=== PATIENT | male | born 1935 | race African-American/Black ===

== ENCOUNTER 2018-04-17 08:13 | Day surgery (SDC) | payer MEDICARE ==
[2018-04-17] MEDS ORDERED: ACETAMINOPHEN 325 MG TABLET ONE (08:47)
[2018-04-17] MEDS ORDERED: DIPHENHYDRAMINE 50 MG/ML VIAL ONE (08:50)
[2018-04-17] MEDS ORDERED: NA CHLORIDE 0.9% 500 ML ONE (09:08)
[2018-04-17 17:21] LABS: Hematocrit 27.5 % (39.6-49.0)
== END 2018-04-17 17:00 | disposition home or self-care (01) ==
LOC: DS 08:13
PROVIDERS: ATTEND Internal Medicine Hematology & Oncology
DX: D64.9 Anemia, unspecified (principal); D46.9 Myelodysplastic syndrome, unspecified
CPT/HCPCS: 36415; 36430; 85014; 85018; 86850; 86900; 86901; P9016 ×2

== ENCOUNTER 2018-05-14 13:56 | Observation (INO) | payer MEDICARE ==
[2018-05-14 16:03] LABS: Absolute Lymphocytes (CBC) 0.8 K/uL (0.7-4.9); Absolute Monocytes 1.5 K/uL (0.1-1.3); Basophils % 1.2 % (0-1.3); Eosinophils % 1.3 % (0-4.4); Lymphocytes % 24.3 % (15.3-44.8); MCH 37.8 pg (27.0-35.0); MCV 109.8 fL (80-100); MPV 8.9 fL (7.6-11.3); Monocytes % 43.4 % (3.3-12.3); RBC Red Blood Cell Count 1.82 M/uL (4.33-5.43)
[2018-05-14 16:31] LABS: ALT/SGPT 13 U/L (12-78); AST/SGOT 19 U/L (15-37); Albumin 3.2 g/dL (3.4-5.0); Alkaline Phosphatase 61 U/L (45-117); BUN Blood Urea Nitrogen 8 mg/dL (7-18); Bicarbonate 31 mmol/L (21-32); Bilirubin Direct 0.2 mg/dL (0-0.2); Bilirubin Total 0.5 mg/dL (0.2-1.0); Glucose Level 107 mg/dL (74-106); Potassium 4.4 mmol/L (3.5-5.1); Protein, Total 8.3 g/dL (6.4-8.2); Sodium Level 141 mmol/L (136-145)
[2018-05-14 16:46] LABS: Urine Blood TRACE (NEG); Urine Glucose NEGATIVE (NEG); Urine Protein 1+ (NEG)
[2018-05-14 16:52] LABS: Anisocytosis 3+; Blood Morphology Comment NOTED (NOT SEEN); Macrocytosis 1+; Platelet Estimate ADEQ; Urine White Blood Cell Casts OK
[2018-05-14 16:53] LABS: Ovalocytes SLIGHT; Poikilocytosis 1+; Spherocyte 1+; Stomatocytes 1+
--- NOTE | 2018-05-14 18:45 | ER ---
Nurse's Notes [facility] Name: Vineet Freeman Age: 82 yrs Sex: Male : 1935 Arrival Date: 05/14/2018 Time: 13:59 Bed 17 Private MD: MADDIE PETERS Diagnosis: Anemia, unspecified Presentation: 05/14 14:01 Presenting complaint: Patient states: low hemoglobin level, sent by Dr Altamirano. Transition sv of care: patient was not received from another setting of care. Onset of symptoms was May 14, 2018. Care prior to arrival: None. 14:01 Method Of Arrival: Wheelchair sv 14:01 Acuity: VEDA 3 sv 14:06 Risk Assessment: Do you want to hurt yourself or someone else? Patient reports no rb1 desire to harm self or others. Initial Sepsis Screen: Does the patient meet any 2 criteria? No. Patient's initial sepsis screen is negative. Does the patient have a suspected source of infection? No. Patient's initial sepsis screen is negative. Historical: - Allergies: 14:02 No Known Allergies; sv - Home Meds: 14:06 amlodipine 5 mg tab 1 tab once daily [Active]; colchicine 0.6 mg Oral tab 1 tab 2 times rb1 per day [Active]; folic acid 1 mg Oral tab 1 tab once daily [Active]; metoprolol tartrate 25 mg Oral tab 1 tab 2 times per day [Active]; Metoprolol Tartrate Oral [Active]; omeprazole 20 mg Oral cpDR 1 cap once daily [Active]; tramadol 50 mg Oral tab 1 tab every 6 hours [Active]; - PMHx: 14:02 Anemia; Chronic pain; Gout; Hypertension; insomnia; sv 14:06 Leukemia; rb1 - PSHx: 14:06 Neck; Back; rb1 - Immunization history:: Flu vaccine is not up to date. - Social history:: Smoking status: Patient/guardian denies using tobacco. - Ebola Screening: : No symptoms or risks identified at this time. Screenin:06 Abuse screen: Denies threats or abuse. Nutritional screening: No deficits noted. rb1 Tuberculosis screening: No symptoms or risk factors identified. Fall Risk No fall in past 12 months (0 pts). Assessment: 14:06 General: Appears in no apparent distress. comfortable, Behavior is calm, cooperative, rb1 Denies fever. Pain: Denies pain. Neuro: Level of Consciousness is awake, alert, obeys commands, Oriented to person, place, time, situation. Cardiovascular: Capillary refill < 3 seconds is brisk in bilateral fingers. Respiratory: Airway is patent Respiratory effort is even, unlabored, Respiratory pattern is regular, symmetrical. Respiratory: Reports cough that is dry. GI: No signs and/or symptoms were reported involving the gastrointestinal system. : No signs and/or symptoms were reported regarding the genitourinary system. Derm: Skin is dry, Skin is normal, Skin temperature is warm. 14:06 Musculoskeletal: Range of motion: limited in neck. rb1 15:00 Reassessment: Patient appears in no apparent distress at this time. No changes from rb1 previously documented assessment. 16:00 Reassessment: Patient appears in no apparent distress at this time. Patient and/or rb1 family updated on plan of care and expected duration. Pain level reassessed. Patient is alert, oriented x 3, equal unlabored respirations, skin warm/dry/pink. Patient denies pain at this time. 17:00 Reassessment: Patient appears in no apparent distress at this time. No changes from rb1 previously documented assessment. Provider at bedside. 18:20 Reassessment: Pt. expressed concern about not having transportation home after the rb1 infusion tonight. Pt. would like to be discharged this evening and come back in the morning for the transfusion. VEL Gibbs was notified. 18:31 Reassessment: VEL Gibbs spoke to Dr. Altamirano and explained the concern of the pt. Dr. watson Altamirano wants the pt. to be admitted to receive the transfusion tonight per VEL Gibbs. Pt. was updated on POC and agreed to be admitted. 18:36 Reassessment: Called Ashley, girlfriend of Mr. Freeman at per pt request to [facility] inform her that the pt. was being admitted so he can received two units of blood. Vital Signs: 14:03 BP 155 / 6; Pulse 67; Resp 18; Pulse Ox 94% ; Weight 84.37 kg; Height 5 ft. 10 in. sv (177.80 cm); Pain 0/10; 15:00 BP 149 / 52; Pulse 53; Resp 17; Pulse Ox 96% on R/A; Pain 0/10; rb1 16:00 BP 156 / 50; Pulse 47; Resp 18; Pulse Ox 95% on R/A; rb1 17:00 BP 163 / 51; Pulse 55; Resp 17; Pulse Ox 93% on R/A; rb1 18:00 BP 142 / 70; Pulse 75; Resp 17; Pulse Ox 95% on R/A; Pain 0/10; rb1 18:45 BP 140 / 41; Pulse 51; Resp 16; Pulse Ox 96% on R/A; rb1 14:03 Body Mass Index 26.69 (84.37 kg, 177.80 cm) ED Course: 13:59 Patient arrived in ED. sb2 13:59 MADDIE PETERS is Private Physician. sb2 14:02 Triage completed. sv 14:03 Arm band placed on. sv 14:04 Solitario Gibbs NP is PHCP. pm1 14:04 Kameron Marshall MD is Attending Physician. pm1 14:06 Patient has correct armband on for positive identification. Placed in gown. Bed in low rb1 position. Call light in reach. Side rails up X 1. Pulse ox on. NIBP on. 14:34 Radha Franco, RN is Primary Nurse. rb1 15:15 Missed attempt(s): 22 gauge in left forearm. Labs collected by oh.. rb1 15:20 Inserted saline lock: 20 gauge in left forearm, using aseptic technique. ,using aseptic rb1 technique. Inserted by NABILA Henry. 16:50 Type And Screen Sent. rb1 18:44 Malcolm Zamora MD is Hospitalizing Provider. pm1 19:00 Report given to KYLEE Guevara. rb1 20:15 No provider procedures requiring assistance completed. Patient admitted, IV remains in ak1 place. Administered Medications: No medications were administered Outcome: 18:44 Decision to Hospitalize by Provider. pm1 20:16 Admitted to Med/surg accompanied by nurse, accompanied by tech, via stretcher, room ak1 427, with chart. 20:16 Condition: good 20:16 Instructed on the need for admit. 20:44 Patient left the ED. ak1 Signatures: Jessie Jones RN RN Paola Salcedo RN RN ak1 Radha Franco, KYLEE PICHARDO rb1 Solitario Gibbs NP TIN STACKER pm1 Priscila White sb2
--- NOTE | 2018-05-14 18:45 | EDPHYS ---
Physician Documentation [facility] Name: Vineet Freeman Age: 82 yrs Sex: Male : 1935 Arrival Date: 05/14/2018 Time: 13:59 Bed 17 Private MD: MADDIE PETERS ED Physician Kameron Marshall HPI: 05/14 17:14 This 82 yrs old Black Male presents to ER via Wheelchair with complaints of Abnormal pm1 Lab Results. 17:14 Patient with low hemoglobin levels according to Dr. Altamirano. Severity of symptoms: Pain is pm1 currently a 0 / 10. Patient had his labs drawn yesterday and was told today that his hemoglobin level is low by Dr. Altamirano. Patient sent here for evaluation and treatment. Patient does not have any symptoms of anemia. No headache, weakness, chest pain, or shortness of breath. Patient denies any dark or tarry stool. Historical: - Allergies: 14:02 No Known Allergies; sv - Home Meds: 14:06 amlodipine 5 mg tab 1 tab once daily [Active]; colchicine 0.6 mg Oral tab 1 tab 2 times rb1 per day [Active]; folic acid 1 mg Oral tab 1 tab once daily [Active]; metoprolol tartrate 25 mg Oral tab 1 tab 2 times per day [Active]; Metoprolol Tartrate Oral [Active]; omeprazole 20 mg Oral cpDR 1 cap once daily [Active]; tramadol 50 mg Oral tab 1 tab every 6 hours [Active]; - PMHx: 14:02 Anemia; Chronic pain; Gout; Hypertension; insomnia; sv 14:06 Leukemia; rb1 - PSHx: 14:06 Neck; Back; rb1 - Immunization history:: Flu vaccine is not up to date. - Social history:: Smoking status: Patient/guardian denies using tobacco. - Ebola Screening: : No symptoms or risks identified at this time. ROS: 17:14 Constitutional: Negative for fever, chills, and weight loss, Eyes: Negative for injury, pm1 pain, redness, and discharge, ENT: Negative for injury, pain, and discharge, Neck: Negative for injury, pain, and swelling, Cardiovascular: Negative for chest pain, palpitations, and edema, Respiratory: Negative for shortness of breath, cough, wheezing, and pleuritic chest pain, Abdomen/GI: Negative for abdominal pain, nausea, vomiting, diarrhea, and constipation, Back: Negative for injury and pain, MS/Extremity: Negative for injury and deformity, Skin: Negative for injury, rash, and discoloration, Neuro: Negative for headache, weakness, numbness, tingling, and seizure. Exam: 17:14 Constitutional: This is a well developed, well nourished patient who is awake, alert, pm1 and in no acute distress. Head/Face: Normocephalic, atraumatic. Eyes: Pupils equal round and reactive to light, extra-ocular motions intact. Lids and lashes normal. Conjunctiva and sclera are non-icteric and not injected. Cornea within normal limits. Periorbital areas with no swelling, redness, or edema. ENT: Nares patent. No nasal discharge, no septal abnormalities noted. Tympanic membranes are normal and external auditory canals are clear. Oropharynx with no redness, swelling, or masses, exudates, or evidence of obstruction, uvula midline. Mucous membranes moist. Neck: Trachea midline, no thyromegaly or masses palpated, and no cervical lymphadenopathy. Supple, full range of motion without nuchal rigidity, or vertebral point tenderness. No Meningismus. Chest/axilla: Normal chest wall appearance and motion. Nontender with no deformity. No lesions are appreciated. Cardiovascular: Regular rate and rhythm with a normal S1 and S2. No gallops, murmurs, or rubs. Normal PMI, no JVD. No pulse deficits. Respiratory: Lungs have equal breath sounds bilaterally, clear to auscultation and percussion. No rales, rhonchi or wheezes noted. No increased work of breathing, no retractions or nasal flaring. Abdomen/GI: Soft, non-tender, with normal bowel sounds. No distension or tympany. No guarding or rebound. No evidence of tenderness throughout. Back: No spinal tenderness. No costovertebral tenderness. Full range of motion. MS/ Extremity: Pulses equal, no cyanosis. Neurovascular intact. Full, normal range of motion. 17:14 Skin: Appearance: normal except for affected area, Color: pale. 17:14 Neuro: Orientation: is normal, Motor: is normal, moves all fours. Vital Signs: 14:03 BP 155 / 6; Pulse 67; Resp 18; Pulse Ox 94% ; Weight 84.37 kg; Height 5 ft. 10 in. sv (177.80 cm); Pain 0/10; 15:00 BP 149 / 52; Pulse 53; Resp 17; Pulse Ox 96% on R/A; Pain 0/10; rb1 16:00 BP 156 / 50; Pulse 47; Resp 18; Pulse Ox 95% on R/A; rb1 17:00 BP 163 / 51; Pulse 55; Resp 17; Pulse Ox 93% on R/A; rb1 18:00 BP 142 / 70; Pulse 75; Resp 17; Pulse Ox 95% on R/A; Pain 0/10; rb1 18:45 BP 140 / 41; Pulse 51; Resp 16; Pulse Ox 96% on R/A; rb1 14:03 Body Mass Index 26.69 (84.37 kg, 177.80 cm) sv MDM: 14:05 Patient medically screened. pm1 17:19 Physician consultation: Maya Keating MD was called at 17:10. pm1 18:15 Data reviewed: vital signs. pm1 18:15 Physician consultation: Maya Keating MD was contacted at 18:00, regarding pm1 consult, patient's condition, Dr Altamirano discussed with Dr. Marshall, wants two units PRBCs then discharge. 18:31 Physician consultation: Maya Keating MD was contacted at 18:31, regarding pm1 patient's condition, would like admission per Dr. Malcolm Zamora MD Wants patient admitted for observation for transfusion of 2 units of blood. She will be out of town tomorrow but Dr. Nielson will be available as needed. 19:08 Physician consultation: Malcolm Zamora MD was contacted at 19:09, regarding admission, pm1 patient's condition, and will see patient. 05/14 14:13 Order name: Basic Metabolic Panel; Complete Time: 17:06 pm1 05/14 14:13 Order name: CBC with Diff; Complete Time: 17:06 pm1 05/14 14:13 Order name: Hepatic Function; Complete Time: 17:06 pm1 05/14 16:04 Order name: Urine Dipstick--Ancillary (enter results); Complete Time: 17:06 eb 05/14 16:09 Order name: Type And Screen pm1 05/14 16:30 Order name: CBC Smear Scan; Complete Time: 17:06 EDMS 05/14 14:13 Order name: IV Saline Lock; Complete Time: 15:21 pm1 05/14 14:13 Order name: Labs collected and sent; Complete Time: 15:21 pm1 05/14 14:13 Order name: Urine Dipstick-Ancillary (obtain specimen); Complete Time: 17:28 pm1 05/14 15:41 Order name: Labs - recollect needed; Complete Time: 15:50 eb 05/14 17:37 Order name: Packed RBC Leukored -1 EDVA Administered Medications: No medications were administered Disposition: 05/14/18 18:44 Hospitalization ordered by Malcolm Zamora for Observation. Preliminary diagnosis is Anemia, unspecified. - Bed requested for Telemetry/MedSurg (observation). - Status is Observation. ak1 - Condition is Stable. - Problem is new. - Symptoms have improved. UTI on Admission? No Addendum: 05/16/2018 13:34 Co-signature as Attending Physician, Kameron Marshall MD I agree with the assessment and k dr plan of care. Signatures: Dispatcher [employer] [facility] Jessie Jones, RN RN Kameron Marshall MD MD [facility] Juani Tijerina RN RN iw Paola Salcedo RN RN ak1 Radha Franco RN RN rb1 Solitario Gibbs NP HOMICIDE INVESTIGATOR pm1 Kailey Cueto Corrections: (The following items were deleted from the chart) 05/14 19:06 18:31 Physician consultation: Maya Keating MD was contacted at 18:31, pm1 regarding patient's condition, would like admission per Dr. Malcolm Zamora MD Wants patient admitted for observation for transfusion of 2 units of blood, pm1 19:19 18:44 Hospitalization Ordered by Malcolm Zamora MD for Observation. Preliminary iw diagnosis is Anemia, unspecified. Bed requested for Telemetry/MedSurg (observation). Status is Observation. Condition is Stable. Problem is new. Symptoms have improved. UTI on Admission? No. pm1 20:44 19:19 05/14/2018 18:44 Hospitalization Ordered by Malcolm Zamora MD for Observation. ak1 Preliminary diagnosis is Anemia, unspecified. Bed requested for Telemetry/MedSurg (observation). Status is Observation. Condition is Stable. Problem is new. Symptoms have improved. UTI on Admission? No. iw
[2018-05-14] MEDS ORDERED: NA CHLORIDE 0.9% 250 ML ONE (19:16)
[2018-05-14] MEDS ORDERED: ONDANSETRON 4 MG/2 ML VIAL IV PRN (19:47)
[2018-05-14] MEDS ORDERED: MORPHINE 2 MG/ML SYR IV PRN (19:47)
[2018-05-14] MEDS ORDERED: FUROSEMIDE 20 MG/ 2ML VIAL IV ONE (19:47)
[2018-05-14] MEDS ORDERED: ACETAMINOPHEN 500 MG TAB PO PRN (19:47)
[2018-05-14] MEDS ORDERED: NA CHLORIDE 0.9% 250 ML IV SCH (20:00)
[2018-05-14 20:47] VITALS: BMI 27.3
[2018-05-14] MEDS: PANTOPRAZOLE 40 MG INJ IVP SCH (21:33)
[2018-05-15 05:25] LABS: Absolute Lymphocytes (CBC) 1.2 K/uL (0.7-4.9); Absolute Neutrophil 0.8 K/uL (1.8-8.0); Basophils % 1.3 % (0-1.3); Eosinophils % 2.1 % (0-4.4); Hematocrit 25.1 % (39.6-49.0); Lymphocytes % 29.2 % (15.3-44.8); MCV 103.2 fL (80-100); MPV 8.9 fL (7.6-11.3); Monocytes % 47.4 % (3.3-12.3); RBC Red Blood Cell Count 2.44 M/uL (4.33-5.43)
[2018-05-15 05:48] LABS: BUN Blood Urea Nitrogen 8 mg/dL (7-18); Bicarbonate 33 mmol/L (21-32); Glucose Level 92 mg/dL (74-106); Sodium Level 141 mmol/L (136-145)
[2018-05-15] MEDS ORDERED: MORPHINE 4 MG/ML SYR IV PRN (07:30)
[2018-05-15] MEDS ORDERED: INFLUENZA VACCINE (for 3y+) 0.5 ML DOSE IMVAC ONE (08:00)
[2018-05-15] MEDS ORDERED: FUROSEMIDE 20 MG/ 2ML VIAL IV ONE (08:02)
[2018-05-15] MEDS ORDERED: AMLODIPINE 10 MG TAB PO ONE (08:02)
--- NOTE | 2018-05-15 08:07 | P.HP ---
Certification for Inpatient Patient admitted to: Observation With expected LOS: <2 Midnights Patient will require the following post-hospital care: None Practitioner: I am a practitioner with admitting privileges, knowledge of patient current condition, hospital course, and medical plan of care. Services: Services provided to patient in accordance with Admission requirements found in Title 42 Section 412.3 of the Code of Federal Regulations Patient History Date of Service: 05/14/18 Reason for admission: Anemia History of Present Illness: Patient is an 82-year-old gentleman who came into the hospital for a blood transfusion. Patient has multiple antibodies and because he was so severely anemic it was decided that it would be best to have him admitted for observation. Patient was lightheaded and fatigued as well as short of breath. Otherwise patient denies any signs of active bleeding. We have gone ahead and typed and crossed him and will wait for transfusion. Anticipate discharge home after transfusion. Allergies No Known Allergies Allergy (Unverified 12/26/16 21:13) Home Medications: Allopurinol 100 mg PO DAILY #30 tablet 12/27/16 Cyanocobalamin (Vitamin B-12) [Vitamin B-12] 1,000 mcg PO DAILY #30 tablet 12/27 Amlodipine Besylate [Norvasc] 5 mg PO DAILY #30 tablet 12/28/16 Docusate [Colace Cap*] 1 tab PO DAILY PRN 05/14/18 Magnesium Oxide [Magnesium] 1 tab PO DAILY 05/14/18 - Past Medical/Surgical History Has patient received pneumonia vaccine in the past: Yes Diabetic: No -: Hypertension -: Gout -: Borderline diabetes -: Obesity -: Iron deficiency anemia -: Chronic back pain -: leukemia -: Spinal Fusion-2004 Psychosocial/ Personal History: The patient is . He has 3 children. He lives with a girlfriend. He no longer works. - Family History Father Family History: Reviewed- Non-Contributory - Social History Smoking Status: Former smoker Alcohol use: No CD- Drugs: No Caffeine use: Yes Place of Residence: Home Review of Systems 10-point ROS is otherwise unremarkable Physical Examination - Vital Signs Temperature: 98.4 F Blood Pressure: 165/66 Pulse: 52 Respirations: 18 Pulse Ox (%): 96 - Physical Exam General: Alert, In no apparent distress, Oriented x3 HEENT: Atraumatic, PERRLA, Mucous membr. moist/pink, EOMI, Sclerae nonicteric Neck: Supple, 2+ carotid pulse no bruit, No LAD, Without JVD or thyroid abnormality Respiratory: Clear to auscultation bilaterally, Normal air movement Cardiovascular: Regular rate/rhythm, Normal S1 S2, No murmurs Gastrointestinal: Normal bowel sounds, Soft and benign, Non-distended, No tenderness, No rebound, No guarding Musculoskeletal: No clubbing, No swelling, No tenderness Integumentary: No rashes Neurological: Normal gait, Normal speech, Normal strength at 5/5 x4 extr, Normal tone, Sensation intact, Cranial nerves 3-12 intact, Normal affect Lymphatics: No axilla or inguinal lymphadenopathy - Studies Laboratory Data (last 24 hrs) 05/14/18 15:48: WBC 3.4 L, Hgb 6.9 L*, Hct 20.0 L*, Plt Count 159 05/14/18 15:15: Sodium 141, Potassium 4.4, BUN 8, Creatinine 0.60, Glucose 107 H , Total Bilirubin 0.5, AST 19, ALT 13, Alkaline Phosphatase 61 Assessment & Plan - Problems (Diagnosis) (1) Anemia Onset Date: 12/27/16 Current Visit: No Status: Acute Qualifiers: Anemia type: iron deficiency (2) Alcohol abuse Onset Date: 12/27/16 Current Visit: No Status: Chronic (3) B12 deficiency Onset Date: 12/27/16 Current Visit: No Status: Chronic (4) Chronic back pain Onset Date: 12/27/16 Current Visit: No Status: Chronic (5) Gout Onset Date: 12/27/16 Current Visit: No Status: Chronic Qualifiers: (6) Hypertension Onset Date: 12/27/16 Current Visit: No Status: Chronic Qualifiers: (7) Obesity Onset Date: 12/27/16 Current Visit: No Status: Chronic - Plan Plan: 1. Transfuse 2 units of packed red blood cells 2. Plan of discharge after transfusion next 3. Monitor hemodynamics closely 4. Monitor symptoms closely as well and anticipate discharge home as long as symptoms have resolved and blood count is improved. Discharge Plan: Home Plan to discharge in: 24 Hours - Advance Directives Does patient have a Living Will: No Does patient have a Durable POA for Healthcare: Yes - Code Status/Comfort Care Code Status Assessed: Yes Code Status: Full Code Critical Care: No Time Spent Managing PTS Care (In Minutes): 50
[2018-05-15] MEDS: PANTOPRAZOLE 40 MG INJ IVP SCH (08:13)
[2018-05-15 12:16] VITALS: BP 158/65; O2SAT 91
[2018-05-15 12:25] VITALS: TEMP 99
== END 2018-05-15 12:12 | disposition home health service (06) ==
LOC: ER 13:56 → ERHOLD 19:16 → 4TH 20:04
PROVIDERS: ADMIT Hospitalist; ATTEND Hospitalist
PROC: 30233N1 Transfusion of Nonautologous Red Blood Cells into Peripheral Vein, Percutaneous Approach (ICD-10-PCS; principal; 2018-05-14)
DX: D50.9 Iron deficiency anemia, unspecified (principal); E53.8 Deficiency of other specified B group vitamins; I10 Essential (primary) hypertension; M10.9 Gout, unspecified; F10.10 Alcohol abuse, uncomplicated; M54.9 Dorsalgia, unspecified; E66.9 Obesity, unspecified; Z68.27 Body mass index [BMI] 27.0-27.9, adult; Z23 Encounter for immunization
CPT/HCPCS: 36415; 36430; 80048 ×2; 80076; 81003; 85025 ×2; 86850; 86900; 86901; 99285; C9113 ×2; G0008; J1940 ×2; P9016 ×2; Q2035

== ENCOUNTER 2018-06-19 08:10 | Day surgery (SDC) | payer MEDICARE ==
[2018-06-19] MEDS ORDERED: NA CHLORIDE 0.9% 250 ML ONE ×2 (09:25→12:25)
[2018-06-19 15:09] VITALS: BMI 26.8
[2018-06-19 16:27] LABS: Hematocrit 24.2 % (39.6-49.0)
[2018-06-19 17:36] VITALS: BP 139/46; TEMP 98.1; O2SAT 98
== END 2018-06-19 16:00 | disposition home or self-care (01) ==
LOC: DS 08:10
PROVIDERS: ATTEND Internal Medicine Hematology & Oncology
DX: D64.9 Anemia, unspecified (principal); D46.9 Myelodysplastic syndrome, unspecified
CPT/HCPCS: 36415; 36430; 85014; 85018; 86850; 86900; 86901; P9016 ×2

== ENCOUNTER 2018-07-15 08:15 | Day surgery (SDC) | payer MEDICARE ==
--- OUTSIDE RECORDS SUMMARY | 2018-07-15 08:19 | XMS REPORT ---
:1935 Author Organization [facility] Address [facility] [place] [address] Care Team Providers Name Role Phone Unavailable Unavailable Unavailable Problems This patient has no known problems. Allergies, Adverse Reactions, Alerts This patient has no known allergies or adverse reactions. Medications This patient has no known medications.
[2018-07-15] MEDS ORDERED: NA CHLORIDE 0.9% 250 ML ONE ×2 (08:40→08:51)
[2018-07-15] MEDS ORDERED: AMLODIPINE 5 MG TAB PO ONE (10:00)
[2018-07-15 10:06] VITALS: BMI 26.9
[2018-07-15 16:20] VITALS: BP 155/53; TEMP 97.6; O2SAT 96
[2018-07-15 18:14] LABS: Hematocrit 22.3 % (39.6-49.0)
== END 2018-07-15 18:01 | disposition home or self-care (01) ==
LOC: DS 08:15
PROVIDERS: ATTEND Internal Medicine Hematology & Oncology
DX: D46.9 Myelodysplastic syndrome, unspecified (principal); D64.9 Anemia, unspecified
CPT/HCPCS: 36415; 36430; 85014; 85018; 86850; 86900; 86901; P9016 ×2

== ENCOUNTER 2018-07-22 13:35 | Inpatient (IN) | payer MEDICARE ==
[2018-07-22 15:22] LABS: Protime INR 1.53
--- NOTE | 2018-07-22 15:24 | RAD REPORT ---
EXAM DESCRIPTION: RAD - Chest Single View - 07/22/2018 3:16 pm CLINICAL HISTORY: CHEST PAIN Chest pain. COMPARISON: Chest Single View dated 12/26/2016 FINDINGS: Portable technique limits examination quality. Mild interstitial pulmonary edema seen. Moderate bilateral pleural effusions are present, greater on the right. The heart is upper limit normal in size. No displaced fractures. IMPRESSION: Moderate CHF versus volume overload pattern.
[2018-07-22 15:30] LABS: Absolute Lymphocytes (CBC) 0.7 K/uL (0.7-4.9); Absolute Monocytes 2.1 K/uL (0.1-1.3); Absolute Neutrophil 1.6 K/uL (1.8-8.0); Basophils % 0.6 % (0-1.3); Eosinophils % 0.5 % (0-4.4); Hematocrit 21.3 % (39.6-49.0); Lymphocytes % 16.5 % (15.3-44.8); MPV 9.2 fL (7.6-11.3); Monocytes % 47.8 % (3.3-12.3); RBC Red Blood Cell Count 2.01 M/uL (4.33-5.43)
[2018-07-22 15:33] LABS: Urine Blood 1+ (NEG); Urine Glucose NEGATIVE (NEG); Urine Protein 2+ (NEG); Urine Specific Gravity 1.025 (1.005-1.030); Urine pH 5.5 (5.0-7.0)
[2018-07-22 15:44] LABS: ALT/SGPT 13 U/L (12-78); AST/SGOT 13 U/L (15-37); Albumin 2.9 g/dL (3.4-5.0); Alkaline Phosphatase 62 U/L (45-117); BUN Blood Urea Nitrogen 12 mg/dL (7-18); Bicarbonate 39 mmol/L (21-32); Bilirubin Direct 0.4 mg/dL (0-0.2); Glucose Level 104 mg/dL (74-106); Magnesium 1.8 mg/dL (1.8-2.4); NT PRO-BNP 2200 pg/mL (<450); Potassium 3.8 mmol/L (3.5-5.1); Protein, Total 8.3 g/dL (6.4-8.2); Sodium Level 139 mmol/L (136-145); Troponin (Emerg Dept Use Only) 0.11 ng/mL (0.0-0.045)
--- NOTE | 2018-07-22 16:41 | ER ---
Nurse's Notes [facility] Name: Vineet Freeman Age: 82 yrs Sex: Male : 1935 Arrival Date: 07/22/2018 Time: 13:38 Bed 8 Private MD: Diagnosis: Anemia, unspecified;Shortness of breath Presentation: 07/22 13:38 Presenting complaint: Patient states: I have CHF and Leukemia and I have been getting la1 really SOB over the last day, EMS reports pt on home 02 at 2L and his sats were 76%. Transition of care: patient was not received from another setting of care. Onset of symptoms was July 22, 2018. Risk Assessment: Do you want to hurt yourself or someone else? Patient reports no desire to harm self or others. Initial Sepsis Screen: Does the patient meet any 2 criteria? No. Patient's initial sepsis screen is negative. Does the patient have a suspected source of infection? No. Patient's initial sepsis screen is negative. Care prior to arrival: IV initiated. 18 GA, in the right antecubital area. 13:38 Method Of Arrival: EMS: [facility] la1 13:38 Acuity: VEDA 2 la1 Triage Assessment: 14:30 General: Behavior is calm, cooperative, appropriate for age. General: Appears in no sg apparent distress. comfortable, unkempt, well developed, well nourished. Pain: Denies pain. Respiratory: the patient has moderate shortness of breath. Respiratory: Airway is patent Respiratory effort is even, labored, Respiratory pattern is regular. Respiratory: Breath sounds with crackles in left posterior lower lobe and right posterior lower lobe. Derm: Skin is intact, is fragile, is thin, Skin is dry, Skin is normal, Skin temperature is cool. Historical: - Allergies: 13:40 No Known Allergies; la1 - PMHx: 13:40 Anemia; Chronic pain; Gout; Hypertension; insomnia; Leukemia; CHF; la1 - Immunization history:: Adult Immunizations up to date. - Social history:: Smoking status: unknown. - Ebola Screening: : No symptoms or risks identified at this time. Screenin:41 Abuse screen: Denies threats or abuse. Nutritional screening: No deficits noted. la1 Tuberculosis screening: No symptoms or risk factors identified. Fall Risk No fall in past 12 months (0 pts). Secondary diagnosis (15 points) IV access (20 points). Ambulatory Aid- None/Bed Rest/Nurse Assist (0 pts). Gait- Weak (10 pts.). Mental Status- Oriented to own ability (0 pts). Total Carey Fall Scale indicates High Risk Score (45 or more points). As available patient and family educated on Fall Prevention Program and Strategies. Assessment: 14:30 Reassessment: Patient appears in no apparent distress at this time. Patient and/or sg family updated on plan of care and expected duration. Pain level reassessed. Patient is alert, oriented x 3, equal unlabored respirations, skin warm/dry/pink. pt reports needing a urinal, pt call light remains within reach,pt educated on how to use call light, pt encouraged to utilized call light and not shout aloud, pt stated understanding. Awaiting ERP evaluation Patient states feeling better. General: Appears in no apparent distress. comfortable, unkempt, well developed, well nourished, Behavior is calm, cooperative, appropriate for age. Neuro: No deficits noted. Cardiovascular: Capillary refill is brisk in bilateral fingers Patient's skin is warm and dry. Chest pain is denied. Respiratory: Airway is patent Respiratory effort is even, unlabored, Breath sounds are coarse. Respiratory: Reports shortness of breath at rest on exertion. GI: No signs and/or symptoms were reported involving the gastrointestinal system. : No signs and/or symptoms were reported regarding the genitourinary system. EENT: No signs and/or symptoms were reported regarding the EENT system. Derm: Skin is fragile, is thin, Skin is dry, Skin is normal, Skin temperature is warm. Musculoskeletal: No signs and/or symptoms reported regarding the musculoskeletal system. 16:23 Reassessment: Patient appears in no apparent distress at this time. Patient and/or sg family updated on plan of care and expected duration. Pain level reassessed. Patient is alert, oriented x 3, equal unlabored respirations, skin warm/dry/pink. pt reports feeling hungry at this time, notified, orders received for a HH diet at this time, awaiting dietary tray from [facility] services, awaiting dispo orders at this time, will continue to monitor. Vital Signs: 13:39 BP 149 / 60; Pulse 58; Resp 18; Temp 97.7; Pulse Ox 98% 3 lpm ; Weight 87.09 kg; Height la1 5 ft. 10 in. (177.80 cm); 14:46 BP 148 / 53; Pulse 62; Resp 24; Pulse Ox 98% ; sv 15:40 BP 152 / 51; Pulse 55; Resp 23; Pulse Ox 97% ; sv 18:04 BP 144 / 56; Pulse 99; Resp 18 S; Temp 97.9; Pulse Ox 99% on 3 lpm NC; sg 13:39 Body Mass Index 27.55 (87.09 kg, 177.80 cm) la1 ED Course: 13:38 Patient arrived in ED. la1 13:39 Triage completed. la1 13:39 Arm band placed on left wrist. la1 13:41 Bed in low position. Call light in reach. Side rails up X 1. personnel arbitrator on. Pulse la1 ox on. NIBP on. 13:41 Maintain EMS IV. Dressing intact. Gauge \T\ site: 18 G rac. la1 13:48 Chano Bullard, RN is Primary Nurse. sg 14:10 EKG done, by electrical design technologist. reviewed by Kameron Marshall MD. at1 14:40 Initial lab(s) drawn, by az, sent to lab. sg 14:50 Kameron Marshall MD is Attending Physician. kdr 15:13 X-ray completed. Portable x-ray completed in exam room. Patient tolerated procedure sg4 well. 15:18 XRAY Chest (1 view) In Process Unspecified. EDMS 16:40 Jazz Grant MD is Hospitalizing Provider. kdr 18:00 No provider procedures requiring assistance completed. sg 18:00 Patient admitted, IV remains in place. intact, No redness/swelling at site. sg Administered Medications: No medications were administered Output: 14:55 Urine: 200ml (Voided); Total: 200ml. sg Outcome: 16:40 Decision to Hospitalize by Provider. kdr 18:06 Admitted to Tele accompanied by [facility], room 403, with oxygen, with chart, Report called sg to KYLEE Hopkins 18:06 Condition: stable 18:06 Instructed on the need for admit, safety practices, Demonstrated understanding of follow-up care. 18:31 Patient left the ED. sv Signatures: Dispatcher [employer] NABILAIL Jessie Jones RN RN sv Chano Bullard RN RN sg Kameron Marshall MD MD [facility] Yara Odonnell, limnologist EKG Tat1 Nile Fowler RN RN la1 Reece, Crystal sg4
--- NOTE | 2018-07-22 16:41 | EDPHYS ---
Physician Documentation [facility] Name: Vineet Freeman Age: 82 yrs Sex: Male : 1935 Arrival Date: 07/22/2018 Time: 13:38 Bed 8 Private MD: ED Physician Kameron Marshall HPI: 07/23 07:05 This 82 yrs old Black Male presents to ER via EMS with complaints of Shortness Of kdr Breath. 07:05 The patient has shortness of breath at rest, with light activity. Onset: The kdr symptoms/episode began/occurred gradually, 2 week(s) ago. Duration: The symptoms are continuous, and are steadily getting worse. The patient's shortness of breath is aggravated by exertion, light activity, is alleviated by nothing. Associated signs and symptoms: The patient has no apparent associated signs or symptoms. Severity of symptoms: At their worst the symptoms were mild moderate just prior to arrival, in the emergency department the symptoms are unchanged. The patient has experienced similar episodes in the past, a few times. 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 Historical: - Allergies: 07/22 13:40 No Known Allergies; la1 - PMHx: 13:40 Anemia; Chronic pain; Gout; Hypertension; insomnia; Leukemia; CHF; la1 - Immunization history:: Adult Immunizations up to date. - Social history:: Smoking status: unknown. - Ebola Screening: : No symptoms or risks identified at this time. ROS: 07/23 07:05 Constitutional: Negative for fever, chills, and weight loss, Eyes: Negative for injury, kdr pain, redness, and discharge, ENT: Negative for injury, pain, and discharge, Neck: Negative for injury, pain, and swelling, Cardiovascular: Negative for chest pain, palpitations, and edema, Abdomen/GI: Negative for abdominal pain, nausea, vomiting, diarrhea, and constipation, Back: Negative for injury and pain, : Negative for injury, bleeding, discharge, and swelling, MS/Extremity: Negative for injury and deformity, Skin: Negative for injury, rash, and discoloration, Neuro: Negative for headache, weakness, numbness, tingling, and seizure activity. Psych: Negative for depression, anxiety, suicide ideation, homicidal ideation, and hallucinations, Allergy/Immunology: Negative for hives, rash, and allergies, Endocrine: Negative for neck swelling, polydipsia, polyuria, polyphagia, and marked weight changes, Hematologic/Lymphatic: Negative for swollen nodes, abnormal bleeding, and unusual bruising. Respiratory: Positive for shortness of breath, Negative for cough, dyspnea on exertion, hemoptysis, orthopnea, pleurisy, sputum production, wheezing. Exam: 07:05 Constitutional: This is a well developed, well nourished patient who is awake, alert, kdr and in no acute distress. Head/Face: Normocephalic, atraumatic. Eyes: Pupils equal round and reactive to light, extra-ocular motions intact. Lids and lashes normal. Conjunctiva and sclera are non-icteric and not injected. Cornea within normal limits. Periorbital areas with no swelling, redness, or edema. Neck: Trachea midline, no thyromegaly or masses palpated, and no cervical lymphadenopathy. Supple, full range of motion without nuchal rigidity, or vertebral point tenderness. No Meningismus. Chest/axilla: Normal chest wall appearance and motion. Nontender with no deformity. No lesions are appreciated. Cardiovascular: Regular rate and rhythm with a normal S1 and S2. No gallops, murmurs, or rubs. Normal PMI, no JVD. No pulse deficits. Abdomen/GI: Soft, non-tender, with normal bowel sounds. No distension or tympany. No guarding or rebound. No evidence of tenderness throughout. 07:05 Respiratory: the patient does not display signs of respiratory distress, Respirations: normal, Breath sounds: rales, that are mild, are located in both bases, are heard diffusely. Vital Signs: 07/22 13:39 BP 149 / 60; Pulse 58; Resp 18; Temp 97.7; Pulse Ox 98% 3 lpm ; Weight 87.09 kg; Height la1 5 ft. 10 in. (177.80 cm); 14:46 BP 148 / 53; Pulse 62; Resp 24; Pulse Ox 98% ; sv 15:40 BP 152 / 51; Pulse 55; Resp 23; Pulse Ox 97% ; sv 18:04 BP 144 / 56; Pulse 99; Resp 18 S; Temp 97.9; Pulse Ox 99% on 3 lpm NC; sg 13:39 Body Mass Index 27.55 (87.09 kg, 177.80 cm) la1 MDM: 16:40 Patient medically screened. kdr 07/23 07:05 Data reviewed: vital signs, nurses notes, lab test result(s), radiologic studies. kdr Counseling: I had a detailed discussion with the patient and/or guardian regarding: the historical points, exam findings, and any diagnostic results supporting the discharge/admit diagnosis, lab results, radiology results, the need for further work-up and treatment in the hospital. 07/22 14:51 Order name: Basic Metabolic Panel; Complete Time: 16:14 kdr 07/22 14:51 Order name: CBC with Diff kdr 07/22 14:51 Order name: LFT's; Complete Time: 16:14 kdr 07/22 14:51 Order name: Magnesium; Complete Time: 16:14 kdr 07/22 14:51 Order name: NT PRO-BNP; Complete Time: 16:14 kdr 07/22 14:51 Order name: PT-INR; Complete Time: 16:14 kdr 07/22 14:51 Order name: Troponin (emerg Dept Use Only); Complete Time: 16:14 kdr 07/22 15:14 Order name: Urine Dipstick--Ancillary (enter results); Complete Time: 16:14 bd 07/22 16:58 Order name: Type And Screen [facility] 07/22 17:01 Order name: Bb Add On bd 07/22 17:08 Order name: Packed RBC Leukored -1 [facility] 07/22 17:08 Order name: Hematocrit [facility] 07/22 17:08 Order name: Hemoglobin [facility] 07/22 14:07 Order name: EKG; Complete Time: 14:07 sv 07/22 14:07 Order name: EKG - Nurse/Tech; Complete Time: 14:34 sv 07/22 14:51 Order name: XRAY Chest (1 view); Complete Time: 16:14 kdr 07/22 14:51 Order name: Cardiac monitoring; Complete Time: 15:14 kdr 07/22 14:51 Order name: IV Saline Lock; Complete Time: 15:14 kdr 07/22 14:51 Order name: Labs collected and sent; Complete Time: 15:21 kdr 07/22 14:51 Order name: O2 Per Protocol; Complete Time: 15:22 kdr 07/22 14:51 Order name: O2 Sat Monitoring; Complete Time: 15:22 kdr 07/22 16:17 Order name: Diet Heart Healthy; Complete Time: 16:18 bd 07/22 17:09 Order name: ABO/RH typing EDMS 07/22 17:09 Order name: Antibody Screen EDSD Administered Medications: No medications were administered Disposition: 07/22/18 16:40 Hospitalization ordered by Jazz Grant for Observation. Preliminary diagnosis are Anemia, unspecified, Shortness of breath. - Bed requested for Telemetry/MedSurg (observation). - Status is Observation. sv - Condition is Fair. - Problem is an acute exacerbation. - Symptoms are unchanged. UTI on Admission? No Signatures: Dispatcher [employer] EDMS Jessie Jones RN KYLEE sv Tamar Stearns RN RN dw Rittger, Kevin, MD MD kdr Attema, Lee, RN RN la1 Corrections: (The following items were deleted from the chart) 07/22 17:34 16:40 Hospitalization Ordered by Jazz Grant MD for Observation. Preliminary dw diagnosis is Anemia, unspecified; Shortness of breath. Bed requested for Telemetry/MedSurg (observation). Status is Observation. Condition is Fair. Problem is an acute exacerbation. Symptoms are unchanged. UTI on Admission? No. kdr 18:31 17:34 07/22/2018 16:40 Hospitalization Ordered by Jazz Grant MD for Observation. sv Preliminary diagnosis is Anemia, unspecified; Shortness of breath. Bed requested for Telemetry/MedSurg (observation). Status is Observation. Condition is Fair. Problem is an acute exacerbation. Symptoms are unchanged. UTI on Admission? No. dw
--- NOTE | 2018-07-22 17:16 | EKG ---
Test Date: 2018-07-22 Test Time: 13:57:14 Application Software Engineer: LUCERO MEASUREMENT RESULTS: Intervals: Rate: 55 OK: QRSD: 88 QT: 418 QTc: 399 Dillon: P: 53 OK: QRS: 44 T: 73 INTERPRETIVE STATEMENTS: Sinus tachycardia with 2nd degree AV block Nonspecific T wave abnormality Abnormal ECG Compared to ECG 12/26/2016 16:44:00 Atrial premature complex(es) no longer present First degree AV block no longer present T-wave abnormality still present Electronically Signed On 07-22-18 17:15:42 SCREEDMAN by Juan Jose Zavala
--- NOTE | 2018-07-22 17:35 | P.HP ---
Certification for Inpatient Patient admitted to: Observation With expected LOS: <2 Midnights Patient will require the following post-hospital care: None Practitioner: I am a practitioner with admitting privileges, knowledge of patient current condition, hospital course, and medical plan of care. Services: Services provided to patient in accordance with Admission requirements found in Title 42 Section 412.3 of the Code of Federal Regulations Patient History Date of Service: 07/22/18 Primary Care Provider: Dr Altamirano - Oncology Reason for admission: Symptomatic Anemia History of Present Illness: This is a 82-year-old male with past medical history of hypertension, myelodysplastic syndrome, or call abuse, B12 deficiency, refractor anemia who presented to the ED complaining of having some shortness of breath and generalized weakness. Patient stated that he has been followed up by oncologist and has been getting blood transfusion however he got worsening of his COPD and started having generalized weakness and thus he decided to come to the ER. Patient denied having any chest pain nausea vomiting abdominal pain or any other associated symptoms. Patient stated that his home health nurse did his lab work yesterday however hemoglobin is still pending from that. In the ER patient had lab work done which was consistent with low hemoglobin and this patient was referred over to admission for symptomatic anemia. Allergies No Known Allergies Allergy (Verified 07/15/18 09:06) Home Medications: Allopurinol 100 mg PO DAILY #30 tablet 12/27/16 Cyanocobalamin (Vitamin B-12) [Vitamin B-12] 1,000 mcg PO DAILY #30 tablet 12/27 Amlodipine Besylate [Norvasc] 5 mg PO DAILY #30 tablet 12/28/16 Docusate [Colace Cap*] 1 tab PO DAILY PRN 05/14/18 - Past Medical/Surgical History Diabetic: No -: Hypertension -: MDS neoplasma -: Spinal Fusion-2004 Psychosocial/ Personal History: The patient is . He has 3 children. He lives with a girlfriend. He no longer works. - Social History Alcohol use: No CD- Drugs: No Caffeine use: Yes Review of Systems 10-point ROS is otherwise unremarkable Physical Examination - Physical Exam General: Alert, Mild distress HEENT: Atraumatic, PERRLA, Mucous membr. moist/pink, EOMI, Sclerae nonicteric Neck: Supple, 2+ carotid pulse no bruit, No LAD, Without JVD or thyroid abnormality Respiratory: Normal air movement, Crackles/rales Cardiovascular: Regular rate/rhythm, Normal S1 S2 Gastrointestinal: Normal bowel sounds, No tenderness Musculoskeletal: No tenderness Integumentary: No rashes Neurological: Normal speech, Normal strength at 5/5 x4 extr, Normal tone Lymphatics: No axilla or inguinal lymphadenopathy - Studies Laboratory Data (last 24 hrs) 07/22/18 15:00: PT 18.1 H, INR 1.53 07/22/18 15:00: WBC 4.5, Hgb 7.1 L*, Hct 21.3 L, Plt Count 136 L 07/22/18 15:00: Sodium 139, Potassium 3.8, BUN 12, Creatinine 0.70, Glucose 104 , Magnesium 1.8, Total Bilirubin 1.0, AST 13 L, ALT 13, Alkaline Phosphatase 62 Assessment and Plan - Problems (Diagnosis) (1) Symptomatic anemia Current Visit: Yes Status: Acute Plan: 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 -Will transfuse 2 units -repeat H.H -PT consulted for weakness and dizziness -Anticipate DC in 24 to 48 hrs (2) GERD (gastroesophageal reflux disease) Onset Date: 12/27/16 Current Visit: No Status: Chronic Plan: Restart on home medication at this time Qualifiers: Esophagitis presence: without esophagitis (3) Hypertension Onset Date: 12/27/16 Current Visit: No Status: Chronic Plan: Restart all home medication at this time Qualifiers: Hypertension type: essential hypertension (4) MDS/MPN (myelodysplastic/myeloproliferative neoplasms) Current Visit: Yes Status: Chronic Plan: Currently being seen by Dr Altamirano -ANTHONY f/u Discharge Plan: Home Plan to discharge in: 48 Hours - Advance Directives Does patient have a Living Will: No Does patient have a Durable POA for Healthcare: Yes - Code Status/Comfort Care Code Status Assessed: Yes Critical Care: No
[2018-07-22] MEDS ORDERED: ONDANSETRON 4 MG/2 ML VIAL IV PRN (18:05)
[2018-07-22] MEDS ORDERED: POTASSIUM CL SA 10 MEQ TAB PO ONE ×2 (18:06→21:00)
[2018-07-22] MEDS ORDERED: MAGNESIUM SULFATE 1 gm IVPB 1 GM/100 ML BAG IV ONE ×2 (18:07→21:00)
[2018-07-22 20:30] LABS: Anisocytosis 3+; Blood Morphology Comment NOTED (NOT SEEN); Hypochromasia 1+; Macrocytosis 1+; Platelet Estimate DECR; Poikilocytosis SLIGHT; Teardrop Cell FEW
[2018-07-22] MEDS ORDERED: NA CHLORIDE 0.9% 250 ML ONE (21:17)
[2018-07-23] MEDS: FUROSEMIDE 20 MG/ 2ML VIAL IV SCH ×3 (04:07→09:40)
[2018-07-23] MEDS ORDERED: FUROSEMIDE 40 MG/4 ML VIAL IV ONE (04:38)
[2018-07-23 04:48] LABS: Absolute Lymphocytes (CBC) 0.9 K/uL (0.7-4.9); Absolute Monocytes 2.5 K/uL (0.1-1.3); Absolute Neutrophil 1.2 K/uL (1.8-8.0); Basophils % 1.1 % (0-1.3); Eosinophils % 0.9 % (0-4.4); MPV 9.5 fL (7.6-11.3); Monocytes % 53.2 % (3.3-12.3); RBC Red Blood Cell Count 2.42 M/uL (4.33-5.43)
[2018-07-23 05:18] LABS: ALT/SGPT 12 U/L (12-78); AST/SGOT 15 U/L (15-37); Alkaline Phosphatase 61 U/L (45-117); BUN Blood Urea Nitrogen 12 mg/dL (7-18); Bilirubin Total 1.6 mg/dL (0.2-1.0); Glucose Level 111 mg/dL (74-106); Protein, Total 8.2 g/dL (6.4-8.2); Sodium Level 139 mmol/L (136-145)
[2018-07-23 05:19] LABS: Bicarbonate 42 mmol/L (21-32)
[2018-07-23] MEDS: LOSARTAN POTASSIUM 50 MG TABLET PO SCH ×2 (06:05→09:40)
[2018-07-23] MEDS ORDERED: DOCUSATE NA 100 MG CAP PO PRN (09:46)
[2018-07-23 11:01] LABS: Arterial Blood Carboxyhemoglob 4.1 % (0-1.5); Blood Gas Oxyhemoglobin 89.2 % (94-97); Blood O2 Saturation 93.8 % (92-98.5)
--- NOTE | 2018-07-23 13:36 | ECHO ---
HEIGHT: 5 ft 10 in WEIGHT: 179 lb 14.4 oz DATE OF STUDY: 07/23/[address]: Jazz Grant MD 2-DIMENSIONAL: YES M.MODE: YES DOPPLER: YES COLOR FLOW: YES TDS: NO PORTABLE: NO DEFINITY: NO BUBBLE STUDY: NO DIAGNOSIS: CONGESTIVE HEART FAILURE CARDIAC HISTORY: CATHERIZATION: NO SURGERY: NO PROSTHETIC VALVE: NO PACEMAKER: NO MEASUREMENTS (cm) DIASTOLIC (NORMALS) SYSTOLIC (NORMALS) IVSd 1.5 (0.6-1.2) LA Diam 3.8 (1.9-4.0) LVEF 75% LVIDd 3.7 (3.5-5.7) LVIDs 2.1 (2.0-3.5) %FS 43% LVPWd 1.4 (0.6-1.2) Ao Diam 3.3 (2.0-3.7) 2 DIMENSIONAL ASSESSMENT: RIGHT ATRIUM: NORMAL LEFT ATRIUM: NORMAL RIGHT VENTRICLE: NORMAL LEFT VENTRICLE: LEFT VENTRICULAR HYPERTROPHY TRICUSPID VALVE: NORMAL MITRAL VALVE: NORMAL PULMONIC VALVE: NORMAL AORTIC VALVE: NORMAL PERICARDIAL EFFUSION: NONE AORTIC ROOT: NORMAL LEFT VENTRICULAR WALL MOTION: NORMAL. DOPPLER/COLOR FLOW: NORMAL. COMMENTS: NORMAL EJECTION FRACTION. CONCENTRIC LEFT VENTRICULAR HYPERTROPHY. DECREASED LEFT VENTRICULAR COMPLIANCE. LEFT PLEURAL EFFUSION. TECHNOLOGIST: JEFF HERMOSILLO RDCS
--- NOTE | 2018-07-23 15:42 | P.PN ---
Subjective Date of Service: 07/23/18 Primary Care Provider: Dr Altamirano - Oncology Chief Complaint: Symptomatic Anemia Review of Systems 10-point ROS is otherwise unremarkable Physical Examination - Vital Signs Temperature: 97.2 F Blood Pressure: 142/65 Pulse: 51 Respirations: 18 Pulse Ox (%): 97 - Physical Exam General: Alert, In no apparent distress HEENT: Atraumatic, PERRLA, EOMI Neck: Supple, JVD not distended Respiratory: Normal air movement, Crackles/rales Cardiovascular: Regular rate/rhythm, Normal S1 S2 Gastrointestinal: Normal bowel sounds, No tenderness Musculoskeletal: No tenderness Integumentary: No rashes Neurological: Normal speech, Normal tone, Normal affect Lymphatics: No axilla or inguinal lymphadenopathy - Studies Laboratory Data (last 24 hrs) 07/22/18 15:00: PT 18.1 H, INR 1.53 07/22/18 15:00: WBC 4.5, Hgb 7.1 L*, Hct 21.3 L, Plt Count 136 L 07/22/18 15:00: Sodium 139, Potassium 3.8, BUN 12, Creatinine 0.70, Glucose 104 , Magnesium 1.8, Total Bilirubin 1.0, AST 13 L, ALT 13, Alkaline Phosphatase 62 Medications List Reviewed: Yes Assessment And Plan - Current Problems (Diagnosis) (1) Respiratory failure Current Visit: Yes Status: Acute Plan: Acute hypercapnic respiratory failure most likely secondary to volume overload. -will go ahead and place patient on BiPAP at this time. -continue to monitor patient closely Qualifiers: Chronicity: acute Respiratory failure complication: hypoxia and hypercapnia Qualified Code(s): J96.01 - Acute respiratory failure with hypoxia ; J96.02 - Acute respiratory failure with hypercapnia (2) Volume overload Current Visit: Yes Status: Acute Plan: Volume Overload with xray with Congestion and pt with SOB. Most likely CHF exacerbation -ECHO pending -IV lasix 20 Daily for now. Will increase to 40mg today Qualifiers: Hypervolemia type: other Qualified Code(s): E87.79 - Other fluid overload (3) Pleural effusion Current Visit: Yes Status: Acute Plan: Pleural Effusion 2.2 to volume overload -IV lasix 40mg Daily (4) Symptomatic anemia Onset Date: 07/23/18 Current Visit: Yes Status: Acute Plan: 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 -S/p 2 units transfusion. Hgb now 10.0 -PT consulted for weakness and dizziness (5) GERD (gastroesophageal reflux disease) Onset Date: 12/27/16 Current Visit: No Status: Chronic Qualifiers: Esophagitis presence: without esophagitis (6) Hypertension Onset Date: 12/27/16 Current Visit: No Status: Chronic Qualifiers: Hypertension type: essential hypertension (7) MDS/MPN (myelodysplastic/myeloproliferative neoplasms) Onset Date: 07/23/18 Current Visit: Yes Status: Chronic Plan: Currently being seen by Dr Evelia SANTIAGO f/u Discharge Plan: Home Plan to discharge in: 48 Hours - Code Status/Comfort Care Code Status Assessed: Yes Critical Care: No
[2018-07-23] MEDS ORDERED: ENSURE ENLIVE 237 ML CAN PO SCH (18:00)
[2018-07-23] MEDS ORDERED: AMLODIPINE 5 MG TAB PO SCH (21:00)
[2018-07-24] MEDS: PANTOPRAZOLE 40MG TABLET PO SCH (05:39)
[2018-07-24 06:20] LABS: Absolute Monocytes 2.7 K/uL (0.1-1.3); Absolute Neutrophil 1.2 K/uL (1.8-8.0); Basophils % 0.4 % (0-1.3); Eosinophils % 1.2 % (0-4.4); Lymphocytes % 20.4 % (15.3-44.8); MPV 8.9 fL (7.6-11.3); Monocytes % 54.5 % (3.3-12.3)
[2018-07-24 06:48] LABS: ALT/SGPT 12 U/L (12-78); AST/SGOT 13 U/L (15-37); Albumin 2.9 g/dL (3.4-5.0); Alkaline Phosphatase 59 U/L (45-117); BUN Blood Urea Nitrogen 13 mg/dL (7-18); Bicarbonate 39 mmol/L (21-32); Glucose Level 107 mg/dL (74-106); Potassium 3.8 mmol/L (3.5-5.1); Protein, Total 8.2 g/dL (6.4-8.2); Sodium Level 139 mmol/L (136-145)
[2018-07-24 07:32] LABS: Anisocytosis 3+; Blood Morphology Comment NOTED (NOT SEEN); Platelet Estimate ADEQ; Urine White Blood Cell Casts OK
[2018-07-24 07:33] LABS: Poikilocytosis 1+; Polychromasia 1+; Stomatocytes 1+
[2018-07-24] MEDS ORDERED: POTASSIUM CL SA 10 MEQ TAB PO ONE (07:40)
[2018-07-24] MEDS ORDERED: FUROSEMIDE 20 MG/ 2ML VIAL IV SCH (09:00)
[2018-07-24] MEDS ORDERED: FUROSEMIDE 40 MG/4 ML VIAL IV SCH (09:00)
[2018-07-24] MEDS: LOSARTAN POTASSIUM 50 MG TABLET PO SCH (09:27)
[2018-07-24] MEDS: ALLOPURINOL 100 MG TAB PO SCH (09:28)
[2018-07-24] MEDS: CYANOCOBALAMIN 1,000 MCG TAB PO SCH (09:28)
--- OUTSIDE RECORDS SUMMARY | 2018-07-24 15:55 | XMS REPORT ---
:1935 Author Organization [facility] Address [address] [place] [address] [address] [place] [address] Care Team Providers Name Role Phone Unavailable Unavailable Unavailable Problems This patient has no known problems. Allergies, Adverse Reactions, Alerts This patient has no known allergies or adverse reactions. Medications This patient has no known medications.
--- NOTE | 2018-07-24 16:14 | P.PN ---
Subjective Date of Service: 07/24/18 Primary Care Provider: Dr Altamirano - Oncology Chief Complaint: Symptomatic Anemia Patient seen and examined at bedside with RN. Chart reviewed. Case discussed with patient at bedside. Currently patient is doing well overall. Still complains of having some generalized weakness. Pending physical therapy evaluation. Review of Systems 10-point ROS is otherwise unremarkable Physical Examination - Vital Signs Temperature: 98.9 F Blood Pressure: 147/67 Pulse: 56 Respirations: 16 Pulse Ox (%): 99 - Physical Exam General: Alert, In no apparent distress HEENT: Atraumatic, PERRLA, EOMI Neck: Supple, JVD not distended Respiratory: Clear to auscultation bilaterally, Normal air movement Cardiovascular: Regular rate/rhythm, Normal S1 S2 Gastrointestinal: Normal bowel sounds, No tenderness Musculoskeletal: No tenderness Integumentary: No rashes Neurological: Normal speech, Normal tone, Normal affect Lymphatics: No axilla or inguinal lymphadenopathy - Studies Medications List Reviewed: Yes Assessment And Plan - Current Problems (Diagnosis) (1) Respiratory failure Current Visit: Yes Status: Acute Plan: Acute hypercapnic respiratory failure most likely secondary to volume overload. -Now Resolved. -On NC and wean to RA Qualifiers: Chronicity: acute Respiratory failure complication: hypoxia and hypercapnia Qualified Code(s): J96.01 - Acute respiratory failure with hypoxia ; J96.02 - Acute respiratory failure with hypercapnia (2) Volume overload Current Visit: Yes Status: Acute Plan: Volume Overload with xray with Congestion and pt with SOB. 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
[2018-07-25] MEDS ORDERED: TEMAZEPAM 15 MG CAP PO PRN (02:32)
[2018-07-25] MEDS: ACETAMINOPHEN 500 MG TAB PO PRN ×4 (04:16→23:11)
[2018-07-25 05:20] LABS: Absolute Lymphocytes (CBC) 1.1 K/uL (0.7-4.9); Absolute Neutrophil 1.3 K/uL (1.8-8.0); Basophils % 0.7 % (0-1.3); Eosinophils % 1.3 % (0-4.4); Hematocrit 26.3 % (39.6-49.0); Lymphocytes % 20.5 % (15.3-44.8); MPV 9.5 fL (7.6-11.3); Monocytes % 53.9 % (3.3-12.3); RBC Red Blood Cell Count 2.58 M/uL (4.33-5.43)
[2018-07-25 05:41] LABS: ALT/SGPT 12 U/L (12-78); AST/SGOT 12 U/L (15-37); Albumin 2.9 g/dL (3.4-5.0); Alkaline Phosphatase 59 U/L (45-117); BUN Blood Urea Nitrogen 13 mg/dL (7-18); Bilirubin Total 0.7 mg/dL (0.2-1.0); Glucose Level 123 mg/dL (74-106); Potassium 4.2 mmol/L (3.5-5.1); Sodium Level 137 mmol/L (136-145)
[2018-07-25 05:44] LABS: Bicarbonate 42 mmol/L (21-32)
[2018-07-25] MEDS: PANTOPRAZOLE 40MG TABLET PO SCH (05:45)
[2018-07-25] MEDS: CYANOCOBALAMIN 1,000 MCG TAB PO SCH (08:10)
[2018-07-25] MEDS: LOSARTAN POTASSIUM 50 MG TABLET PO SCH (08:11)
[2018-07-25] MEDS: ALLOPURINOL 100 MG TAB PO SCH (08:11)
[2018-07-25] MEDS ORDERED: FUROSEMIDE 40 MG TABLET PO SCH (09:00)
--- NOTE | 2018-07-25 09:10 | RAD REPORT ---
EXAM DESCRIPTION: Ana Laura Pa And Lat (2 Views)07/25/2018 6:54 am CLINICAL HISTORY: Cough COMPARISON: July 22 FINDINGS: No significant change in small left and small to moderate right pleural effusions with bib asilar atelectasis. Mild improvement in additional bilateral pulmonary opacities Heart is mildly enlarged
--- NOTE | 2018-07-25 11:01 | P.CNS ---
Date of Consult: 07/25/18 Primary Care Provider: Dr Altamirano - Oncology Chief Complaint: Shortness of breath History of Present Illness: Patient is 82 years of age has been having intermittent progressive shortness of breath for the past few months associated with swelling of his lower extremity left greater than the right denies any cough sputum fever chills he is seeing a point of care technician difficulty following up with his physicians history of leukemia and hypertension possibly underlying coronary artery disease blood gases shows hypoxic hypercapnic respiratory failure chest x-ray bilateral effusions with cardiomegaly Allergies No Known Allergies Allergy (Verified 07/15/18 09:06) Home Medications: Allopurinol 100 mg PO DAILY #30 tablet 12/27/16 Cyanocobalamin (Vitamin B-12) [Vitamin B-12] 1,000 mcg PO DAILY #30 tablet 12/27 Docusate [Colace Cap*] 1 tab PO DAILY PRN 05/14/18 Amlodipine Besylate [Norvasc] 5 mg PO BID 07/23/18 - Past Medical/Surgical History Diabetic: No -: Hypertension -: MDS neoplasma -: Depression -: refractory anemia -: Iron deficiency anemia -: Chronic back pain -: leukemia -: Spinal Fusion-2004 Psychosocial/ Personal History: The patient is . He has 3 children. He lives with a girlfriend. He no longer works. - Family History Father History Unknown: Yes Mother History Unknown: Yes - Social History Smoking Status: Unknown if ever smoked Alcohol use: No CD- Drugs: No Caffeine use: Yes Place of Residence: Home Review of Systems 10-point ROS is otherwise unremarkable General: Weakness Respiratory: Shortness of Breath Physical Examination Temp Pulse Resp BP Pulse Ox 98.7 F 55 20 136/64 99 07/25/18 08:00 07/25/18 08:09 07/25/18 08:00 07/25/18 08:09 07/25/18 08:00 General: Alert, In no apparent distress, Oriented x3 HEENT: Atraumatic Neck: Supple Respiratory: Diminished (Diminished air entry bilaterally) Cardiovascular: Normal S1 S2, Edema (Some edema edema both legs) Gastrointestinal: Normal bowel sounds, Soft and benign Musculoskeletal: No clubbing Integumentary: No rashes, No breakdown - Problems (1) Respiratory failure Current Visit: Yes Status: Acute Plan: Patient is 82 years of age admitted with intermittent progressive dyspnea patient has cardiomegaly bilateral pleural effusions BNP most likely element of heart failure he will need aggressive diuresis echocardiogram patient has never smoked and bronchodilators the possibility of obstructive airways disease echocardiogram shows normal left ventricular function with reduced compliance continue with aggressive diuresis for now Qualifiers: Chronicity: acute Respiratory failure complication: hypoxia and hypercapnia Qualified Code(s): J96.01 - Acute respiratory failure with hypoxia ; J96.02 - Acute respiratory failure with hypercapnia
--- NOTE | 2018-07-25 11:08 | P.PN ---
Subjective Date of Service: 07/25/18 Primary Care Provider: Dr Altamirano - Oncology Chief Complaint: Shortness of breath Patient seen and examined at bedside with RN. Chart reviewed. Case discussed with patient at bedside. Currently patient is doing well overall. Still complains of having some generalized weakness and SOB. Pulmonology consulted. Review of Systems 10-point ROS is otherwise unremarkable Physical Examination - Vital Signs Temperature: 98.7 F Blood Pressure: 136/64 Pulse: 55 Respirations: 20 Pulse Ox (%): 99 - Physical Exam General: Alert, In no apparent distress HEENT: Atraumatic, PERRLA, EOMI Neck: Supple, JVD not distended Respiratory: Clear to auscultation bilaterally, Normal air movement Cardiovascular: Regular rate/rhythm, Normal S1 S2 Gastrointestinal: Normal bowel sounds, No tenderness Musculoskeletal: No tenderness Integumentary: No rashes Neurological: Normal speech, Normal tone, Normal affect Lymphatics: No axilla or inguinal lymphadenopathy - Studies Medications List Reviewed: Yes Assessment And Plan - Current Problems (Diagnosis) (1) Respiratory failure Current Visit: Yes Status: Acute Plan: Acute hypercapnic respiratory failure most likely secondary to volume overload. -Complains of being SOB today. -On NC and wean to RA -lab work with elevated CO2 -Pulmonology consulted. -Reccs IV lasx for now Qualifiers: Chronicity: acute Respiratory failure complication: hypoxia and hypercapnia Qualified Code(s): J96.01 - Acute respiratory failure with hypoxia ; J96.02 - Acute respiratory failure with hypercapnia (2) Volume overload Current Visit: Yes Status: Acute Plan: Volume Overload with xray with Congestion and pt with SOB. Most likely CHF exacerbation -ECHO with Normal EF and decreased LV complaince -On Lasix and BB -Switch to IV lasix for now Qualifiers: Hypervolemia type: other Qualified Code(s): E87.79 - Other fluid overload (3) Pleural effusion Current Visit: Yes Status: Acute Plan: Pleural Effusion 2.2 to volume overload -IV lasix 40mg BID now -Pulmonology consulted. 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
[2018-07-25] MEDS: ARFORMOTEROL TARTRATE 15 MCG/2 ML VIAL.NEB NEB SCH ×2 (11:15→19:34)
[2018-07-25] MEDS: SPIRONOLACTONE 25 MG TABLET PO SCH ×2 (11:38→23:08)
[2018-07-25] MEDS: FUROSEMIDE 40 MG/4 ML VIAL IV SCH (16:45)
[2018-07-26] MEDS: ALLOPURINOL 100 MG TAB PO SCH (05:33)
[2018-07-26] MEDS: ACETAMINOPHEN 500 MG TAB PO PRN ×2 (05:33→23:47)
[2018-07-26] MEDS: PANTOPRAZOLE 40MG TABLET PO SCH (06:45)
[2018-07-26] MEDS: ARFORMOTEROL TARTRATE 15 MCG/2 ML VIAL.NEB NEB SCH ×2 (07:45→19:17)
[2018-07-26] MEDS: FUROSEMIDE 40 MG/4 ML VIAL IV SCH ×2 (08:03→16:36)
[2018-07-26] MEDS: LOSARTAN POTASSIUM 50 MG TABLET PO SCH (08:03)
[2018-07-26] MEDS: CYANOCOBALAMIN 1,000 MCG TAB PO SCH (08:03)
[2018-07-26] MEDS: SPIRONOLACTONE 25 MG TABLET PO SCH ×2 (08:06→20:15)
[2018-07-26] MEDS ORDERED: FUROSEMIDE 40 MG/4 ML VIAL IV SCH (09:00)
--- NOTE | 2018-07-26 10:29 | P.PN ---
Subjective Date of Service: 07/26/18 Primary Care Provider: Dr Altamirano - Oncology Chief Complaint: Respiratory failure possible diastolic dysfunction Subjective: Improving (Is improving slightly better no new complaints) Review of Systems Unremarkable Physical Examination - Vital Signs Temperature: 98.1 F Blood Pressure: 146/68 Pulse: 61 Respirations: 28 Pulse Ox (%): 99 - Physical Exam General: Alert, In no apparent distress, Oriented x3 Neck: Supple Respiratory: Clear to auscultation bilaterally, Diminished (Diminished at the bases) Cardiovascular: No edema - Studies Medications List Reviewed: Yes Assessment & Plan - Problems (Diagnosis) (1) Respiratory failure Current Visit: Yes Status: Acute Plan: Patient is 82 years of age admitted with intermittent progressive dyspnea patient has cardiomegaly bilateral pleural effusions BNP most likely element of heart failure he will need aggressive diuresis echocardiogram patient has never smoked and bronchodilators the possibility of obstructive airways disease echocardiogram shows normal left ventricular function with reduced compliance continue with aggressive diuresis for now Qualifiers: Chronicity: acute Respiratory failure complication: hypoxia and hypercapnia Qualified Code(s): J96.01 - Acute respiratory failure with hypoxia ; J96.02 - Acute respiratory failure with hypercapnia (2) Diastolic heart failure Current Visit: Yes Status: Acute Plan: I strongly suspect that he has diastolic heart failure patient was prescribed Lasix and he uses it intermittently echocardiogram shows normal left ventricular ejection fraction chemistries reviewed I have added 1 dose of Diamox continue with spironolactone he is advised to uses Lasix on a daily basis as instructed by his supervisor yard patient's vital signs are stable will titrate sat to 90% repeat ABGs follow up with me in 2 weeks possible discharge tomorrow he may need outpatient pulmonary function testing patient has oxygen at home Qualifiers: Heart failure chronicity: acute on chronic Qualified Code(s): I50.33 - Acute on chronic diastolic (congestive) heart failure
[2018-07-26] MEDS ORDERED: ACETAZOLAMIDE 500 MG IV IV ONE (11:00)
[2018-07-26 11:42] LABS: Arterial Blood Carboxyhemoglob 2.4 % (0-1.5); Blood Gas Oxyhemoglobin 84.3 % (94-97); Blood O2 Saturation 87.2 % (92-98.5)
[2018-07-26 12:09] LABS: Absolute Lymphocytes (CBC) 1.1 K/uL (0.7-4.9); Absolute Monocytes 3.8 K/uL (0.1-1.3); Absolute Neutrophil 1.5 K/uL (1.8-8.0); Basophils % 0.5 % (0-1.3); Eosinophils % 1.2 % (0-4.4); Hematocrit 26.3 % (39.6-49.0); Lymphocytes % 16.2 % (15.3-44.8); MPV 9.6 fL (7.6-11.3); Monocytes % 58.7 % (3.3-12.3); RBC Red Blood Cell Count 2.57 M/uL (4.33-5.43)
[2018-07-26 12:29] LABS: ALT/SGPT 10 U/L (12-78); AST/SGOT 12 U/L (15-37); Albumin 2.9 g/dL (3.4-5.0); Alkaline Phosphatase 61 U/L (45-117); BUN Blood Urea Nitrogen 14 mg/dL (7-18); Bilirubin Total 0.5 mg/dL (0.2-1.0); Glucose Level 107 mg/dL (74-106); Potassium 4.3 mmol/L (3.5-5.1); Protein, Total 8.2 g/dL (6.4-8.2); Sodium Level 137 mmol/L (136-145)
[2018-07-26 12:30] LABS: Bicarbonate 45 mmol/L (21-32)
--- NOTE | 2018-07-26 14:09 | P.PN ---
Subjective Date of Service: 07/26/18 Primary Care Provider: Dr Altamirano - Oncology Chief Complaint: Respiratory failure possible diastolic dysfunction Patient seen and examined at bedside with RN. Chart reviewed. Case discussed with patient at bedside. Currently patient is doing well overall. Pulmonary recommended BiPAP set up. Review of Systems 10-point ROS is otherwise unremarkable Physical Examination - Vital Signs Temperature: 98.7 F Blood Pressure: 156/62 Pulse: 50 Respirations: 24 Pulse Ox (%): 98 - Physical Exam General: Alert, In no apparent distress HEENT: Atraumatic, PERRLA, EOMI Neck: Supple, JVD not distended Respiratory: Clear to auscultation bilaterally, Normal air movement Cardiovascular: Regular rate/rhythm, Normal S1 S2 Gastrointestinal: Normal bowel sounds, No tenderness Musculoskeletal: No tenderness Integumentary: No rashes Neurological: Normal speech, Normal tone, Normal affect Lymphatics: No axilla or inguinal lymphadenopathy - Studies Medications List Reviewed: Yes Assessment And Plan - Current Problems (Diagnosis) (1) Respiratory failure Current Visit: Yes Status: Acute Plan: Acute hypercapnic respiratory failure most likely secondary to volume overload. -improving today. -On NC and wean to RA. -Will need BiPAP arranged -lab work with elevated CO2 -Pulmonology consulted. Raf appreciated -Reccs IV lasx for now Qualifiers: Chronicity: acute Respiratory failure complication: hypoxia and hypercapnia Qualified Code(s): J96.01 - Acute respiratory failure with hypoxia ; J96.02 - Acute respiratory failure with hypercapnia (2) Volume overload Current Visit: Yes Status: Acute Plan: Volume Overload with xray with Congestion and pt with SOB. Most likely CHF exacerbation -ECHO with Normal EF and decreased LV complaince. Diastolic dysfunction -On Lasix and BB Qualifiers: Hypervolemia type: other Qualified Code(s): E87.79 - Other fluid overload (3) Pleural effusion Current Visit: Yes Status: Acute Plan: Pleural Effusion 2.2 to volume overload. Mild improvement -IV lasix 40mg BID now -Pulmonology consulted. 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
[2018-07-26] MEDS ORDERED: MELATONIN 3 MG TABLET PO PRN (23:22)
[2018-07-27] MEDS: PANTOPRAZOLE 40MG TABLET PO SCH (05:39)
[2018-07-27 05:45] LABS: Absolute Lymphocytes (CBC) 1.2 K/uL (0.7-4.9); Absolute Monocytes 4.8 K/uL (0.1-1.3); Absolute Neutrophil 2.3 K/uL (1.8-8.0); Basophils % 0.6 % (0-1.3); Eosinophils % 1.4 % (0-4.4); Hematocrit 27.4 % (39.6-49.0); MPV 9.5 fL (7.6-11.3); Monocytes % 57.1 % (3.3-12.3); RBC Red Blood Cell Count 2.67 M/uL (4.33-5.43)
[2018-07-27 06:05] LABS: ALT/SGPT 11 U/L (12-78); AST/SGOT 11 U/L (15-37); Albumin 2.7 g/dL (3.4-5.0); Alkaline Phosphatase 55 U/L (45-117); BUN Blood Urea Nitrogen 19 mg/dL (7-18); Bilirubin Total 0.5 mg/dL (0.2-1.0); Glucose Level 101 mg/dL (74-106); Protein, Total 7.9 g/dL (6.4-8.2); Sodium Level 137 mmol/L (136-145)
[2018-07-27 06:06] LABS: Bicarbonate 42 mmol/L (21-32)
[2018-07-27] MEDS: ARFORMOTEROL TARTRATE 15 MCG/2 ML VIAL.NEB NEB SCH ×2 (07:43→20:00)
[2018-07-27] MEDS: CYANOCOBALAMIN 1,000 MCG TAB PO SCH (08:04)
[2018-07-27] MEDS: SPIRONOLACTONE 25 MG TABLET PO SCH ×2 (08:04→21:31)
[2018-07-27] MEDS: FUROSEMIDE 40 MG/4 ML VIAL IV SCH (08:05)
[2018-07-27] MEDS: LOSARTAN POTASSIUM 50 MG TABLET PO SCH (08:07)
[2018-07-27] MEDS: ALLOPURINOL 100 MG TAB PO SCH (08:08)
--- NOTE | 2018-07-27 11:33 | P.PN ---
Subjective Date of Service: 07/27/18 Primary Care Provider: Dr Altamirano - Oncology Chief Complaint: Respiratory failure possible diastolic dysfunction Patient seen and examined at bedside with RN. Chart reviewed. Case discussed with patient at bedside. Currently patient is doing well overall. Pulmonary recommended BiPAP set up before discharge home for Hypercapnia Review of Systems 10-point ROS is otherwise unremarkable Physical Examination - Vital Signs Temperature: 98.0 F Blood Pressure: 118/36 Pulse: 60 Respirations: 22 Pulse Ox (%): 100 - Physical Exam General: Alert, In no apparent distress HEENT: Atraumatic, PERRLA, EOMI Neck: Supple, JVD not distended Respiratory: Normal air movement, Expiratory wheezes, Inspiratory wheezes Cardiovascular: Regular rate/rhythm, Normal S1 S2 Gastrointestinal: Normal bowel sounds, No tenderness Musculoskeletal: No tenderness Integumentary: No rashes Neurological: Normal speech, Normal tone, Normal affect Lymphatics: No axilla or inguinal lymphadenopathy - Studies Medications List Reviewed: Yes Assessment And Plan - Current Problems (Diagnosis) (1) Respiratory failure Current Visit: Yes Status: Acute Plan: Acute hypercapnic respiratory failure most likely secondary to volume overload. -Placed on BIPAP now. Will need BIPAP for Discharge home. -Pulmonology consulted. Raf appreciated -Switch to PO lasix now Qualifiers: Chronicity: acute Respiratory failure complication: hypoxia and hypercapnia Qualified Code(s): J96.01 - Acute respiratory failure with hypoxia ; J96.02 - Acute respiratory failure with hypercapnia (2) Volume overload Current Visit: Yes Status: Acute Plan: Volume Overload with xray with Congestion and pt with SOB. Most likely CHF exacerbation -ECHO with Normal EF and decreased LV complaince. Diastolic dysfunction -On Lasix and BB. -Switch to PO lasix Qualifiers: Hypervolemia type: other Qualified Code(s): E87.79 - Other fluid overload (3) Pleural effusion Current Visit: Yes Status: Acute Plan: Pleural Effusion 2.2 to volume overload. Mild improvement -IV lasix 40mg BID. Switch to PO today -Pulmonology consulted. 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
[2018-07-27] MEDS: FUROSEMIDE 40 MG TABLET PO SCH (16:41)
[2018-07-27] MEDS: ACETAMINOPHEN 500 MG TAB PO PRN (19:12)
[2018-07-28 05:11] LABS: Absolute Lymphocytes (CBC) 1.1 K/uL (0.7-4.9); Absolute Monocytes 3.1 K/uL (0.1-1.3); Absolute Neutrophil 1.2 K/uL (1.8-8.0); Eosinophils % 2.3 % (0-4.4); Hematocrit 25.7 % (39.6-49.0); Lymphocytes % 19.2 % (15.3-44.8); MPV 9.4 fL (7.6-11.3); Monocytes % 56.3 % (3.3-12.3); RBC Red Blood Cell Count 2.49 M/uL (4.33-5.43)
[2018-07-28 05:30] LABS: ALT/SGPT 10 U/L (12-78); AST/SGOT 13 U/L (15-37); Albumin 2.8 g/dL (3.4-5.0); Alkaline Phosphatase 57 U/L (45-117); BUN Blood Urea Nitrogen 28 mg/dL (7-18); Bilirubin Total 0.3 mg/dL (0.2-1.0); Glucose Level 111 mg/dL (74-106); Potassium 4.7 mmol/L (3.5-5.1); Protein, Total 8.1 g/dL (6.4-8.2); Sodium Level 137 mmol/L (136-145)
[2018-07-28] MEDS: PANTOPRAZOLE 40MG TABLET PO SCH (05:31)
[2018-07-28] MEDS: ACETAMINOPHEN 500 MG TAB PO PRN ×2 (05:31→20:38)
[2018-07-28 05:32] LABS: Bicarbonate 42 mmol/L (21-32)
[2018-07-28 06:00] LABS: Anisocytosis 3+; Blood Morphology Comment NOTED (NOT SEEN); Platelet Estimate DECR; Polychromasia SLIGHT
[2018-07-28] MEDS: ARFORMOTEROL TARTRATE 15 MCG/2 ML VIAL.NEB NEB SCH ×2 (07:17→19:55)
[2018-07-28] MEDS: FUROSEMIDE 40 MG TABLET PO SCH ×2 (08:49→17:12)
[2018-07-28] MEDS: LOSARTAN POTASSIUM 50 MG TABLET PO SCH (08:49)
[2018-07-28] MEDS: CYANOCOBALAMIN 1,000 MCG TAB PO SCH (08:49)
[2018-07-28] MEDS: SPIRONOLACTONE 25 MG TABLET PO SCH ×2 (08:50→20:36)
[2018-07-28] MEDS: ALLOPURINOL 100 MG TAB PO SCH (08:51)
--- NOTE | 2018-07-28 11:13 | P.PN ---
Subjective Date of Service: 07/28/18 Primary Care Provider: Dr Altamirano - Oncology Chief Complaint: Respiratory failure possible diastolic dysfunction Patient's condition is stable he has a hard time tolerating BiPAP the diagnosis of a hypoxic hypercapnic respiratory failure Review of Systems General: Weakness Respiratory: Shortness of Breath Physical Examination - Vital Signs Temperature: 97.7 F Blood Pressure: 128/60 Pulse: 48 Respirations: 16 Pulse Ox (%): 100 - Physical Exam General: Alert, Oriented x3, Mild distress Neck: Supple Respiratory: Diminished (Diminished air entry bilaterally) Cardiovascular: Regular rate/rhythm - Studies Medications List Reviewed: Yes Assessment & Plan - Problems (Diagnosis) (1) Respiratory failure Current Visit: Yes Status: Acute Plan: Patient has chronic stable respiratory failure hypoxic hypercapnic underlying congestive heart failure possible underlying obstructive airways disease. She will need to be ruled out to with pulmonary function testing he will benefit from a noninvasive ventilator to prevent hospital Re admissions labs reviewed continue with spironolactone and Lasix oxygen saturation satisfactory Qualifiers: Chronicity: acute Respiratory failure complication: hypoxia and hypercapnia Qualified Code(s): J96.01 - Acute respiratory failure with hypoxia ; J96.02 - Acute respiratory failure with hypercapnia (2) Diastolic heart failure Current Visit: Yes Status: Acute Plan: Continue with diuretics for now he still has bilateral pleural effusions Qualifiers: Heart failure chronicity: acute on chronic Qualified Code(s): I50.33 - Acute on chronic diastolic (congestive) heart failure
--- NOTE | 2018-07-28 11:31 | P.PN ---
Subjective Date of Service: 07/28/18 Primary Care Provider: Dr Altamirano - Oncology Chief Complaint: Respiratory failure possible diastolic dysfunction Patient seen and examined at bedside with RN. Chart reviewed. Case discussed with patient at bedside. Currently patient is doing well overall. Pulmonary recommended NIPPV set up before discharge home for Hypercapnic respiratory failure. Review of Systems 10-point ROS is otherwise unremarkable Physical Examination - Vital Signs Temperature: 97.7 F Blood Pressure: 128/60 Pulse: 48 Respirations: 16 Pulse Ox (%): 100 - Physical Exam General: Alert, In no apparent distress HEENT: Atraumatic, PERRLA, EOMI Neck: Supple, JVD not distended Respiratory: Clear to auscultation bilaterally, Normal air movement Cardiovascular: Regular rate/rhythm, Normal S1 S2 Gastrointestinal: Normal bowel sounds, No tenderness Musculoskeletal: No tenderness Integumentary: No rashes Neurological: Normal speech, Normal tone, Normal affect Lymphatics: No axilla or inguinal lymphadenopathy - Studies Medications List Reviewed: Yes Assessment And Plan - Current Problems (Diagnosis) (1) Respiratory failure Current Visit: Yes Status: Acute Plan: Acute hypercapnic respiratory failure most likely secondary to volume overload. -BIPAP for now. -Pt having hard time with keeping the BIPAP on. However does keep on for the most part. -Pulmonology consulted. Raf appreciated -Will need NIPPV at home before discharge to avoid readmission to the hospital and safe discharge. Qualifiers: Chronicity: acute Respiratory failure complication: hypoxia and hypercapnia Qualified Code(s): J96.01 - Acute respiratory failure with hypoxia ; J96.02 - Acute respiratory failure with hypercapnia (2) Volume overload Current Visit: Yes Status: Acute Plan: Volume Overload with xray with Congestion and pt with SOB. Most likely CHF exacerbation -ECHO with Normal EF and decreased LV complaince. Diastolic dysfunction -On PO Lasix and BB. Qualifiers: Hypervolemia type: other Qualified Code(s): E87.79 - Other fluid overload (3) Pleural effusion Current Visit: Yes Status: Acute Plan: Pleural Effusion 2.2 to volume overload. Mild improvement -On PO lasix now -Pulmonology consulted. 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 Currently on BIPAP here. CM consulted. Will f.u Discharge Plan: Home Plan to discharge in: 48 Hours - Code Status/Comfort Care Code Status Assessed: Yes Critical Care: No
[2018-07-28 13:16] LABS: Arterial Blood Carboxyhemoglob 1.8 % (0-1.5); Blood Gas Oxyhemoglobin 84.8 % (94-97); Blood O2 Saturation 87.2 % (92-98.5)
[2018-07-28] MEDS: predniSONE 10 MG TAB PO SCH (14:04)
[2018-07-29] MEDS: PANTOPRAZOLE 40MG TABLET PO SCH (05:33)
[2018-07-29 05:53] VITALS: BMI 25.8
[2018-07-29 06:07] LABS: Absolute Lymphocytes (CBC) 1.2 K/uL (0.7-4.9); Absolute Monocytes 2.3 K/uL (0.1-1.3); Absolute Neutrophil 1.7 K/uL (1.8-8.0); Basophils % 0.6 % (0-1.3); Eosinophils % 0.5 % (0-4.4); Hematocrit 25.4 % (39.6-49.0); MPV 9.6 fL (7.6-11.3); Monocytes % 43.3 % (3.3-12.3); RBC Red Blood Cell Count 2.49 M/uL (4.33-5.43)
[2018-07-29 06:16] LABS: ALT/SGPT 11 U/L (12-78); AST/SGOT 12 U/L (15-37); Albumin 2.8 g/dL (3.4-5.0); Alkaline Phosphatase 52 U/L (45-117); BUN Blood Urea Nitrogen 31 mg/dL (7-18); Bicarbonate 39 mmol/L (21-32); Bilirubin Total 0.3 mg/dL (0.2-1.0); Glucose Level 95 mg/dL (74-106); Magnesium 2.3 mg/dL (1.8-2.4); Phosphorus 4.1 mg/dL (2.5-4.9); Potassium 4.7 mmol/L (3.5-5.1); Protein, Total 8.3 g/dL (6.4-8.2); Sodium Level 137 mmol/L (136-145)
[2018-07-29] MEDS: SPIRONOLACTONE 25 MG TABLET PO SCH ×2 (09:00→21:00)
[2018-07-29] MEDS: ARFORMOTEROL TARTRATE 15 MCG/2 ML VIAL.NEB NEB SCH ×2 (09:26→19:31)
[2018-07-29] MEDS: ALLOPURINOL 100 MG TAB PO SCH (09:55)
[2018-07-29] MEDS: CYANOCOBALAMIN 1,000 MCG TAB PO SCH (09:55)
[2018-07-29] MEDS: predniSONE 10 MG TAB PO SCH (09:55)
[2018-07-29] MEDS: LOSARTAN POTASSIUM 50 MG TABLET PO SCH (09:56)
[2018-07-29] MEDS: FUROSEMIDE 40 MG TABLET PO SCH ×2 (10:15→17:16)
--- NOTE | 2018-07-29 15:00 | P.PN ---
Subjective Date of Service: 07/29/18 Primary Care Provider: Dr Altamirano - Oncology Chief Complaint: Respiratory failure possible diastolic dysfunction Subjective: Other (Doing well this time. Patient currently stable. Patient awaiting set up for noninvasive ventilator at home.) Physical Examination - Vital Signs Temperature: 97.7 F Blood Pressure: 132/63 Pulse: 62 Respirations: 18 Pulse Ox (%): 100 - Physical Exam General: Alert, In no apparent distress, Oriented x3, Cooperative HEENT: Atraumatic Neck: Supple Respiratory: Diminished (Bilateral) Cardiovascular: Normal pulses, Regular rate/rhythm Gastrointestinal: Normal bowel sounds, Soft and benign, Non-distended, No tenderness, No masses, No rebound, No guarding Musculoskeletal: No erythema, No tenderness, No warmth Neurological: Normal speech, Normal strength at 5/5 x4 extr, Normal tone, Normal affect - Studies Medications List Reviewed: Yes Assessment & Plan Discharge Plan: Home Plan to discharge in: 24 Hours Physician Review Additional Text: Impression: Acute on chronic respiratory failure with noted hypercapnia secondary to volume overload related to acute on chronic diastolic CHF complicated with bilateral pleural effusions Acute on chronic anemia secondary to myelodysplastic syndrome requiring transfusion GERD Hypertension Plan: Acute on chronic respiratory failure with noted hypercapnia secondary to volume overload related to acute on chronic diastolic CHF complicated with bilateral pleural effusions: Continue with diuresis. Patient awaiting approval for noninvasive ventilator to be set up at home. Will discuss with pulmonology. Echo reviewed. Acute on chronic anemia secondary to myelodysplastic syndrome requiring transfusion: Patient received transfusion during his stay. Continue monitor closely. Patient seen by oncology as an outpatient. GERD: Continue PPI. Hypertension: Continue with hypertension medication. Will monitor closely. Time Spent Managing Pts Care (In Minutes): 55
[2018-07-29] MEDS: ACETAMINOPHEN 500 MG TAB PO PRN (21:07)
[2018-07-30] MEDS: SPIRONOLACTONE 25 MG TABLET PO SCH ×3 (01:23→20:57)
[2018-07-30 05:56] LABS: Absolute Lymphocytes (CBC) 1.5 K/uL (0.7-4.9); Absolute Neutrophil 1.1 K/uL (1.8-8.0); Basophils % 0.9 % (0-1.3); Eosinophils % 1.5 % (0-4.4); Hematocrit 24.5 % (39.6-49.0); MPV 9.5 fL (7.6-11.3); Monocytes % 42.3 % (3.3-12.3); RBC Red Blood Cell Count 2.41 M/uL (4.33-5.43)
[2018-07-30] MEDS: PANTOPRAZOLE 40MG TABLET PO SCH (05:57)
[2018-07-30 06:16] LABS: BUN Blood Urea Nitrogen 35 mg/dL (7-18); Bicarbonate 40 mmol/L (21-32); Glucose Level 136 mg/dL (74-106); Magnesium 2.3 mg/dL (1.8-2.4); Potassium 4.5 mmol/L (3.5-5.1); Sodium Level 136 mmol/L (136-145)
[2018-07-30] MEDS: ARFORMOTEROL TARTRATE 15 MCG/2 ML VIAL.NEB NEB SCH ×2 (08:32→19:25)
[2018-07-30] MEDS: ALLOPURINOL 100 MG TAB PO SCH (09:01)
[2018-07-30] MEDS: CYANOCOBALAMIN 1,000 MCG TAB PO SCH (09:01)
[2018-07-30] MEDS: FUROSEMIDE 40 MG TABLET PO SCH ×2 (09:02→16:44)
[2018-07-30] MEDS: LOSARTAN POTASSIUM 50 MG TABLET PO SCH (09:02)
[2018-07-30] MEDS: predniSONE 10 MG TAB PO SCH (09:02)
--- NOTE | 2018-07-30 09:19 | RAD REPORT ---
EXAM DESCRIPTION: Ana Laura Single View07/30/2018 7:07 am CLINICAL HISTORY: Shortness of breath COMPARISON: July 25 FINDINGS: Small to moderate right and small left pleural effusions are unchanged. Bibasilar atelect asis is suspected. Mild interstitial pulmonary edema is suspected The heart is mildly enlarged IMPRESSION: No change in small to moderate right and small left pleural effusions Mild interstitial pulmonary edema without significant change
--- NOTE | 2018-07-30 12:58 | P.PN ---
Subjective Date of Service: 07/30/18 Primary Care Provider: Dr Altamirano - Oncology Chief Complaint: Respiratory failure possible diastolic dysfunction Subjective: Doing well Physical Examination - Vital Signs Temperature: 99.4 F Blood Pressure: 133/64 Pulse: 63 Respirations: 16 Pulse Ox (%): 100 - Physical Exam General: Alert, In no apparent distress, Oriented x3, Cooperative HEENT: Atraumatic Neck: Supple Respiratory: Clear to auscultation bilaterally, Diminished (Slightly diminished to the bases posteriorly) Cardiovascular: Normal pulses, Regular rate/rhythm Gastrointestinal: Normal bowel sounds, Soft and benign, Non-distended, No masses , No rebound, No guarding Neurological: Normal speech, Normal tone, Normal affect - Studies Medications List Reviewed: Yes Assessment & Plan Discharge Plan: Home Plan to discharge in: 24 Hours Physician Review Additional Text: Impression: Acute on chronic respiratory failure with noted hypercapnia secondary to volume overload related to acute on chronic diastolic CHF complicated with bilateral pleural effusions Acute on chronic anemia secondary to myelodysplastic syndrome requiring transfusion GERD Hypertension Plan: Acute on chronic respiratory failure with noted hypercapnia secondary to volume overload related to acute on chronic diastolic CHF complicated with bilateral pleural effusions: Continue with diuresis and current medication. Patient awaiting approval for noninvasive ventilator to be set up at home. Case discussed at length with social insurance analyst who is helping to obtain ventilator. Once this has been established the patient can be discharged home. Case discussed with pulmonology. Acute on chronic anemia secondary to myelodysplastic syndrome requiring transfusion: Patient received transfusion during his stay. Continue monitor closely. Patient seen by oncology as an outpatient. Patient will need follow up with oncology as an outpatient. GERD: Continue PPI. Hypertension: Continue with hypertension medication. Will monitor closely. Time Spent Managing Pts Care (In Minutes): 55
[2018-07-30 22:25] LABS: Urine Appearance CLEAR; Urine Bilirubin NEGATIVE (NEG); Urine Blood NEGATIVE (NEG); Urine Color YELLOW; Urine Glucose NEGATIVE (NEG); Urine Protein NEGATIVE (NEG); Urine pH 7.5 (5.0-7.0)
[2018-07-30 22:36] LABS: Urine Microscopic Reflex NO UMIC
[2018-07-31] MEDS: PANTOPRAZOLE 40MG TABLET PO SCH (05:51)
[2018-07-31 06:11] LABS: Absolute Lymphocytes (CBC) 1.3 K/uL (0.7-4.9); Absolute Monocytes 2.3 K/uL (0.1-1.3); Absolute Neutrophil 0.9 K/uL (1.8-8.0); Basophils % 1.3 % (0-1.3); Eosinophils % 1.4 % (0-4.4); Hematocrit 23.5 % (39.6-49.0); Lymphocytes % 27.9 % (15.3-44.8); Monocytes % 49.1 % (3.3-12.3); RBC Red Blood Cell Count 2.28 M/uL (4.33-5.43)
[2018-07-31 06:25] LABS: BUN Blood Urea Nitrogen 37 mg/dL (7-18); Bicarbonate 38 mmol/L (21-32); Glucose Level 95 mg/dL (74-106); Magnesium 2.3 mg/dL (1.8-2.4); Potassium 4.7 mmol/L (3.5-5.1); Sodium Level 136 mmol/L (136-145)
[2018-07-31 07:24] LABS: Platelet Estimate DECR; Urine White Blood Cell Casts OK
[2018-07-31 07:25] LABS: Anisocytosis 3+; Blood Morphology Comment NOTED (NOT SEEN); Rouleau PRESENT
[2018-07-31] MEDS: ARFORMOTEROL TARTRATE 15 MCG/2 ML VIAL.NEB NEB SCH (08:07)
[2018-07-31] MEDS: SPIRONOLACTONE 25 MG TABLET PO SCH (08:27)
[2018-07-31] MEDS: CYANOCOBALAMIN 1,000 MCG TAB PO SCH (08:27)
[2018-07-31] MEDS: predniSONE 10 MG TAB PO SCH (08:28)
[2018-07-31] MEDS: ALLOPURINOL 100 MG TAB PO SCH (08:28)
[2018-07-31] MEDS: LOSARTAN POTASSIUM 50 MG TABLET PO SCH (08:28)
[2018-07-31 08:29] VITALS: BP 145/65
[2018-07-31] MEDS: FUROSEMIDE 40 MG TABLET PO SCH (08:29)
[2018-07-31 08:31] VITALS: TEMP 98.7
--- NOTE | 2018-07-31 09:03 | P.DS ---
Admission Date: 07/23/18 Discharge Date: 07/31/18 Primary Care Provider: Oncology-Dr. Altamirano; Renal-Dr. Downing Disposition: TRANSFER TO [facility] Reason for Admission: Respiratory failure possible diastolic dysfunction Consultations: Pulmonary-Dr. Wadsworth Cardiology-Dr. Zavala Procedures: CXR: COMPARISON: July 25 FINDINGS: Small to moderate right and small left pleural effusions are unchanged. Bibasilar atelectasis is suspected. Mild interstitial pulmonary edema is suspected The heart is mildly enlarged IMPRESSION: No change in small to moderate right and small left pleural effusions Mild interstitial pulmonary edema without significant change ECHO: EF 75% LEFT VENTRICULAR WALL MOTION: NORMAL. DOPPLER/COLOR FLOW: NORMAL. COMMENTS: NORMAL EJECTION FRACTION. CONCENTRIC LEFT VENTRICULAR HYPERTROPHY. DECREASED LEFT VENTRICULAR COMPLIANCE. LEFT PLEURAL EFFUSION. Medical Problem List: Complete heart block requiring pacemaker Acute on chronic respiratory failure with noted hypercapnia secondary to volume overload related to acute on chronic diastolic CHF complicated with bilateral pleural effusions Acute on chronic anemia secondary to myelodysplastic syndrome requiring transfusion GERD Hypertension Bilateral atelectasis Brief History of Present Illness: 83-year-old male presented to the emergency room with increasing shortness of breath and fatigue. Patient found to be anemic. Patient with complicated history of hypertension, GERD, chronic anemia with myelodysplastic syndrome and CHF. Patient was admitted for further treatment. Chest x-ray showed bilateral pleural effusions and cardiomegaly. Hospital Course: Patient presented with increasing shortness of breath and fatigue. His course of hospitalization was complicated related to acute on chronic respiratory failure with noted hypercapnia secondary to acute on chronic diastolic CHF. X- ray revealed bilateral pleural effusions and atelectasis. Patient was given diuresis and oxygen. Pulmonology was consulted. His condition improved. However patient also had complete heart block. Cardiology was consulted. Patient was asymptomatic but Cardiology recommended the [facility] be [facility] placement. Arrangements have been made. Patient to be transferred to [facility] for pacemaker placement. After pacemaker placement patient will need to be evaluated for skilled placement. This can be done at [facility]. At discharge patient currently on Aldactone 25 mg 1 pill twice daily, Lasix 40 mg 1 pill twice daily and 1500 cc per day fluid restriction. Patient will continue with oxygen to maintain sats above 90%. This eventually can be weaned off. If not patient will likely require continued oxygen. Patient also with history of mild dysplastic syndrome. Patient presented with acute on chronic anemia with B12 deficiency. Patient required transfusion. Patient tolerated transfusion well. This will need to be monitored closely by oncology. Patient will follow up with oncology after this hospitalization. At discharge patient may continue with vitamin-B 12 supplementation for B12 deficiency. Patient with hypertension. Medications have been adjusted. Patient no longer taking Norvasc. This remained stable during his stay. Patient will continue with current medications-losartan 50 mg daily. Patient with GERD. Patient will continue with medication-Protonix 40 mg daily. X-ray also revealed atelectasis. Patient may continue with incentive spirometer. There was some question of possible underlying COPD. Patient currently on Brovana 1 unit dose twice daily. Patient did require BiPAP during hospitalization. He is currently with nasal cannula. Patient may continue with a short course of prednisone 10 mg daily. Vital Signs/Physical Exam: Temp Pulse Resp BP Pulse Ox 98.7 F 44 L 22 H 145/65 H 100 07/31/18 08:00 07/31/18 08:29 07/31/18 08:00 07/31/18 08:29 07/31/18 08:00 General: Alert, In no apparent distress, Oriented x3, Cooperative HEENT: Atraumatic Neck: Supple Respiratory: Clear to auscultation bilaterally, Normal air movement Cardiovascular: Normal pulses, Regular rate/rhythm Gastrointestinal: Normal bowel sounds, Soft and benign, Non-distended, No tenderness, No masses, No rebound, No guarding Integumentary: No tenderness/swelling, No erythema, No warmth, No cyanosis Neurological: Normal speech, Normal strength at 5/5 x4 extr, Normal tone, Normal affect Laboratory Data at Discharge: WBC 4.6 K/uL (4.3-10.9) 07/31/18 05:36 Hgb 8.0 g/dL (13.6-17.9) L 07/31/18 05:36 Hct 23.5 % (39.6-49.0) L 07/31/18 05:36 Plt Count 107 K/uL (152-406) L 07/31/18 05:36 PT 18.1 SECONDS (9.5-12.5) H 07/22/18 15:00 INR 1.53 07/22/18 15:00 Sodium 136 mmol/L (136-145) 07/31/18 05:36 Potassium 4.7 mmol/L (3.5-5.1) 07/31/18 05:36 BUN 37 mg/dL (7-18) H 07/31/18 05:36 Creatinine 0.81 mg/dL (0.55-1.3) 07/31/18 05:36 Glucose 95 mg/dL (74-106) 07/31/18 05:36 Phosphorus 4.1 mg/dL (2.5-4.9) 07/29/18 05:45 Magnesium 2.3 mg/dL (1.8-2.4) 07/31/18 05:36 Total Bilirubin 0.3 mg/dL (0.2-1.0) 07/29/18 05:45 AST 12 U/L (15-37) L 07/29/18 05:45 ALT 11 U/L (12-78) L 07/29/18 05:45 Alkaline Phosphatase 52 U/L (45-117) 07/29/18 05:45 Home Medications: Allopurinol 100 mg PO DAILY #30 tablet 12/27/16 Cyanocobalamin (Vitamin B-12) [Vitamin B-12] 1,000 mcg PO DAILY #30 tablet 12/27 Docusate [Colace Cap*] 1 tab PO DAILY PRN 05/14/18 Arformoterol Tartrate [Brovana] 15 mcg NEB BIDRESP #60 vial.neb 07/31/18 Furosemide [Lasix*] 40 mg PO BIDL #60 tab 07/31/18 Losartan Potassium [Cozaar*] 50 mg PO DAILY #30 tablet 07/31/18 Pantoprazole [Protonix Tab*] 40 mg PO DAILYAC #30 tab 07/31/18 Spironolactone [Aldactone*] 25 mg PO BID #60 tab 07/31/18 predniSONE [Deltasone*] 10 mg PO DAILY #7 tab 07/31/18 New Medications: Arformoterol Tartrate [Brovana] 15 mcg NEB BIDRESP #60 vial.neb Furosemide [Lasix*] 40 mg PO BIDL #60 tab Losartan Potassium [Cozaar*] 50 mg PO DAILY #30 tablet Pantoprazole [Protonix Tab*] 40 mg PO DAILYAC #30 tab predniSONE [Deltasone*] 10 mg PO DAILY #7 tab Spironolactone [Aldactone*] 25 mg PO BID #60 tab Patient Discharge Instructions: 1. Patient be transferred to [facility] for pacemaker placement due to complete heart block. 2. Patient presented with increasing shortness of breath and fatigue. His course of hospitalization was complicated related to acute on chronic respiratory failure with noted hypercapnia secondary to acute on chronic diastolic CHF. X-ray revealed bilateral pleural effusions and atelectasis. Patient was given diuresis and oxygen. Pulmonology was consulted. His condition improved. However patient also had complete heart block. Cardiology was consulted. Patient was asymptomatic, but Cardiology recommended the patient be transferred to [facility] for pacemaker placement. Arrangements have been made. Patient to be transferred to [facility] for pacemaker placement. After pacemaker placement patient will need to be evaluated for skilled placement. This can be done at [facility]. At discharge patient currently on Aldactone 25 mg 1 pill twice daily, Lasix 40 mg 1 pill twice daily and 1500 cc per day fluid restriction. Patient will continue with oxygen to maintain sats above 90%. This eventually can be weaned off. If not patient will likely require continued oxygen. Patient also with history of mild dysplastic syndrome. Patient presented with acute on chronic anemia with B12 deficiency. Patient required transfusion. Patient tolerated transfusion well. This will need to be monitored closely by oncology. Patient will follow up with oncology after this hospitalization. At discharge patient may continue with vitamin-B 12 supplementation for B12 deficiency. 3. Patient with hypertension. Medications have been adjusted. Patient no longer taking Norvasc. This remained stable during his stay. Patient will continue with current medications-losartan 50 mg daily. 4. Patient with GERD. Patient will continue with medication-Protonix 40 mg daily. 5. X-ray also revealed atelectasis. Patient may continue with incentive spirometer. 6. There was some question of possible underlying COPD. Patient currently on Brovana 1 unit dose twice daily. Patient did require BiPAP during hospitalization. He is currently with nasal cannula. Patient may continue with a short course of prednisone 10 mg daily. Diet: AHA Activity: Fall precautions Time spent managing pt's care (in minutes): 55
[2018-07-31 09:04] VITALS: O2SAT 100
--- NOTE | 2018-07-31 12:05 | CON ---
CARDIOLOGY CONSULT History Of Present Illness: Mr. Freeman I am asked to see because he has a lot of dropped beats. He montgomery s had this evaluated by Cardiology team at [facility] in [place] and recommended a pacemaker. He failed t o get the pacemaker because he could not get a ride to the appointed surgery. He is in our hospital because of anemia. He has bone marrow failure. The notes indicated that it is myelodysplastic syndr ome of some sort. He also has severe obstructive lung disease and CO2 retention, his pCO2 was 70. W hile he has been in the hospital, he has second-degree block most of the time with 2:1 conduction, he art rates in the 40s and 50s. He will often go into a higher grade AV block. I have not seen any st rips that would quite make a diagnosis of complete AV block. There are some conductions, but we woul d call this high degree AV block and like the network communications engineer at [facility]. I would recommend a pacemaker fo r this. The patient is willing to be transferred to get it done and Dr. Nina Tellez has heard a pres entation of Mr. Freeman and has agreed to take him in transfer. Mr. Freeman has underlying bone marrow millie lure, COPD. He is under the care of Dr. Altamirano. Home Medications: Allopurinol, vitamin B12, docusate, amlodipine. He also has hypertension. Physical Examination: General: He is 5 feet 10 inches, 180 pounds, appears elderly. He has kind of a bronze hue to his sk in, probably from multiple transfusions. Lungs: Decreased breath sounds in the base. No wheezing. Heart: Heart rate about 50, slightly irregular. Telemetry shows high-degree AV block. His blood pr essure is 132/60. The heart rate on telemetry is 44. Extremities: Diminished distal pulses. No significant edema. Impression: The patient needs a pacemaker. I will start to make arrangements for him to be transfer red to [facility]. VIPIN/KATLYN Voice ID: [id number] Report ID: [id number]
--- NOTE | 2018-07-31 14:51 | EKG ---
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
== END 2018-07-31 10:26 | disposition short-term general hospital (02) | DRG 291 ==
LOC: ER 13:35 → ERHOLD 17:03 → 4TH 18:04 → OBSVTOIN 07-23 17:03 → 4TH 07-23 18:54
PROVIDERS: ADMIT Family Medicine; ATTEND Family Medicine
PROC: 30233N1 Transfusion of Nonautologous Red Blood Cells into Peripheral Vein, Percutaneous Approach (ICD-10-PCS; principal; 2018-07-22)
DX: I11.0 Hypertensive heart disease with heart failure (principal); J96.22 Acute and chronic respiratory failure with hypercapnia; J96.21 Acute and chronic respiratory failure with hypoxia; I44.2 Atrioventricular block, complete; J98.11 Atelectasis; C94.6 Myelodysplastic disease, not elsewhere classified; I50.33 Acute on chronic diastolic (congestive) heart failure; D46.4 Refractory anemia, unspecified; K21.9 Gastro-esophageal reflux disease without esophagitis; E61.1 Iron deficiency; E53.8 Deficiency of other specified B group vitamins; E87.79 Other fluid overload; D50.9 Iron deficiency anemia, unspecified
CPT/HCPCS: 36415; 36430; 71045; 71046; 80048; 80053; 80076; 81003; 82805; 83735; 83880; 84100; 84484; 85014; 85018; 85025; 85610; 86850; 86900; 86901; 93005; 93306; 94640; 94660; 94760; 97110; 97116; 97161; 97530; 99285; J1120; J1940; J7512; J7605; P9016

== ENCOUNTER 2018-08-21 09:48 | Observation (INO) | payer MEDICARE ==
--- OUTSIDE RECORDS SUMMARY | 2018-08-21 09:51 | XMS REPORT ---
:1935 [facility] [address] [place] [address] Care Team Providers Name Role Phone Unavailable Unavailable Unavailable Problems This patient has no known problems. Allergies, Adverse Reactions, Alerts This patient has no known allergies or adverse reactions. Medications This patient has no known medications.
--- OUTSIDE RECORDS SUMMARY | 2018-08-21 09:51 | XMS REPORT | Clinical Summary ---
:1935 Author Organization [facility] Address [address] [place] [address] Care Team Providers Name Role Phone Asked, No Pcp Primary Care Provider Unavailable Allergies No Known Allergies Medications Medication Sig Dispensed Refills Start Date End Date Status arformoterol Take 15 mcg by 0 Active (BROVANA) 15 mcg/2 nebulization 2 mL solution for (two) times a day. nebulization furosemide (LASIX) Take 40 mg by 0 Active 40 mg tablet mouth 2 (two) times a day. losartan (COZAAR) 50 Take 50 mg by 0 Active MG tablet mouth daily. pantoprazole Take 40 mg by 0 Active (PROTONIX) 40 MG EC mouth daily. tablet spironolactone Take 25 mg by 0 Active (ALDACTONE) 25 MG mouth 2 (two) tablet times a day. predniSONE Take 10 mg by 0 Active (DELTASONE) 10 mg mouth daily. tablet allopurinol Take 100 mg by 0 Active (ZYLOPRIM) 100 MG mouth daily. tablet cyanocobalamin Take 1,000 mcg by 0 Active (VITAMIN B-12) 1000 mouth daily. MCG tablet docusate sodium Take 100 mg by 0 Active (COLACE) 100 MG mouth daily. capsule amLODIPine (NORVASC) Take 5 mg by mouth 0 Active 5 mg tablet 2 (two) times a day. traMADol (ULTRAM) 50 Take 1 tablet (50 30 tablet 0 07/31/2018 08/30/2018 Active mg tablet mg total) by mouth every 6 (six) hours as needed for moderate pain for up to 30 days. minocycline Take 1 capsule 6 capsule 0 07/31/2018 08/03/2018 (MINOCIN,DYNACIN) (100 mg total) by 100 MG capsule mouth 2 (two) times a day for 6 doses. 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 Never 07/31/2018 How many drinks containing alcohol do you have on a typical Not asked day when you are drinking? How often do you have six or more drinks on one occasion? Not asked Sex Assigned at Date Recorded Not on file Job Start Date Occupation Industry Not on file Not on file Not on file Travel History Travel Start Travel End No recent travel history available. Last Filed Vital Signs Vital Sign Reading Time Taken Blood Pressure 145/64 08/01/2018 11:31 AM LEATHER WORKER Pulse 89 08/01/2018 11:31 AM LEATHER WORKER Temperature 36.7 C (98 F) 08/01/2018 11:31 AM LEATHER WORKER Respiratory Rate 16 08/01/2018 11:31 AM LEATHER WORKER Oxygen Saturation 99% 08/01/2018 11:31 AM LEATHER WORKER Inhaled Oxygen Concentration - - Weight 83.2 kg (183 lb 6.4 oz) 08/01/2018 6:07 AM LEATHER WORKER Height 180.3 cm (5' 11") 07/31/2018 1:33 PM LEATHER WORKER Body Mass Index 25.58 08/01/2018 6:07 AM LEATHER WORKER Plan of Treatment Health Maintenance Due Date Last Done Comments SHINGLES VACCINES (1 of 2) 1987 PNEUMOCOCCAL-13 2002 PNEUMOCOCCAL POLYSACCHARIDE VACCINE AGE 65 Completed 09/08/2017 AND OVER INFLUENZA VACCINE Completed 05/04/2018, 09/08/2017 Implants Implanted Type Area Machine Packer Device Shelf Model / Identifier Expiration Serial / Date Lot Taylors Xt Dr Treoj - [id number] Cardiac N/A: [employer] CRM [id number] / Implanted: 07/31/2018 (Quantity not on file) Pacemaker N/A [employer] / Generators Lead, Pacemaker Atrial And Ventricular 58 Centimeter Capsure Fix Novus System - [id number] Cardiac Pacing N/A: [employer] CRM 05/14/2020 [id number] / Implanted: 07/31/2018 (Quantity not on file) Leads or N/[employer] [id number] / Electrodes or [id number] Accessories Lead, Pacemaker Bipolar Fix Forming Atrial And Ventricular Steroid Eluting 52 Centimeter Capsure Fix Novus - [id number] Cardiac Pacing N/A: [employer] CRM 05/01/2020 [id number] / Implanted: 07/31/2018 (Quantity not on file) Leads or N/[employer] [id number] / Electrodes or [id number] Accessories Procedures Procedure Name Priority Date/Time Associated Comments Diagnosis ECG 12-LEAD Routine 08/01/2018 10:41 Results for this AM LEATHER WORKER procedure are in the results section. SMEAR REVIEW Routine 08/01/2018 8:03 Results for this AM LEATHER WORKER procedure are in the results section. ESTIMATED GFR Routine 08/01/2018 8:03 Results for this AM LEATHER WORKER procedure are in the results section. HC COMPLETE BLD COUNT Routine 08/01/2018 8:03 Results for this W/AUTO DIFF AM LEATHER WORKER procedure are in the results section. BASIC METABOLIC PANEL Routine 08/01/2018 8:03 Results for this AM LEATHER WORKER procedure are in the results section. ECG PRE/POST OP Routine 08/01/2018 7:51 Results for this AM LEATHER WORKER procedure are in the results section. XR CHEST 1 VW Routine 07/31/2018 4:12 Results for this PORTABLE PM LEATHER WORKER procedure are in the results section. EP PACEMAKER Routine 07/31/2018 3:40 Results for this INSERTION NEW OR PM LEATHER WORKER procedure are in REPLACEMENT the results section. TYPE AND SCREEN Routine 07/31/2018 1:36 Results for this PM LEATHER WORKER procedure are in the results section. after 08/20/2017 Results ECG 12 lead (08/01/2018 10:41 AM LEATHER WORKER) Ventricular rate 82 [facility] Atrial rate 82 [facility] IL interval 200 [facility] QRSD interval 176 [facility] QT interval 448 [facility] QTC interval 523 [facility] P axis 1 23 [facility] QRS axis 1 -76 [facility] T wave axis 92 [facility] EKG impression Electronic ventricular pacemaker-In automated [facility] comparison with ECG of 01-AUG-2018 07:51,-Vent. rate has increased BY 12 BPM- Narrative Performed At Performing Organization Address City/State/Zipcode Phone Number [facility] M[facility] [address] [place] [address] Smear review (08/01/2018 8:03 AM LEATHER WORKER) Platelet slide review Decreased (A) [facility] Anisocytosis Moderate [facility] Ovalocytes Moderate [facility] Performing Organization Address City/State/Zipcode Phone Number [facility] DEPARTMENT OF PATHOLOGY AND [address] [place] [phone] [address] Estimated GFR (08/01/2018 8:03 AM LEATHER WORKER) Estimated GFR 85 mL/min/1.73 m2 [facility] Comment: HOSPITAL CatergoryUnitsInterpretation G1 >=90 Normal or high G2 60-89Mildly decreased [id number] to moderately decreased [id number] to severely decreased G4 15-29Severely decreased G5 <15Kidney failure The eGFR was calculated using the Chronic Kidney Disease Epidemiology Collaboration (CKD-EPI) equation. Interpretation is based on recommendations of the National Kidney Foundation-Kidney Disease Outcomes Quality Initiative (NKF-KDOQI) published in 2014. Specimen Plasma specimen Performing Organization Address City/[facility] Phone Number [facility] DEPARTMENT OF PATHOLOGY AND [address] [place] [address] [address] CBC with platelet and differential (08/01/2018 8:03 AM LEATHER WORKER) WBC 5.20 4.50 - 11.00 k/uL [facility] RBC 2.27 (L) 4.40 - 6.00 m/uL [facility] HGB 7.7 (L) 14.0 - 18.0 g/dL [facility] HCT 24.1 (L) 41.0 - 51.0 % [facility] MCV 106.2 (H) 82.0 - 100.0 fL [facility] MCH 33.9 27.0 - 34.[address] [facility] 32.0 31.0 - 37.0 g/dL [facility] RDW - SD 87.1 (H) 37.0 - 55.0 fL [facility] MPV 10.7 8.8 - 13.2 fL [facility] Platelet count 111 (L) 150 - 400 k/uL [facility] Nucleated RBC 0.00 /100 WBC [facility] Neutrophils 31.7 (L) 39.0 - 69.0 % [facility] Lymphocytes 22.5 (L) 25.0 - 45.0 % [facility] Monocytes 44.2 (H) 0.0 - 10.0 % [facility] Eosinophils 0.0 0.0 - 5.0 % [facility] Basophils 1.0 0.0 - 1.0 % [facility] Immature granulocytes 0.6Comment: "Immature 0.0 - 1.0 % [facility] granulocytes" HOSPITAL (promyelocytes, myelocytes, metamyelocytes) Specimen Blood Performing Organization Address City/[facility] Phone Number [facility] DEPARTMENT OF PATHOLOGY AND [address] [place] [phone] Basic metabolic panel (08/01/2018 8:03 AM LEATHER WORKER) Sodium 138 135 - 148 mEq/L [facility] Potassium 5.1 (H) 3.5 - 5.0 mEq/L [facility] Chloride 95 (L) 98 - 112 mEq/L [facility] CO2 35 (H) 24 - 31 mEq/L [facility] Anion gap 8@ANIO 7 - 15 mEq/L [facility] BUN 28 (H) 8 - 23 mg/dL [facility] Creatinine 0.78 0.70 - 1.20 mg/dL [facility] Glucose 98 65 - 99 mg/dL [facility] Calcium 9.4 8.8 - 10.2 mg/dL [facility] Specimen Plasma specimen Performing Organization Address City/[facility] Phone Number [facility] DEPARTMENT OF PATHOLOGY AND [address] [place] [phone] [address] ECG Pre/Post Op-Tomorrow (08/01/2018 7:51 AM LEATHER WORKER) Ventricular rate 70 [facility] Atrial rate 70 [facility] QRSD interval 166 [facility] QT interval 474 [facility] QTC interval 511 [facility] P axis 1 5 [facility] QRS axis 1 -33 [facility] T wave axis 81 [facility] EKG impression Ventricular-paced rhythm-Abnormal ECG-No [facility] previous ECGs available- Narrative Performed At Performing Organization Address City/State/Zipcode Phone Number [facility] [address] [place] [address] XR Chest 1 Vw Portable (07/31/2018 4:12 PM LEATHER WORKER) Narrative Performed At EXAM: RADIANT XR CHEST 1 VW PORTABLE INDICATION: Pneumothorax COMPARISON: None. IMPRESSION: Left chest pacemaker with left subclavian approach leads projecting over right atrium and right ventricle. Skin nia along the superior margin of the pacemaker. 6 mm diameter calcified granuloma projecting over the central right hemidiaphragm. Small right pleural effusion. Possible small left pleural effusion. Moderate pulmonary vascular congestion. Minimal linear opacity right midlung, discoid atelectasis versus fluid within minor fissure. Patchy alveolar opacities medial bilateral lung bases, atelectasis versus infiltrate. No evidence of pneumothorax. Minimal cardiomegaly. Moderate atherosclerotic aortic arch. Minimal atherosclerosis and minimal tortuosity descending thoracic aorta. Minimal arthrosis changes bilateral glenohumeral joints. Minimal degenerative changes thoracic spine. [facility]-[id number] Procedure Note Interface, Radiology Results Incoming - 07/31/2018 4:19 PM LEATHER WORKER EXAM: XR CHEST 1 VW PORTABLE INDICATION: Pneumothorax COMPARISON: None. IMPRESSION: Left chest pacemaker with left subclavian approach leads projecting over right atrium and right ventricle. Skin nia along the superior margin of the pacemaker. 6 mm diameter calcified granuloma projecting over the central right hemidiaphragm. Small right pleural effusion. Possible small left pleural effusion. Moderate pulmonary vascular congestion. Minimal linear opacity right midlung, discoid atelectasis versus fluid within minor fissure. Patchy alveolar opacities medial bilateral lung bases, atelectasis versus infiltrate. No evidence of pneumothorax. Minimal cardiomegaly. Moderate atherosclerotic aortic arch. Minimal atherosclerosis and minimal tortuosity descending thoracic aorta. Minimal arthrosis changes bilateral glenohumeral joints. Minimal degenerative changes thoracic spine. [facility]-[id number] Performing Organization Address City/State/Zipcode Phone Number [facility] [address] [place] [address] Cv electrophysiology procedure (07/31/2018 3:40 PM LEATHER WORKER) Narrative Performed At TITLE: FELIBERTO BLACKMANID Dual-chamber pacemaker. PREOPERATIVE DIAGNOSES: 1.Dyspnea on exertion. 2.Dizziness. 3.Fatigue. 4.Symptomatic bradycardia. 5.Third-degree atrioventricular block causing the above. 6.Myelodysplastic syndrome. POSTOPERATIVE DIAGNOSES: 1.Dyspnea on exertion. 2.Dizziness. 3.Fatigue. 4.Symptomatic bradycardia. 5.Third-degree atrioventricular block causing the above. 6.Myelodysplastic syndrome. PROCEDURES PERFORMED: 1.Monitored anesthesia care. 2.Dual-chamber pacemaker placement. BRIEF HISTORY OF PRESENT ILLNESS AND CLINICAL BACKGROUND: This is an 83-year-old man with a remote prior history of myelodysplastic syndrome and fatigue.Evidently 6 months ago, he was told that he needed a permanent pacemaker when he was at the [facility] in [place], he declined one at that time.Recently, he was seen by his home health nurse with complaints of chronic fatigue and dyspnea on exertion. He has a history of chronic anemia and she sent him to the hospital, where he was noted to have complete heart block and a junctional escape rate of about [address] Juan Jose Zavala asked me to transfer him from [place] for a permanent pacemaker.He comes now for that procedure.He has been n.p.o. since early this morning. PROCEDURE: Informed consent was obtained.Intravenous antibiotics were infused appropriately.The chest was prepped and draped in the usual sterile fashion and local anesthesia was achieved with 1% lidocaine.An upper extremity venogram was performed to identify the location of the axillary and subclavian vein and access was achieved.Guide wires were introduced under fluoroscopic guidance and advanced into the inferior vena cava. Using a sharp knife, cautery, and blunt dissection, a pocket was formed below the plane of the pectoralis fascia.The RV and atrial leads were placed into the venous system using standard technique.The RV pace/sense lead was placed into the RV apex and tested.After the thresholds were deemed adequate the lead was anchored in place.Maximum output pacing was performed to ensure that there was no diaphragmatic stimulation, and none was seen.The lead was anchored in place using 0-Ethibond sutures around the lead collar. A bipolar screw-in lead was affixed into the right atrium.Sensing and pacing thresholds were then performed.After they were found to be adequate, maximum output pacing was performed to ensure that there was no diaphragmatic stimulation, and none was seen.The lead was anchored in place using 0-Ethibond sutures around the lead collar. Fluoroscopy was repeated to ensure proper lead placement.The pacemaker pocket was visually, manually, and radiographically inspected to ensure there were no gauze or sponges in the pocket.It was then washed using antibiotic solution. Gloves and drapes were changed as needed.The pacemaker generator packet was then opened and was attached to the leads and the set screws were tightened. Each lead was gently tugged upon to ensure it was affixed within the header. After proper pacemaker function was confirmed, the lead slack and pacemaker were placed in the pocket.The pacemaker was anchored to the pectoralis muscle using 0-Ethibond suture.The skin incision was then closed in layers using 0-Vicryl sutures.Final skin closure was achieved with stainless steel nia and skin adhesive. COMPLICATIONS: None. FINDINGS: 1.Estimated blood loss is less than 10 mL. 2.The pacemaker is a Medtronic Marion XT DR MRI, model [id number], serial #[id number]. 3.The right atrial lead is a Medtronic 5076, serial #[id number], measured P-wave 3 mV, pacing threshold 1.3 V, current 2.4 mA, impedance 562 ohms. 4.Right ventricular apical pacing lead is a Medtronic 5076, serial #[id number], measured R-wave 7 mV, pacing threshold 0.7 V, current 1.2 mA, impedance 661 ohms. CONCLUSIONS: Successful dual-chamber pacemaker placement. RECOMMENDATIONS: 1.IV antibiotics. 2.Discharge home tomorrow. Performing Organization Address City/[facility] Phone Number [facility] [address] [place] [address] Type and screen (07/31/2018 1:36 PM LEATHER WORKER) ABO grouping B [facility] Rh type POS [facility] Antibody screen (gel) NEG [facility] Specimen Blood Performing Organization Address City/State/Zipcode Phone Number [facility] DEPARTMENT OF PATHOLOGY AND [address] [place] [address] GENOMIC MEDICINE [facility] [address] [place] [address] after 08/20/2017 Insurance Payer Benefit Plan / Group Subscriber ID Type Phone Address UHC MEDICARE AARP MEDICARE COMPLETE MCR xxxxxxxxx HMO Advance Directives Patient has advance care planning documents on file. For more information, please contact:[facility] [place] [phone]
--- NOTE | 2018-08-21 10:53 | EDPHYS ---
Physician Documentation 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 10:[address] Altamirano for transfusion, told hemoglobin low, gets blood transfusions every rn 5-6 weeks, reports feels "a little sluggish", no sob/chest pain. . Onset: The symptoms/episode began/occurred at an unknown time. Severity of symptoms: At their worst the symptoms were mild in the emergency department the symptoms are unchanged. The patient has experienced similar episodes in the past. The patient has been recently seen by a physician:. Historical: - Allergies: 10:11 No Known Allergies; sv - Home Meds: 10:50 allopurinol 100 mg Oral tab 1 tab once daily [Active]; amlodipine 5 mg tab 1 tab twice aj1 daily [Active]; Colace 100 mg oral cap 1 cap once daily [Active]; benzonatate 100 mg oral cap 1 cap 3 times per day [Active]; colchicine 0.6 mg Oral tab 1 tab 2 times per day [Active]; furosemide 40 mg Oral tab 1 tab 2 times per day [Active]; losartan 50 mg oral tab 1 tab once daily [Active]; mirtazapine 15 mg Oral TbDL 1 tab at bedtime [Active]; pantoprazole 40 mg oral TbEC 1 tab once daily [Active]; prednisone 10 mg Oral tab once daily [Active]; spironolactone 25 mg Oral tab 1 tab twice daily [Active]; tramadol 50 mg Oral tab 1 tab every 6 hours [Active]; trazodone 50 mg Oral tab 2 tabs at bedtime [Active]; vitamin Z56-kcycm acid oral oral once daily [Active]; - PMHx: 10:11 Anemia; CHF; Chronic pain; Gout; Hypertension; insomnia; Leukemia; sv 10:50 fatty liver; myelodysplastic syndrome; complete heart block; aj1 - Immunization history:: Adult Immunizations up to date. - Family history:: not pertinent. - Ebola Screening: : Patient denies travel to an Ebola-affected area in the 21 days before illness onset. - Hospitalizations: : No recent hospitalization is reported. ROS: 10:20 Constitutional: Negative for fever, chills, and weight loss, Eyes: Negative for injury, rn pain, redness, and discharge, Cardiovascular: Negative for chest pain, palpitations, and edema, Respiratory: Negative for shortness of breath, cough, wheezing, and pleuritic chest pain, Abdomen/GI: Negative for abdominal pain, nausea, vomiting, diarrhea, and constipation, MS/Extremity: Negative for injury and deformity, Skin: Negative for injury, rash, and discoloration, Neuro: + generalized weakness Exam: 10:20 Constitutional: This is a well developed, well nourished patient who is awake, alert, rn and in no acute distress. Head/Face: Normocephalic, atraumatic. Eyes: Pupils equal round and reactive to light, extra-ocular motions intact. ENT: MMM Respiratory: Speaking full sentences. No increased work of breathing, no retractions or nasal flaring. Skin: warm, dry MS/ Extremity: Pulses equal, no cyanosis. Neurovascular intact. Full, normal range of motion. Equal circumference. Neuro: Awake and alert, GCS 15, oriented to person, place, time, and situation. Cranial nerves II-XII grossly intact. Vital Signs: 10:10 BP 123 / 61; Pulse 101; Resp 16; Temp 98.2; Pulse Ox 100% ; Weight 82.1 kg; Height 5 sv ft. 11 in. (180.34 cm); Pain 0/10; 11:43 BP 129 / 64; Pulse 85; Resp 18; Pulse Ox 99% on R/A; aj1 13:18 BP 120 / 56; Pulse 86; Resp 18; Pulse Ox 97% on R/A; aj1 10:10 Body Mass Index 25.24 (82.10 kg, 180.34 cm) sv MDM: 10:14 Patient medically screened. rn 10:51 Differential Diagnosis anemia. Data reviewed: vital signs, nurses notes, lab test rn result(s), and as a result, I will admit patient. Counseling: I had a detailed discussion with the patient and/or guardian regarding: the historical points, exam findings, and any diagnostic results supporting the discharge/admit diagnosis, lab results, the need for further work-up and treatment in the hospital. Admission orders: after a detailed discussion of the patient's condition and case, the admit orders are written by me. ED course: Discussed case with Dr. Grant, will admit for transfusion since usually needs blood sent in, and symptomatic anemia.. 08/21 10:18 Order name: CBC with Diff rn 08/21 10:18 Order name: Basic Metabolic Panel; Complete Time: 13:46 rn 08/21 10:18 Order name: IV Start; Complete Time: 10:37 rn 08/21 10:18 Order name: Type And Screen; Complete Time: 13:46 rn 08/21 11:41 Order name: Diet Regular; Complete Time: 11:42 aj1 Administered Medications: No medications were administered Disposition: 08/21/18 10:52 Hospitalization ordered by Jazz Grant for Observation. Preliminary diagnosis is Anemia, unspecified. - Bed requested for Telemetry/MedSurg (observation). - Status is Observation. iw - Condition is Stable. - Problem is an acute exacerbation. - Symptoms are unchanged. UTI on Admission? No Signatures: Dispatcher [employer] EDMS Juana Lentz RN RN aj1 Jessie Jones RN Tamar Jordan RN Juani Patel RN RN iw Nieto, Roman, MD MD rn Botello, Elizabeth eb Corrections: (The following items were deleted from the chart) 11:05 10:52 Hospitalization Ordered by Jazz Grant MD for Observation. Preliminary dw diagnosis is Anemia, unspecified. Bed requested for Telemetry/MedSurg (observation). Status is Observation. Condition is Stable. Problem is an acute exacerbation. Symptoms are unchanged. UTI on Admission? No. rn 11:07 11:05 08/21/2018 10:52 Hospitalization Ordered by Jazz Grant MD for Observation. dw Preliminary diagnosis is Anemia, unspecified. Bed requested for Telemetry/MedSurg (observation). Status is Observation. Condition is Stable. Problem is an acute exacerbation. Symptoms are unchanged. UTI on Admission? No. dw 13:39 11:07 08/21/2018 10:52 Hospitalization Ordered by Jazz Grant MD for Observation. eb Preliminary diagnosis is Anemia, unspecified. Bed requested for [facility] ER HOLD. Status is Observation. Condition is Stable. Problem is an acute exacerbation. Symptoms are unchanged. UTI on Admission? No. dw 14:40 13:39 08/21/2018 10:52 Hospitalization Ordered by Jazz Grant MD for Observation. iw Preliminary diagnosis is Anemia, unspecified. Bed requested for Telemetry/MedSurg (observation). Status is Observation. Condition is Stable. Problem is an acute exacerbation. Symptoms are unchanged. UTI on Admission? No. eb
--- NOTE | 2018-08-21 10:53 | ER ---
Nurse's Notes [facility] Name: Vineet Freeman Age: 83 yrs Sex: Male : 1935 Arrival Date: 08/21/2018 Time: 09:51 Bed 7 Private MD: MADDIE PETERS Diagnosis: Anemia, unspecified Presentation: 08/21 10:10 Presenting complaint: Patient states: low hemoglobin-6.9, here fro transfusion seny by sv his operations associate. Transition of care: patient was not received from another setting of care. Onset of symptoms was August 21, 2018. Care prior to arrival: None. 10:10 Method Of Arrival: Wheelchair sv 10:10 Acuity: VEDA 3 sv 11:45 Risk Assessment: Do you want to hurt yourself or someone else? Patient reports no aj1 desire to harm self or others. Initial Sepsis Screen: Does the patient meet any 2 criteria? No. Patient's initial sepsis screen is negative. Does the patient have a suspected source of infection? No. Patient's initial sepsis screen is negative. Historical: - Allergies: 10:11 No Known Allergies; sv - Home Meds: 10:50 allopurinol 100 mg Oral tab 1 tab once daily [Active]; amlodipine 5 mg tab 1 tab twice aj1 daily [Active]; Colace 100 mg oral cap 1 cap once daily [Active]; benzonatate 100 mg oral cap 1 cap 3 times per day [Active]; colchicine 0.6 mg Oral tab 1 tab 2 times per day [Active]; furosemide 40 mg Oral tab 1 tab 2 times per day [Active]; losartan 50 mg oral tab 1 tab once daily [Active]; mirtazapine 15 mg Oral TbDL 1 tab at bedtime [Active]; pantoprazole 40 mg oral TbEC 1 tab once daily [Active]; prednisone 10 mg Oral tab once daily [Active]; spironolactone 25 mg Oral tab 1 tab twice daily [Active]; tramadol 50 mg Oral tab 1 tab every 6 hours [Active]; trazodone 50 mg Oral tab 2 tabs at bedtime [Active]; vitamin F60-epkds acid oral oral once daily [Active]; - PMHx: 10:11 Anemia; CHF; Chronic pain; Gout; Hypertension; insomnia; Leukemia; sv 10:50 fatty liver; myelodysplastic syndrome; complete heart block; aj1 - Immunization history:: Adult Immunizations up to date. - Family history:: not pertinent. - Ebola Screening: : Patient denies travel to an Ebola-affected area in the 21 days before illness onset. - Hospitalizations: : No recent hospitalization is reported. Screenin:35 Abuse screen: Denies threats or abuse. Denies injuries from another. Nutritional aj1 screening: No deficits noted. Tuberculosis screening: No symptoms or risk factors identified. 11:45 Fall Risk No fall in past 12 months (0 pts). No secondary diagnosis (0 pts). IV access aj1 (20 points). Ambulatory Aid- None/Bed Rest/Nurse Assist (0 pts). Gait- Normal/Bed Rest/Wheelchair (0 pts) Mental Status- Oriented to own ability (0 pts). Total Carey Fall Scale indicates No Risk (0-24 pts). Assessment: 10:35 General: Appears in no apparent distress. comfortable, Behavior is calm, cooperative, aj1 appropriate for age. Pain: Denies pain. Neuro: Level of Consciousness is awake, alert, obeys commands. Neuro: Denies dizziness. Cardiovascular: Patient's skin is warm and dry. Cardiovascular: Denies chest pain. Respiratory: Airway is patent Respiratory effort is even, unlabored, Respiratory pattern is regular, symmetrical. Respiratory: Denies shortness of breath. GI: No signs and/or symptoms were reported involving the gastrointestinal system. : No signs and/or symptoms were reported regarding the genitourinary system. EENT: No signs and/or symptoms were reported regarding the EENT system. Derm: Skin is pale. Musculoskeletal: No signs and/or symptoms reported regarding the musculoskeletal system. Circulation, motion, and sensation intact. 11:43 Reassessment: Patient appears in no apparent distress at this time. No changes from aj1 previously documented assessment. Patient and/or family updated on plan of care and expected duration. Pain level reassessed. Patient is alert, oriented x 3, equal unlabored respirations, skin warm/dry/pink. 12:35 Reassessment: Patient and/or family updated on plan of care and expected duration. Pain aj1 level reassessed. General: Appears in no apparent distress. comfortable, Behavior is calm, cooperative, appropriate for age. Pain: Denies pain. Neuro: Level of Consciousness is awake, alert, obeys commands. Cardiovascular: Patient's skin is warm and dry. Respiratory: Airway is patent Respiratory effort is even, unlabored, Respiratory pattern is regular, symmetrical. GI: No signs and/or symptoms were reported involving the gastrointestinal system. Derm: Skin is pale. Musculoskeletal: Circulation, motion, and sensation intact. 13:17 Reassessment: Patient appears in no apparent distress at this time. No changes from aj1 previously documented assessment. Patient and/or family updated on plan of care and expected duration. Pain level reassessed. Patient is alert, oriented x 3, equal unlabored respirations, skin warm/dry/pink. Vital Signs: 10:10 BP 123 / 61; Pulse 101; Resp 16; Temp 98.2; Pulse Ox 100% ; Weight 82.1 kg; Height 5 sv ft. 11 in. (180.34 cm); Pain 0/10; 11:43 BP 129 / 64; Pulse 85; Resp 18; Pulse Ox 99% on R/A; aj1 13:18 BP 120 / 56; Pulse 86; Resp 18; Pulse Ox 97% on R/A; aj1 10:10 Body Mass Index 25.24 (82.10 kg, 180.34 cm) sv ED Course: 09:51 Patient arrived in ED. mr 09:51 MADDIE PETERS is Private Physician. mr 10:10 Triage completed. sv 10:11 Arm band placed on. sv 10:14 Christopher Driscoll MD is Attending Physician. rn 10:24 EKG done, by it technical specialist. reviewed by Christopher Driscoll MD. sm3 10:27 Juana Lentz, KYLEE is Primary Nurse. aj1 10:35 Patient has correct armband on for positive identification. Bed in low position. Call aj1 light in reach. Side rails up X 1. 10:35 No provider procedures requiring assistance completed. aj1 10:40 Inserted saline lock: 20 gauge in right antecubital area, using aseptic technique. jb1 Blood collected. 10:40 Initial lab(s) drawn, by me, sent to lab. T\T\S collected, blood band applied to patient. jb1 10:41 Inserted saline lock: 22 gauge in right forearm, using aseptic technique. jb1 10:52 Jazz Grant MD is Hospitalizing Provider. rn 13:58 Report given to KYLEE Isabel on 4th floor. aj1 13:58 Patient admitted, IV remains in place. aj1 Administered Medications: No medications were administered Outcome: 10:52 Decision to Hospitalize by Provider. rn 14:40 Patient left the ED. iw Signatures: Cristopher Lara Angela, RN RN Jessie Naranjo RN RN sv Rivera, Esmer Tijerina, KYLEE Gloria RN, Roman, MD MD rn Montes, Shakira 3
[2018-08-21 11:05] LABS: BUN Blood Urea Nitrogen 14 mg/dL (7-18); Bicarbonate 31 mmol/L (21-32); Glucose Level 105 mg/dL (74-106); Potassium 4.5 mmol/L (3.5-5.1); Sodium Level 139 mmol/L (136-145)
[2018-08-21] MEDS ORDERED: ONDANSETRON 4 MG/2 ML VIAL IV PRN (14:46)
[2018-08-21] MEDS ORDERED: ACETAMINOPHEN 500 MG TAB PO PRN (14:46)
[2018-08-21 14:54] VITALS: O2SAT 97
[2018-08-21 15:26] LABS: Arterial Blood Carboxyhemoglob 1.5 % (0-1.5); Blood Gas Oxyhemoglobin 44.3 % (94-97); Blood O2 Saturation 45.4 % (92-98.5)
[2018-08-21] MEDS ORDERED: DOCUSATE NA 100 MG CAP PO PRN (16:34)
--- NOTE | 2018-08-21 16:46 | P.HP ---
Certification for Inpatient Patient admitted to: Observation With expected LOS: <2 Midnights Patient will require the following post-hospital care: None Practitioner: I am a practitioner with admitting privileges, knowledge of patient current condition, hospital course, and medical plan of care. 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 Patient had lab work done at the oncologist office today and was found to have hemoglobin of 6.8 and was sent over to the ER for further workup. Patient does frequently come to the hospital for blood transfusion and has to be admitted due to special blood requirement due to antibodies in his blood. Patient currently does not have any symptoms from low hemoglobin aside from tiredness. Patient however states that his tiredness is the same as before. No other complaints to offer at this time. In the ER patient had lab work done however due to CBC machine not working here in the hospital lab work was sent out to [facility]. Lab work was returned with hemoglobin of 10.2. VBG was done here in the hospital to repeat the hemoglobin and repeat hemoglobin was 6.8. The lab reported from [place] and the was an air as it was labeled wrong at the facility. Patient was admitted to the hospital for possible transfusion if the machines come back up and inaccurate type and screen can be done. If not patient will be transferred to a higher level of care for blood transfusion and appropriate monitoring. Allergies No Known Allergies Allergy (Verified 07/15/18 09:06) Home Medications: Allopurinol 100 mg PO DAILY #30 tablet 12/27/16 Cyanocobalamin (Vitamin B-12) [Vitamin B-12] 1,000 mcg PO DAILY #30 tablet 12/27 Docusate [Colace Cap*] 1 tab PO DAILY PRN 05/14/18 Arformoterol Tartrate [Brovana] 15 mcg NEB BIDRESP #60 vial.neb 07/31/18 Furosemide [Lasix*] 40 mg PO BIDL #60 tab 07/31/18 Losartan Potassium [Cozaar*] 50 mg PO DAILY #30 tablet 07/31/18 Pantoprazole [Protonix Tab*] 40 mg PO DAILYAC #30 tab 07/31/18 Spironolactone [Aldactone*] 25 mg PO BID #60 tab 07/31/18 predniSONE [Deltasone*] 10 mg PO DAILY #7 tab 07/31/18 Amlodipine [Norvasc*] 5 mg PO BID 08/21/18 - Past Medical/Surgical History Diabetic: No -: Hypertension -: CMML 1 -: Depression -: refractory anemia -: Spinal Fusion-2004 Psychosocial/ Personal History: The patient is . He has 3 children. He lives with a girlfriend. He no longer works. - Family History Family History: Reviewed- Non-Contributory - Social History Smoking Status: Unknown if ever smoked Alcohol use: No CD- Drugs: No Caffeine use: Yes Review of Systems 10-point ROS is otherwise unremarkable Physical Examination - Vital Signs Temperature: 98.2 F Blood Pressure: 120/56 Pulse: 86 Respirations: 18 - Physical Exam General: Alert, In no apparent distress HEENT: Atraumatic, PERRLA, Mucous membr. moist/pink, EOMI, Sclerae nonicteric Neck: Supple, 2+ carotid pulse no bruit, No LAD, Without JVD or thyroid abnormality Respiratory: Clear to auscultation bilaterally, Normal air movement Cardiovascular: Regular rate/rhythm, Normal S1 S2 Gastrointestinal: Normal bowel sounds, No tenderness Musculoskeletal: No tenderness Integumentary: No rashes Neurological: Normal gait, Normal speech, Normal strength at 5/5 x4 extr, Normal tone, Normal affect Lymphatics: No axilla or inguinal lymphadenopathy - Studies Laboratory Data (last 24 hrs) 08/21/18 10:35: Sodium 139, Potassium 4.5, BUN 14, Creatinine 0.73, Glucose 105 08/21/18 10:35: WBC Cancelled, Hgb Cancelled, Hct Cancelled, Plt Count Cancelled Assessment and Plan - Problems (Diagnosis) (1) Anemia Onset Date: 12/27/16 Current Visit: No Status: Acute Plan: Anemia 2.2 to CMML1 and now transfusion Dependent now -Intial Lab done in the oncology office with hgb 6.9. -repeat Lab hgb here in the hospital with 10.2. However error in reporting the lab value. Repeat VBG and showed 6.8. -Once the CBC machine back and running repeated CBC and type and screen. -Will await results to transfuse at this time -If Not able to get accurate result will transfer pt to higher level of care for appropriate patient care. Qualifiers: Anemia type: bone marrow failure Bone marrow failure anemia type: unspecified bone marrow failure Qualified Code(s): D61.9 - Aplastic anemia, unspecified (2) CMML (chronic myelomonocytic leukemia) Current Visit: Yes Status: Chronic Plan: CMML 1 with transfusion dependency -Not a candidate for Chemo or radiation Qualifiers: Leukemia Active/Remission status: without remission Qualified Code(s): C93.10 - Chronic myelomonocytic leukemia not having achieved remission (3) GERD (gastroesophageal reflux disease) Onset Date: 12/27/16 Current Visit: No Status: Chronic Qualifiers: Esophagitis presence: without esophagitis Qualified Code(s): K21.9 - Gastro -esophageal reflux disease without esophagitis (4) Gout Onset Date: 12/27/16 Current Visit: No Status: Chronic Qualifiers: Gout site: unspecified site Gout etiology: unspecified cause Chronicity: unspecified Qualified Code(s): M10.9 - Gout, unspecified (5) Hypertension Onset Date: 12/27/16 Current Visit: No Status: Chronic Qualifiers: Hypertension type: essential hypertension Qualified Code(s): I10 - Essential (primary) hypertension - Plan Patient will be admitted to the hospital for possible blood transfusion if the CBC and type and screen can be done here accurately. If not patient will be transferred to a higher level of care for further treatment to avoid any adverse reaction. Will monitor patient here closely for next 2 to 3 hrs. Discharge Plan: Home Plan to discharge in: 24 Hours - Advance Directives Does patient have a Living Will: No Does patient have a Durable POA for Healthcare: Yes - Code Status/Comfort Care Code Status Assessed: Yes Critical Care: No
[2018-08-21 16:53] LABS: Absolute Monocytes 1.8 K/uL (0.1-1.3); Absolute Neutrophil 1.2 K/uL (1.8-8.0); Basophils % 0.8 % (0-1.3); Eosinophils % 2.6 % (0-4.4); Hematocrit 20.1 % (39.6-49.0); Lymphocytes % 24.3 % (15.3-44.8); MPV 8.7 fL (7.6-11.3); Monocytes % 43.1 % (3.3-12.3); RBC Red Blood Cell Count 1.91 M/uL (4.33-5.43)
[2018-08-21 17:36] VITALS: BMI 25.2
[2018-08-21] MEDS: FUROSEMIDE 40 MG TABLET PO SCH (18:10)
[2018-08-21] MEDS: NA CHLORIDE 0.9% 1,000 ML IV SCH ×2 (18:11→21:16)
--- NOTE | 2018-08-21 18:54 | EKG ---
Test Date: 2018-08-21 Test Time: 10:20:47 Cooper Apprentice: LUCERO MEASUREMENT RESULTS: Intervals: Rate: 104 FL: 182 QRSD: 162 QT: 398 QTc: 523 Talpa: P: -18 FL: 182 QRS: -40 T: 93 INTERPRETIVE STATEMENTS: Atrial-sensed ventricular-paced rhythm Abnormal ECG Compared to ECG 07/30/2018 20:58:49 Sinus rhythm no longer present Junctional rhythm no longer present AV dissociation no longer present Electronically Signed On 08-21-18 18:53:28 SENIOR TEST ENGINEER by Arvind Jett
[2018-08-21 19:54] LABS: Anisocytosis 3+; Blood Morphology Comment NOTED (NOT SEEN); Hypochromasia 1+; Macrocytosis 1+; Platelet Estimate DECR
[2018-08-21] MEDS: SPIRONOLACTONE 25 MG TABLET PO SCH (21:15)
[2018-08-21] MEDS: AMLODIPINE 5 MG TAB PO SCH (21:15)
[2018-08-22] MEDS ORDERED: NA CHLORIDE 0.9% 250 ML ONE (02:22)
[2018-08-22] MEDS ORDERED: PANTOPRAZOLE 40MG TABLET PO SCH (06:30)
[2018-08-22 07:06] LABS: Absolute Lymphocytes (CBC) 1.2 K/uL (0.7-4.9); Absolute Monocytes 1.7 K/uL (0.1-1.3); Absolute Neutrophil 0.9 K/uL (1.8-8.0); Basophils % 0.7 % (0-1.3); Lymphocytes % 31.2 % (15.3-44.8); Monocytes % 42.3 % (3.3-12.3); RBC Red Blood Cell Count 2.01 M/uL (4.33-5.43)
[2018-08-22 07:14] LABS: ALT/SGPT 18 U/L (12-78); AST/SGOT 20 U/L (15-37); Albumin 2.8 g/dL (3.4-5.0); Alkaline Phosphatase 59 U/L (45-117); BUN Blood Urea Nitrogen 14 mg/dL (7-18); Bicarbonate 30 mmol/L (21-32); Bilirubin Total 0.4 mg/dL (0.2-1.0); Glucose Level 131 mg/dL (74-106); Potassium 4.2 mmol/L (3.5-5.1); Protein, Total 7.7 g/dL (6.4-8.2); Sodium Level 138 mmol/L (136-145)
[2018-08-22] MEDS ORDERED: ARFORMOTEROL TARTRATE 15 MCG/2 ML VIAL.NEB NEB SCH (08:00)
[2018-08-22 08:08] LABS: Hematocrit 20.6 % (39.6-49.0)
[2018-08-22 08:09] LABS: Anisocytosis 3+; Blood Morphology Comment NOTED (NOT SEEN); Platelet Estimate DECR; Urine White Blood Cell Casts OK
[2018-08-22] MEDS ORDERED: LOSARTAN POTASSIUM 50 MG TABLET PO SCH (09:00)
[2018-08-22] MEDS ORDERED: predniSONE 10 MG TAB PO SCH (09:00)
[2018-08-22] MEDS ORDERED: ALLOPURINOL 100 MG TAB PO SCH (09:00)
[2018-08-22] MEDS ORDERED: CYANOCOBALAMIN 1,000 MCG TAB PO SCH (09:00)
[2018-08-22] MEDS: SPIRONOLACTONE 25 MG TABLET PO SCH (09:41)
[2018-08-22] MEDS: AMLODIPINE 5 MG TAB PO SCH (09:41)
[2018-08-22] MEDS: FUROSEMIDE 40 MG TABLET PO SCH (09:42)
[2018-08-22] MEDS: NA CHLORIDE 0.9% 1,000 ML IV SCH (09:45)
--- NOTE | 2018-08-22 11:35 | P.DS ---
Admission Date: 08/21/18 Discharge Date: 08/22/18 Primary Care Provider: Dr. Loya; Hematology-Dr. Altamirano Disposition: ROUTINE DISCHARGE Discharge Condition: GOOD Reason for Admission: Anemia Consultations: None Procedures: Transfusion 2 units packed red blood cells. 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 Patient was seen by oncology with low hemoglobin. Patient has gotten transfusions in the past. Patient was feeling fatigued. Patient sent to the hospital to be admitted for transfusion. Hospital Course: Patient presented with fatigue and anemia. 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 Patient was given 2 units of blood. Patient did well. No significant abnormalities noted. Repeat hemoglobin at 8.9. Patient will be discharged home. At discharge patient will continue with his prior medications including vitamin B12 and prednisone 10 mg daily. Patient will follow up with hematology within 1 week. Recommendation to recheck CBC in 1 week to monitor his progress. Patient with recent history of complete heart block. Patient was hospitalized and transferred for pacemaker placement last month. He is doing quite well. Shamika removed during this hospitalization. Recommend to follow up with cardiology to further address. Patient with hypertension. Patient will continue with his medications including Norvasc 5 mg 1 pill twice daily and losartan 50 mg daily. Recommendation is to maintain blood pressures less 150/80. Further adjustment can be done by his PCP. Patient with chronic diastolic CHF. Patient will continue with a 1500 cc per day fluid restriction. Patient will continue with his medications including Lasix 40 mg 1 pill twice daily and Aldactone 25 mg 1 pill twice daily. Patient with COPD. Patient will continue with his medication of Brovana 1 unit dose twice daily. Patient with gout. Patient will continue with allopurinol 100 mg daily. Vital Signs/Physical Exam: Temp Pulse Resp BP Pulse Ox 99.0 F 78 20 155/62 H 97 08/22/18 08:00 08/22/18 09:42 08/22/18 08:00 08/22/18 09:42 08/22/18 08:00 General: Alert, In no apparent distress, Oriented x3, Cooperative HEENT: Atraumatic Neck: Supple Respiratory: Clear to auscultation bilaterally, Normal air movement Cardiovascular: Normal pulses, Regular rate/rhythm Gastrointestinal: Normal bowel sounds, Soft and benign, Non-distended, No tenderness, No masses, No rebound, No guarding Musculoskeletal: No erythema, No tenderness, No warmth Integumentary: No tenderness/swelling, No erythema, No warmth, No cyanosis Neurological: Normal speech, Normal strength at 5/5 x4 extr, Normal tone, Normal affect Laboratory Data at Discharge: WBC 4.0 K/uL (4.3-10.9) L 08/22/18 06:08 Hgb 8.9 g/dL (13.6-17.9) L 08/22/18 09:50 Hct 26.0 % (39.6-49.0) L D 08/22/18 09:50 Plt Count 120 K/uL (152-406) L 08/22/18 06:08 Sodium 138 mmol/L (136-145) 08/22/18 06:08 Potassium 4.2 mmol/L (3.5-5.1) 08/22/18 06:08 BUN 14 mg/dL (7-18) 08/22/18 06:08 Creatinine 0.63 mg/dL (0.55-1.3) 08/22/18 06:08 Glucose 131 mg/dL (74-106) H 08/22/18 06:08 Phosphorus 3.5 mg/dL (2.5-4.9) 08/22/18 06:59 Magnesium 2.0 mg/dL (1.8-2.4) 08/22/18 06:08 Total Bilirubin 0.4 mg/dL (0.2-1.0) 08/22/18 06:08 AST 20 U/L (15-37) 08/22/18 06:08 ALT 18 U/L (12-78) 08/22/18 06:08 Alkaline Phosphatase 59 U/L (45-117) 08/22/18 06:08 Home Medications: Allopurinol 100 mg PO DAILY #30 tablet 12/27/16 Cyanocobalamin (Vitamin B-12) [Vitamin B-12] 1,000 mcg PO DAILY #30 tablet 12/27 Docusate [Colace Cap*] 1 tab PO DAILY PRN 05/14/18 Arformoterol Tartrate [Brovana] 15 mcg NEB BIDRESP #60 vial.neb 07/31/18 Furosemide [Lasix*] 40 mg PO BIDL #60 tab 07/31/18 Losartan Potassium [Cozaar*] 50 mg PO DAILY #30 tablet 07/31/18 Pantoprazole [Protonix Tab*] 40 mg PO DAILYAC #30 tab 07/31/18 Spironolactone [Aldactone*] 25 mg PO BID #60 tab 07/31/18 predniSONE [Deltasone*] 10 mg PO DAILY #7 tab 07/31/18 Amlodipine [Norvasc*] 5 mg PO BID 08/21/18 Patient Discharge Instructions: 1. Patient will follow up with his PCP in 1 week to follow up this hospitalization. 2. Patient presented with fatigue and anemia. 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 Patient was given 2 units of blood. Patient did well. No significant abnormalities noted. Repeat hemoglobin at 8.9. Patient will be discharged home. At discharge patient will continue with his prior medications including vitamin B12 and prednisone 10 mg daily. Patient will follow up with hematology within 1 week. Recommendation to recheck CBC in 1 week to monitor his progress. 3. Patient with recent history of complete heart block. Patient was hospitalized and transferred for pacemaker placement last month. He is doing quite well. Fourmile removed during this hospitalization. Recommend to follow up with cardiology to further address. 4. Patient with hypertension. Patient will continue with his medications including Norvasc 5 mg 1 pill twice daily and losartan 50 mg daily. Recommendation is to maintain blood pressures less 150/ 80. Further adjustment can be done by his PCP. 5. Patient with chronic diastolic CHF. Patient will continue with a 1500 cc per day fluid restriction. Patient will continue with his medications including Lasix 40 mg 1 pill twice daily and Aldactone 25 mg 1 pill twice daily. 6. Patient with COPD. Patient will continue with his medication of Brovana 1 unit dose twice daily. 7. Patient with gout. Patient will continue with allopurinol 100 mg daily. Diet: AHA Activity: Ad maki Time spent managing pt's care (in minutes): 55
[2018-08-22 12:53] VITALS: BP 147/63; TEMP 98.7
== END 2018-08-22 13:48 | disposition home or self-care (01) ==
LOC: ER 09:48 → ERHOLD 11:57 → 4TH 13:59
PROVIDERS: ADMIT Family Medicine; ATTEND Family Medicine
DX: D64.9 Anemia, unspecified (principal); C93.10 Chronic myelomonocytic leukemia not having achieved remission; I11.0 Hypertensive heart disease with heart failure; I50.32 Chronic diastolic (congestive) heart failure; M10.9 Gout, unspecified; J44.9 Chronic obstructive pulmonary disease, unspecified; K21.9 Gastro-esophageal reflux disease without esophagitis; Z95.0 Presence of cardiac pacemaker
CPT/HCPCS: 36415 ×2; 36430; 80048; 80053; 82805; 83735; 84100; 85014; 85018; 85025 ×2; 86850 ×2; 86900 ×2; 86901 ×2; 93005; J7030 ×2; P9040 ×2; J7512; J7605

== ENCOUNTER 2018-09-17 08:34 | Inpatient (IN) | payer MEDICARE ==
--- OUTSIDE RECORDS SUMMARY | 2018-09-17 08:37 | XMS REPORT | Clinical Summary ---
:1935 Author Organization [facility] Address [address] [place] [address] Care Team Providers Name Role Phone Asked, [...] mg tablet 2 (two) times a day. minocycline Take 1 capsule 6 capsule 0 07/31/2018 08/03/2018 (MINOCIN,DYNACIN) (100 mg total) by 100 MG capsule mouth 2 (two) times a day for 6 doses. traMADol (ULTRAM) 50 Take 1 tablet (50 30 tablet 0 07/31/2018 08/30/2018 mg tablet mg total) by mouth every 6 (six) hours as needed for moderate pain for up to 30 days. 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 Encounters Date Type Specialty Care Team Description 07/31/2018 Surgery Procedural Cardiology Nina Tellez EP PACEMAKER MD Audrey INSERTION NEW OR REPLACEMENT 07/31/2018 Anesthesia Event Procedural Cardiology Jessie Boo, SHEEP RANCHER 07/31/2018 - Hospital Encounter Cardiovascular Nina Tellez AV block 08/01/2018 MD Audrey 07/31/2018 Intake Access N/A after 09/16/2017 Social History Tobacco Use Types Packs/Day Years [...] Taken Blood Pressure 145/64 08/01/2018 11:31 AM YARD MOTOR OPERATOR Pulse 89 08/01/2018 11:31 AM YARD MOTOR OPERATOR Temperature 36.7 C (98 F) 08/01/2018 11:31 AM YARD MOTOR OPERATOR Respiratory Rate 16 08/01/2018 11:31 AM YARD MOTOR OPERATOR Oxygen Saturation 99% 08/01/2018 11:31 AM YARD MOTOR OPERATOR Inhaled Oxygen Concentration - - Weight 83.2 kg (183 lb 6.4 oz) 08/01/2018 6:07 AM YARD MOTOR OPERATOR Height 180.3 cm (5' 11") 07/31/2018 1:33 PM YARD MOTOR OPERATOR Body Mass Index 25.58 08/01/2018 6:07 AM YARD MOTOR OPERATOR Plan of Treatment Health Maintenance Due Date Last Done Comments SHINGLES VACCINES (1 of 2) 1987 PNEUMOCOCCAL-13 2002 PNEUMOCOCCAL POLYSACCHARIDE VACCINE AGE 65 Completed 09/08/2017 AND OVER INFLUENZA VACCINE Completed 05/04/2018, 09/08/2017 Implants Implanted Type Area Stitching Machine Feeder Or Offbearer Device Shelf Model / Identifier Expiration Serial / Date Lot [place] Xt Dr Trejo - [id number] Cardiac N/A: [employer] CRM [id number] / Implanted: 07/31/2018 (Quantity not on file) Pacemaker N/A [employer] / Generators Lead, Pacemaker Atrial And Ventricular 58 Centimeter Capsure Fix Novus System - [id number] Cardiac Pacing N/A: [employer] CRM 05/14/2020 [id number] / Implanted: 07/31/2018 (Quantity not on file) Leads or N/[employer] [id number] / Electrodes or [id number] Accessories Lead, Pacemaker Bipolar Fix Forming Atrial And Ventricular Steroid Eluting 52 Centimeter Capsure Fix Novus - [id number] Cardiac Pacing N/A: [employer] CRM 05/01/2020 [id number] / Implanted: 07/31/2018 (Quantity not on file) Leads or N/[employer] [id number] / Electrodes or [id number] Accessories Procedures Procedure Name Priority Date/Time Associated Comments Diagnosis ECG 12-LEAD Routine 08/01/2018 10:41 Results for this AM YARD MOTOR OPERATOR procedure are in the results section. SMEAR REVIEW Routine 08/01/2018 8:03 Results for this AM YARD MOTOR OPERATOR procedure are in the results section. ESTIMATED GFR Routine 08/01/2018 8:03 Results for this AM YARD MOTOR OPERATOR procedure are in the results section. HC COMPLETE BLD COUNT Routine 08/01/2018 8:03 Results for this W/AUTO DIFF AM YARD MOTOR OPERATOR procedure are in the results section. BASIC METABOLIC PANEL Routine 08/01/2018 8:03 Results for this AM YARD MOTOR OPERATOR procedure are in the results section. ECG PRE/POST OP Routine 08/01/2018 7:51 Results for this AM YARD MOTOR OPERATOR procedure are in the results section. XR CHEST 1 VW Routine 07/31/2018 4:12 Results for this PORTABLE PM YARD MOTOR OPERATOR procedure are in the results section. EP PACEMAKER Routine 07/31/2018 3:40 Results for this INSERTION NEW OR PM YARD MOTOR OPERATOR procedure are in REPLACEMENT the results section. TYPE AND SCREEN Routine 07/31/2018 1:36 Results for this PM YARD MOTOR OPERATOR procedure are in the results section. after 09/16/2017 Results ECG 12 lead (08/01/2018 10:41 AM YARD MOTOR OPERATOR) Ventricular rate 82 [facility] Atrial rate 82 [facility] [place] interval 200 [facility] QRSD interval 176 [...] At Performing Organization Address City/State/Zipcode Phone Number [facility] [address] [place] [address] Smear review (08/01/2018 8:03 AM YARD MOTOR OPERATOR) Platelet slide review Decreased (A) [facility] Anisocytosis Moderate [facility] Ovalocytes Moderate [facility] Performing Organization Address City/State/Zipcode Phone Number [facility] DEPARTMENT OF PATHOLOGY AND [address] [place] [phone] Estimated GFR (08/01/2018 8:03 AM YARD MOTOR OPERATOR) Estimated GFR 85 mL/min/1.73 m2 [facility] Comment: HOSPITAL CatergoryUnitsInterpretation G1 >=90 Normal or high G2 60-89Mildly decreased [id number] to moderately decreased [id number] to severely decreased G4 15-29Severely decreased G5 <15Kidney failure The eGFR was calculated using the Chronic Kidney Disease Epidemiology Collaboration (CKD-EPI) equation. Interpretation is based on recommendations of the National Kidney Foundation-Kidney Disease Outcomes Quality Initiative (NKF-KDOQI) published in 2014. Specimen Plasma specimen Performing Organization Address City/[facility] Phone Number [facility] DEPARTMENT OF PATHOLOGY AND [address] [place] [address] [address] CBC with platelet and differential (08/01/2018 8:03 AM YARD MOTOR OPERATOR) WBC 5.20 4.50 - 11.00 k/uL [facility] RBC 2.27 (L) 4.40 - 6.00 m/uL [facility] HGB 7.7 (L) 14.0 - 18.0 g/dL [facility] HCT 24.1 (L) 41.0 - 51.0 % [facility] MCV 106.2 (H) 82.0 - 100.0 fL [facility] MCH 33.9 27.0 - 34.0 pg [facility] 32.0 31.0 - 37.0 g/dL [facility] RDW - SD 87.1 (H) 37.0 - 55.0 fL [facility] MPV 10.7 8.8 - 13.2 fL [facility] Platelet count 111 (L) 150 - 400 k/uL [facility] Nucleated RBC 0.00 /100 WBC [facility] Neutrophils 31.7 (L) 39.0 - 69.0 % [facility] Lymphocytes 22.5 (L) 25.0 - 45.0 % [facility] Monocytes 44.2 (H) 0.0 - 10.0 % [facility] Eosinophils 0.0 0.0 - 5.0 % [facility] Basophils 1.0 0.0 - 1.0 % [facility] Immature granulocytes 0.6Comment: "Immature 0.0 - 1.0 % [facility] granulocytes" HOSPITAL (promyelocytes, myelocytes, metamyelocytes) Specimen Blood Performing Organization Address City/[facility] Phone Number [facility] DEPARTMENT OF PATHOLOGY AND [address] [place] [phone] Basic metabolic panel (08/01/2018 8:03 AM YARD MOTOR OPERATOR) Sodium 138 135 - 148 mEq/L [facility] Potassium 5.1 (H) 3.5 - 5.0 mEq/L [facility] Chloride 95 (L) 98 - 112 mEq/L [facility] CO2 35 (H) 24 - 31 mEq/L [facility] Anion gap 8@ANIO 7 - 15 mEq/L [facility] BUN 28 (H) 8 - 23 mg/dL [facility] Creatinine 0.78 0.70 - 1.20 mg/dL [facility] Glucose 98 65 - 99 mg/dL [facility] Calcium 9.4 8.8 - 10.2 mg/dL [facility] Specimen Plasma specimen Performing Organization Address City/[facility] Phone Number [facility] DEPARTMENT OF PATHOLOGY AND [address] [place] [address] [address] ECG Pre/Post Op-Tomorrow (08/01/2018 7:51 AM YARD MOTOR OPERATOR) Ventricular rate 70 [facility] Atrial rate 70 [facility] QRSD interval 166 [facility] QT interval 474 [facility] QTC interval 511 [facility] P axis 1 5 [facility] QRS axis 1 -33 [facility] T wave axis 81 [facility] EKG impression Ventricular-paced rhythm-Abnormal ECG-No [facility] previous ECGs available- Narrative Performed At Performing Organization Address City/State/Zipcode Phone Number [facility] [address] [place] [address] XR Chest 1 Vw Portable (07/31/2018 4:12 PM YARD MOTOR OPERATOR) Narrative Performed At EXAM: RADIANT XR CHEST [...] glenohumeral joints. Minimal degenerative changes thoracic spine. [facility]-[id number] Procedure Note Interface, Radiology Results Incoming - 07/31/2018 4:19 PM YARD MOTOR OPERATOR EXAM: XR CHEST 1 VW PORTABLE INDICATION: [...] glenohumeral joints. Minimal degenerative changes thoracic spine. [facility]-[id number] Performing Organization Address City/State/Zipcode Phone Number [facility] [address] [place] [address] Cv electrophysiology procedure (07/31/2018 3:40 PM YARD MOTOR OPERATOR) Narrative Performed At TITLE: [facility] Dual-chamber pacemaker. PREOPERATIVE DIAGNOSES: 1.Dyspnea on exertion. [...] permanent pacemaker when he was at the [facility] in [place], he declined one at that time.Recently, he [...] [place]ala asked me to transfer him from [place] for a permanent pacemaker.He comes now for [...] Marion XT DR MRI, model W1DR01, serial #[id number]. 3.The right atrial lead is a Medtronic 5076, serial #[id number], measured P-wave 3 mV, pacing threshold 1.3 V, current 2.4 mA, impedance 562 ohms. 4.Right ventricular apical pacing lead is a Medtronic 5076, serial #[id number], measured R-wave 7 mV, pacing threshold 0.7 V, current 1.2 mA, impedance 661 ohms. CONCLUSIONS: Successful dual-chamber pacemaker placement. RECOMMENDATIONS: 1.IV antibiotics. 2.Discharge home tomorrow. Performing Organization Address City/[facility] Phone Number [facility] [address] [place] [address] Type and screen (07/31/2018 1:36 PM YARD MOTOR OPERATOR) ABO grouping B [facility] Rh type POS [facility] Antibody screen (gel) NEG [facility] Specimen Blood Performing Organization Address City/State/Zipcode Phone Number [facility] DEPARTMENT OF PATHOLOGY AND [address] [place] [address] GENOMIC MEDICINE [facility] [address] [place] [address] after 09/16/2017 Insurance Payer Benefit Plan / Group Subscriber ID Type Phone Address UHC MEDICARE AARP MEDICARE COMPLETE MCR xxxxxxxxx HMO Advance Directives Patient has advance care planning documents on file. For more information, please contact:[facility] [place] [address]
--- OUTSIDE RECORDS SUMMARY | 2018-09-17 08:37 | XMS REPORT ---
:1935 Author Organization [facility] Address [address] [place] [address] Care Team Providers Name Role Phone Unavailable Unavailable Unavailable Problems This patient has no known problems. Allergies, Adverse Reactions, Alerts This patient has no known allergies or adverse reactions. Medications This patient has no known medications.
--- NOTE | 2018-09-17 09:41 | ER ---
Nurse's Notes [facility] Name: Vineet Freeman Age: 83 yrs Sex: Male : 1935 Arrival Date: 09/17/2018 Time: 08:37 Bed 14 Private MD: MADDIE PETERS Diagnosis: Anemia, unspecified Presentation: 09/17 08:54 Presenting complaint: Patient states: Sent by Dr. Altamirano for blood transfusion. Hgb 6.7. ss Pt c/o fatigue and shortness of breath on exertion. Transition of care: patient was not received from another setting of care. Onset of symptoms is unknown. Risk Assessment: Do you want to hurt yourself or someone else? Patient reports no desire to harm self or others. Initial Sepsis Screen: Does the patient meet any 2 criteria? HR > 90 bpm. Does the patient have a suspected source of infection? No. Patient's initial sepsis screen is negative. Care prior to arrival: None. 08:54 Method Of Arrival: Wheelchair ss 08:54 Acuity: VEDA 3 ss Historical: - Allergies: 08:54 No Known Allergies; ss - Home Meds: 08:50 allopurinol 100 mg Oral tab 1 tab once daily [Active]; amlodipine 5 mg tab 1 tab twice rb1 daily [Active]; benzonatate 100 mg Oral cap 1 cap 3 times per day [Active]; Colace 100 mg Oral cap 1 cap once daily [Active]; colchicine 0.6 mg Oral tab 1 tab 2 times per day [Active]; furosemide 40 mg Oral tab 1 tab 2 times per day [Active]; losartan 50 mg Oral tab 1 tab once daily [Active]; mirtazapine 15 mg Oral TbDL 1 tab at bedtime [Active]; pantoprazole 40 mg Oral TbEC 1 tab once daily [Active]; prednisone 10 mg Oral tab once daily [Active]; spironolactone 25 mg Oral tab 1 tab twice daily [Active]; tramadol 50 mg Oral tab 1 tab every 6 hours [Active]; trazodone 50 mg Oral tab 2 tabs at bedtime [Active]; vitamin H87-jcynj acid Oral once daily [Active]; - PMHx: 08:54 Anemia; CHF; Chronic pain; complete heart block; fatty liver; Gout; Hypertension; ss insomnia; Leukemia; Myelodysplastic Syndrome; - PSHx: 08:50 neck; back; rb1 - Immunization history:: Adult Immunizations up to date. - Social history:: Smoking status: Patient/guardian denies using tobacco. - Ebola Screening: : Patient denies exposure to infectious person Patient denies travel to an Ebola-affected area in the 21 days before illness onset. Screenin:45 Fall Risk None identified. rb1 08:55 Abuse screen: Denies threats or abuse. Denies injuries from another. Nutritional ss screening: No deficits noted. Tuberculosis screening: Never had TB. Assessment: 08:50 General: Appears in no apparent distress. comfortable, Behavior is calm, cooperative. rb1 Pain: Complains of pain in buttocks Pain currently is 3 out of 10 on a pain scale. Pain began chronic pain. Neuro: Level of Consciousness is awake, alert, obeys commands, Oriented to person, place, time, situation. Cardiovascular: Capillary refill < 3 seconds is brisk in bilateral fingers. Respiratory: Airway is patent Respiratory effort is even, unlabored, Respiratory pattern is regular, symmetrical. Respiratory: Reports shortness of breath on exertion. GI: No signs and/or symptoms were reported involving the gastrointestinal system. : No signs and/or symptoms were reported regarding the genitourinary system. Derm: Skin is dry, Skin is normal, Skin temperature is warm. 08:55 Reassessment: Spoke with Dr. Altamirano's office who reports they told patient to go to [facility] ER yesterday for blood transfusion due to low Hemoglobin. Pt states that he was unable to make is yesterday, but the nurse at the office told him he would be fine if he came to the ER around 0800 this next morning. Pt was under the impression that transfusion was already set up and in place. Spoke with Dr. Altamirano who reports that she was unable to order outpatient blood transfusion as patient needs to wait for antibody screening. Dr. Marshall notified. Pt is grateful for care received thus far. 09:45 Reassessment: Patient appears in no apparent distress at this time. No changes from rb1 previously documented assessment. Dr. Crews at bedside. 10:40 Reassessment: Patient appears in no apparent distress at this time. Patient and/or rb1 family updated on plan of care and expected duration. Pain level reassessed. Patient is alert, oriented x 3, equal unlabored respirations, skin warm/dry/pink. Vital Signs: 08:53 BP 100 / 55; Pulse 104; Resp 19; Temp 99.1(TE); Pulse Ox 97% on R/A; Weight 82.1 kg; Height 5 ft. 10 in. (177.80 cm); Pain 0/10; 09:50 BP 115 / 57; Pulse 101; Resp 18; Pulse Ox 98% ; rb1 10:50 BP 127 / 50; Pulse 100; Resp 17; Pulse Ox 99% on R/A; rb1 08:53 Body Mass Index 25.97 (82.10 kg, 177.80 cm) ED Course: 08:37 Patient arrived in ED. sb2 08:38 MADDIE PETERS is Private Physician. sb2 08:43 Radha Franco, RN is Primary Nurse. rb1 08:53 Arm band placed on right wrist. ss 08:55 Triage completed. ss 08:55 Patient has correct armband on for positive identification. Bed in low position. Call rb1 light in reach. Side rails up X 1. Pulse ox on. NIBP on. 08:57 Kameron Marshall MD is Attending Physician. kdr 09:39 Lj Crews DO is Hospitalizing Provider. kdr 09:50 Inserted saline lock: 22 gauge antecubital area, using aseptic technique. Blood rb1 collected. 10:40 No provider procedures requiring assistance completed. ss 10:50 No provider procedures requiring assistance completed. Patient admitted, IV remains in rb1 place. Administered Medications: No medications were administered Outcome: 09:39 Decision to Hospitalize by Provider. kdr 10:50 Patient left the ED. rb1 10:50 Admitted to accompanied by nurse, with chart, Report called to Pt. went to Day surgery rb1 to wait for blood transfusion. Report given to Andria. 10:50 Condition: stable 10:50 Instructed on the need for admit. Signatures: Kameron Marshall MD MD kdr Danette Torres RN RN Radha Franco, KYLEE RN rb1 Priscila White sb2
--- NOTE | 2018-09-17 09:42 | EDPHYS ---
Physician Documentation [facility] Name: Vineet Freeman Age: 83 yrs Sex: Male : 1935 Arrival Date: 09/17/2018 Time: 08:37 Bed 14 Private MD: MADDIE PETERS ED Physician Kameron Marshall HPI: 09/17 09:40 This 83 yrs old Black Male presents to ER via Wheelchair with complaints of Abnormal kdr Lab Results. 09:40 The patient is seen here periodically for transfusions secondary to his chronic disease kdr process. Onset: The symptoms/episode began/occurred at an unknown time. Severity of symptoms: At their worst the symptoms were mild. The patient has experienced similar episodes in the past. The patient has been recently seen by a physician: Dr. Altamirano. Historical: - Allergies: 08:54 No Known Allergies; ss - Home Meds: 08:50 allopurinol 100 mg Oral tab 1 tab once daily [Active]; amlodipine 5 mg tab 1 tab twice rb1 daily [Active]; benzonatate 100 mg Oral cap 1 cap 3 times per day [Active]; Colace 100 mg Oral cap 1 cap once daily [Active]; colchicine 0.6 mg Oral tab 1 tab 2 times per day [Active]; furosemide 40 mg Oral tab 1 tab 2 times per day [Active]; losartan 50 mg Oral tab 1 tab once daily [Active]; mirtazapine 15 mg Oral TbDL 1 tab at bedtime [Active]; pantoprazole 40 mg Oral TbEC 1 tab once daily [Active]; prednisone 10 mg Oral tab once daily [Active]; spironolactone 25 mg Oral tab 1 tab twice daily [Active]; tramadol 50 mg Oral tab 1 tab every 6 hours [Active]; trazodone 50 mg Oral tab 2 tabs at bedtime [Active]; vitamin I40-nmuwd acid Oral once daily [Active]; - PMHx: 08:54 Anemia; CHF; Chronic pain; complete heart block; fatty liver; Gout; Hypertension; ss insomnia; Leukemia; Myelodysplastic Syndrome; - PSHx: 08:50 neck; back; rb1 - Immunization history:: Adult Immunizations up to date. - Social history:: Smoking status: Patient/guardian denies using tobacco. - Ebola Screening: : Patient denies exposure to infectious person Patient denies travel to an Ebola-affected area in the 21 days before illness onset. ROS: 09:40 Constitutional: Negative for fever, chills, and weight loss, Eyes: Negative for injury, kdr pain, redness, and discharge, Neck: Negative for injury, pain, and swelling, Cardiovascular: Negative for chest pain, palpitations, and edema, Respiratory: Negative for shortness of breath, cough, wheezing, and pleuritic chest pain. Exam: 09:40 Constitutional: This is a well developed, well nourished patient who is awake, alert, kdr and in no acute distress. Head/Face: Normocephalic, atraumatic. Eyes: Pupils equal round and reactive to light, extra-ocular motions intact. Lids and lashes normal. Conjunctiva and sclera are non-icteric and not injected. Cornea within normal limits. Periorbital areas with no swelling, redness, or edema. Neck: Trachea midline, no thyromegaly or masses palpated, and no cervical lymphadenopathy. Supple, full range of motion without nuchal rigidity, or vertebral point tenderness. No Meningismus. Chest/axilla: Normal chest wall appearance and motion. Nontender with no deformity. No lesions are appreciated. Cardiovascular: Regular rate and rhythm with a normal S1 and S2. No gallops, murmurs, or rubs. Normal PMI, no JVD. No pulse deficits. Abdomen/GI: Soft, non-tender, with normal bowel sounds. No distension or tympany. No guarding or rebound. No evidence of tenderness throughout. Back: No spinal tenderness. No costovertebral tenderness. Full range of motion. Skin: Warm, dry with normal turgor. Normal color with no rashes, no lesions, and no evidence of cellulitis. 09:40 Respiratory: the patient does not display signs of respiratory distress, Respirations: normal, Breath sounds: rales, decreased breath sounds, that are mild, are heard in the left posterior lower lobe, rhonchi, that are mild, are heard diffusely. Vital Signs: 08:53 BP 100 / 55; Pulse 104; Resp 19; Temp 99.1(TE); Pulse Ox 97% on R/A; Weight 82.1 kg; ss Height 5 ft. 10 in. (177.80 cm); Pain 0/10; 09:50 BP 115 / 57; Pulse 101; Resp 18; Pulse Ox 98% ; rb1 10:50 BP 127 / 50; Pulse 100; Resp 17; Pulse Ox 99% on R/A; rb1 08:53 Body Mass Index 25.97 (82.10 kg, 177.80 cm) ss MDM: 09:39 Patient medically screened. kdr 09:40 Data reviewed: vital signs, nurses notes, lab test result(s). Counseling: I had a kdr detailed discussion with the patient and/or guardian regarding: the historical points, exam findings, and any diagnostic results supporting the discharge/admit diagnosis, lab results, radiology results, the need for further work-up and treatment in the hospital. 09/17 09:13 Order name: CBC with Diff kdr 09/17 09:13 Order name: Chem 7 kdr 09/17 09:13 Order name: Type And Screen kdr 09/17 10:04 Order name: CXR XRAY kdr 09/17 10:12 Order name: Misc. Order: recollect type and screen per lab; Complete Time: 10:22 ss Administered Medications: No medications were administered Disposition: 09/17/18 09:39 Hospitalization ordered by Lj Crews for Observation. Preliminary diagnosis is Anemia, unspecified. - Bed requested for [facility] ER HOLD. - Status is Observation. rb1 - Condition is Fair. - Problem is an acute exacerbation. - Symptoms are unchanged. UTI on Admission? No Signatures: Dispatcher [employer] EDMS Kameron Marshall MD MD [facility] Danette Torres RN RN ss Radha Franco RN RN rb1 Corrections: (The following items were deleted from the chart) 10:39 09:39 Hospitalization Ordered by Lj Crews DO for Observation. Preliminary ss diagnosis is Anemia, unspecified. Bed requested for Telemetry/MedSurg (observation). Status is Observation. Condition is Fair. Problem is an acute exacerbation. Symptoms are unchanged. UTI on Admission? No. kdr 10:50 10:39 09/17/2018 09:39 Hospitalization Ordered by Lj Crews DO for Observation. rb1 Preliminary diagnosis is Anemia, unspecified. Bed requested for [facility] ER HOLD. Status is Observation. Condition is Fair. Problem is an acute exacerbation. Symptoms are unchanged. UTI on Admission? No. ss
[2018-09-17 10:05] LABS: Absolute Lymphocytes (CBC) 0.7 K/uL (0.7-4.9); Absolute Monocytes 3.5 K/uL (0.1-1.3); Absolute Neutrophil 2.7 K/uL (1.8-8.0); Basophils % 0.2 % (0-1.3); Eosinophils % 0.9 % (0-4.4); Hematocrit 17.9 % (39.6-49.0); Lymphocytes % 10.3 % (15.3-44.8); MPV 8.1 fL (7.6-11.3); Monocytes % 50.6 % (3.3-12.3); RBC Red Blood Cell Count 1.66 M/uL (4.33-5.43)
--- NOTE | 2018-09-17 10:09 | P.HP ---
Certification for Inpatient Patient admitted to: Observation With expected LOS: <2 Midnights Patient will require the following post-hospital care: None Practitioner: I am a practitioner with admitting privileges, knowledge of patient current condition, hospital course, and medical plan of care. Services: Services provided to patient in accordance with Admission requirements found in Title 42 Section 412.3 of the Code of Federal Regulations Patient History Date of Service: 09/17/18 Primary Care Provider: Dr. Loya([facility]); Oncology-Dr. Altamirano; Cardiology-Dr. Pressley Reason for admission: Anemia History of Present Illness: 83 yo AAM presented to the ER with anemia. 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 He was told to go to the ER by his Oncologist as his Hemoglobin was low. He was told that he would require transfusion. He was recently hospitalized for transfusion on 08/21-08/22. Today he was with mild SOB. No chest pain, nausea or vomiting noted. He is without edema. He has a history of constipation. His other medical issues include: HTN, GERD, COPD, Recent pacemaker placement for completer heart block, and gout. In the ER he appeared stable. BP and vitals stable. CBC and CXR to be obtained. He was admitted for observation for the need for transfusion. Allergies No Known Allergies Allergy (Verified 07/15/18 09:06) Home medications list reviewed: Yes Home Medications: Allopurinol 100 mg PO DAILY #30 tablet 12/27/16 Cyanocobalamin (Vitamin B-12) [Vitamin B-12] 1,000 mcg PO DAILY #30 tablet 12/27 Docusate [Colace Cap*] 1 tab PO DAILY PRN 05/14/18 Arformoterol Tartrate [Brovana] 15 mcg NEB BIDRESP #60 vial.neb 07/31/18 Furosemide [Lasix*] 40 mg PO BIDL #60 tab 07/31/18 Losartan Potassium [Cozaar*] 50 mg PO DAILY #30 tablet 07/31/18 Pantoprazole [Protonix Tab*] 40 mg PO DAILYAC #30 tab 07/31/18 Spironolactone [Aldactone*] 25 mg PO BID #60 tab 07/31/18 predniSONE [Deltasone*] 10 mg PO DAILY #7 tab 07/31/18 Amlodipine [Norvasc*] 5 mg PO BID 08/21/18 - Past Medical/Surgical History Diabetic: No -: Hypertension -: CML -: Depression -: Chronic anemia requiring transfusions -: Chronic diastolic CHF -: Gout -: GERD -: Fatty liver -: Pacemaker due to Complete heart block -: Spinal Fusion-2004 -: pacemaker July 2018 Psychosocial/ Personal History: The patient is . He has 3 children. He lives with a girlfriend. He no longer works. - Family History Family History: Reviewed- Non-Contributory - Social History Smoking Status: Never smoker Alcohol use: No CD- Drugs: No Caffeine use: Yes Place of Residence: Home Review of Systems General: As per HPI Eyes: Unremarkable ENT: Unremarkable Respiratory: Shortness of Breath, As per HPI Cardiovascular: Unremarkable Gastrointestinal: Unremarkable Genitourinary: Unremarkable Musculoskeletal: Unremarkable Integumentary: Unremarkable Neurological: Unremarkable Lymphatics: Unremarkable Physical Examination - Physical Exam General: Alert, In no apparent distress, Oriented x3, Cooperative HEENT: Atraumatic, Normocephalic, PERRLA, Mucous membr. moist/pink Neck: Supple, No Thyromegaly Respiratory: Other (minimal diminished to the left base but with good air movement. No wheezing. ) Cardiovascular: Normal pulses, Regular rate/rhythm Gastrointestinal: Normal bowel sounds, Soft and benign, Non-distended, No ascites, No tenderness, No masses, No rebound, No guarding Musculoskeletal: No erythema, No tenderness, No warmth Neurological: Normal speech, Normal strength at 5/5 x4 extr, Normal tone, Normal affect Assessment and Plan - Plan Impression: Acute on chronic anemia with history of CML HTN GERD Chronic diastolic CHF COPD Pacemaker due to Complete heart block Gout Chronic constipation Plan: Acute on chronic anemia with history of CML: Patient will be admitted for requirement of transfusion. Will type and cross for 2 units of blood. Will try to keep Hemoglobin above 9.0. Will provide Lasix IV 20 mg after each unit of blood due to his history of CHF. Will check CXR today. Will recheck H/H one hour after the last unit of blood. Anticipate DC tomorrow in the am after transfusion if stable. Patient seen and followed closely by Oncology. Will discuss with Oncology for follow up. HTN: Will restart Norvasc 5 mg daily and Losartan 50 mg daily. Will monitor and adjust medication closely. GERD: Will start Pepcid and monitor. Chronic diastolic CHF: Will restart home medications of Lasix 40 mg BID and Aldactone 25 mg BID. Will need to continue with a 1500 cc per day fluid restriction and monitor. Patient will get Lasix 20 mg IV after each unit of blood given. Will check CXR. COPD: Will continue with Brovana, Albuterol and Atrovent. Will monitor closely. Will maintain oxygen above 90%. Pacemaker due to Complete heart block: Patient with pacemaker. Will monitor on telemetry. Gout: Will continue with home medication of Allopurinol 100 mg daily. Chronic constipation: Will provide medication as needed. Discharge Plan: Home Plan to discharge in: 24 Hours - Advance Directives Does patient have a Living Will: No Does patient have a Durable POA for Healthcare: Yes - Code Status/Comfort Care Code Status Assessed: Yes (Patient is full code. ) Time Spent Managing Pts Care (In Minutes): 55
[2018-09-17 10:19] LABS: BUN Blood Urea Nitrogen 17 mg/dL (7-18); Bicarbonate 32 mmol/L (21-32); Glucose Level 143 mg/dL (74-106); Potassium 4.4 mmol/L (3.5-5.1); Sodium Level 140 mmol/L (136-145)
[2018-09-17 11:10] LABS: Platelet Estimate ADEQ; Urine White Blood Cell Casts OK
[2018-09-17 11:11] LABS: Anisocytosis 3+; Blood Morphology Comment NOTED (NOT SEEN); Macrocytosis 1+
[2018-09-17] MEDS ORDERED: NA CHLORIDE 0.9% 250 ML ONE (12:57)
--- NOTE | 2018-09-17 12:58 | RAD REPORT ---
EXAM DESCRIPTION: RAD - Chest Single View - 09/17/2018 12:52 pm CLINICAL HISTORY: Fatigue, shortness of breath, anemia COMPARISON: July 30, 2018 TECHNIQUE: AP portable chest image was obtained 1245 hours . FINDINGS: No acute right lung field process. Right base pleural and parenchymal opacification seen D ecember 27 have cleared. Patient now has a moderate left pleural effusion that is new or enlarged fro m the comparison. Atelectasis and/ or infiltrate in the left base are not excluded. Heart size appear s to be stable. Left side of the heart is obscured by the pleural fluid. No pneumothorax. IMPRESSION: Moderate left-sided pleural effusion new or enlarged from July imaging. Left lung base infiltrate and/ or atelectasis can be present.
[2018-09-17 13:48] VITALS: BMI 25.6
[2018-09-17] MEDS ORDERED: LACTULOSE 20 GM/30 ML UCUP PO PRN (16:08)
[2018-09-17] MEDS ORDERED: ALBUTEROL 2.5 MG/3 ML NEB SOL NEB PRN (16:08)
[2018-09-17] MEDS ORDERED: ACETAMINOPHEN 500 MG TAB PO PRN (16:08)
[2018-09-17] MEDS ORDERED: ONDANSETRON 4 MG/2 ML VIAL IV PRN (16:08)
[2018-09-17] MEDS ORDERED: FUROSEMIDE 20 MG/ 2ML VIAL IV ONE ×2 (16:16→20:10)
[2018-09-17] MEDS ORDERED: DOCUSATE NA 100 MG CAP PO PRN (16:46)
[2018-09-17] MEDS: FUROSEMIDE 40 MG TABLET PO SCH (17:00)
[2018-09-17] MEDS ORDERED: NA CHLORIDE 0.9% 100 ML ONE (17:23)
[2018-09-17] MEDS: PANTOPRAZOLE 40MG TABLET PO SCH (18:00)
[2018-09-17 18:15] LABS: Urine Appearance CLEAR; Urine Bilirubin NEGATIVE (NEG); Urine Blood NEGATIVE (NEG); Urine Color YELLOW; Urine Glucose NEGATIVE (NEG); Urine Protein NEGATIVE (NEG); Urine Specific Gravity 1.015 (1.005-1.030); Urine pH 5.5 (5.0-7.0)
[2018-09-17 18:22] LABS: Urine Microscopic Reflex NO UMIC
[2018-09-17] MEDS: ARFORMOTEROL TARTRATE 15 MCG/2 ML VIAL.NEB NEB SCH (19:49)
[2018-09-17] MEDS ORDERED: FAMOTIDINE 20 MG TAB PO SCH (21:00)
[2018-09-17] MEDS: SPIRONOLACTONE 25 MG TABLET PO SCH (21:07)
[2018-09-17 22:40] LABS: Hematocrit 24.6 % (39.6-49.0)
[2018-09-18 06:13] LABS: BUN Blood Urea Nitrogen 15 mg/dL (7-18); Bicarbonate 32 mmol/L (21-32); Glucose Level 111 mg/dL (74-106); Magnesium 1.9 mg/dL (1.8-2.4); Sodium Level 137 mmol/L (136-145)
[2018-09-18 06:15] LABS: Absolute Lymphocytes (CBC) 1.4 K/uL (0.7-4.9); Absolute Monocytes 4.8 K/uL (0.1-1.3); Absolute Neutrophil 1.5 K/uL (1.8-8.0); Basophils % 0.5 % (0-1.3); Eosinophils % 1.4 % (0-4.4); Lymphocytes % 17.6 % (15.3-44.8); MPV 8.1 fL (7.6-11.3); Monocytes % 60.8 % (3.3-12.3)
[2018-09-18] MEDS: ARFORMOTEROL TARTRATE 15 MCG/2 ML VIAL.NEB NEB SCH ×2 (08:06→19:53)
[2018-09-18 08:12] LABS: Platelet Estimate ADEQ; Platelets, Giant MANY
[2018-09-18 08:13] LABS: Anisocytosis 2+; Blood Morphology Comment NOTED (NOT SEEN); Polychromasia 1+
[2018-09-18] MEDS: PANTOPRAZOLE 40MG TABLET PO SCH (09:00)
--- NOTE | 2018-09-18 09:21 | RAD REPORT ---
EXAM DESCRIPTION: RAD - Chest Single View - 09/18/2018 8:58 am CLINICAL HISTORY: Chest pain, left-sided pleural effusion COMPARISON: September 17 TECHNIQUE: AP portable chest image was obtained 0835 hours . FINDINGS: Moderate left-sided pleural effusion has not change from prior day imaging. No new or prog ressive right lung field or upper lung field process. Heart size appears normal. Left heart border is obscured by the pleural fluid. Pacemaker remains in place. No pneumothorax. No acute bony abnormalit y seen. No acute aortic findings suspected. IMPRESSION: Moderate left pleural effusion stable from prior day imaging. No new or progressive finding.
--- NOTE | 2018-09-18 09:22 | RAD REPORT ---
EXAM DESCRIPTION: RAD - Chest Lateral Decubitus - 09/18/2018 8:58 am CLINICAL HISTORY: Left pleural effusion COMPARISON: September 18 chest film, September 17 chest film TECHNIQUE: Right and left lateral decubitus films were obtained. FINDINGS: There is a minimal layering right pleural effusion. The moderate size left pleural effusio n shows little to no layering. No pneumothorax. IMPRESSION: Loculated left pleural effusion with no layering on decubitus imaging. Layering of a minimal right pleural effusion.
[2018-09-18] MEDS: SPIRONOLACTONE 25 MG TABLET PO SCH ×2 (09:37→20:22)
[2018-09-18] MEDS: FUROSEMIDE 40 MG TABLET PO SCH ×2 (09:38→17:01)
[2018-09-18] MEDS: predniSONE 10 MG TAB PO SCH (09:38)
[2018-09-18] MEDS: LOSARTAN POTASSIUM 50 MG TABLET PO SCH (09:38)
[2018-09-18] MEDS: ALLOPURINOL 100 MG TAB PO SCH (09:38)
[2018-09-18] MEDS: AMLODIPINE 5 MG TAB PO SCH (09:39)
[2018-09-18] MEDS: METOPROLOL XL 25 MG TAB PO SCH (09:39)
[2018-09-18] MEDS: CYANOCOBALAMIN 1,000 MCG TAB PO SCH (09:39)
--- NOTE | 2018-09-18 12:33 | P.CNS ---
Date of Consult: 09/18/18 Primary Care Provider: Dr. Loya([facility]); Oncology-Dr. Altamirano; Cardiology-Dr. Pressley Chief Complaint: Pleural effusion History of Present Illness: Patient is 83 years of age admitted with anemia he has a chronic leukemia and requires regular blood transfusions currently he denies any pulmonary complaints is never smoked no chest pain fever chills cough phlegm found to have a loculated left-sided pleural effusion Allergies No Known Allergies Allergy (Verified 09/17/18 13:50) Home Medications: Allopurinol 100 mg PO DAILY #30 tablet 12/27/16 Cyanocobalamin (Vitamin B-12) [Vitamin B-12] 1,000 mcg PO DAILY #30 tablet 12/27 Docusate [Colace Cap*] 1 tab PO DAILY PRN 05/14/18 Arformoterol Tartrate [Brovana] 15 mcg NEB BIDRESP #60 vial.neb 07/31/18 Furosemide [Lasix*] 40 mg PO BIDL #60 tab 07/31/18 Losartan Potassium [Cozaar*] 50 mg PO DAILY #30 tablet 07/31/18 Pantoprazole [Protonix Tab*] 40 mg PO DAILYAC #30 tab 07/31/18 Spironolactone [Aldactone*] 25 mg PO BID #60 tab 07/31/18 predniSONE [Deltasone*] 10 mg PO DAILY #7 tab 07/31/18 Amlodipine [Norvasc*] 5 mg PO BID 08/21/18 Metoprolol Succinate 25 mg PO DAILY 09/17/18 - Past Medical/Surgical History Diabetic: No -: Hypertension -: CML -: Depression -: Chronic anemia requiring transfusions -: Chronic diastolic CHF -: Gout -: GERD -: Fatty liver -: Pacemaker due to Complete heart block -: Spinal Fusion-2004 -: pacemaker July 2018 Psychosocial/ Personal History: The patient is . He has 3 children. He lives with a girlfriend. He no longer works. - Social History Smoking Status: Unknown if ever smoked Alcohol use: No CD- Drugs: No Caffeine use: Yes Place of Residence: Home Review of Systems 10-point ROS is otherwise unremarkable General: Weakness Physical Examination Temp Pulse Resp BP Pulse Ox 99.4 F 107 H 20 140/64 100 09/18/18 08:00 09/18/18 09:39 09/18/18 08:00 09/18/18 09:39 09/18/18 08:00 General: Oriented x3 HEENT: Atraumatic, Other Respiratory: Clear to auscultation bilaterally, Diminished (Diminished air entry at the left base) Cardiovascular: No edema, Normal S1 S2 Gastrointestinal: Normal bowel sounds, Soft and benign - Problems (1) Pleural effusion Onset Date: 09/18/18 Current Visit: No Status: Acute Plan: Patient is 83 years of age admitted with anemia patient's hemoglobin was 60 does require regular blood transfusions patient has left-sided presumed loculated effusion which appears to be chronic denies any pulmonary complaint no evidence of an infection vital signs oxygenation satisfactory of ordered a CT scan of the chest with contrast serial chest x-rays reviewed he did have bilateral pleural effusions documented in July echocardiogram in July of 2018 showed left ventricular hypertrophy most likely diastolic dysfunction no evidence of sepsis
--- NOTE | 2018-09-18 14:08 | RAD REPORT ---
EXAM DESCRIPTION: CT - Thorax W/ Con - 09/18/2018 1:43 pm CLINICAL HISTORY: Left-sided pleural effusion with loculation findings, abnormal decubitus films COMPARISON: Chest film same date, lateral decubitus chest films same date TECHNIQUE: Dynamically enhanced 5 mm thick images of the chest were obtained during administration o f 100 mL non-ionic IV contrast. All CT scans are performed using dose optimization technique as appropriate and may include automated exposure control or mA/KV adjustment according to patient size. FINDINGS: Right lung field is clear of mass or acute infiltrate. There is trace atelectasis in the p osterior gutter on the right. Small right pleural effusion is present without evidence for loculation . A granuloma is present at the right lung base. Substantial atelectasis of the left lower lobe present. There is atelectasis within the posterior matthew gula of the left upper lobe. Aerated portions of the left lung field show no mass or focal infiltrate . Small area of loculated pleural fluid is seen along the left apex. There is a large pleural effusion in the left lung base mostly or fully loculated. A portion of the loculation extends into the fissure on the left. No pneumothorax. No chest wall mass or abnormal axillary lymphadenopathy. No mediastinal or hilar mass lesions seen an d no endobronchial lesions are identifiable. Trace amount of pericardial effusion seen. No cardiomegaly. Arterial tree calcifications are present. No abnormal mediastinal or hilar mass or lymphadenopathy seen. IMPRESSION: Large left-sided pleural effusion with loculation in the base, lateral chest and the lef t apex. No underlying mass. No endobronchial lesion. Partial atelectasis present in left upper and left lower lobes. Small right-sided pleural effusion. No suspicious mass or infiltrate in either lung field.
[2018-09-18] MEDS: IPRATROPIUM BROM 0.5MG/2.5ML NEB PRN (19:53)
[2018-09-19] MEDS: ARFORMOTEROL TARTRATE 15 MCG/2 ML VIAL.NEB NEB SCH ×2 (08:10→20:03)
--- NOTE | 2018-09-19 09:24 | P.PN ---
Subjective Date of Service: 09/18/18 Chief Complaint: Pleural effusion Patient is doing well with no new complaints. He continues to improve. Pulmonary has been consulted. Lateral decubitus x-ray pending. If x-ray unremarkable and possible discharge home later today. Review of Systems 10-point ROS is otherwise unremarkable Physical Examination - Vital Signs Temperature: 98.1 F Blood Pressure: 141/63 Pulse: 84 Respirations: 16 Pulse Ox (%): 91 - Physical Exam General: Alert, In no apparent distress, Oriented x3 Respiratory: Normal air movement, Diminished, Crackles/rales Cardiovascular: Regular rate/rhythm, Normal S1 S2 Gastrointestinal: Normal bowel sounds, Soft and benign, Non-distended, No tenderness Musculoskeletal: No tenderness Integumentary: No rashes Neurological: Normal speech, Normal tone, Normal affect Lymphatics: No axilla or inguinal lymphadenopathy - Studies Medications List Reviewed: Yes Assessment & Plan - Problems (Diagnosis) (1) Anemia Onset Date: 12/27/16 Current Visit: No Status: Acute Qualifiers: Anemia type: bone marrow failure Bone marrow failure anemia type: unspecified bone marrow failure Qualified Code(s): D61.9 - Aplastic anemia, unspecified (2) Diastolic heart failure Current Visit: No Status: Acute Qualifiers: Heart failure chronicity: acute on chronic Qualified Code(s): I50.33 - Acute on chronic diastolic (congestive) heart failure (3) Pleural effusion Onset Date: 09/18/18 Current Visit: No Status: Acute (4) Shortness of breath Onset Date: 12/27/16 Current Visit: No Status: Acute (5) Alcohol abuse Onset Date: 12/27/16 Current Visit: No Status: Chronic (6) B12 deficiency Onset Date: 12/27/16 Current Visit: No Status: Chronic (7) CMML (chronic myelomonocytic leukemia) Current Visit: No Status: Chronic Qualifiers: Leukemia Active/Remission status: without remission Qualified Code(s): C93.10 - Chronic myelomonocytic leukemia not having achieved remission (8) Hypertension Onset Date: 12/27/16 Current Visit: No Status: Chronic Qualifiers: Hypertension type: essential hypertension Qualified Code(s): I10 - Essential (primary) hypertension (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 Patient was transfused 2 units of packed red blood cells. His hemoglobin is stable. Currently, patient is getting a pulmonary workup. He has a pleural effusion that is being worked up for possible loculation. It appears that this is a chronic effusion. This was seen on his echocardiogram. He may get to go home if okay with Pulmonary. He will need to follow up with his superintendent transportation in 1-2 weeks. Discharge Plan: Home Plan to discharge in: 24 Hours - Advance Directives Does patient have a Living Will: No Does patient have a Durable POA for Healthcare: Yes - Code Status/Comfort Care Code Status Assessed: Yes Code Status: Full Code Critical Care: No Time Spent Managing PTS Care (In Minutes): 30
[2018-09-19] MEDS: SPIRONOLACTONE 25 MG TABLET PO SCH ×2 (09:25→21:44)
[2018-09-19] MEDS: AMLODIPINE 5 MG TAB PO SCH (09:25)
[2018-09-19] MEDS: METOPROLOL XL 25 MG TAB PO SCH (09:25)
[2018-09-19] MEDS: PANTOPRAZOLE 40MG TABLET PO SCH (09:25)
[2018-09-19] MEDS: CYANOCOBALAMIN 1,000 MCG TAB PO SCH (09:25)
[2018-09-19] MEDS: FUROSEMIDE 40 MG TABLET PO SCH ×2 (09:25→17:52)
[2018-09-19] MEDS: LOSARTAN POTASSIUM 50 MG TABLET PO SCH (09:26)
[2018-09-19] MEDS: ALLOPURINOL 100 MG TAB PO SCH (09:26)
[2018-09-19] MEDS: predniSONE 10 MG TAB PO SCH (09:26)
--- NOTE | 2018-09-19 09:26 | P.DS ---
Primary Care Provider: Dr. Loya([facility]); Oncology-Dr. Altamirano; Cardiology-Dr. Pressley Disposition: ROUTINE DISCHARGE Discharge Condition: GOOD Reason for Admission: Pleural effusion - Problems (1) Anemia Onset Date: 12/27/16 Current Visit: No Status: Acute Qualifiers: Anemia type: bone marrow failure Bone marrow failure anemia type: unspecified bone marrow failure Qualified Code(s): D61.9 - Aplastic anemia, unspecified (2) Diastolic heart failure Current Visit: No Status: Acute Qualifiers: Heart failure chronicity: acute on chronic Qualified Code(s): I50.33 - Acute on chronic diastolic (congestive) heart failure (3) Pleural effusion Onset Date: 09/18/18 Current Visit: No Status: Acute (4) Shortness of breath Onset Date: 12/27/16 Current Visit: No Status: Acute (5) Alcohol abuse Onset Date: 12/27/16 Current Visit: No Status: Chronic (6) B12 deficiency Onset Date: 12/27/16 Current Visit: No Status: Chronic (7) CMML (chronic myelomonocytic leukemia) Current Visit: No Status: Chronic Qualifiers: Leukemia Active/Remission status: without remission Qualified Code(s): C93.10 - Chronic myelomonocytic leukemia not having achieved remission (8) Hypertension Onset Date: 12/27/16 Current Visit: No Status: Chronic Qualifiers: Hypertension type: essential hypertension Qualified Code(s): I10 - Essential (primary) hypertension (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 Current Visit: No Status: Chronic Vital Signs/Physical Exam: Temp Pulse Resp BP Pulse Ox 98.1 F 84 16 141/63 H 91 09/19/18 09:24 09/19/18 09:24 09/19/18 09:24 09/19/18 09:24 09/19/18 09:24 Laboratory Data at Discharge: WBC 7.8 K/uL (4.3-10.9) 09/18/18 05:17 Hgb 8.3 g/dL (13.6-17.9) L 09/18/18 05:17 Hct 24.0 % (39.6-49.0) L 09/18/18 05:17 Plt Count 219 K/uL (152-406) 02/15/19 05:17 Sodium 137 mmol/L (136-145) 09/18/18 05:17 Potassium 4.0 mmol/L (3.5-5.1) 09/18/18 05:17 BUN 15 mg/dL (7-18) 09/18/18 05:17 Creatinine 0.59 mg/dL (0.55-1.3) 09/18/18 05:17 Glucose 111 mg/dL (74-106) H 09/18/18 05:17 Magnesium 1.9 mg/dL (1.8-2.4) 09/18/18 05:17 Home Medications: Allopurinol 100 mg PO DAILY #30 tablet 12/27/16 Cyanocobalamin (Vitamin B-12) [Vitamin B-12] 1,000 mcg PO DAILY #30 tablet 12/27 Docusate [Colace Cap*] 1 tab PO DAILY PRN 05/14/18 Arformoterol Tartrate [Brovana] 15 mcg NEB BIDRESP #60 vial.neb 07/31/18 Furosemide [Lasix*] 40 mg PO BIDL #60 tab 07/31/18 Losartan Potassium [Cozaar*] 50 mg PO DAILY #30 tablet 07/31/18 Pantoprazole [Protonix Tab*] 40 mg PO DAILYAC #30 tab 07/31/18 Spironolactone [Aldactone*] 25 mg PO BID #60 tab 07/31/18 predniSONE [Deltasone*] 10 mg PO DAILY #7 tab 07/31/18 Amlodipine [Norvasc*] 5 mg PO BID 08/21/18 Metoprolol Succinate 25 mg PO DAILY 09/17/18 Patient Discharge Instructions: OK TO DC IV AND DC HOME. FOLLOW-UP WITH PRIMARY CARE PROVIDER IN 1-2 WEEKS. FOLLOW-UP WITH Hematology and pulmonary IN 1-2 WEEKS. RETURN TO THE ER IF symptoms worsen. CALL DR. GALVEZ AT [phone] IF ANY QUESTIONS REGARDING HOSPITAL STAY. PLEASE CALL THE FLOOR AT IF ANY MEDICATION OR NURSING QUESTIONS. Diet: Regular Activity: Fall precautions
[2018-09-19 12:27] LABS: Protime INR 1.3
[2018-09-20] MEDS: ARFORMOTEROL TARTRATE 15 MCG/2 ML VIAL.NEB NEB SCH ×2 (07:46→20:24)
[2018-09-20] MEDS: FUROSEMIDE 40 MG TABLET PO SCH ×2 (08:47→17:28)
[2018-09-20] MEDS: METOPROLOL XL 25 MG TAB PO SCH (08:47)
[2018-09-20] MEDS: SPIRONOLACTONE 25 MG TABLET PO SCH ×2 (08:47→20:43)
[2018-09-20] MEDS: AMLODIPINE 5 MG TAB PO SCH (08:47)
[2018-09-20] MEDS: PANTOPRAZOLE 40MG TABLET PO SCH (08:48)
[2018-09-20] MEDS: CYANOCOBALAMIN 1,000 MCG TAB PO SCH (08:48)
[2018-09-20] MEDS: predniSONE 10 MG TAB PO SCH (08:48)
[2018-09-20] MEDS: LOSARTAN POTASSIUM 50 MG TABLET PO SCH (08:48)
[2018-09-20] MEDS: ALLOPURINOL 100 MG TAB PO SCH (08:48)
--- NOTE | 2018-09-20 09:17 | P.DS ---
Discharge Date: 09/18/18 Primary Care Provider: Dr. Loya([facility]); Oncology-Dr. Altamirano; Cardiology-Dr. Pressley Discharge Condition: GOOD Reason for Admission: Pleural effusion - Problems (1) Anemia Onset Date: 12/27/16 Current Visit: No Status: Acute Qualifiers: Anemia type: bone marrow failure Bone marrow failure anemia type: unspecified bone marrow failure Qualified Code(s): D61.9 - Aplastic anemia, unspecified (2) Diastolic heart failure Current Visit: No Status: Acute Qualifiers: Heart failure chronicity: acute on chronic Qualified Code(s): I50.33 - Acute on chronic diastolic (congestive) heart failure (3) Pleural effusion Onset Date: 09/18/18 Current Visit: No Status: Acute (4) Shortness of breath Onset Date: 12/27/16 Current Visit: No Status: Acute (5) Alcohol abuse Onset Date: 12/27/16 Current Visit: No Status: Chronic (6) B12 deficiency Onset Date: 12/27/16 Current Visit: No Status: Chronic (7) CMML (chronic myelomonocytic leukemia) Current Visit: No Status: Chronic Qualifiers: Leukemia Active/Remission status: without remission Qualified Code(s): C93.10 - Chronic myelomonocytic leukemia not having achieved remission (8) Hypertension Onset Date: 12/27/16 Current Visit: No Status: Chronic Qualifiers: Hypertension type: essential hypertension Qualified Code(s): I10 - Essential (primary) hypertension (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 Current Visit: No Status: Chronic Vital Signs/Physical Exam: Temp Pulse Resp BP Pulse Ox 99.1 F 84 16 119/58 L 95 09/20/18 08:00 09/20/18 08:00 09/20/18 08:00 09/20/18 08:00 09/20/18 08:00 General: Alert, In no apparent distress, Oriented x3 HEENT: Atraumatic, Normocephalic Neck: Supple, 2+ carotid pulse no bruit, JVD not distended Respiratory: Clear to auscultation bilaterally, Normal air movement Cardiovascular: No edema, Normal pulses, Regular rate/rhythm, Normal S1 S2, No gallops, No murmurs Gastrointestinal: Normal bowel sounds, Soft and benign, Non-distended, No rebound, No guarding Musculoskeletal: No clubbing, No swelling Integumentary: No rashes, No erythema, No warmth Neurological: Normal gait, Normal speech, Normal strength at 5/5 x4 extr Laboratory Data at Discharge: WBC 7.8 K/uL (4.3-10.9) 09/18/18 05:17 Hgb 8.3 g/dL (13.6-17.9) L 09/18/18 05:17 Hct 24.0 % (39.6-49.0) L 09/18/18 05:17 Plt Count 219 K/uL (152-406) 09/18/18 05:17 PT 15.2 SECONDS (9.5-12.5) H 09/19/18 12:00 INR 1.30 09/19/18 12:00 APTT 35.8 SECONDS (24.3-36.9) 09/19/18 12:00 Sodium 137 mmol/L (136-145) 09/18/18 05:17 Potassium 4.0 mmol/L (3.5-5.1) 09/18/18 05:17 BUN 15 mg/dL (7-18) 09/18/18 05:17 Creatinine 0.59 mg/dL (0.55-1.3) 09/18/18 05:17 Glucose 111 mg/dL (74-106) H 09/18/18 05:17 Magnesium 1.9 mg/dL (1.8-2.4) 09/18/18 05:17 Home Medications: Allopurinol 100 mg PO DAILY #30 tablet 12/27/16 Cyanocobalamin (Vitamin B-12) [Vitamin B-12] 1,000 mcg PO DAILY #30 tablet 12/27 Docusate [Colace Cap*] 1 tab PO DAILY PRN 05/14/18 Arformoterol Tartrate [Brovana] 15 mcg NEB BIDRESP #60 vial.neb 07/31/18 Furosemide [Lasix*] 40 mg PO BIDL #60 tab 07/31/18 Losartan Potassium [Cozaar*] 50 mg PO DAILY #30 tablet 07/31/18 Pantoprazole [Protonix Tab*] 40 mg PO DAILYAC #30 tab 07/31/18 Spironolactone [Aldactone*] 25 mg PO BID #60 tab 07/31/18 predniSONE [Deltasone*] 10 mg PO DAILY #7 tab 07/31/18 Amlodipine [Norvasc*] 5 mg PO BID 08/21/18 Metoprolol Succinate 25 mg PO DAILY 09/17/18 Patient Discharge Instructions: OK TO DC IV AND DC HOME. FOLLOW-UP WITH PRIMARY CARE PROVIDER IN 1-2 WEEKS. FOLLOW-UP WITH Hematology and pulmonary IN 1-2 WEEKS. RETURN TO THE ER IF symptoms worsen. CALL DR. GALVEZ AT IF ANY QUESTIONS REGARDING HOSPITAL STAY. PLEASE CALL THE FLOOR AT [phone] IF ANY MEDICATION OR NURSING QUESTIONS. Diet: Regular Activity: Fall precautions Time spent managing pt's care (in minutes): 45
--- NOTE | 2018-09-20 11:21 | P.PN ---
Subjective Date of Service: 09/20/18 Primary Care Provider: Dr. Loya([facility]); Oncology-Dr. Altamirano; Cardiology-Dr. Pressley Chief Complaint: Pleural effusion Subjective: No C/O voiced Patient seen and examined at bedside. No family at bedside. Chart reviewed and case discussed with nursing staff. Review of Systems 10-point ROS is otherwise unremarkable Physical Examination - Vital Signs Temperature: 99.1 F Blood Pressure: 119/58 Pulse: 84 Respirations: 16 Pulse Ox (%): 95 - Physical Exam General: Alert, In no apparent distress HEENT: Atraumatic, PERRLA, EOMI Neck: Supple, JVD not distended Respiratory: Clear to auscultation bilaterally, Normal air movement Cardiovascular: Regular rate/rhythm, Normal S1 S2 Gastrointestinal: Normal bowel sounds, No tenderness Musculoskeletal: No tenderness Integumentary: No rashes Neurological: Normal speech, Normal tone, Normal affect Lymphatics: No axilla or inguinal lymphadenopathy - Studies Laboratory Data (last 24 hrs) 09/19/18 12:00: PT 15.2 H, INR 1.30, APTT 35.8 Medications List Reviewed: Yes Assessment And Plan - Current Problems (Diagnosis) (1) Anemia Onset Date: 12/27/16 Current Visit: No Status: Acute Qualifiers: Anemia type: bone marrow failure Bone marrow failure anemia type: unspecified bone marrow failure Qualified Code(s): D61.9 - Aplastic anemia, unspecified (2) Diastolic heart failure Current Visit: No Status: Acute Qualifiers: Heart failure chronicity: acute on chronic Qualified Code(s): I50.33 - Acute on chronic diastolic (congestive) heart failure (3) Pleural effusion Onset Date: 09/18/18 Current Visit: No Status: Acute (4) Shortness of breath Onset Date: 12/27/16 Current Visit: No Status: Acute (5) Alcohol abuse Onset Date: 12/27/16 Current Visit: No Status: Chronic (6) B12 deficiency Onset Date: 12/27/16 Current Visit: No Status: Chronic (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 His hemoglobin is stable. After pulmonary consultation and workup, he has a pleural effusion with possible loculation. He is currently pending a ultrasound -guided thoracocentesis. This will likely happened Friday morning. He can be discharged home after that and after clearance from pulmonology if he remains stable. He will need to follow up with his licensed massage therapist in 1-2 weeks.
[2018-09-20] MEDS: IPRATROPIUM BROM 0.5MG/2.5ML NEB PRN (20:24)
[2018-09-21] MEDS: ARFORMOTEROL TARTRATE 15 MCG/2 ML VIAL.NEB NEB SCH (07:49)
--- NOTE | 2018-09-21 08:31 | P.PN ---
Subjective Date of Service: 09/19/18 Primary Care Provider: Dr. Loya([facility]); Oncology-Dr. Altamirano; Cardiology-Dr. Pressley Chief Complaint: Pleural effusion Subjective: Improving (Patient is doing well no new complaints he has significant loculated effusion on the left side) Review of Systems Unremarkable Physical Examination - Vital Signs Temperature: 97.6 F Blood Pressure: 146/67 Pulse: 79 Respirations: 18 Pulse Ox (%): 93 - Physical Exam General: Alert, In no apparent distress, Oriented x3 Respiratory: Clear to auscultation bilaterally, Diminished Cardiovascular: No edema, Regular rate/rhythm - Studies Medications List Reviewed: Yes Assessment & Plan - Problems (Diagnosis) (1) Pleural effusion Onset Date: 09/18/18 Current Visit: No Status: Acute Plan: Patient has a significant loculated effusion on the left side he is asymptomatic I suggest a large volume thoracentesis to be scheduled by radiology on Friday is no chest pain there is no evidence of sepsis discharged after thoracentesis
[2018-09-21] MEDS: METOPROLOL XL 25 MG TAB PO SCH (10:06)
[2018-09-21] MEDS: CYANOCOBALAMIN 1,000 MCG TAB PO SCH (10:07)
[2018-09-21] MEDS: ALLOPURINOL 100 MG TAB PO SCH (10:07)
[2018-09-21] MEDS: PANTOPRAZOLE 40MG TABLET PO SCH (10:07)
[2018-09-21] MEDS: predniSONE 10 MG TAB PO SCH (10:07)
[2018-09-21] MEDS: SPIRONOLACTONE 25 MG TABLET PO SCH (10:07)
[2018-09-21] MEDS: FUROSEMIDE 40 MG TABLET PO SCH (10:08)
[2018-09-21] MEDS: LOSARTAN POTASSIUM 50 MG TABLET PO SCH (10:08)
[2018-09-21] MEDS: AMLODIPINE 5 MG TAB PO SCH (10:14)
--- NOTE | 2018-09-21 10:27 | RAD REPORT ---
EXAM DESCRIPTION: US - Chest - 09/21/2018 9:27 am CLINICAL HISTORY: Loculated left pleural effusion COMPARISON: September cat scan FINDINGS: The patient presented for a thoracentesis. Ultrasound demonstrates the largest component of the loculated pleural effusion to be inferiorly. Ult rasound demonstrates the effusion to be echogenic rather than sonolucent. IMPRESSION: The patient has an echogenic, viscous, loculated pleural effusion. In the Radiology depa rtment we utilize a small bore thoracentesis catheter. Usually we are unable to obtain fluid from a v iscous, loculated pleural effusion. Since the probability of a successful aspiration is small it was decided to not attempt the procedure and risk complication.
[2018-09-21 10:38] VITALS: O2SAT 92
--- NOTE | 2018-09-21 17:07 | P.DS ---
Admission Date: 09/20/18 Discharge Date: 09/21/18 Primary Care Provider: Dr. Loya([facility]); Oncology-Dr. Altamirano; Cardiology-Dr. Pressley Disposition: ROUTINE DISCHARGE Discharge Condition: GOOD Reason for Admission: Pleural effusion Consultations: Dr. Wadsworth, Pulmnology Procedures: 09/21/2018: - Problems (1) Anemia Onset Date: 12/27/16 Current Visit: No Status: Acute Qualifiers: Anemia type: bone marrow failure Bone marrow failure anemia type: unspecified bone marrow failure Qualified Code(s): D61.9 - Aplastic anemia, unspecified (2) Diastolic heart failure Current Visit: No Status: Acute Qualifiers: Heart failure chronicity: acute on chronic Qualified Code(s): I50.33 - Acute on chronic diastolic (congestive) heart failure (3) Pleural effusion Onset Date: 09/18/18 Current Visit: No Status: Acute (4) Shortness of breath Onset Date: 12/27/16 Current Visit: No Status: Acute (5) Alcohol abuse Onset Date: 12/27/16 Current Visit: No Status: Chronic (6) B12 deficiency Onset Date: 12/27/16 Current Visit: No Status: Chronic (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 He was told to go to the ER by his Oncologist as his Hemoglobin was low. He was told that he would require transfusion. He was recently hospitalized for transfusion on 08/21-08/22. Today he was with mild SOB. No chest pain, nausea or vomiting noted. He is without edema. He has a history of constipation. His other medical issues include: HTN, GERD, COPD, Recent pacemaker placement for completer heart block, and gout. In the ER he appeared stable. BP and vitals stable. CBC and CXR to be obtained. He was admitted for observation for the need for transfusion. Hospital Course: Acute on chronic anemia with history of CML: Patient will be admitted for requirement of transfusion. Will type and cross for 2 units of blood. Will try to keep Hemoglobin above 9.0. Will provide Lasix IV 20 mg after each unit of blood due to his history of CHF. He was going to be discharged, bilateral pleural effusions noted on chest x-ray. Pulmonology was consulted. Discharge was held for thoracocentesis prior to discharge. Since this weekend, it was bridged Friday morning. The patient did not get thoracocentesis done today, as there is not enough fluid to be drained? Patient discussed with Dr. Wadsworth. 2 options given: 1) attempt to transfer from [facility] to [place] for their thoracic surgeon or 2) discharge home with outpatient follow up with pulmonology in 1-2 days as patient has been stable, asymptomatic. Patient decided that he would like to go home today and follow up with outpatient pulmonology. Discharged home in a stable manner. Vital Signs/Physical Exam: Temp Pulse Resp BP Pulse Ox 98.7 F 102 H 18 115/54 L 92 09/21/18 12:00 09/21/18 12:00 09/21/18 12:00 09/21/18 12:00 09/21/18 12:00 General: Alert, In no apparent distress, Oriented x3 HEENT: Atraumatic, PERRLA, EOMI Neck: Supple, JVD not distended Respiratory: Clear to auscultation bilaterally, Normal air movement Cardiovascular: Regular rate/rhythm, Normal S1 S2 Gastrointestinal: Normal bowel sounds, No tenderness Musculoskeletal: No tenderness Integumentary: No rashes Neurological: Normal speech, Normal tone, Normal affect Lymphatics: No axilla or inguinal lymphadenopathy Laboratory Data at Discharge: WBC 7.8 K/uL (4.3-10.9) 09/18/18 05:17 Hgb 8.3 g/dL (13.6-17.9) L 09/18/18 05:17 Hct 24.0 % (39.6-49.0) L 09/18/18 05:17 Plt Count 219 K/uL (152-406) 09/18/18 05:17 PT 15.2 SECONDS (9.5-12.5) H 09/19/18 12:00 INR 1.30 09/19/18 12:00 APTT 35.8 SECONDS (24.3-36.9) 09/19/18 12:00 Sodium 137 mmol/L (136-145) 09/18/18 05:17 Potassium 4.0 mmol/L (3.5-5.1) 09/18/18 05:17 BUN 15 mg/dL (7-18) 09/18/18 05:17 Creatinine 0.59 mg/dL (0.55-1.3) 09/18/18 05:17 Glucose 111 mg/dL (74-106) H 09/18/18 05:17 Magnesium 1.9 mg/dL (1.8-2.4) 09/18/18 05:17 Home Medications: Allopurinol 100 mg PO DAILY #30 tablet 12/27/16 Cyanocobalamin (Vitamin B-12) [Vitamin B-12] 1,000 mcg PO DAILY #30 tablet 12/27 Docusate [Colace Cap*] 1 tab PO DAILY PRN 05/14/18 Arformoterol Tartrate [Brovana] 15 mcg NEB BIDRESP #60 vial.neb 07/31/18 Furosemide [Lasix*] 40 mg PO BIDL #60 tab 07/31/18 Losartan Potassium [Cozaar*] 50 mg PO DAILY #30 tablet 07/31/18 Pantoprazole [Protonix Tab*] 40 mg PO DAILYAC #30 tab 07/31/18 Spironolactone [Aldactone*] 25 mg PO BID #60 tab 07/31/18 predniSONE [Deltasone*] 10 mg PO DAILY #7 tab 07/31/18 Amlodipine [Norvasc*] 5 mg PO BID 08/21/18 Metoprolol Succinate 25 mg PO DAILY 09/17/18 Patient Discharge Instructions: OK TO DC IV AND DC HOME. FOLLOW-UP WITH PRIMARY CARE PROVIDER IN 1-2 WEEKS. FOLLOW-UP WITH Hematology and pulmonary IN 1-2 WEEKS. RETURN TO THE ER IF symptoms worsen. CALL DR. GALVEZ AT IF ANY QUESTIONS REGARDING HOSPITAL STAY. PLEASE CALL THE FLOOR AT [phone] IF ANY MEDICATION OR NURSING QUESTIONS. Diet: Regular Activity: Fall precautions Followup: Camden Wadsworth MD [ACTIVE - CAN ADMIT] - 2-3 Days Time spent managing pt's care (in minutes): 35
[2018-09-21 18:01] VITALS: BP 117/58; TEMP 97.7
== END 2018-09-21 18:42 | disposition home or self-care (01) | DRG 808 ==
LOC: ER 08:34 → ERHOLD 09:56 → 2ND 14:25 → OBSVTOIN 09-20 08:22
PROVIDERS: ADMIT Family Medicine; ATTEND Family Medicine
PROC: 30233N1 Transfusion of Nonautologous Red Blood Cells into Peripheral Vein, Percutaneous Approach (ICD-10-PCS; principal; 2018-09-17)
DX: D61.9 Aplastic anemia, unspecified (principal); I50.33 Acute on chronic diastolic (congestive) heart failure; J90 Pleural effusion, not elsewhere classified; C93.10 Chronic myelomonocytic leukemia not having achieved remission; I44.2 Atrioventricular block, complete; F10.10 Alcohol abuse, uncomplicated; E53.8 Deficiency of other specified B group vitamins; D46.Z Other myelodysplastic syndromes; K21.9 Gastro-esophageal reflux disease without esophagitis; J44.9 Chronic obstructive pulmonary disease, unspecified; Z95.0 Presence of cardiac pacemaker; I11.0 Hypertensive heart disease with heart failure; K59.09 Other constipation; F32.9 Major depressive disorder, single episode, unspecified
CPT/HCPCS: 36415; 71045; 71046; 71260; 76604; 80048; 81003; 83735; 85014; 85018; 85025; 85610; 85730; 86850; 86900; 86901; 99285; J1940; J7512; J7605; P9016; Q9967

== ENCOUNTER 2018-10-09 08:09 | Day surgery (SDC) | payer MEDICARE ==
--- OUTSIDE RECORDS SUMMARY | 2018-10-09 08:20 | XMS REPORT | Clinical Summary ---
:1935 Author Organization [facility] Address [address] [place] [address] Care Team Providers Name Role Phone Asked, [...] 07/31/2018 Anesthesia Event Procedural Cardiology Jessie Boo, [employer] RETIREMENT PLAN SPECIALIST 07/31/2018 - Hospital Encounter Cardiovascular Nina Tellez AV block 08/01/2018 MD Audrey 07/31/2018 Intake Access N/A after 10/08/2017 Social History Tobacco Use Types Packs/Day Years [...] Taken Blood Pressure 145/64 08/01/2018 11:31 AM FUNERAL SERVICE APPRENTICE Pulse 89 08/01/2018 11:31 AM FUNERAL SERVICE APPRENTICE Temperature 36.7 C (98 F) 08/01/2018 11:31 AM FUNERAL SERVICE APPRENTICE Respiratory Rate 16 08/01/2018 11:31 AM FUNERAL SERVICE APPRENTICE Oxygen Saturation 99% 08/01/2018 11:31 AM FUNERAL SERVICE APPRENTICE Inhaled Oxygen Concentration - - Weight 83.2 kg (183 lb 6.4 oz) 08/01/2018 6:07 AM FUNERAL SERVICE APPRENTICE Height 180.3 cm (5' 11") 07/31/2018 1:33 PM FUNERAL SERVICE APPRENTICE Body Mass Index 25.58 08/01/2018 6:07 AM FUNERAL SERVICE APPRENTICE Plan of Treatment Health Maintenance Due Date Last Done Comments SHINGLES VACCINES (#1) 1987 65+ PNEUMOCOCCAL VACCINE (2 of 2 - PPSV23) 2002 09/08/2017 PNEUMOCOCCAL POLYSACCHARIDE VACCINE AGE 65 Completed 09/08/2017 AND OVER INFLUENZA VACCINE Completed 05/04/2018, 09/08/2017 Implants Implanted Type Area Transformer Inspector Device Shelf Model / Identifier Expiration Serial / Date Lot [place] Xt Dr Neil - [id number] Cardiac N/A: [employer] CRM [id number] / Implanted: 07/31/2018 (Quantity not on file) Pacemaker N/A [employer] / Generators Lead, Pacemaker Atrial And Ventricular 58 Centimeter Capsure Fix Novus System - [id number] Cardiac Pacing N/A: [employer]IC [facility] 05/14/2020 [id number] / Implanted: 07/31/2018 (Quantity not on file) Leads or N/[employer] [id number] / Electrodes or [id number] Accessories Lead, Pacemaker Bipolar Fix Forming Atrial And Ventricular Steroid Eluting 52 Centimeter Capsure Fix Novus - [id number] Cardiac Pacing N/A: [employer] [facility] 05/01/2020 [id number] / Implanted: 07/31/2018 (Quantity not on file) Leads or N/[employer] [id number] / Electrodes or [id number] Accessories Procedures Procedure Name Priority Date/Time Associated Comments Diagnosis ECG 12-LEAD Routine 08/01/2018 10:41 Results for this AM FUNERAL SERVICE APPRENTICE procedure are in the results section. SMEAR REVIEW Routine 08/01/2018 8:03 Results for this AM FUNERAL SERVICE APPRENTICE procedure are in the results section. ESTIMATED GFR Routine 08/01/2018 8:03 Results for this AM FUNERAL SERVICE APPRENTICE procedure are in the results section. HC COMPLETE BLD COUNT Routine 08/01/2018 8:03 Results for this W/AUTO DIFF AM FUNERAL SERVICE APPRENTICE procedure are in the results section. BASIC METABOLIC PANEL Routine 08/01/2018 8:03 Results for this AM FUNERAL SERVICE APPRENTICE procedure are in the results section. ECG PRE/POST OP Routine 08/01/2018 7:51 Results for this AM FUNERAL SERVICE APPRENTICE procedure are in the results section. XR CHEST 1 VW Routine 07/31/2018 4:12 Results for this PORTABLE PM FUNERAL SERVICE APPRENTICE procedure are in the results section. EP PACEMAKER Routine 07/31/2018 3:40 Results for this INSERTION NEW OR PM FUNERAL SERVICE APPRENTICE procedure are in REPLACEMENT the results section. TYPE AND SCREEN Routine 07/31/2018 1:36 Results for this PM FUNERAL SERVICE APPRENTICE procedure are in the results section. after 10/08/2017 Results ECG 12 lead (08/01/2018 10:41 AM FUNERAL SERVICE APPRENTICE) Ventricular rate 82 [facility] Atrial rate 82 [facility] TX interval 200 [facility] QRSD interval 176 [facility] QT interval 448 [facility] QTC interval 523 [facility] P axis 1 23 [facility] QRS axis 1 -76 [facility] T wave axis 92 [facility] EKG impression Electronic ventricular pacemaker-In automated [facility] comparison with ECG of 01-AUG-2018 07:51,-Vent. rate has increased BY 12 BPM- Narrative Performed At Performing Organization Address City/State/Zipcode Phone Number [facility] [address] [place] [address] Smear review (08/01/2018 8:03 AM FUNERAL SERVICE APPRENTICE) Platelet slide review Decreased (A) [facility] Anisocytosis Moderate [facility] Ovalocytes Moderate [facility] Performing Organization Address City/[facility]/Zipcode Phone Number [facility] DEPARTMENT OF PATHOLOGY AND [address] [place] [phone] Estimated GFR (08/01/2018 8:03 AM FUNERAL SERVICE APPRENTICE) Estimated GFR 85 mL/min/1.[address] [facility] Comment: HOSPITAL CatergoryUnitsInterpretation G1 >=90 Normal or high G2 60-89Mildly decreased [id number] to moderately decreased Y1x25-14Yoklqrvetw to severely decreased G4 15-29Severely decreased G5 <15Kidney failure The eGFR was calculated using the Chronic Kidney Disease Epidemiology Collaboration (CKD-EPI) equation. Interpretation is based on recommendations of the National Kidney Foundation-Kidney Disease Outcomes Quality Initiative (NKF-KDOQI) published in 2014. Specimen Plasma specimen Performing Organization Address City/[facility] Phone Number [facility] DEPARTMENT OF PATHOLOGY AND [address] [place] [phone] CBC with platelet and differential (08/01/2018 8:03 AM FUNERAL SERVICE APPRENTICE) WBC 5.20 4.50 - 11.00 k/uL [facility] RBC 2.27 (L) 4.40 - 6.00 m/uL [facility] HGB 7.7 (L) 14.0 - 18.0 g/dL [facility] HCT 24.1 (L) 41.0 - 51.0 % [facility] MCV 106.2 (H) 82.0 - 100.0 fL [facility] MCH 33.9 27.0 - 34.0 pg [facility] MCHC 32.0 31.0 - 37.0 g/dL [facility] RDW - SD 87.1 (H) 37.0 - 55.0 fL [facility] MPV 10.7 8.8 - 13.2 fL [facility] Platelet count 111 (L) 150 - 400 k/uL [facility] Nucleated RBC 0.00 /100 WBC [facility] Neutrophils 31.7 (L) 39.0 - 69.0 % [facility] Lymphocytes 22.5 (L) 25.0 - 45.0 % [facility] Monocytes 44.2 (H) 0.0 - 10.0 % [facility] Eosinophils 0.0 0.0 - 5.0 % [facility] Basophils 1.0 0.0 - 1.0 % [facility] Immature granulocytes 0.6Comment: "Immature 0.0 - 1.0 % [facility] granulocytes" HOSPITAL (promyelocytes, myelocytes, metamyelocytes) Specimen Blood Performing Organization Address City/[facility] Phone Number [facility] DEPARTMENT OF PATHOLOGY AND [address] [place] [phone] Basic metabolic panel (08/01/2018 8:03 AM FUNERAL SERVICE APPRENTICE) Sodium 138 135 - 148 mEq/L [facility] Potassium 5.1 (H) 3.5 - 5.0 mEq/L [facility] Chloride 95 (L) 98 - 112 mEq/L [facility] CO2 35 (H) 24 - 31 mEq/L [facility] Anion gap 8@ANIO 7 - 15 mEq/L [facility] BUN 28 (H) 8 - 23 mg/dL [facility] Creatinine 0.78 0.70 - 1.20 mg/dL [facility] Glucose 98 65 - 99 mg/dL [facility] Calcium 9.4 8.8 - 10.2 mg/dL [facility] Specimen Plasma specimen Performing Organization Address City/[facility] Cent[facility]ode Phone Number [facility] DEPARTMENT OF PATHOLOGY AND [address] [place] [phone] [address] ECG Pre/Post Op-Tomorrow (08/01/2018 7:51 AM FUNERAL SERVICE APPRENTICE) Ventricular rate 70 [facility] Atrial rate 70 [facility] QRSD interval 166 [facility] QT interval 474 [facility] QTC interval 511 [facility] P axis 1 5 [facility] QRS axis 1 -33 [facility] T wave axis 81 [facility] EKG impression Ventricular-paced rhythm-Abnormal ECG-No [facility] previous ECGs available- Narrative Performed At Performing Organization Address City/State/Zipcode Phone Number [facility] [address] [place] [address] XR Chest 1 Vw Portable (07/31/2018 4:12 PM FUNERAL SERVICE APPRENTICE) Narrative Performed At EXAM: RADIANT XR CHEST [...] glenohumeral joints. Minimal degenerative changes thoracic spine. [facility]-[id number] Procedure Note Interface, Radiology Results Incoming - 07/31/2018 4:19 PM FUNERAL SERVICE APPRENTICE EXAM: XR CHEST 1 VW PORTABLE INDICATION: [...] glenohumeral joints. Minimal degenerative changes thoracic spine. [facility]-[id number] Performing Organization Address City/State/Zipcode Phone Number [facility] [address] [place] [address] Cv electrophysiology procedure (07/31/2018 3:40 PM FUNERAL SERVICE APPRENTICE) Narrative Performed At TITLE: [facility]ERT[facility] BLACKMANID Dual-chamber [...] permanent pacemaker when he was at the [facility] in [place], he declined one at that time.Recently, he [...] Zavala asked me to transfer him from [place] for a permanent pacemaker.He comes now for [...] 10 mL. 2.The pacemaker is a Medtronic [place] XT DR MRI, model [id number], serial #[id number]. 3.The right atrial lead is a Medtronic 5076, serial #[id number], measured P-wave 3 mV, pacing threshold 1.3 V, current 2.4 mA, impedance 562 ohms. 4.Right ventricular apical pacing lead is a Medtronic 5076, serial #[id number], measured R-wave 7 mV, pacing threshold 0.7 V, current 1.2 mA, impedance 661 ohms. CONCLUSIONS: Successful dual-chamber pacemaker placement. RECOMMENDATIONS: 1.IV antibiotics. 2.Discharge home tomorrow. Performing Organization Address City/State/Zipcode Phone Number [facility] [address] [place] [address] Type and screen (07/31/2018 1:36 PM FUNERAL SERVICE APPRENTICE) ABO grouping B [facility] Rh type POS [facility] Antibody screen (gel) NEG [facility] Specimen Blood Performing Organization Address City/State/Zipcode Phone Number [facility] DEPARTMENT OF PATHOLOGY AND [address] [place] [address] GENOMIC MEDICINE [facility] [address] [place] [address] after 10/08/2017 Insurance Payer Benefit Plan / Group Subscriber ID Type Phone Address [facility] MEDICARE AARP MEDICARE COMPLETE MCR xxxxxxxxx HMO Advance Directives Patient has advance care planning documents on file. For more information, please contact:[facility] [place] [address]
--- OUTSIDE RECORDS SUMMARY | 2018-10-09 08:20 | XMS REPORT ---
:1935 Author [facility] Address [facility] [place] [address] Care Team Providers Name Role Phone Unavailable Unavailable Unavailable Problems This patient has no known problems. Allergies, Adverse Reactions, Alerts This patient has no known allergies or adverse reactions. Medications This patient has no known medications.
[2018-10-09] MEDS ORDERED: NA CHLORIDE 0.9% 500 ML ONE ×2 (09:23→12:35)
[2018-10-09 14:37] VITALS: BMI 27.1
[2018-10-09 17:35] VITALS: BP 124/46; TEMP 98.2; O2SAT 95
[2018-10-09 17:58] LABS: Hematocrit 22.9 % (39.6-49.0)
== END 2018-10-09 17:35 | disposition home or self-care (01) ==
LOC: DS 08:09
PROVIDERS: ATTEND Internal Medicine Hematology & Oncology
DX: D46.9 Myelodysplastic syndrome, unspecified (principal); D63.8 Anemia in other chronic diseases classified elsewhere; I50.9 Heart failure, unspecified
CPT/HCPCS: 36415; 86900; 86850; 86901; 85018; 85014; 36430; P9016 ×2

== ENCOUNTER 2018-11-25 07:53 | Day surgery (SDC) | payer MEDICARE ==
[2018-11-24 18:13] LABS: ALT/SGPT 13 U/L (12-78); AST/SGOT 18 U/L (15-37); Albumin 2.5 g/dL (3.4-5.0); Alkaline Phosphatase 63 U/L (45-117); BUN Blood Urea Nitrogen 15 mg/dL (7-18); Bicarbonate 33 mmol/L (21-32); Bilirubin Total 0.4 mg/dL (0.2-1.0); Ferritin 1628.4 ng/mL (26-388); Glucose Level 132 mg/dL (74-106); Potassium 4.1 mmol/L (3.5-5.1); Protein, Total 9.2 g/dL (6.4-8.2); Sodium Level 141 mmol/L (136-145); Transferrin 92 mg/dL (200-360)
[~2018-11-25 07:53] MED LIST: NA CHLORIDE 0.9% 250 ML IV SCH
--- OUTSIDE RECORDS SUMMARY | 2018-11-25 07:57 | XMS REPORT ---
:1935 Author Organization [facility] Address [facility] [place] [address] Care Team Providers Name Role Phone Unavailable Unavailable Unavailable Problems This patient has no known problems. Allergies, Adverse Reactions, Alerts This patient has no known allergies or adverse reactions. Medications This patient has no known medications.
--- OUTSIDE RECORDS SUMMARY | 2018-11-25 07:57 | XMS REPORT | Clinical Summary ---
:1935 Author Organization [facility] Address [address] [place] [address] Care Team Providers Name Role Phone Asked, [...] 07/31/2018 Anesthesia Event Procedural Cardiology Jessie Boo, STOCK CLIPPER 07/31/2018 - Hospital Encounter Cardiovascular Nina Tellez AV block 08/01/2018 MD Audrey 07/31/2018 Intake Access N/A after 11/24/2017 Social History Tobacco Use Types Packs/Day Years [...] Taken Blood Pressure 145/64 08/01/2018 11:31 AM OPERATOR ASSISTANT I CEMENTING Pulse 89 08/01/2018 11:31 AM OPERATOR ASSISTANT I CEMENTING Temperature 36.7 C (98 F) 08/01/2018 11:31 AM OPERATOR ASSISTANT I CEMENTING Respiratory Rate 16 08/01/2018 11:31 AM OPERATOR ASSISTANT I CEMENTING Oxygen Saturation 99% 08/01/2018 11:31 AM OPERATOR ASSISTANT I CEMENTING Inhaled Oxygen Concentration - - Weight 83.2 kg (183 lb 6.4 oz) 08/01/2018 6:07 AM OPERATOR ASSISTANT I CEMENTING Height 180.3 cm (5' 11") 07/31/2018 1:33 PM OPERATOR ASSISTANT I CEMENTING Body Mass Index 25.58 08/01/2018 6:07 AM OPERATOR ASSISTANT I CEMENTING Plan of Treatment Health Maintenance Due Date Last Done Comments SHINGLES VACCINES (#1) 1987 65+ PNEUMOCOCCAL VACCINE (2 of 2 - PPSV23) 2002 09/08/2017 INFLUENZA VACCINE 03/04/2019 05/04/2018, 09/08/2017 PNEUMOCOCCAL POLYSACCHARIDE VACCINE AGE 65 Completed 09/08/2017 AND OVER Implants Implanted Type Area Mathematical Sciences Professor Device Shelf Model / Identifier Expiration Serial / Date Lot Marion Xt Dr Mri - [id number] Cardiac N/A: MEDTRON[employer] CRM [id number] / Implanted: 07/31/2018 (Quantity not on file) Pacemaker N/A USA[employer] / Generators Lead, Pacemaker Atrial And Ventricular 58 Centimeter Capsure Fix Novus System - [id number] Cardiac Pacing N/A: [employer]TR[employer] [facility] 05/14/2020 [id number] / Implanted: 07/31/2018 (Quantity not on file) Leads or N/A [employer] [id number] / Electrodes or [id number] Accessories Lead, Pacemaker Bipolar Fix Forming Atrial And Ventricular Steroid Eluting 52 Centimeter Capsure Fix Novus - [id number] Cardiac Pacing N/A: [employer] [facility] 05/01/2020 [id number] / Implanted: 07/31/2018 (Quantity not on file) Leads or N/A [employer] [id number] / Electrodes or [id number] Accessories Procedures Procedure Name Priority Date/Time Associated Comments Diagnosis ECG 12-LEAD Routine 08/01/2018 10:41 Results for this AM OPERATOR ASSISTANT I CEMENTING procedure are in the results section. SMEAR REVIEW Routine 08/01/2018 8:03 Results for this AM OPERATOR ASSISTANT I CEMENTING procedure are in the results section. ESTIMATED GFR Routine 08/01/2018 8:03 Results for this AM OPERATOR ASSISTANT I CEMENTING procedure are in the results section. HC COMPLETE BLD COUNT Routine 08/01/2018 8:03 Results for this W/AUTO DIFF AM OPERATOR ASSISTANT I CEMENTING procedure are in the results section. BASIC METABOLIC PANEL Routine 08/01/2018 8:03 Results for this AM OPERATOR ASSISTANT I CEMENTING procedure are in the results section. ECG PRE/POST OP Routine 08/01/2018 7:51 Results for this AM OPERATOR ASSISTANT I CEMENTING procedure are in the results section. XR CHEST 1 VW Routine 07/31/2018 4:12 Results for this PORTABLE PM OPERATOR ASSISTANT I CEMENTING procedure are in the results section. EP PACEMAKER Routine 07/31/2018 3:40 Results for this INSERTION NEW OR PM OPERATOR ASSISTANT I CEMENTING procedure are in REPLACEMENT the results section. TYPE AND SCREEN Routine 07/31/2018 1:36 Results for this PM OPERATOR ASSISTANT I CEMENTING procedure are in the results section. after 11/24/2017 Results ECG 12 lead (08/01/2018 10:41 AM OPERATOR ASSISTANT I CEMENTING) Ventricular rate 82 [facility] Atrial rate 82 [facility] VA interval 200 [facility] QRSD interval 176 [facility] QT interval 448 [facility] QTC interval 523 [facility] P axis 1 23 [facility] QRS axis 1 -76 [facility] T wave axis 92 [facility] EKG impression Electronic ventricular pacemaker-In automated [facility] MUSE comparison with ECG of 01-AUG-2018 07:51,-Vent. rate has increased BY 12 BPM- Narrative Performed At Performing Organization Address City/State/Zipcode Phone Number [facility] MUSE [address] [place] [address] Smear review (08/01/2018 8:03 AM OPERATOR ASSISTANT I CEMENTING) Platelet slide review Decreased (A) [facility] Anisocytosis Moderate [facility] Ovalocytes Moderate [facility] Performing Organization Address City/[facility]/Zipcode Phone Number [facility] DEPARTMENT OF PATHOLOGY AND [address] [place] [phone] Estimated GFR (08/01/2018 8:03 AM OPERATOR ASSISTANT I CEMENTING) Estimated GFR 85 mL/min/1.73 m2 [facility] Comment: HOSPITAL CatergoryUnitsInterpretation G1 >=90 Normal or high G2 60-89Mildly decreased [id number] to moderately decreased [id number] to severely decreased G4 15-29Severely decreased G5 <15Kidney failure The eGFR was calculated using the Chronic Kidney Disease Epidemiology Collaboration (CKD-EPI) equation. Interpretation is based on recommendations of the National Kidney Foundation-Kidney Disease Outcomes Quality Initiative (NKF-KDOQI) published in 2014. Specimen Plasma specimen Performing Organization Address City/[facility] Phone Number [facility] DEPARTMENT OF PATHOLOGY AND [address] [place] [phone] CBC with platelet and differential (08/01/2018 8:03 AM OPERATOR ASSISTANT I CEMENTING) WBC 5.20 4.50 - 11.00 k/uL [facility] RBC 2.27 (L) 4.40 - 6.00 m/uL [facility] HGB 7.7 (L) 14.0 - 18.0 g/dL [facility] HCT 24.1 (L) 41.0 - 51.0 % [facility] MCV 106.2 (H) 82.0 - 100.0 fL [facility] MCH 33.9 27.0 - 34.0 pg [facility] MCHC 32.0 31.0 - 37.0 g/dL [facility] RDW - SD 87.1 (H) 37.0 - 55.0 fL [facility] MPV 10.7 8.8 - 13.2 fL [facility] Platelet count 111 (L) 150 - 400 k/uL [facility] Nucleated RBC 0.00 /100 WBC [facility] Neutrophils 31.7 (L) 39.0 - 69.0 % [facility] Lymphocytes 22.5 (L) 25.0 - 45.0 % [facility] Monocytes 44.2 (H) 0.0 - 10.0 % [facility] Eosinophils 0.0 0.0 - 5.0 % [facility] Basophils 1.0 0.0 - 1.0 % [facility] Immature granulocytes 0.6Comment: "Immature 0.0 - 1.0 % [facility] granulocytes" HOSPITAL (promyelocytes, myelocytes, metamyelocytes) Specimen Blood Performing Organization Address City/[facility] Phone Number [facility] DEPARTMENT OF PATHOLOGY AND [address] [place] [phone] Basic metabolic panel (08/01/2018 8:03 AM OPERATOR ASSISTANT I CEMENTING) Sodium 138 135 - 148 mEq/L [facility] Potassium 5.1 (H) 3.5 - 5.0 mEq/L [facility] Chloride 95 (L) 98 - 112 mEq/L [facility] CO2 35 (H) 24 - 31 mEq/L [facility] Anion gap 8@ANIO 7 - 15 mEq/L [facility] BUN 28 (H) 8 - 23 mg/dL [facility] Creatinine 0.78 0.70 - 1.20 mg/dL [facility] Glucose 98 65 - 99 mg/dL [facility] Calcium 9.4 8.8 - 10.2 mg/dL [facility] Specimen Plasma specimen Performing Organization Address City/[facility] Phone Number [facility] DEPARTMENT OF PATHOLOGY AND [address] [place] [address] [address] ECG Pre/Post Op-Tomorrow (08/01/2018 7:51 AM OPERATOR ASSISTANT I CEMENTING) Ventricular rate 70 [facility] Atrial rate 70 [facility] QRSD interval 166 [facility] QT interval 474 [facility] QTC interval 511 [facility] P axis 1 5 [facility] QRS axis 1 -33 [facility] T wave axis 81 [facility] EKG impression Ventricular-paced rhythm-Abnormal ECG-No [facility] MUSE previous ECGs available- Narrative Performed At Performing Organization Address City/State/Zipcode Phone Number [facility] MUSE [address] [place] [address] XR Chest 1 Vw Portable (07/31/2018 4:12 PM OPERATOR ASSISTANT I CEMENTING) Narrative Performed At EXAM: RADIANT XR CHEST [...] glenohumeral joints. Minimal degenerative changes thoracic spine. [facility]-[id number] Procedure Note Interface, Radiology Results Incoming - 07/31/2018 4:19 PM OPERATOR ASSISTANT I CEMENTING EXAM: XR CHEST 1 VW PORTABLE INDICATION: [...] glenohumeral joints. Minimal degenerative changes thoracic spine. [facility]-[id number] Performing Organization Address City/State/Zipcode Phone Number FELIBERTO SANCHE[facility] [address] [place] [address] Cv electrophysiology procedure (07/31/2018 3:40 PM OPERATOR ASSISTANT I CEMENTING) Narrative Performed At TITLE: FELIBERTO MASTERSON Dual-chamber pacemaker. PREOPERATIVE DIAGNOSES: 1.Dyspnea on exertion. [...] permanent pacemaker when he was at the [facility] in [place], he declined one at that time.Recently, he [...] Zavala asked me to transfer him from [place] for a permanent pacemaker.He comes now for [...] Marion XT DR MRI, model W1DR01, serial #[id number]. 3.The right atrial lead is a Medtronic 5076, serial #[id number], measured P-wave 3 mV, pacing threshold 1.3 V, current 2.4 mA, impedance 562 ohms. 4.Right ventricular apical pacing lead is a Medtronic 5076, serial #[id number], measured R-wave 7 mV, pacing threshold 0.7 V, current 1.2 mA, impedance 661 ohms. CONCLUSIONS: Successful dual-chamber pacemaker placement. RECOMMENDATIONS: 1.IV antibiotics. 2.Discharge home tomorrow. Performing Organization Address City/State/Zipcode Phone Number [facility] [address] [place] [address] Type and screen (07/31/2018 1:36 PM OPERATOR ASSISTANT I CEMENTING) ABO grouping B [facility] Rh type POS [facility] Antibody screen (gel) NEG [facility] Specimen Blood Performing Organization Address City/State/Zipcode Phone Number [facility] DEPARTMENT OF PATHOLOGY AND [address] [place] [address] GENOMIC MEDICINE [facility] [address] [place] [address] after 11/24/2017 Insurance Payer Benefit Plan / Group Subscriber ID Type Phone Address [facility] MEDICARE AARP MEDICARE COMPLETE MCR xxxxxxxxx HMO Advance Directives Patient has advance care planning documents on file. For more information, please contact:[facility] [place] [address]
[2018-11-25] MEDS ORDERED: NA CHLORIDE 0.9% 500 ML ONE (08:15)
[2018-11-25 09:35] VITALS: BP 119/68; TEMP 98.2; O2SAT 96; BMI 21.1
[2018-11-25] MEDS ORDERED: NA CHLORIDE 0.9% 250 ML IV SCH (16:00)
[2018-11-25 16:25] LABS: Hematocrit 22.8 % (39.6-49.0)
== END 2018-11-25 15:40 | disposition home or self-care (01) ==
LOC: DS 07:53
PROVIDERS: ATTEND Internal Medicine Hematology & Oncology
DX: D46.9 Myelodysplastic syndrome, unspecified (principal); D63.8 Anemia in other chronic diseases classified elsewhere
CPT/HCPCS: 36415 ×2; 86900; 86850; 86901; 85018; 85014; 82728; 83540; 80053; 84466; 36430; P9016 ×2

== ENCOUNTER 2018-12-10 07:52 | Day surgery (SDC) | payer MEDICARE ==
--- OUTSIDE RECORDS SUMMARY | 2018-12-10 07:56 | XMS REPORT | Clinical Summary ---
:1935 Author Organization [facility] Address [address] [place] [address] Care Team Providers Name Role Phone Asked, [...] 07/31/2018 Anesthesia Event Procedural Cardiology Jessie Boo, ADJUNCT PSYCHOLOGY FACULTY MEMBER 07/31/2018 - Hospital Encounter Cardiovascular Nina Tellez AV block 08/01/2018 MD Audrey 07/31/2018 Intake Access N/A after 12/09/2017 Social History Tobacco Use Types Packs/Day Years [...] Taken Blood Pressure 145/64 08/01/2018 11:31 AM JOINERY SETTER OUT Pulse 89 08/01/2018 11:31 AM JOINERY SETTER OUT Temperature 36.7 C (98 F) 08/01/2018 11:31 AM JOINERY SETTER OUT Respiratory Rate 16 08/01/2018 11:31 AM JOINERY SETTER OUT Oxygen Saturation 99% 08/01/2018 11:31 AM JOINERY SETTER OUT Inhaled Oxygen Concentration - - Weight 83.2 kg (183 lb 6.4 oz) 08/01/2018 6:07 AM JOINERY SETTER OUT Height 180.3 cm (5' 11") 07/31/2018 1:33 PM JOINERY SETTER OUT Body Mass Index 25.58 08/01/2018 6:07 AM JOINERY SETTER OUT Plan of Treatment Health Maintenance Due Date Last Done Comments SHINGLES VACCINES (#1) 1987 65+ PNEUMOCOCCAL VACCINE (2 of 2 - PPSV23) 2002 09/08/2017 INFLUENZA VACCINE 03/04/2019 05/04/2018, 09/08/2017 PNEUMOCOCCAL POLYSACCHARIDE VACCINE AGE 65 Completed 09/08/2017 AND OVER Implants Implanted Type 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 / Generators Lead, Pacemaker Atrial And Ventricular 58 Centimeter Capsure Fix Novus System - [id number] Cardiac Pacing N/A: [employer] [facility] 05/14/2020 [id number] / Implanted: 07/31/2018 (Quantity not on file) Leads or N/A [employer] [id number] / Electrodes or [id number] Accessories Lead, Pacemaker Bipolar Fix Forming Atrial And Ventricular Steroid Eluting 52 Centimeter Capsure Fix Novus - [id number] Cardiac Pacing N/A: [employer] [facility] 05/01/2020 [id number] / Implanted: 07/31/2018 (Quantity not on file) Leads or N/A [employer] [id number] / Electrodes or [id number] Accessories Procedures Procedure Name Priority Date/Time Associated Comments Diagnosis ECG 12-LEAD Routine 08/01/2018 10:41 Results for this AM JOINERY SETTER OUT procedure are in the results section. SMEAR REVIEW Routine 08/01/2018 8:03 Results for this AM JOINERY SETTER OUT procedure are in the results section. ESTIMATED GFR Routine 08/01/2018 8:03 Results for this AM JOINERY SETTER OUT procedure are in the results section. HC COMPLETE BLD COUNT Routine 08/01/2018 8:03 Results for this W/AUTO DIFF AM JOINERY SETTER OUT procedure are in the results section. BASIC METABOLIC PANEL Routine 08/01/2018 8:03 Results for this AM JOINERY SETTER OUT procedure are in the results section. ECG PRE/POST OP Routine 08/01/2018 7:51 Results for this AM JOINERY SETTER OUT procedure are in the results section. XR CHEST 1 VW Routine 07/31/2018 4:12 Results for this PORTABLE PM JOINERY SETTER OUT procedure are in the results section. EP PACEMAKER Routine 07/31/2018 3:40 Results for this INSERTION NEW OR PM JOINERY SETTER OUT procedure are in REPLACEMENT the results section. TYPE AND SCREEN Routine 07/31/2018 1:36 Results for this PM JOINERY SETTER OUT procedure are in the results section. after 12/09/2017 Results ECG 12 lead (08/01/2018 10:41 AM JOINERY SETTER OUT) Ventricular rate 82 [facility] Atrial rate 82 [facility] NC interval 200 [facility] QRSD interval 176 [facility] QT interval 448 [facility] QTC interval 523 [facility] P axis 1 23 [facility] QRS axis 1 -76 [facility] T wave axis 92 [facility] EKG impression Electronic ventricular pacemaker-In automated [facility] MUSE comparison with ECG of 01-AUG-2018 07:51,-Vent. rate has increased BY 12 BPM- Narrative Performed At Performing Organization Address City/State/Zipcode Phone Number [facility] MUSE [address] [place] [address] Smear review (08/01/2018 8:03 AM JOINERY SETTER OUT) Platelet slide review Decreased (A) [facility] Anisocytosis Moderate [facility] Ovalocytes Moderate [facility] Performing Organization Address City/[facility]/Zipcode Phone Number [facility] DEPARTMENT OF PATHOLOGY AND [address] [place] [phone] Estimated GFR (08/01/2018 8:03 AM JOINERY SETTER OUT) Estimated GFR 85 mL/min/1.73 m2 [facility] Comment: HOSPITAL CatergoryUnitsInterpretation G1 >=90 Normal or high G2 60-89Mildly decreased [id number] to moderately decreased O7m28-06Gqrmapwfsp to severely decreased G4 15-29Severely decreased G5 <15Kidney failure The eGFR was calculated using the Chronic Kidney Disease Epidemiology Collaboration (CKD-EPI) equation. Interpretation is based on recommendations of the National Kidney Foundation-Kidney Disease Outcomes Quality Initiative (NKF-KDOQI) published in 2014. Specimen Plasma specimen Performing Organization Address City/[facility] Phone Number [facility] DEPARTMENT OF PATHOLOGY AND [address] [place] [address] CBC with platelet and differential (08/01/2018 8:03 AM JOINERY SETTER OUT) WBC 5.20 4.50 - 11.00 k/uL [facility] RBC 2.27 (L) 4.40 - 6.00 m/uL [facility] HGB 7.7 (L) 14.0 - 18.0 g/dL [facility] HCT 24.1 (L) 41.0 - 51.0 % [facility] MCV 106.2 (H) 82.0 - 100.0 fL [facility] MCH 33.9 27.0 - 34.0 pg [facility] MCHC 32.0 31.0 - 37.0 g/dL [facility] RDW - SD 87.1 (H) 37.0 - 55.0 fL [facility] MPV 10.7 8.8 - 13.2 fL [facility] Platelet count 111 (L) 150 - 400 k/uL [facility] Nucleated RBC 0.00 /100 WBC [facility] Neutrophils 31.7 (L) 39.0 - 69.0 % [facility] Lymphocytes 22.5 (L) 25.0 - 45.0 % [facility] Monocytes 44.2 (H) 0.0 - 10.0 % [facility] Eosinophils 0.0 0.0 - 5.0 % [facility] Basophils 1.0 0.0 - 1.0 % [facility] Immature granulocytes 0.6Comment: "Immature 0.0 - 1.0 % [facility] granulocytes" HOSPITAL (promyelocytes, myelocytes, metamyelocytes) Specimen Blood Performing Organization Address City/[facility] Cent[facility]ode Phone Number [facility] DEPARTMENT OF PATHOLOGY AND [address] [place] [address] Basic metabolic panel (08/01/2018 8:03 AM JOINERY SETTER OUT) Sodium 138 135 - 148 mEq/L [facility] Potassium 5.1 (H) 3.5 - 5.0 mEq/L [facility] Chloride 95 (L) 98 - 112 mEq/L [facility] CO2 35 (H) 24 - 31 mEq/L [facility] Anion gap 8@ANIO 7 - 15 mEq/L [facility] BUN 28 (H) 8 - 23 mg/dL [facility] Creatinine 0.78 0.70 - 1.20 mg/dL [facility] Glucose 98 65 - 99 mg/dL [facility] Calcium 9.4 8.8 - 10.2 mg/dL [facility] Specimen Plasma specimen Performing Organization Address City/[facility] Cent[facility]ode Phone Number [facility] DEPARTMENT OF PATHOLOGY AND [address] [place] [address] [address] ECG Pre/Post Op-Tomorrow (08/01/2018 7:51 AM JOINERY SETTER OUT) Ventricular rate 70 [facility] Atrial rate 70 [facility] QRSD interval 166 [facility] QT interval 474 [facility] QTC interval 511 [facility] P axis 1 5 [facility] QRS axis 1 -33 [facility] T wave axis 81 [facility] EKG impression Ventricular-paced rhythm-Abnormal ECG-No [facility] MUSE previous ECGs available- Narrative Performed At Performing Organization Address City/State/Zipcode Phone Number [facility] MUSE [address] [place] [address] XR Chest 1 Vw Portable (07/31/2018 4:12 PM JOINERY SETTER OUT) Narrative Performed At EXAM: RADIANT XR CHEST [...] glenohumeral joints. Minimal degenerative changes thoracic spine. [facility]-[id number] Procedure Note Interface, Radiology Results Incoming - 07/31/2018 4:19 PM JOINERY SETTER OUT EXAM: XR CHEST 1 VW PORTABLE INDICATION: [...] glenohumeral joints. Minimal degenerative changes thoracic spine. [facility]-[id number] Performing Organization Address City/State/Zipcode Phone Number [facility]EL[facility] SANCHE[facility] [address] [place] [address] Cv electrophysiology procedure (07/31/2018 3:40 PM JOINERY SETTER OUT) Narrative Performed At TITLE: FELIBERTO MASTERSON Dual-chamber [...] permanent pacemaker when he was at the [facility] in [place], he declined one at that time.Recently, he [...] Zavala asked me to transfer him from [place] for a permanent pacemaker.He comes now for [...] 10 mL. 2.The pacemaker is a Medtronic Iyanbito XT DR MRI, model W1DR01, serial #[id number]. 3.The right atrial lead is a Medtronic 5076, serial #[id number], measured P-wave 3 mV, pacing threshold 1.3 V, current 2.4 mA, impedance 562 ohms. 4.Right ventricular apical pacing lead is a Medtronic 5076, serial #[id number], measured R-wave 7 mV, pacing threshold 0.7 V, current 1.2 mA, impedance 661 ohms. CONCLUSIONS: Successful dual-chamber pacemaker placement. RECOMMENDATIONS: 1.IV antibiotics. 2.Discharge home tomorrow. Performing Organization Address City/State/Zipcode Phone Number [facility] [address] [place] [address] Type and screen (07/31/2018 1:36 PM JOINERY SETTER OUT) ABO grouping B [facility] Rh type POS [facility] Antibody screen (gel) NEG [facility] Specimen Blood Performing Organization Address City/State/Zipcode Phone Number [facility] DEPARTMENT OF PATHOLOGY AND [address] [place] [address] GENOMIC MEDICINE [facility] [address] [place] [address] after 12/09/2017 Insurance Payer Benefit Plan / Group Subscriber ID Type Phone Address [facility] MEDICARE AARP MEDICARE COMPLETE MCR xxxxxxxxx HMO Advance Directives Patient has advance care planning documents on file. For more information, please contact:[facility] [place] [address]
--- OUTSIDE RECORDS SUMMARY | 2018-12-10 07:56 | XMS REPORT ---
:1935 [facility] Address [address] [place] [address] [address]. [address] [place] [address] Care Team Providers Name Role Phone Unavailable Unavailable Unavailable Problems This patient has no known problems. Allergies, Adverse Reactions, Alerts This patient has no known allergies or adverse reactions. Medications This patient has no known medications.
[2018-12-10 08:57] VITALS: BMI 25.7
[2018-12-10] MEDS ORDERED: NA CHLORIDE 0.9% 250 ML ONE ×2 (09:40→12:39)
[2018-12-10] MEDS ORDERED: FUROSEMIDE 40 MG/4 ML VIAL ONE (12:30)
[2018-12-10 17:05] LABS: Hematocrit 26.5 % (39.6-49.0)
[2018-12-10 17:18] VITALS: BP 145/64; TEMP 98.7; O2SAT 96
== END 2018-12-10 16:50 | disposition home or self-care (01) ==
LOC: DS 07:52
PROVIDERS: ATTEND Internal Medicine Hematology & Oncology
DX: D50.0 Iron deficiency anemia secondary to blood loss (chronic) (principal); D46.9 Myelodysplastic syndrome, unspecified; D46.4 Refractory anemia, unspecified
CPT/HCPCS: 36415; 86900; 86850; 86901; 85018; 85014; 36430; J1940; P9016 ×2

== ENCOUNTER 2019-01-08 07:25 | Day surgery (SDC) | payer MEDICARE ==
--- OUTSIDE RECORDS SUMMARY | 2019-01-08 07:28 | XMS REPORT | Clinical Summary ---
:1935 Author Organization [facility] Address [address] [place] [address] Care Team Providers Name Role Phone Asked, [...] 07/31/2018 Anesthesia Event Procedural Cardiology Jessie Boo, HISTORIAN DRAMATIC ARTS 07/31/2018 - Hospital Encounter Cardiovascular Nina Tellez AV block 08/01/2018 MD Audrey 07/31/2018 Intake Access N/A after 01/07/2018 Social History Tobacco Use Types Packs/Day Years [...] Taken Blood Pressure 145/64 08/01/2018 11:31 AM FINISH MACHINE TENDER Pulse 89 08/01/2018 11:31 AM FINISH MACHINE TENDER Temperature 36.7 C (98 F) 08/01/2018 11:31 AM FINISH MACHINE TENDER Respiratory Rate 16 08/01/2018 11:31 AM FINISH MACHINE TENDER Oxygen Saturation 99% 08/01/2018 11:31 AM FINISH MACHINE TENDER Inhaled Oxygen Concentration - - Weight 83.2 kg (183 lb 6.4 oz) 08/01/2018 6:07 AM FINISH MACHINE TENDER Height 180.3 cm (5' 11") 07/31/2018 1:33 PM FINISH MACHINE TENDER Body Mass Index 25.58 07/31/2018 1:33 PM FINISH MACHINE TENDER Plan of Treatment Health Maintenance Due Date Last Done Comments SHINGLES VACCINES (#1) 1987 65+ PNEUMOCOCCAL VACCINE (2 of 2 - PPSV23) 2002 09/08/2017 INFLUENZA VACCINE 03/04/2019 05/04/2018, 09/08/2017 Implants Implanted Type Area Furniture Removalist Device Shelf Model / Identifier Expiration Serial / Date Lot [place] Wood Xt Dr Neil - [id number] Cardiac N/A: MEDTRONIC CRM [id number] / Implanted: 07/31/2018 (Quantity not on file) Pacemaker N/A [employer] / Generators Lead, Pacemaker Atrial And Ventricular 58 Centimeter Capsure Fix Novus System - [id number] Cardiac Pacing N/A: MEDTRON[employer] CRM 05/14/2020 [id number] / Implanted: 07/31/2018 (Quantity not on file) Leads or N/A [employer] [id number] / Electrodes or [id number] Accessories Lead, Pacemaker Bipolar Fix Forming Atrial And Ventricular Steroid Eluting 52 Centimeter Capsure Fix Novus - [id number] Cardiac Pacing N/A: [employer]TR[employer] CRM 05/01/2020 [id number] / Implanted: 07/31/2018 (Quantity not on file) Leads or N/A [employer] [id number] / Electrodes or [id number] Accessories Procedures Procedure Name Priority Date/Time Associated Comments Diagnosis ECG 12-LEAD Routine 08/01/2018 10:41 Results for this AM FINISH MACHINE TENDER procedure are in the results section. SMEAR REVIEW Routine 08/01/2018 8:03 Results for this AM FINISH MACHINE TENDER procedure are in the results section. ESTIMATED GFR Routine 08/01/2018 8:03 Results for this AM FINISH MACHINE TENDER procedure are in the results section. HC COMPLETE BLD COUNT Routine 08/01/2018 8:03 Results for this W/AUTO DIFF AM FINISH MACHINE TENDER procedure are in the results section. BASIC METABOLIC PANEL Routine 08/01/2018 8:03 Results for this AM FINISH MACHINE TENDER procedure are in the results section. ECG PRE/POST OP Routine 08/01/2018 7:51 Results for this AM FINISH MACHINE TENDER procedure are in the results section. XR CHEST 1 VW Routine 07/31/2018 4:12 Results for this PORTABLE PM FINISH MACHINE TENDER procedure are in the results section. EP PACEMAKER Routine 07/31/2018 3:40 Results for this INSERTION NEW OR PM FINISH MACHINE TENDER procedure are in REPLACEMENT the results section. TYPE AND SCREEN Routine 07/31/2018 1:36 Results for this PM FINISH MACHINE TENDER procedure are in the results section. after 01/07/2018 Results ECG 12 lead (08/01/2018 10:41 AM FINISH MACHINE TENDER) Ventricular rate 82 [facility] Atrial rate 82 [facility] IN interval 200 [facility] QRSD interval 176 [facility] QT interval 448 [facility] QTC interval 523 [facility] P axis 1 23 [facility] QRS axis 1 -76 [facility] T wave axis 92 [facility] EKG impression Electronic ventricular [facility] pacemaker-In automated comparison with ECG of 01-AUG-2018 07:51,-Vent. rate has increased BY 12 BPM- Specimen Narrative Performed At Performing Organization Address City/State/Zipcode Phone Number [facility] MUSE [address] [place] [address] Smear review (08/01/2018 8:03 AM FINISH MACHINE TENDER) Platelet slide review Decreased (A) [facility] Anisocytosis Moderate [facility] Ovalocytes Moderate [facility] Specimen Performing Organization Address City/[facility]/Zipcode Phone Number [facility] DEPARTMENT OF PATHOLOGY AND [address] [place] [address] Estimated GFR (08/01/2018 8:03 AM FINISH MACHINE TENDER) Pathologist [facility] Estimated GFR 85 mL/min/1.73 [facility] Comment: HOSPITAL CatergoryUnitsInterpretation G1 >=90 Normal or high G2 60-89Mildly decreased Y5u44-06Jfdbjg to moderately decreased L5i28-18Lmwtejddla to severely decreased G4 15-29Severely decreased G5 <15Kidney failure The eGFR was calculated using the Chronic Kidney Disease Epidemiology Collaboration (CKD-EPI) equation. Interpretation is based on recommendations of the National Kidney Foundation-Kidney Disease Outcomes Quality Initiative (NKF-KDOQI) published in 2014. Specimen Plasma specimen Performing Organization Address City/[facility] Phone Number [facility] DEPARTMENT OF PATHOLOGY AND [address] [place] [address] CBC with platelet and differential (08/01/2018 8:03 AM FINISH MACHINE TENDER) WBC 5.20 4.50 - 11.00 [facility] RBC 2.27 (L) 4.40 - 6.00 [facility] HGB 7.7 (L) 14.0 - 18.0 [facility] g/dL [facility] HCT 24.1 (L) 41.0 - 51.0 % [facility] MCV 106.2 (H) 82.0 - 100.0 [facility] MCH 33.9 27.0 - 34.0 pg [facility] MCHC 32.0 31.0 - 37.0 [facility] g/dL HOSPITAL RDW - SD 87.1 (H) 37.0 - 55.0 fL [facility] MPV 10.7 8.8 - 13.2 fL [facility] Platelet count 111 (L) 150 - 400 k/uL [facility] Nucleated RBC 0.00 /100 WBC [facility] Neutrophils 31.7 (L) 39.0 - 69.0 % [facility] Lymphocytes 22.5 (L) 25.0 - 45.0 % [facility] Monocytes 44.2 (H) 0.0 - 10.0 % [facility] Eosinophils 0.0 0.0 - 5.0 % [facility] Basophils 1.0 0.0 - 1.0 % [facility] Immature granulocytes 0.6Comment: 0.0 - 1.0 % [facility] "[facility] granulocytes" (promyelocytes , myelocytes, metamyelocytes ) Specimen Blood Performing Organization Address City/[facility]ode Phone Number [facility] DEPARTMENT OF PATHOLOGY AND [address] [place] [address] Basic metabolic panel (08/01/2018 8:03 AM FINISH MACHINE TENDER) Sodium 138 135 - 148 mEq/L [facility] Potassium 5.1 (H) 3.5 - 5.0 mEq/L [facility] Chloride 95 (L) 98 - 112 mEq/L [facility] CO2 35 (H) 24 - 31 mEq/L [facility] Anion gap 8@ANIO 7 - 15 mEq/L [facility] BUN 28 (H) 8 - 23 mg/dL [facility] Creatinine 0.78 0.70 - 1.20 mg/dL [facility] Glucose 98 65 - 99 mg/dL [facility] Calcium 9.4 8.8 - 10.2 mg/dL [facility] Specimen Plasma specimen Performing Organization Address City/[facility] Mex[facility]ode Phone Number [facility] DEPARTMENT OF PATHOLOGY AND [address] [place] [address] [address] ECG Pre/Post Op-Tomorrow (08/01/2018 7:51 AM FINISH MACHINE TENDER) Ventricular rate 70 [facility] MUSE Atrial rate 70 [facility] MUSE QRSD interval 166 [facility] MUSE QT interval 474 [facility] M[facility] QTC interval 511 [facility] MUSE P axis 1 5 [facility] QRS axis 1 -33 [facility] MUSE T wave axis 81 [facility] MUSE EKG impression Ventricular-paced [facility] MUSE rhythm-Abnormal ECG-No previous ECGs available-Electronicall y Signed By Abelardo Hinkle MD ([id number]) on 08/02/2018 9:21:36 PM Specimen Narrative Performed At Performing Organization Address City/State/Zipcode Phone Number [facility] MUSE [address] [place] [address] XR Chest 1 Vw Portable (07/31/2018 4:12 PM FINISH MACHINE TENDER) Specimen Narrative Performed At EXAM: RADIANT XR CHEST [...] glenohumeral joints. Minimal degenerative changes thoracic spine. [facility]-[id number] Procedure Note Interface, Radiology Results Incoming - 07/31/2018 4:19 PM FINISH MACHINE TENDER EXAM: XR CHEST 1 VW PORTABLE INDICATION: [...] glenohumeral joints. Minimal degenerative changes thoracic spine. [facility]-[id number] Performing Organization Address City/State/Zipcode Phone Number [facility] [address] [place] [address] Cv electrophysiology procedure (07/31/2018 3:40 PM FINISH MACHINE TENDER) Specimen Narrative Performed At TITLE: FELIBERTO BLACKMANID Dual-chamber [...] permanent pacemaker when he was at the [facility] in [place], he declined one at that time.Recently, he [...] Zavala asked me to transfer him from [place] for a permanent pacemaker.He comes now for [...] 10 mL. 2.The pacemaker is a Medtronic [place] XT DR MRI, model W1DR01, serial #[id number]. 3.The right atrial lead is a Medtronic 5076, serial #[id number], measured P-wave 3 mV, pacing threshold 1.3 V, current 2.4 mA, impedance 562 ohms. 4.Right ventricular apical pacing lead is a Medtronic 5076, serial #[id number], measured R-wave 7 mV, pacing threshold 0.7 V, current 1.2 mA, impedance 661 ohms. CONCLUSIONS: Successful dual-chamber pacemaker placement. RECOMMENDATIONS: 1.IV antibiotics. 2.Discharge home tomorrow. Performing Organization Address City/State/Zipcode Phone Number [facility] [address] [place] [address] Type and screen (07/31/2018 1:36 PM FINISH MACHINE TENDER) ABO grouping B [facility] type POS [facility] Antibody screen (gel) NEG [facility] Specimen Blood Performing Organization Address City/State/Zipcode Phone Number [facility] DEPARTMENT OF PATHOLOGY AND [address] [place] [address] GENOMIC MEDICINE [facility] [address] [place] [address] after 01/07/2018 Advance Directives Patient has advance care planning documents on file. For more information, please contact:[address] [address]
--- OUTSIDE RECORDS SUMMARY | 2019-01-08 07:28 | XMS REPORT ---
:1935 Author Organization [facility] Address [facility] [place] [address] Care Team Providers Name Role Phone Unavailable Unavailable Unavailable Problems This patient has no known problems. Allergies, Adverse Reactions, Alerts This patient has no known allergies or adverse reactions. Medications This patient has no known medications.
[2019-01-08] MEDS ORDERED: NA CHLORIDE 0.9% 250 ML ONE ×2 (08:26→11:08)
[2019-01-08 14:58] VITALS: BMI 23.8
[2019-01-08 15:48] LABS: Hematocrit 24.2 % (39.6-49.0)
[2019-01-08 16:04] VITALS: BP 130/54; TEMP 97.5; O2SAT 99
== END 2019-01-08 15:40 | disposition home or self-care (01) ==
LOC: DS 07:25
PROVIDERS: ATTEND Internal Medicine Hematology & Oncology
DX: D46.9 Myelodysplastic syndrome, unspecified (principal); D63.8 Anemia in other chronic diseases classified elsewhere
CPT/HCPCS: 36415; 86900; 86850; 86901; 85018; 85014; 36430; P9016 ×2

== ENCOUNTER 2019-02-05 08:09 | Day surgery (SDC) | payer MEDICARE ==
--- OUTSIDE RECORDS SUMMARY | 2019-02-05 08:14 | XMS REPORT ---
:1935 Author [facility] Address [facility] [place] [address] Care Team Providers Name Role Phone Unavailable Unavailable Unavailable Problems This patient has no known problems. Allergies, Adverse Reactions, Alerts This patient has no known allergies or adverse reactions. Medications This patient has no known medications.
--- OUTSIDE RECORDS SUMMARY | 2019-02-05 08:14 | XMS REPORT | Clinical Summary ---
:1935 Author Organization [facility] Address [address] [place] [address] Care Team Providers Name Role Phone Asked, [...] 07/31/2018 Anesthesia Event Procedural Cardiology Jessie Boo, BAND PRESSER 07/31/2018 - Hospital Encounter Cardiovascular Nina Tellez AV block 08/01/2018 MD Audrey 07/31/2018 Intake Access N/A after 02/04/2018 Social History Tobacco Use Types Packs/Day Years [...] Taken Blood Pressure 145/64 08/01/2018 11:31 AM ASSOCIATE PROFESSOR OF ART HISTORY Pulse 89 08/01/2018 11:31 AM ASSOCIATE PROFESSOR OF ART HISTORY Temperature 36.7 C (98 F) 08/01/2018 11:31 AM ASSOCIATE PROFESSOR OF ART HISTORY Respiratory Rate 16 08/01/2018 11:31 AM ASSOCIATE PROFESSOR OF ART HISTORY Oxygen Saturation 99% 08/01/2018 11:31 AM ASSOCIATE PROFESSOR OF ART HISTORY Inhaled Oxygen Concentration - - Weight 83.2 kg (183 lb 6.4 oz) 08/01/2018 6:07 AM ASSOCIATE PROFESSOR OF ART HISTORY Height 180.3 cm (5' 11") 07/31/2018 1:33 PM ASSOCIATE PROFESSOR OF ART HISTORY Body Mass Index 25.58 07/31/2018 1:33 PM ASSOCIATE PROFESSOR OF ART HISTORY Plan of Treatment Health Maintenance Due Date Last Done Comments SHINGLES VACCINES (#1) 1987 65+ PNEUMOCOCCAL VACCINE (2 of 2 - PPSV23) 2002 09/08/2017 INFLUENZA VACCINE 03/04/2019 05/04/2018, 09/08/2017 Implants Implanted Type Area [place]ble [place] Operator Device Shelf Model / Identifier Expiration Serial / Date Lot Francis Xt Dr Neil - [id number] Cardiac N/A: MEDTR[employer]IC CRM [id number] / Implanted: 07/31/2018 (Quantity not on file) Pacemaker N/A USA[employer] / Generators Lead, Pacemaker Atrial And Ventricular 58 Centimeter Capsure Fix Novus System - [id number] Cardiac Pacing N/A: [employer] CRM 05/14/2020 [id number] 58 / Implanted: 07/31/2018 (Quantity not on file) Leads or N/A [employer] [id number] / Electrodes or [id number] Accessories Lead, Pacemaker Bipolar Fix Forming Atrial And Ventricular Steroid Eluting 52 Centimeter Capsure Fix Novus - [id number] Cardiac Pacing N/A: [employer] CRM 05/01/2020 [id number] 52 / Implanted: 07/31/2018 (Quantity not on file) Leads or N/A [employer] [id number] / Electrodes or [id number] Accessories Procedures Procedure Name Priority Date/Time Associated Comments Diagnosis ECG 12-LEAD Routine 08/01/2018 10:41 Results for this AM ASSOCIATE PROFESSOR OF ART HISTORY procedure are in the results section. SMEAR REVIEW Routine 08/01/2018 8:03 Results for this AM ASSOCIATE PROFESSOR OF ART HISTORY procedure are in the results section. ESTIMATED GFR Routine 08/01/2018 8:03 Results for this AM ASSOCIATE PROFESSOR OF ART HISTORY procedure are in the results section. HC COMPLETE BLD COUNT Routine 08/01/2018 8:03 Results for this W/AUTO DIFF AM ASSOCIATE PROFESSOR OF ART HISTORY procedure are in the results section. BASIC METABOLIC PANEL Routine 08/01/2018 8:03 Results for this AM ASSOCIATE PROFESSOR OF ART HISTORY procedure are in the results section. ECG PRE/POST OP Routine 08/01/2018 7:51 Results for this AM ASSOCIATE PROFESSOR OF ART HISTORY procedure are in the results section. XR CHEST 1 VW Routine 07/31/2018 4:12 Results for this PORTABLE PM ASSOCIATE PROFESSOR OF ART HISTORY procedure are in the results section. EP PACEMAKER Routine 07/31/2018 3:40 Results for this INSERTION NEW OR PM ASSOCIATE PROFESSOR OF ART HISTORY procedure are in REPLACEMENT the results section. TYPE AND SCREEN Routine 07/31/2018 1:36 Results for this PM ASSOCIATE PROFESSOR OF ART HISTORY procedure are in the results section. after 02/04/2018 Results ECG 12 lead (08/01/2018 10:41 AM ASSOCIATE PROFESSOR OF ART HISTORY) Ventricular rate 82 [facility] Atrial rate 82 [facility] ID interval 200 [facility] QRSD interval 176 [...] At Performing Organization Address City/State/Zipcode Phone Number [facility] MUSE [address] [place] [address] Smear review (08/01/2018 8:03 AM ASSOCIATE PROFESSOR OF ART HISTORY) Platelet slide review Decreased (A) [facility] Anisocytosis Moderate [facility] Ovalocytes Moderate [facility] Specimen Performing Organization Address City/[facility]/Zipcode Phone Number [facility] DEPARTMENT OF PATHOLOGY AND [address] [place] [address] Estimated GFR (08/01/2018 8:03 AM ASSOCIATE PROFESSOR OF ART HISTORY) Pathologist [facility] Estimated GFR 85 mL/min/1.73 [facility] Comment: HOSPITAL CatergoryUnitsInterpretation G1 >=90 Normal or high G2 60-89Mildly decreased [id number] to moderately decreased U7g94-79Pahebjmljh to severely decreased G4 15-29Severely decreased G5 <15Kidney failure The eGFR was calculated using the Chronic Kidney Disease Epidemiology Collaboration (CKD-EPI) equation. Interpretation is based on recommendations of the National Kidney Foundation-Kidney Disease Outcomes Quality Initiative (NKF-KDOQI) published in 2014. Specimen Plasma specimen Performing Organization Address City/[facility] Phone Number [facility] DEPARTMENT OF PATHOLOGY AND [address] [place] [phone] CBC with platelet and differential (08/01/2018 8:03 AM ASSOCIATE PROFESSOR OF ART HISTORY) WBC 5.20 4.50 - 11.00 [facility] RBC 2.27 (L) 4.40 - 6.00 [facility] HGB 7.7 (L) 14.0 - 18.0 [facility] g/dL [facility] HCT 24.1 (L) 41.0 - 51.0 % [facility] MCV 106.2 (H) 82.0 - 100.0 [facility] MCH 33.9 27.0 - 34.0 pg [facility] MCHC 32.0 31.0 - 37.0 [facility] g/dL HOSPITAL RDW - SD 87.1 (H) 37.0 - 55.0 fL [facility] MPV 10.7 8.8 - 13.2 fL [facility] Platelet count 111 (L) 150 - 400 k/uL [facility] Nucleated RBC 0.00 /100 WBC [facility] Neutrophils 31.7 (L) 39.0 - 69.0 % [facility] Lymphocytes 22.5 (L) 25.0 - 45.0 % [facility] Monocytes 44.2 (H) 0.0 - 10.0 % [facility] Eosinophils 0.0 0.0 - 5.0 % [facility] Basophils 1.0 0.0 - 1.0 % [facility] Immature granulocytes 0.6Comment: 0.0 - 1.0 % [facility] "[facility] granulocytes" (promyelocytes , myelocytes, metamyelocytes ) Specimen Blood Performing Organization Address City/[facility] Cent[facility]ode Phone Number [facility] DEPARTMENT OF PATHOLOGY AND [address] [place] [phone] Basic metabolic panel (08/01/2018 8:03 AM ASSOCIATE PROFESSOR OF ART HISTORY) Sodium 138 135 - 148 mEq/L [facility] Potassium 5.1 (H) 3.5 - 5.0 mEq/L [facility] Chloride 95 (L) 98 - 112 mEq/L [facility] CO2 35 (H) 24 - 31 mEq/L [facility] Anion gap 8@ANIO 7 - 15 mEq/L [facility] BUN 28 (H) 8 - 23 mg/dL [facility] Creatinine 0.78 0.70 - 1.20 mg/dL [facility] Glucose 98 65 - 99 mg/dL [facility] Calcium 9.4 8.8 - 10.2 mg/dL [facility] Specimen Plasma specimen Performing Organization Address City/[facility] Cent[facility]ode Phone Number [facility] DEPARTMENT OF PATHOLOGY AND [address] [place] [address] [address] ECG Pre/Post Op-Tomorrow (08/01/2018 7:51 AM ASSOCIATE PROFESSOR OF ART HISTORY) Ventricular rate 70 [facility] Atrial rate 70 [facility] QRSD interval 166 [facility] QT interval 474 [facility] QTC interval 511 [facility] P axis 1 5 [facility] QRS axis 1 -33 [facility] T wave axis 81 [facility] EKG impression Ventricular-paced [facility] rhythm-Abnormal ECG-No previous ECGs available-Electronicall y Signed By Abelardo Hinkle MD ([id number]) on 08/02/2018 9:21:36 PM Specimen Narrative Performed At Performing Organization Address City/State/Zipcode Phone Number [facility] [address] [place] [address] XR Chest 1 Vw Portable (07/31/2018 4:12 PM ASSOCIATE PROFESSOR OF ART HISTORY) Specimen Narrative Performed At EXAM: RADIANT XR CHEST 1 VW PORTABLE INDICATION: Pneumothorax COMPARISON: None. IMPRESSION: Left chest pacemaker with left subclavian approach leads projecting over right atrium and right ventricle. Skin ina along the superior margin of the pacemaker. [...] glenohumeral joints. Minimal degenerative changes thoracic spine. [facility]-[id number] Procedure Note Interface, Radiology Results Incoming - 07/31/2018 4:19 PM ASSOCIATE PROFESSOR OF ART HISTORY EXAM: XR CHEST 1 VW PORTABLE INDICATION: [...] glenohumeral joints. Minimal degenerative changes thoracic spine. [facility]-[id number] Performing Organization Address City/State/Zipcode Phone Number [facility] [address] [place] [address] Cv electrophysiology procedure (07/31/2018 3:40 PM ASSOCIATE PROFESSOR OF ART HISTORY) Specimen Narrative Performed At TITLE: FELIBERTO BLACKMANID [...] permanent pacemaker when he was at the [facility] in [place], he declined one at that time.Recently, he [...] Zavala asked me to transfer him from [place] for a permanent pacemaker.He comes now for [...] 10 mL. 2.The pacemaker is a Medtronic Francis XT DR MRI, model W1DR01, serial #[id number]. 3.The right atrial lead is a Medtronic 5076, serial #[id number], measured P-wave 3 mV, pacing threshold 1.3 V, current 2.4 mA, impedance 562 ohms. 4.Right ventricular apical pacing lead is a Medtronic 5076, serial #[id number], measured R-wave 7 mV, pacing threshold 0.7 V, current 1.2 mA, impedance 661 ohms. CONCLUSIONS: Successful dual-chamber pacemaker placement. RECOMMENDATIONS: 1.IV antibiotics. 2.Discharge home tomorrow. Performing Organization Address City/State/Zipcode Phone Number [facility] [address] [place] [address] Type and screen (07/31/2018 1:36 PM ASSOCIATE PROFESSOR OF ART HISTORY) ABO grouping B [facility] type POS [facility] Antibody screen (gel) NEG [facility] Specimen Blood Performing Organization Address City/State/Zipcode Phone Number [facility] DEPARTMENT OF PATHOLOGY AND [address] [place] [address] GENOMIC MEDICINE [facility] [address] [place] [address] after 02/04/2018 Advance Directives Patient has advance care planning documents on file. For more information, please contact:[address] [address]
[2019-02-05] MEDS ORDERED: NA CHLORIDE 0.9% 250 ML ONE ×2 (08:42→10:55)
[2019-02-05 09:02] VITALS: BP 137/60; O2SAT 98
[2019-02-05 09:04] VITALS: BMI 26.4
[2019-02-05 15:21] VITALS: TEMP 97.5
[2019-02-05 15:22] LABS: Hematocrit 22.4 % (39.6-49.0)
== END 2019-02-05 15:20 | disposition home or self-care (01) ==
LOC: DS 08:09
PROVIDERS: ATTEND Internal Medicine Hematology & Oncology
DX: D46.9 Myelodysplastic syndrome, unspecified (principal); D63.8 Anemia in other chronic diseases classified elsewhere; I50.9 Heart failure, unspecified
CPT/HCPCS: 36415; 86900; 86850; 86901; 85018; 85014; 36430; P9016 ×2

== ENCOUNTER 2019-03-18 08:17 | Day surgery (SDC) | payer MEDICARE ==
--- OUTSIDE RECORDS SUMMARY | 2019-03-18 08:20 | XMS REPORT | Clinical Summary ---
:1935 Author Organization [employer] Address [address] [place] [address] Care Team Providers Name Role Phone Asked, [...] 07/31/2018 Anesthesia Event Procedural Cardiology Jessie Boo, DIGITAL COMPOSER 07/31/2018 - Hospital Encounter Cardiovascular Nina Tellez AV block 08/01/2018 MD Audrey 07/31/2018 Intake Access N/A after 03/17/2018 Social History Tobacco Use Types Packs/Day Years [...] Taken Blood Pressure 145/64 08/01/2018 11:31 AM STUDIO OPERATIONS MANAGER Pulse 89 08/01/2018 11:31 AM STUDIO OPERATIONS MANAGER Temperature 36.7 C (98 F) 08/01/2018 11:31 AM STUDIO OPERATIONS MANAGER Respiratory Rate 16 08/01/2018 11:31 AM STUDIO OPERATIONS MANAGER Oxygen Saturation 99% 08/01/2018 11:31 AM STUDIO OPERATIONS MANAGER Inhaled Oxygen Concentration - - Weight 83.2 kg (183 lb 6.4 oz) 08/01/2018 6:07 AM STUDIO OPERATIONS MANAGER Height 180.3 cm (5' 11") 07/31/2018 1:33 PM STUDIO OPERATIONS MANAGER Body Mass Index 25.58 07/31/2018 1:33 PM STUDIO OPERATIONS MANAGER Plan of Treatment Health Maintenance Due Date Last Done Comments SHINGLES VACCINES (#1) 1987 65+ PNEUMOCOCCAL VACCINE (2 of 2 - PPSV23) 2002 09/08/2017 INFLUENZA VACCINE 03/04/2019 05/04/2018, 09/08/2017 Implants Implanted Type Area Barge Master Device Shelf Model / Identifier Expiration Serial / Date Lot Travilah Xt Dr Neil - [id number] Cardiac N/A: MEDTRONIC CRM [id number] / Implanted: 07/31/2018 (Quantity not on file) Pacemaker N/A [employer] / Generators Lead, Pacemaker Atrial And Ventricular 58 Centimeter Capsure Fix Novus System - [id number] Cardiac Pacing N/A: [employer]TR[employer] CRM 05/14/2020 [id number] / Implanted: 07/31/2018 (Quantity not on file) Leads or N/A [employer] [id number] / Electrodes or [id number] Accessories Lead, Pacemaker Bipolar Fix Forming Atrial And Ventricular Steroid Eluting 52 Centimeter Capsure Fix Novus - [id number] Cardiac Pacing N/A: [employer] CRM 05/01/2020 [id number] / Implanted: 07/31/2018 (Quantity not on file) Leads or N/A [employer] [id number] / Electrodes or [id number] Accessories Procedures Procedure Name Priority Date/Time Associated Comments Diagnosis ECG 12-LEAD Routine 08/01/2018 10:41 Results for this AM STUDIO OPERATIONS MANAGER procedure are in the results section. SMEAR REVIEW Routine 08/01/2018 8:03 Results for this AM STUDIO OPERATIONS MANAGER procedure are in the results section. ESTIMATED GFR Routine 08/01/2018 8:03 Results for this AM STUDIO OPERATIONS MANAGER procedure are in the results section. HC COMPLETE BLD COUNT Routine 08/01/2018 8:03 Results for this W/AUTO DIFF AM STUDIO OPERATIONS MANAGER procedure are in the results section. BASIC METABOLIC PANEL Routine 08/01/2018 8:03 Results for this AM STUDIO OPERATIONS MANAGER procedure are in the results section. ECG PRE/POST OP Routine 08/01/2018 7:51 Results for this AM STUDIO OPERATIONS MANAGER procedure are in the results section. XR CHEST 1 VW Routine 07/31/2018 4:12 Results for this PORTABLE PM STUDIO OPERATIONS MANAGER procedure are in the results section. EP PACEMAKER Routine 07/31/2018 3:40 Results for this INSERTION NEW OR PM STUDIO OPERATIONS MANAGER procedure are in REPLACEMENT the results section. TYPE AND SCREEN Routine 07/31/2018 1:36 Results for this PM STUDIO OPERATIONS MANAGER procedure are in the results section. after 03/17/2018 Results ECG 12 lead (08/01/2018 10:41 AM STUDIO OPERATIONS MANAGER) Ventricular rate 82 [facility] Atrial rate [...] At Performing Organization Address City/State/Zipcode Phone Number [facility] MUSE [address] [place] [address] Smear review (08/01/2018 8:03 AM STUDIO OPERATIONS MANAGER) Platelet slide review Decreased (A) [facility] Anisocytosis Moderate [facility] Ovalocytes Moderate [facility] Specimen Performing Organization Address City/[facility]/Zipcode Phone Number [facility] DEPARTMENT OF PATHOLOGY AND [address] [place] [address] Estimated GFR (08/01/2018 8:03 AM STUDIO OPERATIONS MANAGER) Pathologist [facility] Estimated GFR 85 mL/min/1.73 [facility] Comment: HOSPITAL CatergoryUnitsInterpretation G1 >=90 Normal or high G2 60-89Mildly decreased G3c02-30Qtdvty to moderately decreased F5y83-70Screxyvhgz to severely decreased G4 15-29Severely decreased G5 <15Kidney failure The eGFR was calculated using the Chronic Kidney Disease Epidemiology Collaboration (CKD-EPI) equation. Interpretation is based on recommendations of the National Kidney Foundation-Kidney Disease Outcomes Quality Initiative (NKF-KDOQI) published in 2014. Specimen Plasma specimen Performing Organization Address City/[facility] Phone Number [facility] DEPARTMENT OF PATHOLOGY AND [address] [place] [phone] CBC with platelet and differential (08/01/2018 8:03 AM STUDIO OPERATIONS MANAGER) WBC 5.20 4.50 - 11.00 [facility] RBC 2.27 (L) 4.40 - 6.00 [facility] HGB 7.7 (L) 14.0 - 18.0 [facility] g/dL [facility] HCT 24.1 (L) 41.0 - 51.0 % [facility] MCV 106.2 (H) 82.0 - 100.0 [facility] MCH 33.9 27.0 - 34.0 pg [facility] MCHC 32.0 31.0 - 37.0 [facility] g/dL HOSPITAL RDW - SD 87.1 (H) 37.0 - 55.0 fL [facility] MPV 10.7 8.8 - 13.2 fL [facility] Platelet count 111 (L) 150 - 400 k/uL [facility] Nucleated RBC 0.00 /100 WBC [facility] Neutrophils 31.7 (L) 39.0 - 69.0 % [facility] Lymphocytes 22.5 (L) 25.0 - 45.0 % [facility] Monocytes 44.2 (H) 0.0 - 10.0 % [facility] Eosinophils 0.0 0.0 - 5.0 % [facility] Basophils 1.0 0.0 - 1.0 % [facility] Immature granulocytes 0.6Comment: 0.0 - 1.0 % [facility] "[facility] granulocytes" (promyelocytes , myelocytes, metamyelocytes ) Specimen Blood Performing Organization Address City/[facility] Phone Number [facility] DEPARTMENT OF PATHOLOGY AND [address] [place] [phone] Basic metabolic panel (08/01/2018 8:03 AM STUDIO OPERATIONS MANAGER) Sodium 138 135 - 148 mEq/L [facility] Potassium 5.1 (H) 3.5 - 5.0 mEq/L [facility] Chloride 95 (L) 98 - 112 mEq/L [facility] CO2 35 (H) 24 - 31 mEq/L [facility] Anion gap 8@ANIO 7 - 15 mEq/L [facility] BUN 28 (H) 8 - 23 mg/dL [facility] Creatinine 0.78 0.70 - 1.20 mg/dL [facility] Glucose 98 65 - 99 mg/dL [facility] Calcium 9.4 8.8 - 10.2 mg/dL [facility] Specimen Plasma specimen Performing Organization Address City/[facility] Phone Number [facility] DEPARTMENT OF PATHOLOGY AND [address] [place] [address] [address] ECG Pre/Post Op-Tomorrow (08/01/2018 7:51 AM STUDIO OPERATIONS MANAGER) Ventricular rate 70 [facility] MUSE Atrial rate 70 [facility] MUSE QRSD interval 166 [facility] M[facility] QT interval 474 [facility] QTC interval 511 [facility] P axis 1 5 [facility] QRS axis 1 -33 [facility] M[facility] T wave axis 81 [facility] MUSE EKG impression Ventricular-paced [facility] MUSE rhythm-Abnormal ECG-No previous ECGs available-Electronicall y Signed By Abelardo Hinkle MD ([id number]) on 08/02/2018 9:21:36 PM Specimen Narrative Performed At Performing Organization Address City/State/Zipcode Phone Number [facility] MUSE [address] [place] [address] XR Chest 1 Vw Portable (07/31/2018 4:12 PM STUDIO OPERATIONS MANAGER) Specimen Narrative Performed At EXAM: RADIANT XR [...] glenohumeral joints. Minimal degenerative changes thoracic spine. [facility]-[id number] Procedure Note Interface, Radiology Results Incoming - 07/31/2018 4:19 PM STUDIO OPERATIONS MANAGER EXAM: XR CHEST 1 VW PORTABLE INDICATION: [...] glenohumeral joints. Minimal degenerative changes thoracic spine. [facility]-[id number] Performing Organization Address City/State/Zipcode Phone Number FELIBERTO SANCHEZ [address] [place] [address] Cv electrophysiology procedure (07/31/2018 3:40 PM STUDIO OPERATIONS MANAGER) Specimen Narrative Performed At TITLE: FELIBERTO BLACKMANID [...] permanent pacemaker when he was at the [facility] in [place], he declined one at that time.Recently, he [...] Zavala asked me to transfer him from [place] for a permanent pacemaker.He comes now for [...] Marion XT DR MRI, model W1DR01, serial #[id number]. 3.The right atrial lead is a Medtronic 5076, serial #[id number], measured P-wave 3 mV, pacing threshold 1.3 V, current 2.4 mA, impedance 562 ohms. 4.Right ventricular apical pacing lead is a Medtronic 5076, serial #[id number], measured R-wave 7 mV, pacing threshold 0.7 V, current 1.2 mA, impedance 661 ohms. CONCLUSIONS: Successful dual-chamber pacemaker placement. RECOMMENDATIONS: 1.IV antibiotics. 2.Discharge home tomorrow. Performing Organization Address City/State/Zipcode Phone Number [facility] [address] [place] [address] Type and screen (07/31/2018 1:36 PM STUDIO OPERATIONS MANAGER) ABO grouping B [facility] type POS [facility] Antibody screen (gel) NEG [facility] Specimen Blood Performing Organization Address City/State/Zipcode Phone Number [facility] DEPARTMENT OF PATHOLOGY AND [address] [place] [address] GENOMIC MEDICINE [facility] [address] [place] [address] after 03/17/2018 Advance Directives Patient has advance care planning documents on file. For more information, please contact:[address] [address]
--- OUTSIDE RECORDS SUMMARY | 2019-03-18 08:20 | XMS REPORT ---
:1935 Author Organization [facility] Address [facility] [place] [address] Care Team Providers Name Role Phone Unavailable Unavailable Unavailable Problems This patient has no known problems. Allergies, Adverse Reactions, Alerts This patient has no known allergies or adverse reactions. Medications This patient has no known medications.
[2019-03-18] MEDS ORDERED: NA CHLORIDE 0.9% 500 ML ONE (08:46)
[2019-03-18 09:43] VITALS: TEMP 98.2; BMI 25.7
[2019-03-18 16:08] VITALS: BP 143/68; O2SAT 95
[2019-03-18 16:16] LABS: Hematocrit 24.8 % (39.6-49.0)
== END 2019-03-18 16:00 | disposition home or self-care (01) ==
LOC: DS 08:17
PROVIDERS: ATTEND Internal Medicine Hematology & Oncology
DX: D46.9 Myelodysplastic syndrome, unspecified (principal); D63.8 Anemia in other chronic diseases classified elsewhere
CPT/HCPCS: 36415; 86900; 86850; 86901; 85018; 85014; 36430; P9016 ×2

== ENCOUNTER 2019-04-01 08:07 | Day surgery (SDC) | payer MEDICARE ==
--- OUTSIDE RECORDS SUMMARY | 2019-04-01 08:11 | XMS REPORT ---
:1935 Author Organization [facility] Address [facility] [place] [address] Care Team Providers Name Role Phone Unavailable Unavailable Unavailable Problems This patient has no known problems. Allergies, Adverse Reactions, Alerts This patient has no known allergies or adverse reactions. Medications This patient has no known medications.
--- OUTSIDE RECORDS SUMMARY | 2019-04-01 08:11 | XMS REPORT | Clinical Summary ---
:1935 Author Organization [employer] Address [address] [place] [address] Care Team Providers Name Role Phone Asked, [...] OR REPLACEMENT 07/31/2018 Anesthesia Event Procedural Cardiology Gayatri Matute, Jessie Spann CRNA 07/31/2018 - Hospital Encounter Cardiovascular Nina Tellez AV block 08/01/2018 MD Audrey 07/31/2018 Intake Access N/A after 03/31/2018 Social History Tobacco Use Types Packs/Day Years [...] Vital Signs Vital Sign Reading Time Taken Comments Blood Pressure 145/64 08/01/2018 11:31 AM ENDOSCOPY RN Pulse 89 08/01/2018 11:31 AM ENDOSCOPY RN Temperature 36.7 C (98 F) 08/01/2018 11:31 AM ENDOSCOPY RN Respiratory Rate 16 08/01/2018 11:31 AM ENDOSCOPY RN Oxygen Saturation 99% 08/01/2018 11:31 AM ENDOSCOPY RN Inhaled Oxygen Concentration - - Weight 83.2 kg (183 lb 6.4 oz) 08/01/2018 6:07 AM ENDOSCOPY RN Height 180.3 cm (5' 11") 07/31/2018 1:33 PM ENDOSCOPY RN Body Mass Index 25.58 07/31/2018 1:33 PM ENDOSCOPY RN Plan of Treatment Health Maintenance Due Date Last Done Comments SHINGLES VACCINES (#1) 1987 65+ PNEUMOCOCCAL VACCINE (2 of 2 - PPSV23) 2002 09/08/2017 INFLUENZA VACCINE 03/04/2019 05/04/2018, 09/08/2017 Implants Implanted Type Area Corporate Strategy Intern Device Shelf Model / Identifier Expiration Serial / Date Lot Cuartelez Xt Dr Neil - [id number] Cardiac N/A: [employer] CRM [id number] / Implanted: 07/31/2018 at [facility] (Quantity not on file) Pacemaker N/A [employer] / Generators Lead, Pacemaker Atrial And Ventricular 58 Centimeter Capsure Fix Novus System - [id number] Cardiac Pacing N/A: [employer] CRM 05/14/2020 [id number] / Implanted: 07/31/2018 at [facility] (Quantity not on file) Leads or N/A [employer] [id number] / Electrodes or [id number] Accessories Lead, Pacemaker Bipolar Fix Forming Atrial And Ventricular Steroid Eluting 52 Centimeter Capsure Fix Novus - [id number] Cardiac Pacing N/A: [employer] CRM 05/01/2020 [id number] / Implanted: 07/31/2018 at [facility] (Quantity not on file) Leads or N/A [employer] [id number] / Electrodes or [id number] Accessories Procedures Procedure Name Priority Date/Time Associated Comments Diagnosis ECG 12-LEAD Routine 08/01/2018 10:41 Results for this AM ENDOSCOPY RN procedure are in the results section. SMEAR REVIEW Routine 08/01/2018 8:03 Results for this AM ENDOSCOPY RN procedure are in the results section. ESTIMATED GFR Routine 08/01/2018 8:03 Results for this AM ENDOSCOPY RN procedure are in the results section. HC COMPLETE BLD COUNT Routine 08/01/2018 8:03 Results for this W/AUTO DIFF AM ENDOSCOPY RN procedure are in the results section. BASIC METABOLIC PANEL Routine 08/01/2018 8:03 Results for this AM ENDOSCOPY RN procedure are in the results section. ECG PRE/POST OP Routine 08/01/2018 7:51 Results for this AM ENDOSCOPY RN procedure are in the results section. XR CHEST 1 VW Routine 07/31/2018 4:12 Results for this PORTABLE PM ENDOSCOPY RN procedure are in the results section. EP PACEMAKER Routine 07/31/2018 3:40 Results for this INSERTION NEW OR PM ENDOSCOPY RN procedure are in REPLACEMENT the results section. TYPE AND SCREEN Routine 07/31/2018 1:36 Results for this PM ENDOSCOPY RN procedure are in the results section. after 03/31/2018 Results ECG 12 lead (08/01/2018 10:41 AM ENDOSCOPY RN) Ventricular rate 82 [facility] Atrial rate 82 [facility] PA interval 200 [facility] QRSD interval 176 [facility] QT interval 448 [facility] QTC interval 523 [facility] P axis 1 23 [facility] QRS axis 1 -76 [facility] T wave axis 92 [facility] MUSE EKG impression Electronic ventricular [facility] MUSE pacemaker-In automated comparison with ECG of 01-AUG-2018 07:51,-Vent. rate has increased BY 12 BPM- Specimen Narrative Performed At Performing Organization Address City/State/Zipcode Phone Number [facility] MUSE [address] [place] [address] Smear review (08/01/2018 8:03 AM ENDOSCOPY RN) Pathologist [facility] Platelet slide review Decreased (A) [facility] Anisocytosis Moderate [facility] Ovalocytes Moderate [facility] Specimen Performing Organization Address City/[facility]ode Phone Number [facility] DEPARTMENT OF PATHOLOGY AND [address] [place] [address] Estimated GFR (08/01/2018 8:03 AM ENDOSCOPY RN) Pathologist [facility] Estimated GFR 85 mL/min/1.73 [facility] Comment: m2 HOSPITAL CatergoryUnitsInterpretation G1 >=90 Normal or high G2 60-89Mildly decreased X5b95-36Ciweor to moderately decreased O3p89-08Gtcfwcuzxl to severely decreased G4 15-29Severely decreased G5 <15Kidney failure The eGFR was calculated using the Chronic Kidney Disease Epidemiology Collaboration (CKD-EPI) equation. Interpretation is based on recommendations of the National Kidney Foundation-Kidney Disease Outcomes Quality Initiative (NKF-KDOQI) published in 2014. Specimen Plasma specimen Performing Organization Address City/[facility]/Zipcode Phone Number [facility] DEPARTMENT OF PATHOLOGY AND [address] [place] [address] CBC with platelet and differential (08/01/2018 8:03 AM ENDOSCOPY RN) Pathologist [facility] WBC 5.20 4.50 - 11.00 [facility] k/[facility] RBC 2.27 (L) 4.40 - 6.00 [facility] HGB 7.7 (L) 14.0 - 18.0 [facility] g/dL [facility] HCT 24.1 (L) 41.0 - 51.0 % [facility] MCV 106.2 (H) 82.0 - 100.0 [facility] MCH 33.9 27.0 - 34.0 pg [facility] MCHC 32.0 31.0 - 37.0 [facility] g/dL [facility] RDW - SD 87.1 (H) 37.0 - 55.0 fL [facility] MPV 10.7 8.8 - 13.2 fL [facility] Platelet count 111 (L) 150 - 400 k/uL [facility] Nucleated RBC 0.00 /100 WBC [facility] Neutrophils 31.7 (L) 39.0 - 69.0 % [facility] Lymphocytes 22.5 (L) 25.0 - 45.0 % [facility] Monocytes 44.2 (H) 0.0 - 10.0 % [facility] Eosinophils 0.0 0.0 - 5.0 % [facility] Basophils 1.0 0.0 - 1.0 % [facility] Immature granulocytes 0.6Comment: 0.0 - 1.0 % [facility] "[facility] granulocytes" (promyelocytes , myelocytes, metamyelocytes ) Specimen Blood Performing Organization Address City/[facility] Centercode Phone Number [facility] DEPARTMENT OF PATHOLOGY AND [address] [place] [phone] Basic metabolic panel (08/01/2018 8:03 AM ENDOSCOPY RN) Sodium 138 135 - 148 mEq/L [facility] Potassium 5.1 (H) 3.5 - 5.0 mEq/L [facility] Chloride 95 (L) 98 - 112 mEq/L [facility] CO2 35 (H) 24 - 31 mEq/L [facility] Anion gap 8@ANIO 7 - 15 mEq/L [facility] BUN 28 (H) 8 - 23 mg/dL [facility] Creatinine 0.78 0.70 - 1.20 mg/dL [facility] Glucose 98 65 - 99 mg/dL [facility] Calcium 9.4 8.8 - 10.2 mg/dL [facility] Specimen Plasma specimen Performing Organization Address City/[facility] Centercode Phone Number [facility] DEPARTMENT OF PATHOLOGY AND [address] [place] [address] [address] [place] [address] [place] [address] ECG Pre/Post Op-Tomorrow (08/01/2018 7:51 AM ENDOSCOPY RN) Ventricular rate 70 [facility] MUSE Atrial rate 70 [facility] M[facility] QRSD interval 166 [facility] M[facility] QT interval 474 [facility] QTC interval 511 [facility] M[facility] P axis 1 5 [facility] QRS axis 1 -33 [facility] T wave axis 81 [facility] MUSE EKG impression Ventricular-paced [facility] MUSE rhythm-Abnormal ECG-No previous ECGs available-Electronicall y Signed By Abelardo Hinkle MD ([id number]) on 08/02/2018 9:21:36 PM Specimen Narrative Performed At Performing Organization Address City/State/Zipcode Phone Number [facility] [address] [place] [address] XR Chest 1 Vw Portable (07/31/2018 4:12 PM ENDOSCOPY RN) Specimen Narrative Performed At EXAM: RADIANT XR [...] glenohumeral joints. Minimal degenerative changes thoracic spine. [facility]-[id number] Procedure Note Interface, Radiology Results Incoming - 07/31/2018 4:19 PM ENDOSCOPY RN EXAM: XR CHEST 1 VW PORTABLE INDICATION: [...] glenohumeral joints. Minimal degenerative changes thoracic spine. [facility]-[id number] Performing Organization Address City/State/Zipcode Phone Number FELIBERTO SANCHEZ [address] [place] [address] Cv electrophysiology procedure (07/31/2018 3:40 PM ENDOSCOPY RN) Specimen Narrative Performed At TITLE: [facility] Dual-chamber pacemaker. PREOPERATIVE DIAGNOSES: 1.Dyspnea on [...] permanent pacemaker when he was at the [facility] in [place], he declined one at that time.Recently, he [...] Zavala asked me to transfer him from [place] for a permanent pacemaker.He comes now for [...] 10 mL. 2.The pacemaker is a Medtronic Cuartelez XT DR MRI, model W1DR01, serial #[id number]. 3.The right atrial lead is a Medtronic 5076, serial #[id number], measured P-wave 3 mV, pacing threshold 1.3 V, current 2.4 mA, impedance 562 ohms. 4.Right ventricular apical pacing lead is a Medtronic 5076, serial #[id number], measured R-wave 7 mV, pacing threshold 0.7 V, current 1.2 mA, impedance 661 ohms. CONCLUSIONS: Successful dual-chamber pacemaker placement. RECOMMENDATIONS: 1.IV antibiotics. 2.Discharge home tomorrow. Performing Organization Address City/State/Zipcode Phone Number [facility] [address] [place] [address] Type and screen (07/31/2018 1:36 PM ENDOSCOPY RN) ABO grouping B [facility] Rh type POS [facility] Antibody screen (gel) NEG [facility] Specimen Blood Performing Organization Address City/State/Zipcode Phone Number [facility] DEPARTMENT OF PATHOLOGY AND [address] [place] [address] GENOMIC MEDICINE [facility] [address] [place] [address] after 03/31/2018 Advance Directives For more information, please contact: [phone] Type Date Recorded Patient Drug Clerk Explanation Advance Directives, Living Will and Medical Power of Pharmacist'S Aide
[2019-04-01] MEDS ORDERED: NA CHLORIDE 0.9% 1,000 ML ONE (08:21)
[2019-04-01] MEDS ORDERED: NA CHLORIDE 0.9% 500 ML ONE (11:49)
[2019-04-01 14:48] VITALS: O2SAT 98; BMI 20.9
[2019-04-01 14:49] VITALS: BP 129/79; TEMP 98.1
[2019-04-01 16:47] LABS: Hematocrit 27.2 % (39.6-49.0)
== END 2019-04-01 16:30 | disposition home or self-care (01) ==
LOC: DS 08:07
PROVIDERS: ATTEND Internal Medicine Hematology & Oncology
DX: D46.9 Myelodysplastic syndrome, unspecified (principal); D63.8 Anemia in other chronic diseases classified elsewhere
CPT/HCPCS: 36415; 86900; 86850; 86901; 85018; 85014; 36430; P9016 ×2

== ENCOUNTER 2019-05-06 07:33 | Day surgery (SDC) | payer MEDICARE ==
[2019-05-06] MEDS ORDERED: NA CHLORIDE 0.9% 250 ML ONE (08:27)
[2019-05-06 09:21] VITALS: BP 113/47; TEMP 98; O2SAT 96
[2019-05-06 09:31] VITALS: BMI 25.0
[2019-05-06] MEDS ORDERED: NA CHLORIDE 0.9% 500 ML ONE (11:19)
[2019-05-06 17:04] LABS: Hematocrit 24.1 % (39.6-49.0)
== END 2019-05-06 16:33 | disposition home or self-care (01) ==
LOC: DS 07:33
PROVIDERS: ATTEND Internal Medicine Hematology & Oncology
DX: D46.9 Myelodysplastic syndrome, unspecified (principal); D63.8 Anemia in other chronic diseases classified elsewhere
CPT/HCPCS: 36415; 86900; 86850; 86901; 85018; 85014; 36430 ×2; P9016 ×2; J7030; J7040

== ENCOUNTER 2019-06-02 08:35 | Day surgery (SDC) | payer MEDICARE ==
[2019-06-02] MEDS ORDERED: NA CHLORIDE 0.9% 250 ML ONE ×3 (08:54→11:28)
[2019-06-02 14:16] VITALS: BMI 25.0
[2019-06-02 15:56] VITALS: BP 148/52; TEMP 98.6; O2SAT 98
[2019-06-02 16:16] LABS: Hematocrit 24.1 % (39.6-49.0)
--- OUTSIDE RECORDS SUMMARY | 2019-06-13 16:32 | XMS REPORT ---
:1935 Author Organization [facility] Address [facility] [place] [address] Care Team Providers Name Role Phone Unavailable Unavailable Unavailable Problems This patient has no known problems. Allergies, Adverse Reactions, Alerts This patient has no known allergies or adverse reactions. Medications This patient has no known medications.
== END 2019-06-02 15:51 | disposition home or self-care (01) ==
LOC: DS 08:35
PROVIDERS: ATTEND Internal Medicine Hematology & Oncology
DX: D63.8 Anemia in other chronic diseases classified elsewhere (principal); D46.9 Myelodysplastic syndrome, unspecified
CPT/HCPCS: 36415; 86900; 86850; 86901; 85018; 85014; 36430; P9016 ×2; J7030 ×3

== ENCOUNTER 2019-06-30 08:01 | Observation (INO) | payer MEDICARE ==
--- OUTSIDE RECORDS SUMMARY | 2019-06-30 08:04 | XMS REPORT ---
:1935 Author Organization [facility] Address [address] [place] [address] Care Team Providers Name Role Phone Unavailable Unavailable Unavailable Problems This patient has no known problems. Allergies, Adverse Reactions, Alerts This patient has no known allergies or adverse reactions. Medications This patient has no known medications.
[2019-06-30 08:53] LABS: Absolute Lymphocytes (CBC) 1.2 K/uL (0.7-4.9); Basophils % 0.8 % (0-1.3); Hematocrit 20.3 % (39.6-49.0); Lymphocytes % 22.6 % (15.3-44.8); RBC Red Blood Cell Count 1.93 M/uL (4.33-5.43)
[2019-06-30 09:07] LABS: BUN Blood Urea Nitrogen 13 mg/dL (7-18); Bicarbonate 31 mmol/L (21-32); Glucose Level 130 mg/dL (74-106); Potassium 3.9 mmol/L (3.5-5.1); Sodium Level 137 mmol/L (136-145)
--- NOTE | 2019-06-30 09:14 | EDPHYS ---
Physician Documentation [facility] Name: Vineet Freeman Age: 83 yrs Sex: Male : 1935 Arrival Date: 06/30/2019 Time: 08:04 Bed 7 Private MD: ED Physician Kameron Marshall HPI: 06/30 09:09 This 83 yrs old Black Male presents to ER via Wheelchair with complaints of Abnormal jr8 Lab Results/shortness of breath. 09:09 The patient has shortness of breath with light activity. Onset: The symptoms/episode jr8 began/occurred gradually, 2 day(s) ago, and became worse and became persistent. Duration: The symptoms are intermittent. The patient's shortness of breath is aggravated by light activity, walking. Associated signs and symptoms: Pertinent positives: dizziness, fatigue. Severity of symptoms: At their worst the symptoms were moderate in the emergency department the symptoms are unchanged. The patient has experienced similar episodes in the past, several times. The patient has been recently seen by a physician:. Patient with history of ongoing leukemia needing bimonthly transfusions. Stated to have SHEPARD, dizziness, fatigue. Had blood work done a day ago with low hemoglobin. Could not get ride to [place] for outpatient infusion so was instructed to come to ED for admission and transfusion . Historical: - Allergies: 08:14 No Known Allergies; tw2 - Home Meds: 08:14 allopurinol 100 mg Oral tab 1 tab once daily [Active]; amlodipine 5 mg tab 1 tab twice tw2 daily [Active]; benzonatate 100 mg Oral cap 1 cap 3 times per day [Active]; Colace 100 mg Oral cap 1 cap once daily [Active]; colchicine 0.6 mg Oral tab 1 tab 2 times per day [Active]; furosemide 40 mg Oral tab 1 tab 2 times per day [Active]; losartan 50 mg Oral tab 1 tab once daily [Active]; mirtazapine 15 mg Oral TbDL 1 tab at bedtime [Active]; pantoprazole 40 mg Oral TbEC 1 tab once daily [Active]; prednisone 10 mg Oral tab once daily [Active]; tramadol 50 mg Oral tab 1 tab every 6 hours [Active]; spironolactone 25 mg Oral tab 1 tab twice daily [Active]; trazodone 50 mg Oral tab 2 tabs at bedtime [Active]; vitamin E33-kuwch acid Oral once daily [Active]; - PMHx: 08:14 Anemia; CHF; Chronic pain; complete heart block; fatty liver; Gout; Hypertension; tw2 insomnia; Leukemia; Myelodysplastic Syndrome; - PSHx: 08:14 neck; back; tw2 - Immunization history:: Adult Immunizations. - Social history:: Smoking status: . - Ebola Screening: : Patient denies travel to an Ebola-affected area in the 21 days before illness onset. ROS: 09:09 Eyes: Negative for injury, pain, redness, and discharge, ENT: Negative for injury, jr8 pain, and discharge, Neck: Negative for injury, pain, and swelling, Cardiovascular: Negative for chest pain, palpitations, and edema, Abdomen/GI: Negative for abdominal pain, nausea, vomiting, diarrhea, and constipation, Back: Negative for injury and pain, MS/Extremity: Negative for injury and deformity, Skin: Negative for injury, rash, and discoloration. 09:09 Constitutional: Positive for fatigue. 09:09 Respiratory: Positive for dyspnea on exertion. 09:09 Neuro: Positive for dizziness, Negative for altered mental status, gait disturbance, headache, hearing loss, loss of consciousness, numbness, seizure activity, speech changes, syncope, near syncope, tingling, tinnitus, tremor, visual changes, weakness. Exam: 09:09 Eyes: Pupils equal round and reactive to light, extra-ocular motions intact. Lids and jr8 lashes normal. Conjunctiva with pallar. Sclera are non-icteric and not injected. Cornea within normal limits. Periorbital areas with no swelling, redness, or edema. ENT: Nares patent. No nasal discharge, no septal abnormalities noted. Tympanic membranes are normal and external auditory canals are clear. Oropharynx with no redness, swelling, or masses, exudates, or evidence of obstruction, uvula midline. Mucous membranes moist. Neck: Trachea midline, no thyromegaly or masses palpated, and no cervical lymphadenopathy. Supple, full range of motion without nuchal rigidity, or vertebral point tenderness. No Meningismus. Cardiovascular: Regular rate and rhythm with a normal S1 and S2. No gallops, murmurs, or rubs. Normal PMI, no JVD. No pulse deficits. Respiratory: Lungs have equal breath sounds bilaterally, clear to auscultation and percussion. No rales, rhonchi or wheezes noted. No increased work of breathing, no retractions or nasal flaring. Abdomen/GI: Soft, non-tender, with normal bowel sounds. No distension or tympany. No guarding or rebound. No evidence of tenderness throughout. Back: No spinal tenderness. No costovertebral tenderness. Full range of motion. Skin: Warm, dry with normal turgor. Normal color with no rashes, no lesions, and no evidence of cellulitis. MS/ Extremity: Pulses equal, no cyanosis. Neurovascular intact. Full, normal range of motion. Neuro: Awake and alert, GCS 15, oriented to person, place, time, and situation. Cranial nerves II-XII grossly intact. Motor strength 5/5 in all extremities. Sensory grossly intact. Vital Signs: 08:15 BP 116 / 59; Pulse 70; Resp 17; Pulse Ox 100% on R/A; tw2 08:15 Weight 72.57 kg (R); tw2 08:38 Temp 98.7(O); tw2 10:05 BP 140 / 56; Pulse 60; Resp 17; Pulse Ox 95% on R/A; tw2 10:43 BP 140 / 56; Pulse 59; Resp 17; Pulse Ox 95% ; tw2 MDM: 08:27 Patient medically screened. 09:09 Data reviewed: vital signs, nurses notes, lab test result(s). Data interpreted: Pulse jr8 oximetry: on room air is 100 %. Interpretation: normal. Counseling: I had a detailed discussion with the patient and/or guardian regarding: the historical points, exam findings, and any diagnostic results supporting the discharge/admit diagnosis, lab results, the need for further work-up and treatment in the hospital. ED course: Consulted Dr. Nielson, wants patient admitted and to have two units blood. Known antibody history. . 06/30 08:27 Order name: CBC with Diff 06/30 08:27 Order name: Basic Metabolic Panel; Complete Time: 09:14 8 06/30 08:27 Order name: TS 06/30 08:27 Order name: IV; Complete Time: 08:37 8 06/30 09:42 Order name: Bb Add On bd 06/30 09:46 Order name: Packed RBC Leukored EDMS Administered Medications: No medications were administered Disposition: 11:44 Co-signature as Attending Physician, Kameron Marshall MD I agree with the assessment and kdr plan of care. Disposition: 06/30/19 09:13 Hospitalization ordered by Clau Thorpe for Observation. 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 - Bed requested for Telemetry/MedSurg (observation). - Status is Observation. ph - Condition is Stable. - Problem is new. - Symptoms are unchanged. UTI on Admission? No Signatures: Dispatcher [employer] EDMS Juany Sun bd Kameron Marshall MD MD [facility] Guzman Carroll PA PA jr8 Jackie Schulte, RN RN ph Lauren Bolden RN RN tw2 Corrections: (The following items were deleted from the chart) 10:41 09:13 Hospitalization Ordered by Clau Thorpe MD for Observation. Preliminary diagnosis bd is Anemia in neoplastic disease. Bed requested for Telemetry/MedSurg (observation). Status is Observation. Condition is Stable. Problem is new. Symptoms are unchanged. UTI on Admission? No. jr8 11:05 10:41 06/30/2019 09:13 Hospitalization Ordered by Clau Thorpe MD for Observation. 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 Bed requested for Telemetry/MedSurg (observation). Status is Observation. Condition is Stable. Problem is new. Symptoms are unchanged. UTI on Admission? No. bd
--- NOTE | 2019-06-30 09:14 | ER ---
Nurse's Notes [facility] Name: Vineet Freeman Age: 83 yrs Sex: Male : 1935 Arrival Date: 06/30/2019 Time: 08:04 Bed 7 Private MD: Diagnosis: Anemia in neoplastic disease Presentation: 06/30 08:12 Presenting complaint: Patient states: "I had my blood drawn yesterday and my blood aa5 count was low, it was 6.4". Pt states "I need special blood so they usually admit me for the transfusions". Pt reports SOB on exertion. 08:21 Transition of care: patient was not received from another setting of care. Onset of aa5 symptoms was June 30, 2019. Risk Assessment: Do you want to hurt yourself or someone else? Patient reports no desire to harm self or others. Care prior to arrival: None. 08:21 Method Of Arrival: Wheelchair aa5 08:21 Acuity: VEDA 3 aa5 08:38 Initial Sepsis Screen: Does the patient meet any 2 criteria? No. Patient's initial tw2 sepsis screen is negative. Does the patient have a suspected source of infection? No. Patient's initial sepsis screen is negative. Triage Assessment: 08:15 General: Appears in no apparent distress. Behavior is calm, cooperative, appropriate tw2 for age. Pain: Denies pain. Historical: - Allergies: 08:14 No Known Allergies; tw2 - Home Meds: 08:14 allopurinol 100 mg Oral tab 1 tab once daily [Active]; amlodipine 5 mg tab 1 tab twice tw2 daily [Active]; benzonatate 100 mg Oral cap 1 cap 3 times per day [Active]; Colace 100 mg Oral cap 1 cap once daily [Active]; colchicine 0.6 mg Oral tab 1 tab 2 times per day [Active]; furosemide 40 mg Oral tab 1 tab 2 times per day [Active]; losartan 50 mg Oral tab 1 tab once daily [Active]; mirtazapine 15 mg Oral TbDL 1 tab at bedtime [Active]; pantoprazole 40 mg Oral TbEC 1 tab once daily [Active]; prednisone 10 mg Oral tab once daily [Active]; tramadol 50 mg Oral tab 1 tab every 6 hours [Active]; spironolactone 25 mg Oral tab 1 tab twice daily [Active]; trazodone 50 mg Oral tab 2 tabs at bedtime [Active]; vitamin I37-faowe acid Oral once daily [Active]; - PMHx: 08:14 Anemia; CHF; Chronic pain; complete heart block; fatty liver; Gout; Hypertension; tw2 insomnia; Leukemia; Myelodysplastic Syndrome; - PSHx: 08:14 neck; back; tw2 - Immunization history:: Adult Immunizations. - Social history:: Smoking status: . - Ebola Screening: : Patient denies travel to an Ebola-affected area in the 21 days before illness onset. Screenin:12 Abuse screen: Denies threats or abuse. Denies injuries from another. Nutritional tw2 screening: No deficits noted. Tuberculosis screening: No symptoms or risk factors identified. Fall Risk Secondary diagnosis (15 points) impaired mobility. Assessment: 09:15 General: Appears in no apparent distress. Behavior is calm, cooperative, appropriate tw2 for age. Neuro: Level of Consciousness is awake, alert, obeys commands, Oriented to person, place, time, situation. Cardiovascular: Heart tones S1 S2 Patient's skin is warm and dry. Respiratory: Airway is patent Respiratory effort is even, unlabored, Respiratory pattern is regular, symmetrical, Breath sounds are clear bilaterally. GI: No signs and/or symptoms were reported involving the gastrointestinal system. Abdomen is flat, Bowel sounds present X 4 quads. : No signs and/or symptoms were reported regarding the genitourinary system. EENT: No signs and/or symptoms were reported regarding the EENT system. Derm: Skin is pale, Skin temperature is warm. Musculoskeletal: Range of motion: intact in all extremities. 10:05 Reassessment: Patient appears in no apparent distress at this time. No changes from tw2 previously documented assessment. Patient and/or family updated on plan of care and expected duration. Pain level reassessed. 11:04 Reassessment: Patient appears in no apparent distress at this time. Patient and/or ph family updated on plan of care and expected duration. Pain level reassessed. Patient is alert, oriented x 3, equal unlabored respirations, skin warm/dry/pink. Pt taken to 4th floor in hospital bed. Vital Signs: 08:15 BP 116 / 59; Pulse 70; Resp 17; Pulse Ox 100% on R/A; tw2 08:15 Weight 72.57 kg (R); tw2 08:38 Temp 98.7(O); tw2 10:05 BP 140 / 56; Pulse 60; Resp 17; Pulse Ox 95% on R/A; tw2 10:43 BP 140 / 56; Pulse 59; Resp 17; Pulse Ox 95% ; tw2 ED Course: 08:04 Patient arrived in ED. rg4 08:12 Lauren Bolden, KYLEE is Primary Nurse. tw2 08:12 Arm band placed on. tw2 08:12 Patient placed in an exam room, on a stretcher. aa5 08:14 Bed in low position. Call light in reach. Side rails up X2. classroom monitor on. Pulse tw2 ox on. NIBP on. Warm blanket given. 08:21 Triage completed. aa5 08:27 Guzman Carroll PA is PHCP. jr8 08:27 Kameron Marshall MD is Attending Physician. jr8 08:40 Inserted saline lock: 20 gauge in left forearm, using aseptic technique. ph 09:13 Clau Thorpe MD is Hospitalizing Provider. jr8 10:54 No provider procedures requiring assistance completed. Patient admitted, IV remains in ph place. Administered Medications: No medications were administered Outcome: 09:13 Decision to Hospitalize by Provider. jr8 10:54 Admitted to Tele accompanied by tech, via stretcher, room 208, with chart. ph 10:54 Condition: stable 11:05 Patient left the ED. ph Signatures: Yumiko Caputo RN RN aa5 Guzman Carroll PA PA jr8 Jackie Schulte RN RN Lauren Bolden RN RN 2 Vee Newell rg4 Corrections: (The following items were deleted from the chart) 08:21 08:12 Presenting complaint: Patient states: "I had my blood drawn yesterday and aa5 aa5 08:21 08:12 Presenting complaint: Patient states: "I had my blood drawn yesterday and my aa5 blood count was low, it was 6.4". Pt states "I need special blood so they usually admit me for the transfusions" aa5
[2019-06-30] MEDS ORDERED: ONDANSETRON 4 MG/2 ML VIAL IV PRN (11:26)
[2019-06-30] MEDS ORDERED: ACETAMINOPHEN 500 MG TAB PO PRN (11:26)
[2019-06-30 13:28] VITALS: BMI 25.7
[2019-06-30 13:39] LABS: Anisocytosis 3+; Blood Morphology Comment NOTED (NOT SEEN); Hypochromasia 1+; Platelet Estimate ADEQ; Urine White Blood Cell Casts OK
[2019-06-30] MEDS ORDERED: PNEUMOCOCCAL VACCINE 0.5 ML IMVAC ONE (14:00)
[2019-06-30] MEDS ORDERED: INFLUENZA VACCINE (for 3y+) 0.5 ML DOSE IMVAC ONE (14:00)
[2019-06-30] MEDS ORDERED: DOCUSATE NA 100 MG CAP PO PRN (14:09)
[2019-06-30] MEDS ORDERED: NA CHLORIDE 0.9% 250 ML ONE ×2 (15:54→21:59)
[2019-06-30 16:48] LABS: Urine Appearance CLEAR; Urine Blood NEGATIVE (NEG); Urine Color DK YELLOW; Urine Glucose NEGATIVE (NEG); Urine Protein TRACE (NEG); Urine Specific Gravity 1.025 (1.005-1.030); Urine pH 5.5 (5.0-7.0)
[2019-06-30 17:06] LABS: Urine Bilirubin NEGATIVE (NEG)
[2019-06-30 17:07] LABS: Urine Microscopic Reflex NO UMIC
[2019-06-30] MEDS ORDERED: HYDRALAZINE HCL 20 MG/ML VIAL IV PRN (19:32)
[2019-06-30] MEDS ORDERED: FUROSEMIDE 20 MG/ 2ML VIAL IV SCH (20:00)
[2019-06-30] MEDS: SPIRONOLACTONE 25 MG TABLET PO SCH (22:00)
[2019-06-30] MEDS: AMLODIPINE 5 MG TAB PO SCH (22:01)
--- NOTE | 2019-06-30 23:48 | HP ---
Date of Admission: 06/30/2019 Chief Complaint: Anemia and shortness of breath. Code Status: Full code. History Of Present Illness: The patient is an 83-year-old male with past medical history of CML, hyp ertension, depression, CHF, gout, GERD, has been requiring monthly transfusions to almost bimonthly t ransfusions. Patient was recently told that his hemoglobin level has been running low, about 6.4-6.7 by his manager customer and was recommended to come in for a transfusion. Patient does report shortness of breath with minimal activities going from his door to his mailbox. Usually, the patient is able to perform those activities. Denies any fevers, chills, cough, sputum production, or ill contacts. The patient's symptoms are constant, moderate, progressively worsening. Patient's hemoglobin was 7, seen on the workup. Patient was then referred for admission. When seen in the ER, he was awake, jackie rt, oriented x3, in some mild distress. Past Medical History: CML, GERD, depression, hypertension, chronic anemia, requiring transfusions, c hronic diastolic heart failure, gout, fatty liver disease. Surgical History: Pacemaker placement due to complete heart block, spinal fusion. Allergies: NO KNOWN DRUG ALLERGIES. Medications: List reviewed. Social History: Patient is , has 3 children, is retired. Lives with his girlfriend. Denies any tobacco use or alcohol use. Patient does use a walker at home. Family History: The patient denies any premature coronary artery disease in the family. Review of Systems: Ten-point system reviewed, negative except as per HPI. Physical Examination: Vital Signs: Temperature 98.7, heart rate 70, blood pressure 116/59, respirations 17, O2 sat 93% on room air. General: Awake, alert, oriented x3, in some mild distress, elderly male. CV: S1, S2. Regular rate and rhythm. Peripheral pulses present. Respiratory: Moving air well bilaterally. No wheezing or stridor. No use of accessory muscles anna rointestinal: Abdomen is soft, nontender, nondistended. Positive bowel sounds. Extremities: No clubbing, cyanosis, or edema. No calf tenderness. Neuro: Cranial nerves 2 through 12 intact grossly. No focal neurological deficits. Speech is alonso l. Laboratory Data: WBC 5.1, H and H 7 and 20.3, platelets 182, neutrophils 25%. Sodium 137, potassium 3.9, chloride 102, CO2 of 31, BUN 13, creatinine 0.66, glucose 130, calcium 8.5. Assessment And Plan: An 83-year-old male with: 1.Acute on chronic anemia. Patient has anemia due to CML and has been requiring multiple transfusio ns regularly. Patient's hemoglobin usually runs around baseline of around 8, has been hovering in e high 6's. We will transfuse 2 units of packed red blood cells, leukoreduced. Patient follows with Dr. Altamirano and Dr. Nielson as an outpatient. We will give 20 mg of IV Lasix after each unit. We w ill recheck hemoglobin after 2nd unit is complete. The patient denies any blood thinner use. No act renetta bleeding. Patient is symptomatic with shortness of breath. 2.Shortness of breath, likely secondary to above. The patient does not have any symptoms of pneumon ia or congestion. He does have heart failure. We will need to monitor his I's and O's closely. 3.Chronic diastolic heart failure. We will continue with Lasix. Monitor I's and O's strictly and w eigh daily. 4.CML. The patient is undergoing outpatient treatment. 5.Essential hypertension, stable. Resume home medications as appropriate. 6.Major depressive disorder, stable. 7.Gout, on allopurinol. 8.Gastroesophageal reflux disease. We will continue with proton pump inhibitor. 9.Fatty liver disease. 10.Status post pacemaker. 11.Deep venous thrombosis prophylaxis. No chemical anticoagulation due to anemia. Plan: Admit patient to Med-Surg, [facility] as observation. AMINATA Voice ID: [id number]
[2019-07-01 05:47] LABS: Absolute Lymphocytes (CBC) 1.2 K/uL (0.7-4.9); Hematocrit 23.8 % (39.6-49.0); Lymphocytes % 22.5 % (15.3-44.8); MPV 8.5 fL (7.6-11.3); RBC Red Blood Cell Count 2.48 M/uL (4.33-5.43)
[2019-07-01 06:02] LABS: ALT/SGPT 15 U/L (12-78); AST/SGOT 19 U/L (15-37); Albumin 2.3 g/dL (3.4-5.0); Alkaline Phosphatase 61 U/L (45-117); BUN Blood Urea Nitrogen 10 mg/dL (7-18); Bicarbonate 33 mmol/L (21-32); Bilirubin Total 0.7 mg/dL (0.2-1.0); Glucose Level 129 mg/dL (74-106); Magnesium 1.8 mg/dL (1.8-2.4); Potassium 3.7 mmol/L (3.5-5.1); Protein, Total 8.4 g/dL (6.4-8.2); Sodium Level 138 mmol/L (136-145)
[2019-07-01] MEDS ORDERED: PANTOPRAZOLE 40MG TABLET PO SCH (07:30)
[2019-07-01] MEDS: SPIRONOLACTONE 25 MG TABLET PO SCH (08:16)
[2019-07-01] MEDS: AMLODIPINE 5 MG TAB PO SCH (08:17)
[2019-07-01] MEDS ORDERED: POTASSIUM CL SA 10 MEQ TAB PO ONE (09:00)
[2019-07-01] MEDS ORDERED: LOSARTAN POTASSIUM 50 MG TABLET PO SCH (09:00)
[2019-07-01] MEDS ORDERED: predniSONE 10 MG TAB PO SCH (09:00)
[2019-07-01] MEDS ORDERED: METOPROLOL XL 25 MG TAB PO SCH (09:00)
[2019-07-01] MEDS ORDERED: allopurinoL 100 MG TAB PO SCH (09:00)
[2019-07-01] MEDS ORDERED: FUROSEMIDE 20 MG TABLET PO ONE (11:13)
[2019-07-01 13:11] VITALS: BP 129/60; TEMP 97.8
[2019-07-01 14:14] VITALS: O2SAT 98
--- NOTE | 2019-07-01 21:00 | DS ---
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 2.Shortness of breath secondary to above. 3.Chronic diastolic heart failure. 4.Chronic myelogenous leukemia. 5.Essential hypertension, stable. 6.Major depressive disorder, stable. 7.Gout, stable. 8.Gastroesophageal reflux disease without esophagitis, on PPI. 9.Fatty liver disease. 10.Status post pacemaker. Hospital Course: Patient is an 83-year-old male with past medical history of CML, hypertension, depr ession, CHF, gout, GERD, who requires monthly transfusions due to his chronic anemia. Patient was se nt over to the ER by the workers' compensation commissioner for repeat transfusion, unable to be scheduled as an outpatient due to the holiday schedule. Patient's hemoglobin was 7. His baseline is around 8. Patient had si gnificant symptoms including shortness of breath with minimal activities. Patient was given 2 units of blood. His repeat hemoglobin was 8.3. Tolerated the transfusion well. Patient was then discharg ed in a stable condition. His symptoms had improved. Shortness of breath had resolved. He was able to ambulate without difficulty. Medications: As per medication reconciliation list. Followup: Follow up with primary care physician in 2-3 days. Follow up with oncologist, erica Acuna 1 week. Return to ER for worsening condition. Diet: Low-sodium, fluid-restricted diet. Activity: Ambulate with walker. Physical Examination: General: Awake, alert, oriented x3, elderly male. CV: S1, S2. Respiratory: Moving air well bilaterally. Abdomen: Soft, nontender, nondistended. Positive bowel sounds. Extremities: No clubbing, cyanosis, edema. Neuro: Nonfocal. SA/MODL Voice ID: [id number] Report ID: [id number]
== END 2019-07-01 13:52 | disposition home or self-care (01) ==
LOC: ER 08:01 → ERHOLD 09:49 → 2ND 10:57
PROVIDERS: ADMIT Family Medicine; ATTEND Family Medicine
DX: C92.10 Chronic myeloid leukemia, BCR/ABL-positive, not having achieved remission (principal); D63.8 Anemia in other chronic diseases classified elsewhere; I11.0 Hypertensive heart disease with heart failure; I50.32 Chronic diastolic (congestive) heart failure; F32.9 Major depressive disorder, single episode, unspecified; M10.9 Gout, unspecified; K21.9 Gastro-esophageal reflux disease without esophagitis; K76.0 Fatty (change of) liver, not elsewhere classified; Z95.0 Presence of cardiac pacemaker
CPT/HCPCS: 36415; 36430; 80048; 80053; 81003; 83735; 85025; 86850; 86900; 86901; 94760; 99285; G0378; J1940; J7030; J7512; P9016

== ENCOUNTER 2019-07-21 07:55 | Day surgery (SDC) | payer MEDICARE ==
--- OUTSIDE RECORDS SUMMARY | 2019-07-21 07:57 | XMS REPORT ---
:1935 [facility] Address [facility] [place] [address] Care Team Providers Name Role Phone Unavailable Unavailable Unavailable Problems This patient has no known problems. Allergies, Adverse Reactions, Alerts This patient has no known allergies or adverse reactions. Medications This patient has no known medications.
[2019-07-21] MEDS ORDERED: NA CHLORIDE 0.9% 250 ML ONE ×2 (08:30→11:28)
[2019-07-21 10:13] VITALS: BP 124/50; TEMP 97.6; O2SAT 96
[2019-07-21 10:14] VITALS: BMI 26.6
[2019-07-21 15:59] LABS: Hematocrit 23.4 % (39.6-49.0)
== END 2019-07-21 16:00 | disposition home or self-care (01) ==
LOC: DS 07:55
PROVIDERS: ATTEND Internal Medicine Hematology & Oncology
DX: D46.9 Myelodysplastic syndrome, unspecified (principal); D63.8 Anemia in other chronic diseases classified elsewhere
CPT/HCPCS: 36415; 86900; 86850; 86901; 85018; 85014; 36430; P9016 ×2; J7030 ×2

== ENCOUNTER 2019-08-10 15:58 | Inpatient (IN) | payer MEDICARE ==
--- OUTSIDE RECORDS SUMMARY | 2019-08-10 16:00 | XMS REPORT ---
:1935 [facility] Address [address] [place] [address] Care Team Providers Name Role Phone Unavailable Unavailable Unavailable Problems This patient has no known problems. Allergies, Adverse Reactions, Alerts This patient has no known allergies or adverse reactions. Medications This patient has no known medications.
[2019-08-10 16:47] LABS: Absolute Lymphocytes (CBC) 0.8 K/uL (0.7-4.9); Basophils % 0.5 % (0-1.3); Hematocrit 20.2 % (39.6-49.0); Lymphocytes % 15.1 % (15.3-44.8); MPV 9.1 fL (7.6-11.3); RBC Red Blood Cell Count 1.98 M/uL (4.33-5.43)
[2019-08-10 16:57] LABS: Protime INR 1.41
[2019-08-10 17:07] LABS: Anisocytosis 3+; Blood Morphology Comment NOTED (NOT SEEN); Hypochromasia 1+; Macrocytosis 1+; Platelet Estimate ADEQ; Urine White Blood Cell Casts OK
[2019-08-10] MEDS ORDERED: NA CHLORIDE 0.9% 250 ML ONE (17:09)
[2019-08-10 17:14] LABS: ALT/SGPT 16 U/L (12-78); AST/SGOT 21 U/L (15-37); Albumin 2.7 g/dL (3.4-5.0); Alkaline Phosphatase 72 U/L (45-117); BUN Blood Urea Nitrogen 17 mg/dL (7-18); Bicarbonate 34 mmol/L (21-32); Bilirubin Direct 0.1 mg/dL (0-0.2); Bilirubin Total 0.3 mg/dL (0.2-1.0); Glucose Level 136 mg/dL (74-106); Magnesium 2.1 mg/dL (1.8-2.4); NT PRO-BNP 4906 pg/mL (<450); Potassium 4.4 mmol/L (3.5-5.1); Protein, Total 9.3 g/dL (6.4-8.2); Sodium Level 135 mmol/L (136-145); Troponin (Emerg Dept Use Only) 0.07 ng/mL (0.0-0.045)
--- NOTE | 2019-08-10 17:14 | RAD REPORT ---
EXAM DESCRIPTION: RAD - Chest Single View - 08/10/2019 5:06 pm CLINICAL HISTORY: SOB Chest pain. COMPARISON: Chest Single View dated 09/18/2018; Chest Single View dated 09/17/2018; Chest Single View dated 07/30/2018; Chest Pa And Lat (2 Views) dated 07/25/2018 FINDINGS: Portable technique limits examination quality. Moderate bilateral pulmonary opacities are present likely representing pulmonary edema. Small to mode rate bilateral pleural effusions, slightly larger on the left. The heart is mildly enlarged in size w ith a dual lead pacer device present. No displaced fractures. IMPRESSION: Moderate CHF versus volume overload.
[2019-08-10] MEDS ORDERED: FUROSEMIDE 40 MG/4 ML VIAL ONE (17:43)
--- NOTE | 2019-08-10 17:43 | ER ---
Nurse's Notes [facility] Name: Vineet Freeman Age: 84 yrs Sex: Male : 1935 Arrival Date: 08/10/2019 Time: 16:04 Bed 6 Private MD: MADDIE PETERS Diagnosis: Unspecified combined systolic (congestive) and diastolic (congestive) heart failure;Pulmonary edema;Anemia in neoplastic disease Presentation: 08/10 16:13 Presenting complaint: Patient states: "Dr. Birch said my hemoglobin is probably low aa5 again because I've been feeling short of breath". Pt also c/o blurry vision x 1 week ago. Transition of care: patient was not received from another setting of care. Onset of symptoms was August 2019. Risk Assessment: Do you want to hurt yourself or someone else? Patient reports no desire to harm self or others. Initial Sepsis Screen: Does the patient meet any 2 criteria? HR > 90 bpm. Does the patient have a suspected source of infection? No. Patient's initial sepsis screen is negative. Care prior to arrival: None. 16:13 Acuity: VEDA 3 aa5 16:13 Method Of Arrival: Wheelchair aa5 Triage Assessment: 17:59 Respiratory: Reports shortness of breath Onset: The symptoms/episode began/occurred mg2 gradually, the patient has mild shortness of breath. Historical: - Allergies: 16:15 No Known Allergies; aa5 - Home Meds: 17:58 allopurinol 100 mg Oral tab 1 tab once daily [Active]; amlodipine 5 mg tab 1 tab twice mg2 daily [Active]; benzonatate 100 mg Oral cap 1 cap 3 times per day [Active]; Colace 100 mg Oral cap 1 cap once daily [Active]; colchicine 0.6 mg Oral tab 1 tab 2 times per day [Active]; furosemide 40 mg Oral tab 1 tab 2 times per day [Active]; losartan 50 mg Oral tab 1 tab once daily [Active]; mirtazapine 15 mg Oral TbDL 1 tab at bedtime [Active]; pantoprazole 40 mg Oral TbEC 1 tab once daily [Active]; prednisone 10 mg Oral tab once daily [Active]; spironolactone 25 mg Oral tab 1 tab twice daily [Active]; tramadol 50 mg Oral tab 1 tab every 6 hours [Active]; trazodone 50 mg Oral tab 2 tabs at bedtime [Active]; vitamin [id number]-[id number] acid Oral once daily [Active]; - PMHx: 16:15 Anemia; CHF; Chronic pain; complete heart block; fatty liver; Gout; Hypertension; aa5 insomnia; Leukemia; Myelodysplastic Syndrome; - PSHx: 16:15 neck; back; aa5 - Immunization history:: Flu vaccine status is unknown. - Social history:: Smoking status: Patient/guardian denies using tobacco. - Ebola Screening: : No symptoms or risks identified at this time. Screenin:49 Abuse screen: Denies threats or abuse. Denies injuries from another. Nutritional mg2 screening: No deficits noted. Tuberculosis screening: No symptoms or risk factors identified. Fall Risk IV access (20 points). Assessment: 16:47 General: Appears in no apparent distress. comfortable, Behavior is calm, cooperative. mg2 General: Appears distressed. Pain: Denies pain. Neuro: Level of Consciousness is awake, alert, obeys commands, Oriented to person, place, time, situation. Cardiovascular: Capillary refill < 3 seconds Patient's skin is warm and dry. Respiratory: Airway is patent Respiratory effort is even, Respiratory pattern is regular, symmetrical, tachypnea GI: No signs and/or symptoms were reported involving the gastrointestinal system. : No signs and/or symptoms were reported regarding the genitourinary system. EENT: No signs and/or symptoms were reported regarding the EENT system. Derm: Skin is intact, is healthy with good turgor, Skin is pale. Musculoskeletal: Circulation, motion, and sensation intact. Capillary refill < 3 seconds. 17:30 Reassessment: Patient appears in no apparent distress at this time. Patient and/or hb family updated on plan of care and expected duration. Pain level reassessed. Patient is alert, oriented x 3, equal unlabored respirations, skin warm/dry/pink. 18:40 Reassessment: Patient appears in no apparent distress at this time. Patient and/or mg2 family updated on plan of care and expected duration. Pain level reassessed. Patient is alert, oriented x 3, equal unlabored respirations, skin warm/dry/pink. 18:56 Reassessment: dr julius dillon came and assessed the patient. mg2 19:16 Reassessment: Patient resting with eyes closed. No complaints of pain or needs at this vc time. 19:16 Cardiovascular: Rhythm is atrial pacer. vc 19:49 Neuro: Level of Consciousness is awake, alert, obeys commands, Oriented to person, vc place, time, situation. Respiratory: Airway is patent Respiratory effort is even, unlabored. 20:00 Reassessment: Attempted to call for report to KYLEE Handy, nurse will call back. vc 20:53 Reassessment: Report given to KYLEE Boyle charge nurse. vc 21:15 Reassessment: Patient and/or family updated on plan of care and expected duration. Pain vc level reassessed. Patient is alert, oriented x 3, equal unlabored respirations, skin warm/dry/pink. Patient placed in a dry brief and linens changed. Vital Signs: 16:15 BP 99 / 53; Pulse 98; Resp 20 S; Temp 98.9(TE); Pulse Ox 92% on R/A; Pain 0/10; aa5 17:46 BP 132 / 64; Pulse 90; Resp 18; Pulse Ox 100% on 3 lpm NC; mg2 18:40 BP 139 / 67; Pulse 90; Resp 24; Pulse Ox 97% 3 lpm ; mg2 19:16 BP 140 / 61; Pulse 84; Resp 24; Temp 97.29(TE); Pulse Ox 96% on R/A; Pain 0/10; vc 19:37 BP 147 / 67; Pulse 90; Resp 18; Pulse Ox 96% on R/A; mg2 20:00 BP 152 / 66; Pulse 91; Resp 22; Pulse Ox 96% on R/A; vc 20:45 BP 142 / 68 Sitting; Pulse 84; Resp 21; Pulse Ox 100% on 3 lpm NC; Pain 0/10; vc ED Course: 16:04 Patient arrived in ED. mr 16:05 MADDIE PETERS is Private Physician. mr 16:13 Arm band placed on. aa5 16:14 Triage completed. aa5 16:35 Hitesh Wise, KYLEE is Primary Nurse. mg2 16:49 Chasidy Owusu FNP-C is [facility]. kb 16:49 Kameron Marshall MD is Attending Physician. kb 16:49 Patient has correct armband on for positive identification. landfill attendant on. Pulse mg2 ox on. NIBP on. Door closed. Warm blanket given. 16:49 No provider procedures requiring assistance completed. Inserted saline lock: 20 gauge mg2 in right antecubital area, using aseptic technique. Blood collected. 16:51 Notified Nurse Practitioner and/or Physician Supervisor [employer] of a critical lab result(s), hgb dm5 6.7, hct 20.2. 17:07 XRAY Chest (1 view) In Process Unspecified. EDMS 17:42 Clau Thorpe MD is Hospitalizing Provider. kb 20:06 Primary Nurse role handed off by Hitesh Wise RN vc 20:06 Kiesha Tan, KYLEE is Primary Nurse. vc 21:25 Patient admitted, IV remains in place. vc Administered Medications: 17:46 Drug: Lasix 80 mg Route: IVP; Site: right antecubital; mg2 18:54 Follow up: Response: No adverse reaction mg2 Medication: 18:54 Blood products: PRBCs X 1 unit given. See transfusion record. mg2 Output: 18:56 Urine: 300ml (Voided); Total: 300ml. mg2 Outcome: 17:42 Decision to Hospitalize by Provider. kb 19:38 Instructed on the need for admit, Demonstrated understanding of instructions. mg2 21:25 Admitted to Tele accompanied by tech, via stretcher, room 424, with oxygen, with chart, vc Report called to Kylee Boyle, Charge Nurse 21:25 Condition: good vc 21:26 Patient left the ED. lp1 Signatures: Dispatcher [employer] EDMS Chasidy Owusu, CRANBERRY FARM SUPERVISOR-C CRAN[employer]ERR[employer] FARM SUPERVISOR-Jessika Post RN RN dm5 HasmukhEsmer mr CaputoYumiko RN RN aa5 Ginny Sahu RN RN lp1 Liliya Kenney RN RN Hitesh Wise RN RN mg2 Kiesha Tan RN RN vc Corrections: (The following items were deleted from the chart) 19:52 19:16 Cardiovascular: Rhythm is vc vc 23:14 20:43 Reassessment: vc vc
--- NOTE | 2019-08-10 17:44 | EDPHYS ---
Physician Documentation [facility] Name: Vineet Freeman Age: 84 yrs Sex: Male : 1935 Arrival Date: 08/10/2019 Time: 16:04 Bed 6 Private MD: MADDIE PETERS ED Physician Kameron Marshall HPI: 08/10 16:58 This 84 yrs old Black Male presents to ER via Wheelchair with complaints of Shortness kb Of Breath, Anemia. 16:58 The patient has shortness of breath at rest, with light activity, and the patient has a kb history of anemia. Onset: The symptoms/episode began/occurred 2 day(s) ago. Duration: The symptoms are continuous. The patient's shortness of breath is aggravated by exertion, light activity. Associated signs and symptoms: The patient has no apparent associated signs or symptoms. Severity of symptoms: At their worst the symptoms were moderate in the emergency department the symptoms are unchanged. The patient has experienced similar episodes in the past. The patient has not recently seen a physician. Pt states he has been short of breath for 2-3 days. States this normally happens when he needs a blood transfusion. Reports he was supposed to go to Dr Altamirano's office for blood work today to see what his blood counts were, but he didn't think he could wait another 2-3 days for results and set up for transfusion due to increased shortness of breath on exertion. PT has leukemia and has to get transfusions every couple of weeks. Historical: - Allergies: 16:15 No Known Allergies; aa5 - Home Meds: 17:58 allopurinol 100 mg Oral tab 1 tab once daily [Active]; amlodipine 5 mg tab 1 tab twice mg2 daily [Active]; benzonatate 100 mg Oral cap 1 cap 3 times per day [Active]; Colace 100 mg Oral cap 1 cap once daily [Active]; colchicine 0.6 mg Oral tab 1 tab 2 times per day [Active]; furosemide 40 mg Oral tab 1 tab 2 times per day [Active]; losartan 50 mg Oral tab 1 tab once daily [Active]; mirtazapine 15 mg Oral TbDL 1 tab at bedtime [Active]; pantoprazole 40 mg Oral TbEC 1 tab once daily [Active]; prednisone 10 mg Oral tab once daily [Active]; spironolactone 25 mg Oral tab 1 tab twice daily [Active]; tramadol 50 mg Oral tab 1 tab every 6 hours [Active]; trazodone 50 mg Oral tab 2 tabs at bedtime [Active]; vitamin P82-ppbtp acid Oral once daily [Active]; - PMHx: 16:15 Anemia; CHF; Chronic pain; complete heart block; fatty liver; Gout; Hypertension; aa5 insomnia; Leukemia; Myelodysplastic Syndrome; - PSHx: 16:15 neck; back; aa5 - Immunization history:: Flu vaccine status is unknown. - Social history:: Smoking status: Patient/guardian denies using tobacco. - Ebola Screening: : No symptoms or risks identified at this time. ROS: 17:01 Constitutional: Negative for fever, chills, and weight loss, ENT: Negative for injury, kb pain, and discharge, Neck: Negative for injury, pain, and swelling, Cardiovascular: Negative for chest pain, palpitations, and edema, Abdomen/GI: Negative for abdominal pain, nausea, vomiting, diarrhea, and constipation, Back: Negative for injury and pain, MS/Extremity: Negative for injury and deformity, Skin: Negative for injury, rash, and discoloration, Neuro: Negative for headache, weakness, numbness, tingling, and seizure. 17:01 Respiratory: Positive for dyspnea on exertion, shortness of breath, on exertion. Exam: 17:01 Constitutional: This is a well developed, well nourished patient who is awake, alert, kb and in no acute distress. Head/Face: Normocephalic, atraumatic. ENT: Nares patent. No nasal discharge, no septal abnormalities noted. Tympanic membranes are normal and external auditory canals are clear. Oropharynx with no redness, swelling, or masses, exudates, or evidence of obstruction, uvula midline. Mucous membranes moist. Neck: Trachea midline, no thyromegaly or masses palpated, and no cervical lymphadenopathy. Supple, full range of motion without nuchal rigidity, or vertebral point tenderness. No Meningismus. Chest/axilla: Normal chest wall appearance and motion. Nontender with no deformity. No lesions are appreciated. Cardiovascular: Regular rate and rhythm with a normal S1 and S2. No gallops, murmurs, or rubs. Normal PMI, no JVD. No pulse deficits. Abdomen/GI: Soft, non-tender, with normal bowel sounds. No distension or tympany. No guarding or rebound. No evidence of tenderness throughout. Skin: Warm, dry with normal turgor. Normal color with no rashes, no lesions, and no evidence of cellulitis. MS/ Extremity: Pulses equal, no cyanosis. Neurovascular intact. Full, normal range of motion. Neuro: Awake and alert, GCS 15, oriented to person, place, time, and situation. Cranial nerves II-XII grossly intact. Motor strength 5/5 in all extremities. Sensory grossly intact. Cerebellar exam normal. Normal gait. 17:01 Respiratory: mild respiratory distress is noted, Respirations: labored breathing, that is mild, Breath sounds: decreased breath sounds, that are mild, that are moderate, are located in both bases. Vital Signs: 16:15 BP 99 / 53; Pulse 98; Resp 20 S; Temp 98.9(TE); Pulse Ox 92% on R/A; Pain 0/10; aa5 17:46 BP 132 / 64; Pulse 90; Resp 18; Pulse Ox 100% on 3 lpm NC; mg2 18:40 BP 139 / 67; Pulse 90; Resp 24; Pulse Ox 97% 3 lpm ; mg2 19:16 BP 140 / 61; Pulse 84; Resp 24; Temp 97.29(TE); Pulse Ox 96% on R/A; Pain 0/10; vc 19:37 BP 147 / 67; Pulse 90; Resp 18; Pulse Ox 96% on R/A; mg2 20:00 BP 152 / 66; Pulse 91; Resp 22; Pulse Ox 96% on R/A; vc 20:45 BP 142 / 68 Sitting; Pulse 84; Resp 21; Pulse Ox 100% on 3 lpm NC; Pain 0/10; vc MDM: 16:49 Patient medically screened. kb 16:57 Data reviewed: vital signs, nurses notes. Data interpreted: Pulse oximetry: on room air kb is 92 %. Interpretation: borderline. 17:41 Counseling: I had a detailed discussion with the patient and/or guardian regarding: the kb historical points, exam findings, and any diagnostic results supporting the discharge/admit diagnosis, lab results, radiology results, the need for further work-up and treatment in the hospital. Physician consultation: Clau Thorpe MD was contacted at 17:41, regarding admission, to the telemetry unit. patient's condition, and will see patient in ED, shortly. 08/10 16:36 Order name: Basic Metabolic Panel; Complete Time: 17:19 mg2 08/10 16:36 Order name: CBC with Diff; Complete Time: 17:19 mg2 08/10 16:36 Order name: LFT's; Complete Time: 17:19 mg2 08/10 16:36 Order name: Magnesium; Complete Time: 17:19 mg2 08/10 16:36 Order name: NT PRO-BNP; Complete Time: 17:19 mg2 08/10 16:36 Order name: PT-INR; Complete Time: 17:02 mg2 08/10 16:36 Order name: Troponin (emerg Dept Use Only); Complete Time: 17:19 mg2 08/10 16:36 Order name: XRAY Chest (1 view); Complete Time: 17:27 mg2 08/10 16:53 Order name: TS mg2 08/10 17:02 Order name: Bb Add On bd 08/10 17:08 Order name: CBC Smear Scan; Complete Time: 17:19 EDMS 08/10 17:26 Order name: Packed RBC Leukored EDMS 08/10 18:42 Order name: Urine Dipstick--Ancillary (enter results) bd 08/10 16:36 Order name: EKG; Complete Time: 16:37 mg2 08/10 16:36 Order name: Cardiac monitoring; Complete Time: 16:43 mg2 08/10 16:36 Order name: EKG - Nurse/Tech; Complete Time: 16:43 mg2 08/10 16:36 Order name: IV Saline Lock; Complete Time: 16:44 mg2 08/10 16:36 Order name: Labs collected and sent; Complete Time: 16:44 mg2 08/10 16:36 Order name: O2 Per Protocol; Complete Time: 16:44 mg2 08/10 16:36 Order name: O2 Sat Monitoring; Complete Time: 16:44 mg2 Administered Medications: 17:46 Drug: Lasix 80 mg Route: IVP; Site: right antecubital; mg2 18:54 Follow up: Response: No adverse reaction mg2 Disposition: 08/11 06:35 Co-signature as Attending Physician, Kameron Marshall MD I agree with the assessment and kdr plan of care. Disposition: 08/10/19 17:42 Hospitalization ordered by Clau Thorpe for Inpatient Admission. Preliminary diagnosis are Unspecified combined systolic (congestive) and diastolic (congestive) heart failure, Pulmonary edema, Anemia in neoplastic disease. - Bed requested for Telemetry/MedSurg (Inpatient). - Status is Inpatient Admission. lp1 - Condition is Fair. - Problem is an acute exacerbation. - Symptoms are unchanged. UTI on Admission? No Signatures: Dispatcher [employer] EDMS Chasidy Owusu, CLOTH FOLDER MACHINE-C CLOTH FOLDER MACHINE-Ckb Tamar Stearns, RN RN dw Kameron Marshall MD MD [facility] Yumiko Caputo RN RN aa5 Ginny Sahu RN RN lp1 Hitesh Wise, RN RN mg2 Corrections: (The following items were deleted from the chart) 08/10 18:29 17:42 Hospitalization Ordered by Clau Thorpe MD for Inpatient Admission. Preliminary dw diagnosis is Unspecified combined systolic (congestive) and diastolic (congestive) heart failure; Pulmonary edema; Anemia in neoplastic disease. Bed requested for Telemetry/MedSurg (Inpatient). Status is Inpatient Admission. Condition is Fair. Problem is an acute exacerbation. Symptoms are unchanged. UTI on Admission? No. kb 21:26 18:29 08/10/2019 17:42 Hospitalization Ordered by Clau Thorpe MD for Inpatient lp1 Admission. Preliminary diagnosis is Unspecified combined systolic (congestive) and diastolic (congestive) heart failure; Pulmonary edema; Anemia in neoplastic disease. Bed requested for Telemetry/MedSurg (Inpatient). Status is Inpatient Admission. Condition is Fair. Problem is an acute exacerbation. Symptoms are unchanged. UTI on Admission? No. dw
[2019-08-10] MEDS ORDERED: ONDANSETRON 4 MG/2 ML VIAL IV PRN (21:41)
[2019-08-10] MEDS: METOPROLOL TAR 50 MG TAB PO SCH (22:40)
[2019-08-10 23:08] LABS: Hematocrit 24.5 % (39.6-49.0)
[2019-08-10 23:52] LABS: Urine Appearance CLEAR; Urine Bilirubin NEGATIVE (NEG); Urine Blood NEGATIVE (NEG); Urine Color YELLOW; Urine Glucose NEGATIVE (NEG); Urine Protein NEGATIVE (NEG); Urine Specific Gravity <=1.005 (1.005-1.030); Urine pH 5.5 (5.0-7.0)
[2019-08-11 00:03] LABS: Urine Microscopic Reflex NO UMIC
--- NOTE | 2019-08-11 01:31 | HP ---
Date of Admission: 08/10/2019 Chief Complaint: Shortness of breath. Code Status: Full. History Of Present Illness: Patient is an 84-year-old male with past medical history of leukemia, GE RD, depression, hypertension, anemia requiring transfusions, diastolic heart failure, fatty liver dis ease, comes in with significant shortness of breath and difficulty ambulating because of shortness of breath. Patient was at his oncologist's appointment, Dr. Altamirano's office today, was found to be very short of breath, has edema of the lower extremities. Denies any fevers, chills, cough, or congestion . No ill contacts. No sputum production. Patient states that he regularly does not take his Lasix because it makes him urinate significantly. Patient was told to be evaluated in the ER by Dr. Evelia najera nd therefore he came in. His symptoms are constant, moderate, progressively worsening. His workup r evealed hemoglobin of 6.7 with a baseline of around 8 especially after transfusions. His BNP was adriana vated at 4906. Chest x-ray showed moderate CHF versus volume overload. Patient had a bump in his tr oponin at 0.07, did not complain of any chest pain. When seen in the ER, he was awake, alert, and or iented x3. He has received 40 mg of Lasix, although blood pressure was low at 99/53, he was hypoxic requiring 4 L of oxygen via nasal cannula. Past Medical History: CML, GERD, depression, hypertension, chronic anemia, requiring transfusions, c hronic diastolic heart failure, gout, fatty liver disease. Surgical History: Pacemaker placement due to complete heart block, spinal fusion. Allergies: NO KNOWN DRUG ALLERGIES. Medications: List reviewed. Social History: Patient is , has 3 children. Retired. Lives with his girlfriend. Denies a ny nicotine, tobacco use or alcohol use. He uses a walker at home. Family History: No premature coronary artery disease in the family. Review of Systems: Ten-point system reviewed, negative except as per HPI. Physical Examination: Vital Signs: Blood pressure 99/53, pulse 98, respirations 28, temperature 98.9, O2 92% on room air. General: Awake, alert, and oriented x3, in mild respiratory distress, ill-appearing elderly male, fr ail. HEENT: Normocephalic, atraumatic. PERRLA. EOMI. Dry mucous membranes. Oropharynx is clear. Poor dentition. Conjunctivae anicteric. Neck: Supple. Patient has jugular venous distention. Trachea midline. CV: S1, S2. Regular rate and rhythm. Peripheral pulses present. No murmurs. Respiratory: Diminished breath sounds. Crackles present. No use of accessory muscles, no stridor. Gastrointestinal: Abdomen is soft, nontender, nondistended. Positive bowel sounds. No guarding or rigidity. Extremities: No clubbing, cyanosis. Patient has peripheral edema. No calf tenderness. Neuro: Cranial nerves 2 through 12 intact grossly. No focal neurological deficit. Speech is normal . Skin: No rashes, normal skin turgor. Psych: Mood is okay. Affect is full. Insight and judgment are good. Laboratory Data: Sodium 135, potassium 4.4, chloride 98, CO2 of 34, BUN 17, creatinine 0.71, glucose 136, calcium 8.4, magnesium 2.1, troponin 0.07. BNP 4906, albumin 2.7. INR 1.41. WBC 5.1, H and H 6.7 and 20.2, platelets 174, neutrophils 42%. Chest x-ray shows mild CHF versus volume overload pattern personally reviewed. Assessment: An 84-year-old male with, 1.Acute on chronic diastolic heart failure. BNP is elevated. Chest x-ray shows volume overload. P atient has peripheral edema. Patient has not been taking his Lasix. He was counseled extensively. We will start on congestive heart failure guidelines. Patient is on beta-simran. We will add Lasix IV. Monitor I's and O's, free fluid restriction, daily weights. Hold off on lisinopril due to hypo tension. 2.Acute respiratory distress with hypoxia. The patient currently on 4 L of oxygen via nasal cannula secondary to above. 3.Acute on chronic anemia secondary to chronic myelogenous leukemia. Patient will be transfused 2 u nits of PRBCs. We will touch base with Oncology in a.m. We will give Lasix after each unit. Monito r H and H. 4.Chronic myelogenous leukemia. Patient is still on treatments. Last treatment was last month. Fo llows with Dr. Altamirano. 5.Essential hypertension, currently hypotensive. We will hold blood pressure medications for now. 6.Major depressive disorder, stable. 7.Gout, stable. 8.Gastroesophageal reflux disease without esophagitis, continue PPI. 9.Fatty liver disease. 10.Status post pacemaker. 11.Deep venous thrombosis prophylaxis, sequential compression devices. No chemical anticoagulation due to anemia. Plan: Admit patient to Med-Surg, place as inpatient. Length of stay greater than 2 midnights. /KATLYN Voice ID: [id number]
[2019-08-11 04:21] LABS: Basophils % 0.6 % (0-1.3); Lymphocytes % 13.9 % (15.3-44.8); MPV 9.2 fL (7.6-11.3)
[2019-08-11 04:44] LABS: ALT/SGPT 17 U/L (12-78); AST/SGOT 19 U/L (15-37); Albumin 2.5 g/dL (3.4-5.0); Alkaline Phosphatase 68 U/L (45-117); BUN Blood Urea Nitrogen 16 mg/dL (7-18); Bicarbonate 39 mmol/L (21-32); Bilirubin Total 0.4 mg/dL (0.2-1.0); Glucose Level 110 mg/dL (74-106); Potassium 4.4 mmol/L (3.5-5.1); Protein, Total 8.5 g/dL (6.4-8.2); Sodium Level 139 mmol/L (136-145)
--- NOTE | 2019-08-11 07:22 | EKG ---
Test Date: 2019-08-10 Test Time: 16:43:53 Suction Drum Drier Operator: WILLIAM MEASUREMENT RESULTS: Intervals: Rate: 89 WV: 198 QRSD: 174 QT: 434 QTc: 528 [place]k: P: 39 WV: 198 QRS: -31 T: 126 INTERPRETIVE STATEMENTS: Atrial-sensed ventricular-paced rhythm Abnormal ECG Compared to ECG 08/21/2018 10:20:47 No significant changes Electronically Signed On 08-11-19 07:22:18 BOTTLE WASHING MACHINE OPERATOR by Juan Jose Zavala
[2019-08-11] MEDS ORDERED: INFLUENZA VACCINE (for 3y+) 0.5 ML DOSE IMVAC ONE (08:00)
[2019-08-11] MEDS ORDERED: FUROSEMIDE 40 MG/4 ML VIAL IV SCH (09:00)
[2019-08-11] MEDS: METOPROLOL TAR 50 MG TAB PO SCH ×2 (09:13→20:48)
[2019-08-11 12:20] LABS: Hematocrit 25.2 % (39.6-49.0)
[2019-08-11] MEDS ORDERED: TRAZODONE 50 MG TABLET PO PRN (12:46)
[2019-08-11] MEDS ORDERED: CODEINE 30MG/APAP 300MG TAB PO PRN (12:46)
[2019-08-11] MEDS: FUROSEMIDE 40 MG/4 ML VIAL IV SCH (20:48)
[2019-08-11] MEDS: ENSURE ENLIVE 237 ML CAN PO SCH (20:49)
[2019-08-11] MEDS ORDERED: METOPROLOL TAR 25 MG TAB ONE (20:50)
--- NOTE | 2019-08-11 20:56 | PN ---
Date of Progress Note: 08/11/2019 Subjective: Patient is seen and examined. Chart reviewed and case discussed with RN. Patient still having some shortness of breath. Received 1 unit of PRBCs yesterday. Medications: List reviewed. Physical Examination: Vital Signs: Temperature 98.3, heart rate 80, blood pressure 143/65, respirations 22, O2 of 97% on 3 .5 L via nasal cannula. General: Awake, alert, oriented x3. Elderly male, in some mild distress. CV: S1, S2. Regular rate and rhythm. Peripheral pulses weak. Respiratory: Diminished breath sounds. Some crackles present. No wheezing or stridor. No use of a ccessory muscles. Slightly tachypneic. Gastrointestinal: Abdomen is soft, nontender, nondistended. Positive bowel sounds. No guarding or rigidity. Extremities: No clubbing, cyanosis, or edema. Neurologic: Cranial nerves 2 through 12 intact grossly. No focal neurological deficits. Speech is normal. Laboratory Data: Sodium 139, potassium 4.4, chloride 98, CO2 of 39, BUN 16, creatinine 0.6, glucose 110, calcium 8.3, albumin 2.5. WBC 7, hemoglobin and hematocrit 7.8 and 23, platelets 147, neutrophi ls 29%. Assessment And Plan: An 84-year-old male with: 1.Acute respiratory distress with hypoxia. Patient on 3.5 L via nasal cannula secondary to congesti ve heart failure. 2.Acute on chronic diastolic heart failure. Continue diuretics. We will increase Lasix to 40 b.i.d . Monitor I's and O's. Continue with congestive heart failure guidelines. 3.Acute on chronic anemia secondary to chronic myelogenous leukemia. Patient was transfused 1 unit PRBCs. Repeat hemoglobin is improved. Patient to follow up with Oncology as an outpatient. We will continue to monitor H and H. 4.Chronic myelogenous leukemia. Patient received his last treatment a month ago. Continue Oncology followup as outpatient. 5.Essential hypertension. Patient was initially hypotensive. Blood pressure is slightly improved. We will hold blood pressure medications for now. 6.Major depressive disorder, stable. 7.Gout, stable. 8.Gastroesophageal reflux disease without esophagitis. We will continue PPI. 9.Fatty liver disease. 10.Status post pacemaker, recently interrogated. Patient follows with Dr. Pete. 11.Deep venous thrombosis prophylaxis with SCDs. No chemical anticoagulation due to anemia. 12.Disposition. Likely discharge in the next 24 hours depending on clinical response. Repeat chest x-ray in a.m. /KATLYN Voice ID: [id number] Report ID: [id number]
--- NOTE | 2019-08-12 06:57 | RAD REPORT ---
EXAM DESCRIPTION: RAD - Chest Single View - 08/12/2019 6:30 am CLINICAL HISTORY: CHF COMPARISON: August 10 TECHNIQUE: AP portable chest image was obtained 0625 hours . FINDINGS: Lung volumes remain low. Small to moderate bilateral pleural effusions are still present. Atelectasis, edema or infiltrate can all be present in the lung bases, obscured by the pleural fluid. Heart size is stable. No pneumothorax. No acute bony abnormality seen. No acute aortic findings susp ected. IMPRESSION: Bilateral pleural effusions and lung base opacification have not changed. Exam is stable from August 10.
[2019-08-12] MEDS: METOPROLOL TAR 50 MG TAB PO SCH ×2 (09:00→21:00)
[2019-08-12] MEDS ORDERED: METOPROLOL TAR 25 MG TAB ONE ×2 (10:12→20:33)
[2019-08-12] MEDS ORDERED: FUROSEMIDE 40 MG/4 ML VIAL ONE ×3 (10:12→20:32)
[2019-08-12] MEDS ORDERED: SERTRALINE HCL 50 MG TAB ONE (10:12)
[2019-08-12] MEDS: SERTRALINE HCL 50 MG TAB PO SCH (10:29)
[2019-08-12] MEDS: FUROSEMIDE 40 MG/4 ML VIAL IV SCH ×2 (10:36→21:50)
[2019-08-12] MEDS: ENSURE ENLIVE 237 ML CAN PO SCH ×2 (10:37→21:51)
[2019-08-12 11:40] LABS: Hematocrit 22.8 % (39.6-49.0)
--- NOTE | 2019-08-12 21:41 | PN ---
Date of Progress Note: 08/12/2019 Subjective: Patient seen and examined. Chart reviewed and case discussed with RN. Patient is doing better, however, still somewhat short of breath. Medications: List reviewed. Physical Examination: Vital Signs: Temperature 98.2, heart rate 77, blood pressure 125/60, respirations 26, O2 of 98% on 2 L via nasal cannula. General: Awake, alert, oriented x3. Elderly male, in some mild respiratory distress. CV: S1, S2. Regular rate and rhythm. Peripheral pulses weak. Respiratory: Diminished breath sounds, somewhat improved from previous. No wheezing or stridor. Pa ariel is tachypneic with mild use of accessory muscles. Gastrointestinal: Abdomen is soft, nontender, nondistended. Positive bowel sounds. Extremities: No clubbing, cyanosis. Trace pedal edema. Neurologic: Nonfocal. Laboratory Data: H and H, 7.6 and 22.8. Chest x-ray, personally reviewed, shows bilateral pleural e ffusions and lung base opacification have not changed, stable from August 10. Assessment And Plan: An 84-year-old male with. 1.Acute respiratory distress with hypoxia, currently on 2 L room air, saturation was 87%, likely sec ondary to congestive heart failure. 2.Acute congestive heart failure, diastolic dysfunction. We will continue with diuretics. Lasix wa s increased to 40 b.i.d. Monitor I's and O's, free fluid restriction. Continue congestive heart millie lure guidelines. 3.Acute on chronic anemia secondary to chronic myelogenous leukemia. Patient has been transfused 1 unit. Repeat H and H seems to be stable. We will continue to monitor, transfuse for hemoglobin less than 7. 4.Chronic myelogenous leukemia. Follow up with Oncology as outpatient. 5.Essential hypertension. Blood pressure improved in the 120s, stable. 6.Major depressive disorder, stable. 7.Gout, stable. 8.Gastroesophageal reflux disease without esophagitis. We will continue PPI. 9.Fatty liver disease. 10.Status post pacemaker. 11.Deep venous thrombosis prophylaxis with sequential compression devices. No chemical anticoagulat ion due to anemia. 12.Disposition, likely discharge in a.m. once his home O2 has been set up. SA/MODL Voice ID: [id number] Report ID: [id number]
[2019-08-13 07:52] LABS: Hematocrit 21.9 % (39.6-49.0)
[2019-08-13 08:52] LABS: BUN Blood Urea Nitrogen 25 mg/dL (7-18); Glucose Level 113 mg/dL (74-106); Potassium 4.6 mmol/L (3.5-5.1); Sodium Level 136 mmol/L (136-145)
[2019-08-13 08:54] LABS: Bicarbonate > 45 mmol/L (21-32)
[2019-08-13] MEDS: SERTRALINE HCL 50 MG TAB PO SCH ×2 (09:00→09:59)
[2019-08-13] MEDS: METOPROLOL TAR 50 MG TAB PO SCH ×2 (09:00→21:00)
[2019-08-13] MEDS: METOPROLOL TAR 25 MG TAB ONE ×2 (09:06→10:00)
[2019-08-13] MEDS ORDERED: SERTRALINE HCL 50 MG TAB ONE (09:06)
[2019-08-13] MEDS ORDERED: FUROSEMIDE 40 MG/4 ML VIAL ONE (09:07)
--- NOTE | 2019-08-13 09:54 | RAD REPORT ---
EXAM DESCRIPTION: CT - Head Brain Wo Cont - 08/13/2019 9:43 am CLINICAL HISTORY: Transient alteration of awareness COMPARISON: December 2016 CT head TECHNIQUE: Axial 5 mm thick images of the head were obtained without IV contrast. All CT scans are performed using dose optimization technique as appropriate and may include automated exposure control or mA/KV adjustment according to patient size. FINDINGS: No intracranial hemorrhage, mass, edema or shift of mid-line structures. No acute infarcti on changes seen. No abnormal extra-axial fluid collections. Patient has mild atrophy. Ventricles are in proportion. Low if any chronic ischemic changes seen. Physiologic basal ganglia calcifications are present. Mastoid air cells and visualized portions of the paranasal sinuses are clear. No acute bony findings. Lyons artifact is present from fusion hardware fixing the posterior base of t he skull to the cervical spine. This is a chronic finding. IMPRESSION: Negative non-contrast CT head examination for acute intracranial finding.
[2019-08-13] MEDS: FUROSEMIDE 40 MG/4 ML VIAL IV SCH (09:59)
[2019-08-13] MEDS: ENSURE ENLIVE 237 ML CAN PO SCH ×2 (10:01→21:00)
[2019-08-13 11:04] LABS: Arterial Blood Carboxyhemoglob 2.5 % (0-1.5); Blood Gas Oxyhemoglobin 88.8 % (94-97); Blood O2 Saturation 91.6 % (92-98.5)
--- NOTE | 2019-08-13 12:39 | P.CNS ---
Date of Consult: 08/13/19 Reason for Consult: Respiratory failure Chief Complaint: Shortness of breath and anemia History of Present Illness: Patient is 84 years of age with a history of leukemia multiple medical problems admitted with shortness of breath the edema found to be hypoxic hypercapnic denies any pulmonary complaints was sent to the ER at currently on BiPAP appears to be a little agitated he was also anemic is at recurrent transfusions. No prior smoking history denies any fever chills cough sputum hemoptysis or chest pain patient has significant desaturation on BiPAP : Allergies No Known Allergies Allergy (Verified 06/30/19 11:25) Home Medications: Metoprolol Succinate 25 mg PO DAILY 09/17/18 Codeine/APAP [Tylenol W/Codeine #3 tab] 1 tab PO Q6HP PRN 08/11/19 Sertraline [Zoloft] 50 mg PO DAILY 08/11/19 Trazodone [Desyrel*] 50 mg PO Q6H PRN 08/11/19 - Past Medical/Surgical History Diabetic: No -: Hypertension -: CML -: Depression -: Chronic anemia requiring transfusions -: Chronic diastolic CHF -: Gout -: GERD -: Fatty liver -: Pacemaker due to Complete heart block -: myelodyspastic -: Spinal Fusion -: pacemaker July 2018 -: neck surgery Psychosocial/ Personal History: The patient is . He has 3 children. He lives with a girlfriend. He no longer works. - Family History Father Notes: old age - Social History Smoking Status: Unknown if ever smoked Alcohol use: No CD- Drugs: No Caffeine use: Yes Place of Residence: Home Review of Systems 10-point ROS is otherwise unremarkable General: Weakness Respiratory: Shortness of Breath Physical Examination Temp Pulse Resp BP Pulse Ox 97.6 F 82 20 136/63 100 08/13/19 12:00 08/13/19 12:00 08/13/19 12:00 08/13/19 12:00 08/13/19 12:00 General: Alert, In no apparent distress, Oriented x3 HEENT: Atraumatic Neck: Supple Respiratory: Clear to auscultation bilaterally, Diminished Cardiovascular: No edema, Regular rate/rhythm, Normal S1 S2 Gastrointestinal: Normal bowel sounds, Soft and benign Musculoskeletal: No clubbing, No contractures - Problems (1) Respiratory failure Current Visit: Yes Status: Acute Plan: Patient is 84 years of age admitted with shortness of breath is chronically hypercapnic with pCO2 in the 70s and 80s before patient's BNP is significantly elevated so was is bicarbonate implying that is chronic hypercapnia patient was also anemic has a recurrent blood transfusions history of CML patient has bilateral pleural effusions echo in 1999 short diastolic dysfunction patient has a pacemaker continue with BiPAP titrate sat to 90% repeat ABGs added Diamox add bronchodilator for the possibility of obstructive airways disease he will need a workup as an outpatient including pulmonary function testing Qualifiers: Chronicity: acute on chronic
[2019-08-13] MEDS: ARFORMOTEROL TARTRATE 15 MCG/2 ML VIAL.NEB NEB SCH ×3 (12:40→20:05)
[2019-08-13] MEDS: ACETAZOLAMIDE 500 MG IV IV SCH ×2 (13:14→21:07)
[2019-08-13 13:21] LABS: Arterial Blood Carboxyhemoglob 2.4 % (0-1.5); Blood Gas Oxyhemoglobin 90.3 % (94-97); Blood O2 Saturation 93.3 % (92-98.5)
[2019-08-13] MEDS ORDERED: HALOPERIDOL LACT 5 MG/ML INJ IV PRN (16:01)
[2019-08-13] MEDS ORDERED: HALOPERIDOL LACT 5 MG/ML INJ ONE (16:06)
--- NOTE | 2019-08-13 16:49 | PN ---
Date of Progress Note: 08/13/2019 Subjective: Patient seen and examined. Chart reviewed and case discussed with RN. Patient's oxygen did arrive late yesterday; however, patient did not have a ride, was unable to be discharged today. Patient was found to be somewhat confused, somewhat aggressive and agitated by the morning nurses. Patient was found to be very hypercapnic, seems to have calm down during my visit this morning. Medications: List reviewed. Physical Examination: Vital Signs: Temperature 97.6, heart rate 83, blood pressure 117/57, respirations 20, O2 of 83% on r oom air, 95% on 2 L via nasal cannula. General: Awake, alert, oriented x3, in some mild distress. Elderly male, ill-appearing. CV: S1, S2. Regular rate and rhythm. Peripheral pulses weak. Respiratory: Somewhat diminished breath sounds. No wheezing or stridor. Minimal crackles. Gastrointestinal: Abdomen is soft, nontender, nondistended. Positive bowel sounds. No guarding or rigidity. Extremities: No clubbing, cyanosis. Patient has trace pedal edema. Neurologic: Nonfocal. Laboratory Data: Sodium 136, potassium 4.6, chloride 88, CO2 is greater than 45. BUN 25, creatinine 0.52, glucose 113, calcium 8.9. H and H are 7.[address] scan personally reviewed shows n o acute intracranial abnormalities. Assessment And Plan: An 84-year-old male with: 1.Acute respiratory failure with hypoxia and now with hypercapnia. Patient will be placed on BiPAP. ABG showed pH 7.32, pCO2 was 100, pO2 of 65, bicarb is 50. The patient may also have some contract ion alkalosis going on. We will consult Pulmonology. 2.Acute congestive heart failure with diastolic dysfunction. We will adjust diuretics, reduce dose of Lasix. Continue monitoring fluid balance, strict I's and O's. Continue congestive heart failure guidelines. 3.Acute on chronic anemia secondary to chronic myelogenous leukemia. Patient has transfuse 1 unit P RBCs. Repeat H and H are stable. We will continue to monitor his baseline is around 7 to 8. 4.Chronic myelogenous leukemia. Follow up with Oncology as outpatient. 5.Essential hypertension, stable. 6.Major depressive disorder, stable. 7.Acute metabolic encephalopathy secondary to CO2 narcosis. Should improve with BiPAP. 8.Gout, stable. 9.Gastroesophageal reflux disease without esophagitis. We will continue PPI. 10.Fatty liver disease. 11.Status post pacemaker. 12.Deep venous thrombosis prophylaxis with SCDs. No chemical anticoagulation due to anemia. Plan a s above likely discharge in the next 24 to 48 hours depending on clinical response. SA/MODL Voice ID: [id number] Report ID: [id number]
[2019-08-13] MEDS ORDERED: ETOMIDATE 20 MG/10 ML VIAL IV ONE (18:00)
[2019-08-13] MEDS ORDERED: SUCCINYLCHOLINE 20 MG/ML (10 ML) IV ONE (18:00)
[2019-08-13] MEDS ORDERED: RSI MEDICATION KIT IV ONE (18:10)
--- NOTE | 2019-08-13 18:24 | P.PN ---
Date of Service: 08/13/19 Patient still somewhat agitated. Requiring haldol. Repeat ABG shows no improvement. Spoke with Dr. Wadsworth, recommends intubation. Code blue called. Patient has worsening respiratory failure with hypercapnia with no improvement with BIPAP for over 6 hours. Son contacted. He wants to do everything possible and continue with Full Code. Overall prognosis is poor.
[2019-08-13] MEDS ORDERED: propofoL 1,000 MG/100 ML VIAL IV ONE (18:46)
[2019-08-13 18:52] LABS: Arterial Blood Carboxyhemoglob 2.3 % (0-1.5); Blood O2 Saturation 96.7 % (92-98.5)
[2019-08-13] MEDS ORDERED: propofoL 1,000 MG/100 ML VIAL IV PRN (19:07)
--- NOTE | 2019-08-13 19:35 | RAD REPORT ---
EXAM DESCRIPTION: Ana Laura Single View08/13/2019 7:09 pm CLINICAL HISTORY: Device placement endotracheal tube placement IMPRESSION: An endotracheal tube has been inserted with its tip well above the wilfred. A nasogastric tube has also been advanced well into the stomach
[2019-08-13] MEDS: LORazepam 2 MG/ML VIAL IV PRN (19:50)
[2019-08-13] MEDS: FAMOTIDINE 20 MG/2 ML VIAL IV SCH (21:06)
[2019-08-13] MEDS: FENTANYL CITR 100 MCG/2 ML IV PRN (21:09)
[2019-08-13] MEDS: MIDAZOLAM HCL 2 MG/2 ML INJ IV PRN (23:57)
[2019-08-14] MEDS: NA CHLORIDE 0.9% 250 ML IV PRN ×3 (02:07→07:56)
[2019-08-14] MEDS: FENTANYL CITR 100 MCG/2 ML IV PRN ×3 (03:33→22:15)
[2019-08-14 05:26] LABS: Absolute Lymphocytes (CBC) 0.8 K/uL (0.7-4.9); Basophils % 0.5 % (0-1.3); Lymphocytes % 7.5 % (15.3-44.8); MPV 9.8 fL (7.6-11.3); RBC Red Blood Cell Count 1.93 M/uL (4.33-5.43)
[2019-08-14 05:29] LABS: Blood Gas Oxyhemoglobin 92.9 % (94-97); Blood O2 Saturation 95.3 % (92-98.5)
[2019-08-14 05:30] LABS: Hematocrit 19.6 % (39.6-49.0)
[2019-08-14 05:34] LABS: Magnesium 1.6 mg/dL (1.8-2.4); Potassium 4.2 mmol/L (3.5-5.1)
[2019-08-14 05:39] LABS: Phosphorus 0.6 mg/dL (2.5-4.9)
[2019-08-14] MEDS ORDERED: MAGNESIUM SULFATE 1 gm IVPB 1 GM/100 ML BAG IV ONE ×2 (05:55→19:41)
[2019-08-14] MEDS: HALOPERIDOL LACT 5 MG/ML INJ IV PRN ×2 (06:09→11:54)
[2019-08-14 06:20] LABS: Anisocytosis 1+; Blood Morphology Comment NOTED (NOT SEEN); Platelet Estimate DECR
[2019-08-14] MEDS ORDERED: SODIUM PHOSPHATE 30 MM in NA CHLORIDE 0.9% 500 ML IV ONE (07:00)
[2019-08-14] MEDS: ENSURE ENLIVE 237 ML CAN PO SCH (07:58)
[2019-08-14] MEDS: FAMOTIDINE 20 MG/2 ML VIAL IV SCH ×2 (07:59→20:24)
[2019-08-14] MEDS: ARFORMOTEROL TARTRATE 15 MCG/2 ML VIAL.NEB NEB SCH ×2 (08:05→20:05)
[2019-08-14] MEDS ORDERED: DIPHENHYDRAMINE 50 MG/ML VIAL ONE (08:32)
[2019-08-14] MEDS: SERTRALINE HCL 50 MG TAB PO SCH (08:52)
[2019-08-14] MEDS: ACETAZOLAMIDE 500 MG IV IV SCH ×2 (08:53→20:22)
[2019-08-14] MEDS: METOPROLOL TAR 50 MG TAB PO SCH ×2 (08:53→21:00)
[2019-08-14] MEDS ORDERED: FUROSEMIDE 40 MG/4 ML VIAL IV SCH (09:00)
[2019-08-14] MEDS ORDERED: VANCOMYCIN 1 GM in NA CHLORIDE 0.9% 500 ML IVPB SCH (10:27)
--- NOTE | 2019-08-14 10:51 | RAD REPORT ---
EXAM DESCRIPTION: RAD - Chest Single View - 08/14/2019 9:01 am CLINICAL HISTORY: Intubation, shortness of breath COMPARISON: August 13 TECHNIQUE: AP portable chest image was obtained 0855 hours . FINDINGS: Lung volumes remain low. Left pleural effusion has not changed. Small right pleural effusi on and hazy right lower lung field opacification also remain stable. NG tube and ET tube remain in pl raul. Left subclavian pacemaker in place. Heart size is normal range. No pneumothorax. No acute bony a bnormality seen. No acute aortic findings suspected. IMPRESSION: Endotracheal tube and ET tube remain in good position. Left greater than right pleural effusions and lung base opacification are stable.
[2019-08-14] MEDS: VANCOMYCIN 1 GM/250 ML BAG IV SCH (10:59)
--- NOTE | 2019-08-14 12:17 | PN ---
Date of Progress Note: 08/14/2019 Subjective: The patient seen and examined, chart reviewed, and case discussed with RN and Dr. Altamirano. Patient became somewhat hypotensive shortly after blood transfusion, therefore was discontinued. Medications: List reviewed. Physical Examination: Vital Signs: Temperature 98.9, heart rate 92, blood pressure 104/40, respirations 16, O2 99% on 40% FiO2 via ET tube. General: Intubated, sedated, responsive. Moves all 4 extremities. Ill- appearing elderly male, frail. CV: S1, S2. Regular rate and rhythm. Peripheral pulses weak. Respiratory: Diminished breath sounds. No wheezing or stridor. Gastrointestinal: Abdomen is soft, nondistended. Positive bowel sounds. Extremities: No clubbing, cyanosis, or edema. Neuro: Intubated, sedated; however, does move all 4 extremities. Laboratory Data: Sodium 134, potassium 4.2, chloride 88, carbon dioxide 41, BUN 36, creatinine 1.52, glucose 124, phosphorus 0.6, magnesium 1.6. WBC 10.7, H and H 6.6 and 19.6, platelets 124, neutrophils 38%. Blood cultures are pending. Chest x-ray shows effusion on the left, pulmonary edema type picture, possible right-sided pneumonia. Assessment And Plan: An 84-year-old male with. 1. Acute respiratory failure with hypoxia and hypercapnia. The patient failed treatment with BiPAP, was intubated, pCO2 was 107, now on mechanical ventilation, likely secondary to chronic hypercapnia. Patient was significantly compensated, had significantly elevated bicarbonate. Diamox has been added. Patient will need PFTs as an outpatient. 2. Acute congestive heart failure, diastolic dysfunction. Continue with diuretics as tolerated. May need to hold due to hypotension. Monitor I's and O 's, fluid restriction. Continue congestive heart failure guidelines. 3. Sepsis. Add IV abx. Patient is hypotensive, elevated lactate. Obtain blood and sputum cultures. Obtain CXR 4. Acute kidney injury, secondary to prerenal azotemia. We will continue to monitor. Consult Nephrology. 5. Acute on chronic anemia secondary to chronic myelomonocytic leukemia, subtype of myelodysplastic syndrome. Patient was receiving blood this morning, however, became hypotensive, blood was stopped due to possible transfusion reaction. I spoke with the patient's oncologist, Dr. Altamirano. She does not feel that this is a transfusion reaction, likely related to his developing sepsis or other medical condition. She recommends transfusing another unit to keep his hemoglobin around 7, which is his baseline. The patient has been on transfusion program for the past 2 years, receiving a unit every other week, has received 100 of units previously. We will continue to monitor H and H. 6. 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 Appreciate Dr. Altamirano's input. 7. Hypotension. The patient may be getting into sepsis. Also, significantly deteriorated conditions from yesterday. We will obtain blood cultures. Start on prophylactic IV antibiotics. Chest x-ray shows possible pneumonia. 8. Major depressive disorder, stable. 9. Acute metabolic encephalopathy secondary to CO2 narcosis. 11. Gout, stable. 12. Gastroesophageal reflux disease without esophagitis. Continue PPI. 13. Fatty liver disease. 14. Status post pacemaker. 15. Deep vein thrombosis prophylaxis with SCDs, no chemical anticoagulation due to severe anemia, requiring blood transfusions. 16. Hypophosphatemia. 17. Hypomagnesemia. We will replace and monitor. Overall, the patient's prognosis and condition remain guarded. We will update family. Appreciate pulmonology input. /KATLYN Voice ID: [id number] Report ID: [id number] WILL
[2019-08-14] MEDS ORDERED: DIPHENHYDRAMINE 50 MG/ML VIAL IV ONE (12:33)
[2019-08-14] MEDS ORDERED: METHYLPREDNISOLONE 40 MG INJ IV ONE (12:33)
[2019-08-14] MEDS: ACETAMINOPHEN 500 MG TAB PO PRN (12:41)
[2019-08-14] MEDS ORDERED: NA CHLORIDE 0.9% 500 ML IV ONE (14:28)
[2019-08-14] MEDS ORDERED: NEPRO 1,000 ML BOT RTH PRN (16:01)
--- NOTE | 2019-08-14 16:15 | P.CNS ---
Date of Consult: 08/14/19 Reason for Consult: HEATHER Chief Complaint: Shortness of breath and anemia History of Present Illness: Pt is intubated, Hx obtained from chart an 84-Y?o man with listed PMHX pt presented with SOB and weakness and LE edema hospital course complicated by AMS, ABG revealed Co2 of 100, pt was intubated pt spiked T of 101, lactic acid elevated, Hb 6.6 today , low UO , and hypotensive, ge received 500ml of NS today ROS unable to obtain Past Medical History: CML, GERD, depression, hypertension, chronic anemia, requiring transfusions, chronic diastolic heart failure, gout, fatty liver disease. Surgical History: Pacemaker placement due to complete heart block, spinal fusion. Allergies: NO KNOWN DRUG ALLERGIES. Social History: Patient is , has 3 children. Retired. Lives with his girlfriend. Denies any nicotine, tobacco use or alcohol use. He uses a walker at home. Family History: No premature coronary artery disease in the family. Allergies No Known Allergies Allergy (Verified 06/30/19 11:25) Home Medications: Metoprolol Succinate 25 mg PO DAILY 09/17/18 Codeine/APAP [Tylenol W/Codeine #3 tab] 1 tab PO Q6HP PRN 08/11/19 Sertraline [Zoloft] 50 mg PO DAILY 08/11/19 Trazodone [Desyrel*] 50 mg PO Q6H PRN 08/11/19 - Past Medical/Surgical History Diabetic: No -: Hypertension -: CML -: Depression -: Chronic anemia requiring transfusions -: Chronic diastolic CHF -: Gout -: GERD -: Fatty liver -: Pacemaker due to Complete heart block -: myelodyspastic -: Spinal Fusion-2004 -: pacemaker July 2018 -: neck surgery Psychosocial/ Personal History: The patient is . He has 3 children. He lives with a girlfriend. He no longer works. - Family History Father Notes: old age - Social History Smoking Status: Unknown if ever smoked Alcohol use: No CD- Drugs: No Caffeine use: Yes Place of Residence: Home Physical Examination Temp Pulse Resp BP Pulse Ox 98.8 F 83 16 113/48 L 100 08/14/19 13:41 08/14/19 15:15 08/14/19 15:15 08/14/19 15:15 08/14/19 15:15 General: Other (intubated ) HEENT: Atraumatic, EOMI Neck: Supple, Without JVD or thyroid abnormality Respiratory: Clear to auscultation bilaterally, Normal air movement Cardiovascular: No edema, Regular rate/rhythm, Normal S1 S2, No rubs, No murmurs Gastrointestinal: Soft and benign, Non-distended, No ascites, No tenderness Musculoskeletal: No swelling Conclusions/Impression: HEATHER possibly due to ischemic ATN , vs septic GN vs overdiuresis No NSAID or contrast exposure will order renal US pt now with nlo edema, CXR showed improving congestion from admission , will dc lasix and start IVF renal dose meds Acute anemia 1 PRBC today Post hypercapenic met alkalosis IVF diamox lactic acidosis possibly due to sever sepsis cont abx f/u cultures Low Phos and Mg replaced will start tube feeding CHF will hold on lasix for now CML hematology on board prognosis guarded
[2019-08-14] MEDS: NA CHLORIDE 0.9% 1,000 ML IV SCH (16:17)
[2019-08-14 18:20] LABS: Hematocrit 22.8 % (39.6-49.0)
[2019-08-14 18:33] LABS: Magnesium 1.8 mg/dL (1.8-2.4); Phosphorus 2.8 mg/dL (2.5-4.9)
[2019-08-14] MEDS: MIDAZOLAM HCL 2 MG/2 ML INJ IV PRN (20:24)
[2019-08-14] MEDS: CEFEPIME/SWI 2gm 2 GM/20 ML SYR IVP SCH (20:25)
[2019-08-14] MEDS ORDERED: CEFEPIME 2 GM VIAL IV SCH (21:00)
[2019-08-14] MEDS: LORazepam 2 MG/ML VIAL IV PRN (23:29)
[2019-08-15 05:01] LABS: Absolute Lymphocytes (CBC) 0.8 K/uL (0.7-4.9); Basophils % 0.2 % (0-1.3); Hematocrit 21.5 % (39.6-49.0); Lymphocytes % 4.9 % (15.3-44.8); MPV 9.4 fL (7.6-11.3); RBC Red Blood Cell Count 2.23 M/uL (4.33-5.43)
[2019-08-15 05:21] LABS: Albumin 2.3 g/dL (3.4-5.0); Bilirubin Total 0.5 mg/dL (0.2-1.0); Magnesium 2.2 mg/dL (1.8-2.4); Protein, Total 7.8 g/dL (6.4-8.2)
[2019-08-15 05:23] LABS: Potassium 2.6 mmol/L (3.5-5.1)
[2019-08-15 06:00] LABS: Arterial Blood Carboxyhemoglob 1.6 % (0-1.5); Blood O2 Saturation 99.3 % (92-98.5)
[2019-08-15] MEDS: NA CHLORIDE 0.9% 1,000 ML IV SCH (06:26)
[2019-08-15] MEDS: KCL 20 MEQ/100 mL IVPB 20 MEQ/100 ML BAG IV SCH ×3 (06:26→13:04)
[2019-08-15] MEDS: ARFORMOTEROL TARTRATE 15 MCG/2 ML VIAL.NEB NEB SCH ×2 (08:09→20:40)
[2019-08-15] MEDS: WATER FOR INJ,STERILE 10 ML IV PRN (09:26)
[2019-08-15] MEDS: METOPROLOL TAR 50 MG TAB PO SCH ×2 (09:26→20:25)
[2019-08-15] MEDS: SERTRALINE HCL 50 MG TAB PO SCH (09:26)
[2019-08-15] MEDS: FAMOTIDINE 20 MG/2 ML VIAL IV SCH ×2 (09:27→20:27)
[2019-08-15] MEDS: ACETAZOLAMIDE 500 MG IV IV SCH ×2 (09:27→20:25)
[2019-08-15] MEDS: CEFEPIME/SWI 2gm 2 GM/20 ML SYR IVP SCH ×2 (09:29→20:26)
--- NOTE | 2019-08-15 10:18 | P.PN ---
Subjective Date of Service: 08/15/19 Chief Complaint: Respiratory failure patient on a ventilator Subjective: Improving (Patient was intubated on Friday due to worsening hypercapnia he has been stable an episode of hypotension possible that patient is septic.) Review of Systems is unable to be obtained Physical Examination - Vital Signs Temperature: 99 F Blood Pressure: 131/59 Pulse: 94 Respirations: 11 Pulse Ox (%): 100 - Physical Exam General: Alert, Cooperative Neck: Supple Respiratory: Clear to auscultation bilaterally Cardiovascular: No edema, Regular rate/rhythm Gastrointestinal: Normal bowel sounds, Soft and benign Musculoskeletal: No clubbing, No contractures Integumentary: No rashes Assessment & Plan - Problems (Diagnosis) (1) Respiratory failure Current Visit: Yes Status: Acute Plan: Patient admitted with respiratory failure he is doing better chronic left-sided pleural effusion white count is mildly elevated sputum shows Staph aureus patient is hypokalemic renal function has improved blood gases now satisfactory patient is anemic vital signs stable minimal oxygen 30% chest x-ray chronic left -sided effusion chest x-ray pending plan to wean and extubate today history of loculated left-sided pleural effusion demonstrated by an ultrasound in 2019 Qualifiers: Chronicity: acute on chronic
--- NOTE | 2019-08-15 10:28 | P.PN ---
Subjective Date of Service: 08/15/19 Chief Complaint: Respiratory failure patient on a ventilator Subjective: Improving Subjective pt with hx of CML, CHF , developed resp failure , required intubation , Cr up to 1.5, low UO pt started on IVF today Cr improved , UO improved CXR with congestion , will reduce IVF rate possible extubation today Hb 7.1, plan to transfuse if Hb <7.0 K 2.6 , will replace , Mg wnl Past Medical History: CML, GERD, depression, hypertension, chronic anemia, requiring transfusions, chronic diastolic heart failure, gout, fatty liver disease. Surgical History: Pacemaker placement due to complete heart block, spinal fusion. Allergies: NO KNOWN DRUG ALLERGIES. Social History: Patient is , has 3 children. Retired. Lives with his girlfriend. Denies any nicotine, tobacco use or alcohol use. He uses a walker at home. Family History: No premature coronary artery disease in the family. Allergies No Known Allergies Allergy (Verified 06/30/19 11:25) - Past Medical/Surgical History Diabetic: No -: Hypertension -: CML -: Depression -: Chronic anemia requiring transfusions -: Chronic diastolic CHF -: Gout -: GERD -: Fatty liver -: Pacemaker due to Complete heart block -: myelodyspastic -: Spinal Fusion -: pacemaker July 2018 -: neck surgery Psychosocial/ Personal History: The patient is . He has 3 children. He lives with a girlfriend. He no longer works. - Family History Father Notes: old age - Social History Smoking Status: Unknown if ever smoked Alcohol use: No CD- Drugs: No Caffeine use: Yes Place of Residence: Home Physical Examination General:(intubated ) HEENT: Atraumatic, EOMI Neck: Supple, Without JVD or thyroid abnormality Respiratory: CDecreaed air entry B/l Cardiovascular: No edema, Regular rate/rhythm, Normal S1 S2, No rubs, No murmurs Gastrointestinal: Soft and benign, Non-distended, No ascites, No tenderness Musculoskeletal: No swelling Conclusions/Impression: HEATHER possibly due to prerenal azotemia No NSAID or contrast exposure F/U renal US will reduce IVF rate renal dose meds Acute anemia transfuse to keep Hb >7.0 hematology on baord Post hypercapenic met alkalosis IVF diamox lactic acidosis possibly due to sever sepsis cont abx f/u cultures Low Phos and Mg resolved Hypokalemia will replace CHF will hold on lasix for now CML hematology on board prognosis guarded Physical Examination - Vital Signs Temperature: 99 F Blood Pressure: 131/59 Pulse: 94 Respirations: 11 Pulse Ox (%): 100
--- NOTE | 2019-08-15 11:49 | RAD REPORT ---
EXAM DESCRIPTION: RAD - Chest Single View - 08/15/2019 10:39 am CLINICAL HISTORY: intubation Chest pain. COMPARISON: Chest Single View dated 08/14/2019; Chest Single View dated 08/13/2019; Chest Single View dated 08/12/2019; Chest Single View dated 08/10/2019 FINDINGS: Portable technique limits examination quality. Tip of the ET tube is above the wilfred. Enteric tube descends into the stomach. Heart is mildly enlar ged in size with multilead pacer device present. Small to moderate loculated left pleural effusion. IMPRESSION: Stable chest since preceding day's study.
--- NOTE | 2019-08-15 12:47 | RAD REPORT ---
EXAM DESCRIPTION: US - Renal Ultrasound-Complete - 08/15/2019 12:35 pm CLINICAL HISTORY: HEATHER Flank pain COMPARISON: No comparisons FINDINGS: Both kidneys are normal in size, shape and echotexture. Benign cysts bilaterally. The right kidney measures 12.1 x 5.7 x 4.8 cm. No hydronephrosis, focal mass or perinephric fluid. The left kidney measures 12.5 x 7.1 x 5.3 cm. No hydronephrosis, focal mass or perinephric fluid. Ewing catheter decompresses the urinary bladder, incompletely assessed. IMPRESSION: Small benign appearing bilateral renal cysts.
[2019-08-15] MEDS: ACETAMINOPHEN 500 MG TAB PO PRN (13:12)
--- NOTE | 2019-08-15 15:59 | PN ---
Date of Progress Note: 08/15/2019 Subjective: Patient is seen and examined. Chart reviewed and case discussed with RN and Dr. Wadsworth as well as Dr. Flores. Patient had no acute events overnight, much more awake and alert, responsive. We will begin weaning trials today. Family updated including son and significant other. All questions answered. Medications: List reviewed. Physical Examination: Vital Signs: Temperature 99, T-max was 101 yesterday afternoon, heart rate 99, blood pressure 131/59, respirations 11, O2 of 100% on 40% FiO2. General: Asleep, but arousable, intubated, ill-appearing male in some mild respiratory distress. CV: S1, S2. Regular rate and rhythm. Peripheral pulses weak. Respiratory: Diminished breath sounds especially on the left base. Some rhonchi heard. No use of accessory muscles. Gastrointestinal: Abdomen is soft, nontender, nondistended. Positive bowel sounds. No guarding or rigidity. Extremities: No clubbing, cyanosis, or edema. Neuro: Able to move all 4 extremities. Opens eyes to name, intubated. Laboratory Data: Sodium 138, potassium 2.6, chloride 96, CO2 of 37, BUN 41, creatinine is 1.18, glucose 126. Lactate was 4.7, calcium 8.1, phosphorus 3, magnesium 2.2, albumin 2.3. WBC 16.7, H and H of 7.1 and 21.5, platelets 115. Sputum cultures growing out staph coagulase positive. Blood cultures, no growth to date. Assessment And Plan: 84-year-old male with: 1. Acute respiratory failure with hypoxia and hypercapnia. We will begin weaning trials. Currently on mechanical ventilation likely secondary to congestive heart failure and pneumonia. 2. Acute congestive heart failure, diastolic dysfunction. Patient's x-ray did not show fluid overload. Lasix has been discontinued. Continue with fluid restriction. 3. Sepsis likely secondary to staph in the sputum. We will continue with broad-spectrum IV antibiotics. Follow up on blood cultures. Blood pressure is significantly improved. Lactate is still elevated, responding to IV fluids. Urine output has picked up. 4. Acute kidney injury secondary to prerenal azotemia, secondary to hypertension, improved. Appreciate Nephrology input. Continue with IV fluids for now. 5. 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 Appreciate Dr. Altamirano's input. We will continue to monitor H and H, currently 7.1. Transfuse as needed. 6. Acute hypotension, improving secondary to sepsis. 7. Pneumonia, right lobe. Continue with antibiotics. 8. Hypokalemia, replace and monitor. 9. Hypomagnesemia, replaced. We will continue to monitor. 10. Acute metabolic encephalopathy due to CO2 narcosis, improving. 11. Major depressive disorder, stable. 12. Gout, stable. 13. Gastroesophageal reflux disease without esophagitis. Continue PPI. 14. Fatty liver disease. 15. Status post pacemaker. 16. Thrombocytopenia may be related to sepsis. 17. Hypophosphatemia, replace. 18. Deep venous thrombosis prophylaxis, SCDs. No chemical anticoagulation due to severe anemia and requiring blood transfusions. Plan: Likely extubate today. Overall guarded prognosis. /MODL Voice ID: [id number] Report ID: [id number] [facility]
[2019-08-15] MEDS: FENTANYL CITR 100 MCG/2 ML IV PRN (18:19)
[2019-08-15] MEDS ORDERED: POTASSIUM 25 MEQ EFFERV TAB PO ONE (18:35)
[2019-08-15] MEDS ORDERED: NA CHLORIDE 0.9% 1,000 ML IV SCH (19:00)
[2019-08-15] MEDS ORDERED: WATER FOR INJ,STERILE 10 ML ONE (20:46)
[2019-08-15] MEDS: VANCOMYCIN 1 GM/250 ML BAG IV SCH (23:47)
[2019-08-16] MEDS: FENTANYL CITR 100 MCG/2 ML IV PRN ×2 (03:00→19:55)
[2019-08-16 05:13] LABS: Absolute Lymphocytes (CBC) 0.8 K/uL (0.7-4.9); Basophils % 0.3 % (0-1.3); Lymphocytes % 5.1 % (15.3-44.8); MPV 9.8 fL (7.6-11.3); RBC Red Blood Cell Count 1.96 M/uL (4.33-5.43)
[2019-08-16 05:21] LABS: Hematocrit 18.9 % (39.6-49.0)
[2019-08-16 05:31] LABS: ALT/SGPT 18 U/L (12-78); AST/SGOT 21 U/L (15-37); Albumin 2.1 g/dL (3.4-5.0); Alkaline Phosphatase 58 U/L (45-117); BUN Blood Urea Nitrogen 33 mg/dL (7-18); Bicarbonate 33 mmol/L (21-32); Bilirubin Total 0.5 mg/dL (0.2-1.0); Glucose Level 123 mg/dL (74-106); Magnesium 2.1 mg/dL (1.8-2.4); Potassium 3.1 mmol/L (3.5-5.1); Protein, Total 7.4 g/dL (6.4-8.2); Sodium Level 138 mmol/L (136-145)
[2019-08-16] MEDS ORDERED: NA CHLORIDE 0.9% 250 ML IV SCH (07:00)
[2019-08-16] MEDS ORDERED: POTASSIUM 25 MEQ EFFERV TAB PO ONE (07:56)
--- NOTE | 2019-08-16 08:05 | RAD REPORT ---
EXAM DESCRIPTION: Ana Larua Single View08/16/2019 6:39 am CLINICAL HISTORY: Shortness of breath COMPARISON: August 15, 2019 FINDINGS: Small to moderate loculated left pleural effusion. Left basilar atelectasis Mild right basilar opacities Endotracheal and nasogastric tubes in good position IMPRESSION: No change since the prior exam
[2019-08-16] MEDS: SERTRALINE HCL 50 MG TAB PO SCH (08:09)
[2019-08-16] MEDS: METOPROLOL TAR 50 MG TAB PO SCH ×2 (08:09→22:01)
[2019-08-16] MEDS: FAMOTIDINE 20 MG/2 ML VIAL IV SCH ×2 (08:09→22:02)
[2019-08-16] MEDS: ACETAZOLAMIDE 500 MG IV IV SCH ×2 (08:10→22:01)
[2019-08-16] MEDS: CEFEPIME/SWI 2gm 2 GM/20 ML SYR IVP SCH (08:12)
[2019-08-16] MEDS: ARFORMOTEROL TARTRATE 15 MCG/2 ML VIAL.NEB NEB SCH ×2 (08:15→20:05)
[2019-08-16] MEDS ORDERED: NA CHLORIDE 0.9% 50 ML ONE ×2 (09:22→13:58)
[2019-08-16] MEDS ORDERED: FUROSEMIDE 20 MG/ 2ML VIAL IV PRN (09:45)
[2019-08-16] MEDS ORDERED: VANCOMYCIN/NS 1 gm 1 GM/250 ML BAG IV SCH (11:00)
--- NOTE | 2019-08-16 12:36 | P.PN ---
Subjective Date of Service: 08/16/19 Chief Complaint: Respiratory failure patient on a ventilator Subjective: Improving (Patient is doing well is alert responsive cooperative anemic wants to be extubated) Review of Systems is unable to be obtained Physical Examination - Vital Signs Temperature: 99.2 F Blood Pressure: 117/50 Pulse: 64 Respirations: 15 Pulse Ox (%): 99 - Physical Exam General: Alert, Mild distress Respiratory: Clear to auscultation bilaterally, Diminished Cardiovascular: No edema, Normal S1 S2 Assessment & Plan - Problems (Diagnosis) (1) Respiratory failure Current Visit: Yes Status: Acute Plan: Patient admitted with respiratory failure he is doing well hypercapnia has improved sputum culture shows Staph aureus vital signs stable patient to be transfused possible pneumonia he does have a chronic left-sided pleural effusion change to levofloxacin Dc cefepime vancomycin wean and extubate today Qualifiers: Chronicity: acute on chronic
[2019-08-16] MEDS: Levofloxacin500mg IV 500 MG/100 ML BAG IV SCH (13:08)
--- NOTE | 2019-08-16 14:04 | PN ---
Date of Progress Note: 08/16/2019 Subjective: Patient is seen and examined. Chart reviewed and case discussed with RN. Patient was u nable to be extubated yesterday. His tidal volumes keep dropping. He is currently on SIMV. Patient otherwise is awake. No acute events overnight. Medications: List reviewed. Physical Examination: Vital Signs: Temperature 99.2, heart rate 72, blood pressure 118/52, respirations 16, O2 100% on 30% oxygen via ET tube. General: Awake, alert, not in any acute distress, ill-appearing elderly male, frail. CV: S1, S2. Regular rate and rhythm. Peripheral pulses present. Respiratory: Diminished breath sounds, especially at the bases, left worse than right. Gastrointestinal: Abdomen is soft, nontender, nondistended. Positive bowel sounds. No guarding or rigidity. Extremities: No clubbing, cyanosis, or edema. Neurologic: Nonfocal. Patient is intubated, not sedated. Laboratory Data: Sodium 138, potassium 3.1, chloride 100, CO2 33, BUN 33, creatinine 0.66, glucose 1 23, calcium 8.4, phosphorus 2, magnesium 2.1, albumin 2.1. WBC 15, H and H 6.3, 18.9, platelets 101, neutrophils 65%. Sputum cultures growing out Staph aureus methicillin sensitive. Chest x-ray shows loculated left pleural effusion, left basilar atelectasis, mild right basilar opaci ties. NG tube and ET tube in good position. No change from prior, personally reviewed. Assessment: 84-year-old male with: 1.Acute respiratory failure with hypoxia and hypercapnia. Continue weaning trial, currently on [facility] ventilation. This is secondary to congestive heart failure and pneumonia. Patient also has p leural effusion. 2.Sepsis secondary to Staph aureus, which is methicillin sensitive in the sputum. We will adjust IV antibiotics. Follow up on blood cultures. 3.Acute congestive heart failure exacerbation, diastolic dysfunction. Continue with fluid restricti on. 4.Pleural effusion on the left, [id number] loculated. Apparently ultrasound from 2019 also s howed the effusion. We will discuss further with pulmonology regarding thoracentesis versus surgical procedure. 5.Acute kidney injury, improved, likely secondary to hypotension. Appreciate Nephrology input. 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 Continue with 2 units of PRBCs. Patient's hemoglobin was again below [address] Altamirano is on the case. We will give Lasix after each unit. 7.Acute hypotension secondary to sepsis, improving. 8.Pneumonia, right lobe. We will continue with antibiotics secondary to methicillin-susceptible Sta phylococcus aureus. 9.Hypokalemia. We will replace and monitor. 10.Hypophosphatemia. We will replace and monitor. 11.Acute metabolic encephalopathy secondary to CO2 narcosis, resolved. 12.Major depressive disorder, stable. 13.Gout, stable. 14.Gastroesophageal reflux disease without esophagitis. We will continue PPI. 15.Fatty liver disease. 16.Status post pacemaker. 17.Thrombocytopenia. 18.Deep venous thrombosis prophylaxis. SCDs. No chemical anticoagulation due to anemia. Patient d oes had a long history of alcohol use. Thrombocytopenia may be related to liver disease. Plan: Continue weaning trials. /KATLYN Voice ID: [id number] Report ID: [id number]
[2019-08-16] MEDS ORDERED: propofoL 1,000 MG/100 ML VIAL IV ONE (15:41)
[2019-08-16] MEDS ORDERED: RSI MEDICATION KIT IV ONE (15:41)
--- NOTE | 2019-08-16 16:04 | P.PN ---
Called regarding change in mental status. The patient was extubated approximately 1 hr prior to change in mental status. Had done well during his weaning trials. Subsequently his O2 saturations diminished on 5 L nasal cannula he was bagged and started on BiPAP. ABG was obtained which showed severe acidosis pH of 7.07 the CO2 of 115. Destiny valentino was called and patient was reintubated. Family to be updated
--- NOTE | 2019-08-16 16:27 | RAD REPORT ---
EXAM DESCRIPTION: RAD - Chest Single View - 08/16/2019 4:12 pm CLINICAL HISTORY: Intubation COMPARISON: August 16 TECHNIQUE: AP portable chest image was obtained in supine positioning 1609 hours . FINDINGS: Endotracheal tube is in place. Tip is near the bifurcation. Exam is degraded by motion. Bi lateral pleural effusions are present possibly worse on the right. No NG tube identifiable. Pacemaker is in place. Hazy lung parenchymal opacification is present. This is primarily related to motion. Substantial richardson ge in the lung parenchyma is doubtful. Heart and vasculature are normal. No measurable pleural effusi on and no pneumothorax. No acute bony abnormality seen. No acute aortic findings suspected. IMPRESSION: Endotracheal tube tip is near the tracheal bifurcation. NG tube is no longer identifiabl e. Bilateral pleural effusions questionably larger on the right. Exam is degraded by motion.
[2019-08-16] MEDS: LORazepam 2 MG/ML VIAL IV PRN (16:30)
[2019-08-16 17:50] LABS: Arterial Blood Carboxyhemoglob 0.9 % (0-1.5); Blood Gas Oxyhemoglobin 95.5 % (94-97); Blood O2 Saturation 97.3 % (92-98.5)
[2019-08-16 18:49] LABS: Hematocrit 24.1 % (39.6-49.0)
--- NOTE | 2019-08-16 18:54 | RAD REPORT ---
EXAM DESCRIPTION: RAD - Chest Single View - 08/16/2019 6:17 pm CLINICAL HISTORY: Intubation, NG tube placement COMPARISON: August 16 TECHNIQUE: AP portable chest image was obtained 1809 hours . FINDINGS: Endotracheal tube is in place. Tip is 1-2 cm above the bifurcation. NG tube has been place d. Tip and side hole of the tube in the left upper quadrant. Bilateral pleural and parenchymal opacities are stable. Right-sided pleural effusion appears less pro minent probably positioning affect. Heart size is stable. No pneumothorax. No acute bony abnormality seen. No acute aortic findings suspected. IMPRESSION: ET tube is in place similar to the prior study 1-2 cm above the wilfred. NG tube is in good position.
[2019-08-16] MEDS ORDERED: SUCCINYLCHOLINE 20 MG/ML (10 ML) IV ONE (18:57)
[2019-08-16] MEDS ORDERED: ETOMIDATE 20 MG/10 ML VIAL IV ONE (18:57)
[2019-08-16] MEDS ORDERED: WATER FOR INJ,STERILE 10 ML IV ONE (18:57)
[2019-08-17 05:25] LABS: Basophils % 0.2 % (0-1.3); Hematocrit 22.4 % (39.6-49.0); Lymphocytes % 6.8 % (15.3-44.8); MPV 9.9 fL (7.6-11.3); RBC Red Blood Cell Count 2.38 M/uL (4.33-5.43)
[2019-08-17 05:53] LABS: ALT/SGPT 24 U/L (12-78); AST/SGOT 29 U/L (15-37); Albumin 2.2 g/dL (3.4-5.0); Alkaline Phosphatase 72 U/L (45-117); BUN Blood Urea Nitrogen 24 mg/dL (7-18); Bicarbonate 28 mmol/L (21-32); Glucose Level 87 mg/dL (74-106); Protein, Total 7.9 g/dL (6.4-8.2); Sodium Level 137 mmol/L (136-145)
[2019-08-17 05:58] LABS: Potassium 2.9 mmol/L (3.5-5.1)
[2019-08-17] MEDS: FENTANYL CITR 100 MCG/2 ML IV PRN ×3 (06:00→21:14)
[2019-08-17] MEDS: LORazepam 2 MG/ML VIAL IV PRN (07:21)
[2019-08-17] MEDS: KCL 20 MEQ/100 mL IVPB 20 MEQ/100 ML BAG IV SCH ×2 (07:21→12:04)
[2019-08-17] MEDS: ARFORMOTEROL TARTRATE 15 MCG/2 ML VIAL.NEB NEB SCH ×2 (07:45→19:55)
--- NOTE | 2019-08-17 08:21 | P.PN ---
Subjective Date of Service: 08/17/19 Chief Complaint: Recurrent intubation failed weaning trial Patient's condition is stable no change patient had to be intubated yesterday became acutely hypercapnic hemodynamically stable Review of Systems is unable to be obtained Physical Examination - Vital Signs Temperature: 97.6 F Blood Pressure: 122/63 Pulse: 73 Respirations: 18 Pulse Ox (%): 100 - Physical Exam General: Alert, In no apparent distress Respiratory: Clear to auscultation bilaterally, Diminished Cardiovascular: No edema, Regular rate/rhythm Assessment & Plan - Problems (Diagnosis) (1) Respiratory failure Current Visit: Yes Status: Acute Plan: Patient the to BT and intubated yesterday due to acute hypercapnia became unresponsive chest x-ray no change is very hypokalemic continue with levofloxacin potassium replacement as sitter alk factor for all reduced Diamox a 250 mg daily recommend transfer to an LTAC Qualifiers: Chronicity: acute on chronic
[2019-08-17] MEDS: METOPROLOL TAR 50 MG TAB PO SCH ×2 (08:37→21:12)
[2019-08-17] MEDS: FAMOTIDINE 20 MG/2 ML VIAL IV SCH ×2 (08:38→21:13)
[2019-08-17] MEDS: SERTRALINE HCL 50 MG TAB PO SCH (08:38)
[2019-08-17] MEDS: ACETAZOLAMIDE 500 MG IV IV SCH (08:38)
[2019-08-17] MEDS: POTASSIUM 25 MEQ EFFERV TAB PO SCH ×2 (08:39→21:12)
[2019-08-17] MEDS ORDERED: POTASSIUM PHOS 10 MM in NA CHLORIDE 0.9% 250 ML IV ONE (08:43)
--- NOTE | 2019-08-17 08:52 | RAD REPORT ---
EXAM DESCRIPTION: RAD - Chest Single View - 08/17/2019 8:26 am CLINICAL HISTORY: Intubation, shortness of breath COMPARISON: August 16 TECHNIQUE: AP portable chest image was obtained 0803 hours . FINDINGS: Endotracheal tube and NG tube remain in good position. No new tube or line identified. Left pleural effusion with left base atelectasis and/or infiltrate unchanged from prior imaging. Righ t hemithorax shows greater aeration than the prior day study. Lung volume has improved. Heart and vasculature are normal. No pneumothorax. IMPRESSION: Left lung base pleural effusion with infiltrate and/ or atelectasis unchanged from concepción rison. Improved lung volumes overall. This results in improved aeration of the right lung base. ET tube and NG tube remain in good position.
--- NOTE | 2019-08-17 09:11 | PN ---
Date of Progress Note: 08/16/2019 Chief Complaint: Respiratory failure, acute kidney injury, abnormal renal function test, hypokalemia . Creatinine level has been gradually improving. Patient was treated for hypokalemia and received r eplacement. Potassium was 2.6. Magnesium within normal limits. Patient was found to have congestio n on the chest x-ray and IV fluid rates were reviewed. Patient has multiple medical problems includi ng history of GERD, depression, hypertension, chronic anemia, CML requiring transfusion, chronic de paz tolic congestive heart failure, gout, and fatty liver disease. Review of Systems: Unobtainable. Physical Examination: Lungs: Clear breath sounds bilaterally. Heart: S1, S2. Abdomen: Soft, benign. Extremities: Minimal edema. Laboratory Data: Hemoglobin 6.3, hematocrit 18.9, WBCs 15, platelet count 101,000. Chemistries show ed sodium 138, potassium 3.1, chloride 100, CO2 of 33, BUN 33, creatinine 0.66, calcium 8.4, phosphor us 2.0. Impression And Plan: Prerenal azotemia, improving creatinine level and azotemia level. Patient has hypokalemia and replacement was ordered. Potassium level improved to 3.7. Monitor magnesium level t preston. Magnesium is within normal limits. Phosphorus level is below normal limits and patient may re quire replacement with phosphorus. Monitor phosphorus level. Adjust treatment accordingly. ROSAMARIA/KATLYN Voice ID: [id number] Report ID: [id number]
[2019-08-17 09:38] LABS: Arterial Blood Carboxyhemoglob 1.9 % (0-1.5); Blood Gas Oxyhemoglobin 96.5 % (94-97); Blood O2 Saturation 99.1 % (92-98.5)
[2019-08-17] MEDS ORDERED: POTASSIUM 25 MEQ EFFERV TAB PO ONE (10:00)
[2019-08-17] MEDS: Levofloxacin500mg IV 500 MG/100 ML BAG IV SCH (12:04)
--- NOTE | 2019-08-17 13:14 | P.PN ---
Subjective Date of Service: 08/17/19 Chief Complaint: Recurrent intubation failed weaning trial Patient is currently intubated. Unable to provide any history. Reintubated after extubation yesterday. Review of Systems is unable to be obtained Physical Examination - Vital Signs Temperature: 97.6 F Blood Pressure: 130/59 Pulse: 71 Respirations: 12 Pulse Ox (%): 100 - Physical Exam General: Other (intubated) HEENT: Atraumatic, Normocephalic Neck: Supple Respiratory: Diminished, Dull Cardiovascular: No edema, Normal pulses, Regular rate/rhythm Gastrointestinal: Normal bowel sounds, Soft and benign, Non-distended Musculoskeletal: No tenderness Integumentary: No rashes, No breakdown, No significant lesion Neurological: Normal tone Lymphatics: No axilla or inguinal lymphadenopathy - Studies Laboratory Tests 08/17/19 08/17/19 05:01 05:01 WBC 14.2 H Hgb 7.7 L* Hct 22.4 L Plt Count 93 L Sodium 137 Potassium 2.9 L* Chloride 102 BUN 24 H Creatinine 0.58 Glucose 87 Assessment And Plan - Plan 1. Acute respiratory failure with hypoxia and hypercapnia. Continue weaning trial, currently on mechanical ventilation. This is secondary to congestive heart failure and pneumonia. Patient also has pleural effusion. 2. Sepsis secondary to Staph aureus, which is methicillin sensitive in the sputum. We will adjust IV antibiotics. Follow up on blood cultures. 3. Acute congestive heart failure exacerbation, diastolic dysfunction. Continue with fluid restriction. 4. Pleural effusion on the left, vmise-xd-enblvnig loculated. Apparently ultrasound from 2019 also showed the effusion. thoracentesis versus surgical procedure. 5. Acute kidney injury, improved, likely secondary to hypotension. Appreciate Nephrology input 6. 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 Continue with 2 units of PRBCs. Patient's hemoglobin was again below [address] Altamirano is on the case. We will give Lasix after each unit. 7. Acute hypotension secondary to sepsis, improving. 8. Pneumonia, right lobe. We will continue with antibiotics secondary to methicillin-susceptible Staphylococcus aureus. 9. Hypokalemia. We will replace and monitor. 10. Hypophosphatemia. We will replace and monitor. 11. Acute metabolic encephalopathy secondary to CO2 narcosis. 12. Major depressive disorder, stable. 13. Gout, stable. 14. Gastroesophageal reflux disease without esophagitis. We will continue PPI. 15. Fatty liver disease. 16. Status post pacemaker. 17. Thrombocytopenia. 18. Deep venous thrombosis prophylaxis. SCDs. No chemical anticoagulation due to anemia. Patient does had a long history of alcohol use. Thrombocytopenia may be related to liver disease. Plan: Continue weaning trials.
[2019-08-17 15:40] LABS: Arterial Blood Carboxyhemoglob 2.1 % (0-1.5); Blood Gas Oxyhemoglobin 88.1 % (94-97); Blood O2 Saturation 90.5 % (92-98.5)
[2019-08-17 17:19] LABS: Magnesium 1.7 mg/dL (1.8-2.4)
--- NOTE | 2019-08-17 18:23 | PN ---
Date of Progress Note: 08/17/2019 Subjective: The patient was extubated yesterday, reintubated because of hypercapnic respiratory fail ure. Objective: General: Awake, on vent with 30% FiO2. Vital Signs: Blood pressure 130/59, pulse of 71, afebrile. Fluid Balance: The patient had good urine output of 2100, negative of 300. Chest: Crackles bilateral base. Heart: S1, S2. Regular. Systolic murmur. Abdomen: Soft, nontender. Extremities: No edema. Laboratory Data: WBC 14.2, H and H of 7.7/22.4, platelets of 93. Sodium 137, potassium 2.9, bicarb 28, BUN 24, creatinine 0.5, calcium 8.5, magnesium of 2. Phosphorus 2. Current Medications: The patient on include: 1.Metoprolol. 2.Levothyroxine. 3.Haloperidol. 4.Lasix after transfusion. 5.Acetazolamide. Assessment And Plan: 1.Acute kidney injury secondary to cardiorenal, recovered, resolved. Still look to me on the over v olume side. I am going to continue with the diuresis. Reviewing the record for the patient, patient had echocardiogram back in 2018. At that time, ejection fraction within normal limits with diastoli c dysfunction. Thus, I am going to add spironolactone to his regimen and will follow up the patient. 2.Hypokalemia. 3.Hypomagnesemia. 4.Hypophosphatemia. 5.We will continue supplement. We will add spironolactone. 6.Hypercapnic respiratory failure. Follow up with Pulmonary. BOBO/KATLYN Voice ID: [id number] Report ID: [id number]
[2019-08-17] MEDS ORDERED: Magnesium Sulfate 2gm IVPB 2 G/50 ML BAG IV ONE (19:07)
[2019-08-17] MEDS: SPIRONOLACTONE 25 MG TABLET PO SCH (21:12)
[2019-08-18] MEDS: FENTANYL CITR 100 MCG/2 ML IV PRN ×3 (02:39→19:34)
[2019-08-18 05:35] LABS: Albumin 2.2 g/dL (3.4-5.0); BUN Blood Urea Nitrogen 22 mg/dL (7-18); Bicarbonate 29 mmol/L (21-32); Glucose Level 103 mg/dL (74-106); Magnesium 2.4 mg/dL (1.8-2.4); Phosphorus 2.9 mg/dL (2.5-4.9); Potassium 4.2 mmol/L (3.5-5.1); Sodium Level 138 mmol/L (136-145)
[2019-08-18 05:51] VITALS: BMI 21.6
[2019-08-18] MEDS: LORazepam 2 MG/ML VIAL IV PRN ×3 (07:25→23:13)
[2019-08-18] MEDS: ARFORMOTEROL TARTRATE 15 MCG/2 ML VIAL.NEB NEB SCH ×2 (08:17→19:50)
[2019-08-18] MEDS: ACETAZOLAMIDE 500 MG IV IV SCH (08:45)
[2019-08-18] MEDS: FAMOTIDINE 20 MG/2 ML VIAL IV SCH ×2 (08:45→20:55)
[2019-08-18] MEDS: POTASSIUM 25 MEQ EFFERV TAB PO SCH ×2 (08:45→20:55)
[2019-08-18] MEDS: WATER FOR INJ,STERILE 10 ML IV PRN (08:45)
[2019-08-18] MEDS: SPIRONOLACTONE 25 MG TABLET PO SCH ×2 (08:46→20:56)
[2019-08-18] MEDS: METOPROLOL TAR 50 MG TAB PO SCH ×2 (08:46→20:56)
[2019-08-18] MEDS: SERTRALINE HCL 50 MG TAB PO SCH (08:46)
--- NOTE | 2019-08-18 10:37 | P.PN ---
Subjective Date of Service: 08/18/19 Chief Complaint: Recurrent intubation failed weaning trial On PS. Awake, following commands. No acute event overnight. Review of Systems is unable to be obtained Physical Examination - Vital Signs Temperature: 98.7 F Blood Pressure: 126/57 Pulse: 74 Respirations: 18 Pulse Ox (%): 94 - Physical Exam General: Other (Intubated) HEENT: Atraumatic, PERRLA Neck: Supple, JVD not distended Respiratory: Diminished, Crackles/rales, Rhonchi/gurgles Cardiovascular: Regular rate/rhythm, Normal S1 S2 Gastrointestinal: Normal bowel sounds, No tenderness Musculoskeletal: No tenderness Integumentary: No rashes Neurological: Other (unable to evaluate) Lymphatics: No axilla or inguinal lymphadenopathy - Studies Laboratory Tests 08/17/19 08/17/19 08/18/19 05:01 Unknown 05:01 RBC 2.38 L D Hgb 7.7 L* Hct 22.4 L pH 7.53 H pCO2 32.6 L pO2 122.0 H ABG O2 Sat (Measured) 99.1 H ABG Carboxyhemoglobin 1.9 H Sodium 138 Potassium 4.2 BUN 22 H Creatinine 0.47 L Magnesium 2.4 D Albumin 2.2 L Imagings Data: IMPRESSION: Left lung base pleural effusion with infiltrate and/ or atelectasis unchanged from comparison. Improved lung volumes overall. This results in improved aeration of the right lung base. ET tube and NG tube remain in good position. Medications List Reviewed: Yes Assessment And Plan - Plan #Acute respiratory failure with hypoxia and hypercapnia. Continue weaning trial , currently on mechanical ventilation. This is secondary to congestive heart failure and pneumonia. Patient also has pleural effusion. #Severe Sepsis secondary to Staph aureus, which is methicillin sensitive in the sputum. We will adjust IV antibiotics. Follow up on blood cultures. #Acute congestive heart failure exacerbation, diastolic dysfunction. Continue with fluid restriction. #Pleural effusion on the left, vmjqv-gg-ddcnweut loculated. Apparently ultrasound from 2019 also showed the effusion. thoracentesis versus surgical procedure. 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 - Dr. Altamirano is on the case. -close monitoring #Pneumonia, right lobe-will continue with antibiotics secondary to methicillin- susceptible Staphylococcus aureus. #Hypokalemia-replace and monitor. #Hypophosphatemia-replace and monitor. #Acute metabolic encephalopathy secondary to CO2 narcosis. - ABG pending #Major depressive disorder, stable. #Gout, stable. #Gastroesophageal reflux disease without esophagitis. We will continue PPI. #Fatty liver disease. #Status post pacemaker. #Thrombocytopenia. #Deep venous thrombosis prophylaxis. SCDs. No chemical anticoagulation due to anemia. Patient does had a long history of alcohol use. Thrombocytopenia may be related to liver disease. Plan: Continue weaning trials.
[2019-08-18 10:47] LABS: Blood Gas Oxyhemoglobin 93.2 % (94-97); Blood O2 Saturation 95.8 % (92-98.5)
[2019-08-18] MEDS: Levofloxacin500mg IV 500 MG/100 ML BAG IV SCH (12:23)
--- NOTE | 2019-08-18 13:00 | P.PN ---
Subjective Date of Service: 08/18/19 Chief Complaint: Respiratory failure No change unable to wean the patient off from the ventilator he still has spondylosis spontaneous tidal volumes as currently on pressure support triggering off the ventilator of change him over to low back up rate Review of Systems is unable to be obtained Physical Examination - Vital Signs Temperature: 98.7 F Blood Pressure: 126/57 Pulse: 74 Respirations: 18 Pulse Ox (%): 94 - Physical Exam General: Alert, Cooperative Respiratory: Clear to auscultation bilaterally, Diminished Cardiovascular: No edema, Regular rate/rhythm - Studies Medications List Reviewed: Yes Assessment & Plan - Problems (Diagnosis) (1) Respiratory failure Current Visit: Yes Status: Acute Plan: Unable to wean and extubate patient has low tidal volumes he is currently on a pressure support of 20 and SIMV backup rate of 7 treating off the ventilator lungs due to low tidal volumes when he was just on pressure support probably due to excessive correction office CO2 which need to be brought up to to his baseline still a little anemic vital signs all reviewed no change in patient's chest x-ray Qualifiers: Chronicity: acute on chronic
[2019-08-18] MEDS: VITAL AF 1,000 ML BOT RTH SCH (20:57)
--- NOTE | 2019-08-18 23:35 | PN ---
Date of Progress Note: 08/18/2019 Subjective: Patient was admitted with hypercapnic respiratory failure. Patient . Physical Examination: Vital Signs: Blood pressure 123/51, pulse of 72, afebrile. Chest: Faint crackles on the left. Heart: S1, S2. Regular. Abdomen: Soft, nontender. Extremities: No edema. Laboratory Data: WBC 14.2, H and H 7.7/22.4, platelets of 93. Sodium 138, potassium 4.2, bicarb 29, BUN 22, creatinine 0.4, calcium 8.5, phosphorus 2.9, magnesium 2.4, albumin 2.2. Current Medications: The patient on include: 1.Levaquin. 2.Metoprolol. 3.Spironolactone 25 b.i.d. 4.Lasix. 5.Diamox. Assessment And Plan: 1.Acute kidney injury secondary to cardiorenal, recovered, resolved. 2.Hypokalemia, hypomagnesemia, hypophosphatemia status post supplement, resolved. I am going to con tinue spironolactone for the time being. 3.Hypercapnic respiratory failure, currently vent dependent. We will continue to follow up with Marly castro. 4.Anemia. I am going to go ahead and send for anemia workup to evaluate if patient needed transfusi on or IV iron and we will follow up. 5.Congestive heart failure. Continue current diuresis, Lasix, and spironolactone. BOBO/KATLYN Voice ID: [id number] Report ID: [id number]
[2019-08-19] MEDS: HALOPERIDOL LACT 5 MG/ML INJ IV PRN ×2 (01:00→20:53)
[2019-08-19] MEDS: LORazepam 2 MG/ML VIAL IV PRN ×3 (03:21→22:46)
[2019-08-19] MEDS: FENTANYL CITR 100 MCG/2 ML IV PRN (04:36)
[2019-08-19 06:02] LABS: Albumin 2.1 g/dL (3.4-5.0); BUN Blood Urea Nitrogen 21 mg/dL (7-18); Bicarbonate 29 mmol/L (21-32); Ferritin 2827.5 ng/mL (26-388); Folic Acid, (Folate) 6.8 ng/mL (3.1-17.5); Glucose Level 125 mg/dL (74-106); Magnesium 1.9 mg/dL (1.8-2.4); Phosphorus 3.1 mg/dL (2.5-4.9); Potassium 4.5 mmol/L (3.5-5.1); Sodium Level 137 mmol/L (136-145); Transferrin 71 mg/dL (200-360)
[2019-08-19] MEDS: ARFORMOTEROL TARTRATE 15 MCG/2 ML VIAL.NEB NEB SCH ×2 (07:40→19:45)
--- NOTE | 2019-08-19 08:50 | P.PN ---
Subjective Date of Service: 08/19/19 Chief Complaint: Respiratory failure No change unable to wean the patient on the ventilator he is currently awake alert low volumes on pressure support ventilation Review of Systems is unable to be obtained Physical Examination - Vital Signs Temperature: 98.5 F Blood Pressure: 104/47 Pulse: 62 Respirations: 11 Pulse Ox (%): 96 - Physical Exam General: Alert, Cooperative Respiratory: Clear to auscultation bilaterally, Diminished Cardiovascular: No edema, Regular rate/rhythm Gastrointestinal: Normal bowel sounds, Soft and benign - Studies Medications List Reviewed: Yes Assessment & Plan - Problems (Diagnosis) (1) Respiratory failure Current Visit: Yes Status: Acute Plan: Admitted with respiratory failure unable to wean will continue with pressure support ventilation awaiting for an LTAC approval continue to wean Qualifiers: Chronicity: acute on chronic
[2019-08-19 08:58] LABS: Absolute Lymphocytes (CBC) 1.4 K/uL (0.7-4.9); Basophils % 0.5 % (0-1.3); Hematocrit 22.4 % (39.6-49.0); Lymphocytes % 12.3 % (15.3-44.8); MPV 10.6 fL (7.6-11.3); RBC Red Blood Cell Count 2.34 M/uL (4.33-5.43)
[2019-08-19] MEDS: WATER FOR INJ,STERILE 10 ML IV PRN (09:28)
[2019-08-19] MEDS: ACETAZOLAMIDE 500 MG IV IV SCH (09:28)
[2019-08-19] MEDS: METOPROLOL TAR 50 MG TAB PO SCH ×2 (09:29→21:30)
[2019-08-19] MEDS: SERTRALINE HCL 50 MG TAB PO SCH (09:29)
[2019-08-19] MEDS: SPIRONOLACTONE 25 MG TABLET PO SCH ×2 (09:29→21:30)
[2019-08-19] MEDS: FAMOTIDINE 20 MG/2 ML VIAL IV SCH ×2 (09:29→21:30)
[2019-08-19] MEDS: POTASSIUM 25 MEQ EFFERV TAB PO SCH ×2 (09:29→21:30)
--- NOTE | 2019-08-19 10:57 | P.PN ---
Subjective Date of Service: 08/19/19 Chief Complaint: Respiratory failure Failed SBT yesterday. Now On PS. arousable. Review of Systems is unable to be obtained Physical Examination - Vital Signs Temperature: 98.5 F Blood Pressure: 128/61 Pulse: 75 Respirations: 11 Pulse Ox (%): 96 - Physical Exam General: Other (Intubated) HEENT: Atraumatic, PERRLA, EOMI Neck: Supple, JVD not distended Respiratory: Diminished, Rhonchi/gurgles Cardiovascular: Regular rate/rhythm, Normal S1 S2 Gastrointestinal: Soft and benign, Hyperactive Musculoskeletal: No contractures Integumentary: No rashes Neurological: Other (Unable to evaluater) Lymphatics: No axilla or inguinal lymphadenopathy - Studies Laboratory Tests 08/18/19 08/19/19 08/19/19 10:33 04:45 08:21 WBC 11.4 H D Hct 22.4 L RDW 22.8 H D Plt Count 101 L Lymphocytes % 12.3 L pH 7.29 L pCO2 62.3 H Sodium 137 Potassium 4.5 BUN 21 H Creatinine 0.48 L Glucose 125 H TIBC 99 L Ferritin 2827.5 H Albumin 2.1 L Medications List Reviewed: Yes Assessment And Plan - Plan #Acute respiratory failure with hypoxia and hypercapnia. Continue weaning trial , currently on mechanical ventilation. This is secondary to congestive heart failure and pneumonia. Patient also has pleural effusion. -repeat CXR #Severe Sepsis secondary to Staph aureus, which is methicillin sensitive in the sputum. -continue levofloxacin #Acute congestive heart failure exacerbation, diastolic dysfunction. Continue with fluid restriction. -will consider lasix once CXR is completed. #Pleural effusion on the left, [id number] loculated. Apparently ultrasound from 2019 also showed the effusion. thoracentesis versus surgical procedure. Defer to calculation clerk -repeat imaging #Acute kidney injury, improved, likely secondary to hypotension. 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 - Dr. Altamirano is on the case. -close monitoring; H&H is dropping, will transfuse if < 7 #Pneumonia, right lobe-will continue with antibiotics secondary to methicillin- susceptible Staphylococcus aureus. #Hypokalemia-replace and monitor. #Hypophosphatemia-replace and monitor. #Acute metabolic encephalopathy secondary to CO2 narcosis. - adjust vent setting #Major depressive disorder, stable. #Gout, stable. #Gastroesophageal reflux disease without esophagitis. We will continue PPI. #Fatty liver disease. #Status post pacemaker. #Thrombocytopenia. #Deep venous thrombosis prophylaxis. SCDs. No chemical anticoagulation due to anemia. Patient does had a long history of alcohol use. Thrombocytopenia may be related to liver disease. Plan: Continue weaning trials. DC to LTAC once accepted Discharge Plan: LTAC
--- NOTE | 2019-08-19 12:53 | RAD REPORT ---
EXAM DESCRIPTION: RAD - Chest Single View - 08/19/2019 12:44 pm CLINICAL HISTORY: fever Chest pain. COMPARISON: Chest Single View dated 08/17/2019; Chest Single View dated 08/16/2019; Chest Single View dated 08/16/2019; Chest Single View dated 08/16/2019 FINDINGS: Portable technique limits examination quality. Bilateral pleural effusions are noted, larger on the left, unchanged. Mild interstitial pulmonary ernst ma is seen. The heart is mildly to moderately enlarged with a dual lead pacer device present. Tip of the ET tube is above the wilfred. Enteric tube tip is in the stomach.
[2019-08-19] MEDS: Levofloxacin500mg IV 500 MG/100 ML BAG IV SCH (13:36)
[2019-08-19 13:38] LABS: Platelet Estimate DECR
[2019-08-19 13:39] LABS: Anisocytosis 2+; Blood Morphology Comment NOTED (NOT SEEN); Hypochromasia 1+
[2019-08-19] MEDS: VITAL AF 1,000 ML BOT RTH SCH (21:00)
--- NOTE | 2019-08-20 00:40 | PN ---
Date of Progress Note: 08/19/2019 History: Patient was admitted with acute kidney injury secondary to cardiorenal. Patient has been r esponding very well. Patient had hypercapnic respiratory failure, vent dependent. Physical Examination: Vital Signs: When I saw the patient, blood pressure of 111/49, pulse of 69, afebrile. General: Patient on vent, awake. Follow command. Chest: Faint crackles. Heart: S1, S2. Regular. Systolic murmur. Abdomen: Soft, nontender. Extremity: No edema. Laboratory Data: WBC 11.4, H and H 7.4 and 22.4. Sodium 137, potassium 4.5, bicarb 29, BUN 21, crea tinine 0.4, calcium 8.3, phos 3.1, magnesium 1.9, TSAT of 99, ferritin 2827. Current Medications: Include, 1.Breathing treatment. 2.Metoprolol. 3.Spironolactone 25 b.i.d. 4.Sertraline. 5.Pepcid. 6.Zofran. 7.Fentanyl. Assessment And Plan: 1.Acute kidney injury secondary to cardiorenal, recovered, resolved currently, normal volume. We wi ll continue spironolactone. 2.Hypokalemia, resolved. Continue spironolactone. 3.Hypomagnesemia, hypophosphatemia, status post supplement. 4.Hypercapnic respiratory failure. Continue vent support. Follow up with Pulmonary. 5.Iron-deficiency anemia. We will monitor. Possibly the patient may need a transfusion. 6.Pneumonia. Chronic obstructive pulmonary disease exacerbation as above. BOBO/KATLYN Voice ID: [id number] Report ID: [id number]
[2019-08-20] MEDS: FENTANYL CITR 100 MCG/2 ML IV PRN ×3 (01:32→19:30)
[2019-08-20 05:08] LABS: Albumin 2.1 g/dL (3.4-5.0); BUN Blood Urea Nitrogen 19 mg/dL (7-18); Bicarbonate 29 mmol/L (21-32); Glucose Level 114 mg/dL (74-106); Magnesium 1.8 mg/dL (1.8-2.4); Phosphorus 2.6 mg/dL (2.5-4.9); Potassium 5.1 mmol/L (3.5-5.1); Sodium Level 134 mmol/L (136-145)
[2019-08-20] MEDS: LORazepam 2 MG/ML VIAL IV PRN ×3 (05:15→23:10)
[2019-08-20] MEDS: POTASSIUM 25 MEQ EFFERV TAB PO SCH ×2 (07:31→21:00)
[2019-08-20] MEDS: ARFORMOTEROL TARTRATE 15 MCG/2 ML VIAL.NEB NEB SCH ×2 (08:07→20:05)
[2019-08-20] MEDS: METOPROLOL TAR 50 MG TAB PO SCH ×2 (09:59→21:36)
[2019-08-20] MEDS: SPIRONOLACTONE 25 MG TABLET PO SCH ×2 (09:59→21:37)
[2019-08-20] MEDS: FAMOTIDINE 20 MG/2 ML VIAL IV SCH ×2 (10:00→21:36)
[2019-08-20] MEDS: SERTRALINE HCL 50 MG TAB PO SCH (10:00)
[2019-08-20] MEDS: ACETAZOLAMIDE 500 MG IV IV SCH (10:00)
[2019-08-20] MEDS: WATER FOR INJ,STERILE 10 ML IV PRN (10:00)
[2019-08-20] MEDS ORDERED: FUROSEMIDE 40 MG/4 ML VIAL IV ONE (10:28)
--- NOTE | 2019-08-20 10:30 | P.PN ---
Subjective Date of Service: 08/20/19 Chief Complaint: Respiratory failure SBT on going, PS 20. No acute event overnight. Review of Systems is unable to be obtained Physical Examination - Vital Signs Temperature: 98.6 F Blood Pressure: 139/54 Pulse: 95 Respirations: 13 Pulse Ox (%): 100 - Physical Exam General: In no apparent distress, Other (respiratory support) HEENT: Atraumatic, Normocephalic Neck: Without JVD or thyroid abnormality Respiratory: Clear to auscultation bilaterally, Diminished Cardiovascular: No edema, Regular rate/rhythm, Normal S1 S2 Gastrointestinal: Normal bowel sounds, No ascites Musculoskeletal: No erythema, No warmth Integumentary: No rashes - Studies Laboratory Tests 08/19/19 08/20/19 04:45 04:17 Sodium 134 L Potassium 5.1 BUN 19 H Creatinine 0.46 L Glucose 114 H TIBC 99 L Transferrin 71 L Transferrin % Sat 99.0 H Ferritin 2827.5 H Medications List Reviewed: Yes Assessment And Plan - Plan #Acute respiratory failure with hypoxia and hypercapnia. Continue weaning trial , currently on mechanical ventilation. This is secondary to congestive heart failure and pneumonia. Patient also has pleural effusion. -repeat CXR with pulm edema and Pleural effusion -on diuretics #Severe Sepsis secondary to Staph aureus, which is methicillin sensitive in the sputum. -continue levofloxacin #Acute congestive heart failure exacerbation, diastolic dysfunction. Continue with fluid restriction. -on diamox and aldactone #Pleural effusion on the left, [id number]-[id number] loculated. Apparently ultrasound from 2019 also showed the effusion. thoracentesis versus surgical procedure. Defer to data clerk -repeat imaging #Acute kidney injury, improved, likely secondary to hypotension. 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 - Dr. Altamirano is on the case. -close monitoring; H&H is dropping, will transfuse if < 7 #Pneumonia, right lobe-will continue with antibiotics secondary to methicillin- susceptible Staphylococcus aureus. #Hypokalemia-replace and monitor. #Hypophosphatemia-replace and monitor. #Acute metabolic encephalopathy secondary to CO2 narcosis. - adjust vent setting #Major depressive disorder, stable. #Gout, stable. #Gastroesophageal reflux disease without esophagitis. We will continue PPI. #Fatty liver disease. #Status post pacemaker. #Thrombocytopenia. #Deep venous thrombosis prophylaxis. SCDs. No chemical anticoagulation due to anemia. Patient does had a long history of alcohol use. Thrombocytopenia may be related to liver disease. Plan: Continue weaning trials. DC to LTAC once accepted
[2019-08-20 10:54] LABS: Basophils % 0.2 % (0-1.3); Hematocrit 23.4 % (39.6-49.0); Lymphocytes % 9.2 % (15.3-44.8); MPV 9.5 fL (7.6-11.3)
--- NOTE | 2019-08-20 12:03 | P.PN ---
Subjective Date of Service: 08/20/19 Chief Complaint: Respiratory failure No change unable to wean from the ventilator yesterday low spontaneous tidal volumes Review of Systems is unable to be obtained Physical Examination - Vital Signs Temperature: 98.6 F Blood Pressure: 131/53 Pulse: 77 Respirations: 15 Pulse Ox (%): 100 - Physical Exam General: Alert, Cooperative Respiratory: Clear to auscultation bilaterally, Diminished, Friction rub Cardiovascular: Regular rate/rhythm - Studies Medications List Reviewed: Yes Assessment & Plan - Problems (Diagnosis) (1) Respiratory failure Current Visit: Yes Status: Acute Plan: Respiratory failure his CO2 is back at his baseline chest x-ray no change labs reviewed chemistries reviewed continue to slow wean off the ventilator using pressure support. Diamox continue with spironolactone Qualifiers: Chronicity: acute on chronic
[2019-08-20] MEDS: Levofloxacin500mg IV 500 MG/100 ML BAG IV SCH (12:18)
--- NOTE | 2019-08-20 12:34 | P.PN ---
Subjective Date of Service: 08/20/19 Chief Complaint: Respiratory failure Subjective: No new changes Subjective pt with hx of CML, CHF , developed resp failure , required intubation , Cr up to 1.5, low UO pt started on IVF today No new changes in clinical status CXR showed B/l effusion , recied lasix will rpt CXR tomorrow Hb 7.4, transfuse to keep Hb >7.0 pending discharge to LTAC Past Medical History: CML, GERD, depression, hypertension, chronic anemia, requiring transfusions, chronic diastolic heart failure, gout, fatty liver disease. Surgical History: Pacemaker placement due to complete heart block, spinal fusion. Allergies: NO KNOWN DRUG ALLERGIES. Social History: Patient is , has 3 children. Retired. Lives with his girlfriend. Denies any nicotine, tobacco use or alcohol use. He uses a walker at home. Family History: No premature coronary artery disease in the family. Allergies No Known Allergies Allergy (Verified 06/30/19 11:25) - Past Medical/Surgical History Diabetic: No -: Hypertension -: CML -: Depression -: Chronic anemia requiring transfusions -: Chronic diastolic CHF -: Gout -: GERD -: Fatty liver -: Pacemaker due to Complete heart block -: myelodyspastic -: Spinal Fusion-2004 -: pacemaker July 2018 -: neck surgery Psychosocial/ Personal History: The patient is . He has 3 children. He lives with a girlfriend. He no longer works. - Family History Father Notes: old age - Social History Smoking Status: Unknown if ever smoked Alcohol use: No CD- Drugs: No Caffeine use: Yes Place of Residence: Home Physical Examination General:(intubated ) HEENT: Atraumatic, EOMI Neck: Supple, Without JVD or thyroid abnormality Respiratory: diminished air entry to the bases Cardiovascular: No edema, Regular rate/rhythm, Normal S1 S2, No rubs, No murmurs Gastrointestinal: Soft and benign, Non-distended, No ascites, No tenderness Musculoskeletal: No swelling Conclusions/Impression: HEATHER due to prerenal azotemia No NSAID or contrast exposure resolved renal dose meds Acute anemia transfuse to keep Hb >7.0 hematology on board High iron Sat Acute resp failure Intubated CHF Chest with effusion and edema lasix X1 today will rpt CXR tomorrow CML hematology on board prognosis guarded Physical Examination - Vital Signs Temperature: 98.6 F Blood Pressure: 131/53 Pulse: 77 Respirations: 15 Pulse Ox (%): 100 - Studies Medications List Reviewed: Yes
[2019-08-20] MEDS: VITAL AF 1,000 ML BOT RTH SCH (13:33)
[2019-08-20 14:04] LABS: Anisocytosis 2+; Blood Morphology Comment NOTED (NOT SEEN); Platelet Estimate ADEQ
[2019-08-21] MEDS: LORazepam 2 MG/ML VIAL IV PRN ×2 (03:35→13:04)
[2019-08-21 04:53] VITALS: O2SAT 99
[2019-08-21 06:05] LABS: Albumin 2.1 g/dL (3.4-5.0); BUN Blood Urea Nitrogen 23 mg/dL (7-18); Bicarbonate 29 mmol/L (21-32); Glucose Level 113 mg/dL (74-106); Magnesium 1.6 mg/dL (1.8-2.4); Potassium 4.6 mmol/L (3.5-5.1); Sodium Level 135 mmol/L (136-145)
[2019-08-21] MEDS ORDERED: MAGNESIUM SULFATE 1 gm IVPB 1 GM/100 ML BAG IV ONE (06:25)
--- NOTE | 2019-08-21 07:24 | RAD REPORT ---
EXAM DESCRIPTION: Ana Laura Single View08/21/2019 6:45 am CLINICAL HISTORY: Device placement endotracheal tube placement IMPRESSION: An endotracheal tube has been inserted with its tip well above the wilfred. A nasogastric tube has its tip well into the stomach
[2019-08-21] MEDS: ARFORMOTEROL TARTRATE 15 MCG/2 ML VIAL.NEB NEB SCH (08:45)
[2019-08-21] MEDS: SPIRONOLACTONE 25 MG TABLET PO SCH (09:31)
[2019-08-21] MEDS: SERTRALINE HCL 50 MG TAB PO SCH (09:31)
[2019-08-21] MEDS: POTASSIUM 25 MEQ EFFERV TAB PO SCH (09:31)
[2019-08-21] MEDS: METOPROLOL TAR 50 MG TAB PO SCH (09:32)
[2019-08-21] MEDS: FAMOTIDINE 20 MG/2 ML VIAL IV SCH (09:34)
[2019-08-21] MEDS: FENTANYL CITR 100 MCG/2 ML IV PRN ×2 (10:06→13:30)
--- NOTE | 2019-08-21 10:14 | P.PN ---
Subjective Date of Service: 08/21/19 Chief Complaint: Respiratory failure unable to wean patient off the ventilator Tried yesterday to wean the patient off the ventilator using pressure support he got tired and number an SIMV was resumed again he is currently alert responsive cooperative on a ventilator low tidal volumes Review of Systems is unable to be obtained Physical Examination - Vital Signs Temperature: 98.9 F Blood Pressure: 119/52 Pulse: 68 Respirations: 12 Pulse Ox (%): 100 - Physical Exam General: Alert, Cooperative Respiratory: Clear to auscultation bilaterally, Diminished Cardiovascular: No edema, Normal S1 S2 - Studies Medications List Reviewed: Yes Assessment & Plan - Problems (Diagnosis) (1) Respiratory failure Current Visit: Yes Status: Acute Plan: Patient admitted with respiratory failure unable to wean accepted to an LTAC labs all reviewed white count is now normal vital signs are stable chest x-ray no change stable to be transferred Qualifiers: Chronicity: acute on chronic
--- NOTE | 2019-08-21 10:32 | P.PN ---
Subjective Date of Service: 08/21/19 Chief Complaint: Respiratory failure unable to wean patient off the ventilator SBT on going, PS 20. No acute event overnight. Physical Examination - Vital Signs Temperature: 98.9 F Blood Pressure: 119/52 Pulse: 68 Respirations: 12 Pulse Ox (%): 100 - Studies Medications List Reviewed: Yes Assessment And Plan - Plan #Acute respiratory failure with hypoxia and hypercapnia. Continue weaning trial , currently on mechanical ventilation. This is secondary to congestive heart failure and pneumonia. Patient also has pleural effusion. -repeat CXR with pulm edema and Pleural effusion -on diuretics #Severe Sepsis secondary to Staph aureus, which is methicillin sensitive in the sputum. -continue levofloxacin #Acute congestive heart failure exacerbation, diastolic dysfunction. Continue with fluid restriction. -on diamox and aldactone #Pleural effusion on the left, [id number] loculated. Apparently ultrasound from 2019 also showed the effusion. thoracentesis versus surgical procedure. Defer to co director -repeat imaging #Acute kidney injury, improved, likely secondary to hypotension. 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 - Dr. Altamirano is on the case. -close monitoring; H&H is dropping, will transfuse if < 7 #Pneumonia, right lobe-will continue with antibiotics secondary to methicillin- susceptible Staphylococcus aureus. #Hypokalemia-replace and monitor. #Hypophosphatemia-replace and monitor. #Acute metabolic encephalopathy secondary to CO2 narcosis. - adjust vent setting #Major depressive disorder, stable. #Gout, stable. #Gastroesophageal reflux disease without esophagitis. We will continue PPI. #Fatty liver disease. #Status post pacemaker. #Thrombocytopenia. #Deep venous thrombosis prophylaxis. SCDs. No chemical anticoagulation due to anemia. Patient does had a long history of alcohol use. Thrombocytopenia may be related to liver disease. Plan: Continue weaning trials. DC to LTAC once accepted
--- NOTE | 2019-08-21 12:19 | P.DS ---
Admission Date: 08/10/19 Discharge Date: 08/21/19 Disposition: RETIREMENT ACUTE CARE FACILITY Discharge Condition: FAIR Reason for Admission: Respiratory failure unable to wean patient off the ventilator Consultations: Climatology Teacher, lifestyle director General Office Dispatcher. Brief History of Present Illness: Discharge diagnosis Acute respiratory failure with hypoxia and hypercapnia Acute decompensated diastolic heart failure. Septic shock likely secondary to MSSA the pneumonia. Acute kidney injury secondary to prerenal azotemia Acute on chronic anemia Healthcare associated pneumonia Hypokalemia Hypomagnesemia Acute metabolic encephalopathy Status post pacemaker Hospital Course: Mr. Freeman is 84-year-old male with past medical history of leukemia, GERD, depression, hypertension, anemia requiring transfusions, diastolic heart failure , fatty liver disease, who presented with significant shortness of breath and difficulty ambulating because of shortness of breath. Patient was at his oncologist's appointment, Dr. Altamirano's office, was found to be very short of breath, had edema of the lower extremities. Initial evaluation found patient to be significantly hypoxic, requiring supplemental oxygen. He was in acute on chronic diastolic heart failure and was initiated on diuretics which he responded to in the 1st 24 hr. Patient however declined and became agitated and proceeded into respiratory arrest, failed BiPAP therapy. Code blue was called and patient was successfully intubated. Patient was evidently in shock given elevated lactic acid, hypotensive and found to have right lobe pneumonia. Patient was also hypercapnic. He was initiated on antibiotics for healthcare associated pneumonia and his sputum culture did grow MSSA. Patient had organ failure with acute kidney injury, evaluated by safety and security officer and now stable. He was successfully weaned and extubated, shortly after, he became hypoxic and required re-intubation. Patient has been unable to wean off the ventilator after multiple spontaneous breathing trials. He has notable pleural effusions likely due to HF. He will be transferred to a long-term acute care for further treatments. Patient was anemic on presentation, required a total of 5 units PRBC to maintain hemoglobin > 7. He had no acute bleeding however patient has a history of CML and currently on treatment. He is stable for transfer to LTAC. His prognosis remains poor. Patient he remains full code. Vital Signs/Physical Exam: Temp Pulse Resp BP Pulse Ox 98.9 F 65 12 100/48 L 100 08/21/19 10:31 08/21/19 11:00 08/21/19 11:00 08/21/19 11:00 08/21/19 10:31 General: Cachectic, Other (Respiratory support) HEENT: Atraumatic, Mucous membr. moist/pink Respiratory: Diminished, Crackles/rales Cardiovascular: Regular rate/rhythm, Normal S1 S2 Gastrointestinal: Normal bowel sounds, No ascites Musculoskeletal: No contractures, No warmth Neurological: Other (Unable to evaluate.) Laboratory Data at Discharge: WBC 10.5 K/uL (4.3-10.9) 08/20/19 10:35 Hgb 7.8 g/dL (13.6-17.9) L* 08/20/19 10:35 Hct 23.4 % (39.6-49.0) L 08/20/19 10:35 Plt Count 127 K/uL (152-406) L D 08/20/19 10:35 PT 16.4 SECONDS (9.5-12.5) H 08/10/19 16:40 INR 1.41 08/10/19 16:40 Sodium 135 mmol/L (136-145) L 08/21/19 05:02 Potassium 4.6 mmol/L (3.5-5.1) 08/21/19 05:02 BUN 23 mg/dL (7-18) H 08/21/19 05:02 Creatinine 0.53 mg/dL (0.55-1.3) L 08/21/19 05:02 Glucose 113 mg/dL (74-106) H 08/21/19 05:02 Phosphorus 4.0 mg/dL (2.5-4.9) D 08/21/19 05:02 Magnesium 1.6 mg/dL (1.8-2.4) L 08/21/19 05:02 Total Bilirubin 1.0 mg/dL (0.2-1.0) 08/17/19 05:01 AST 29 U/L (15-37) 08/17/19 05:01 ALT 24 U/L (12-78) 08/17/19 05:01 Alkaline Phosphatase 72 U/L (45-117) 08/17/19 05:01 Home Medications: Sertraline [Zoloft*] 50 mg PO DAILY 08/11/19 Arformoterol Tartrate [Brovana] 15 mcg NEB BIDRESP vial.neb 08/21/19 Famotidine [Pepcid*] 20 mg IV BID vial 08/21/19 Fentanyl Cit [Sublimaze*] 25 mcg IV Q4HP PRN vial 08/21/19 Furosemide [Lasix 20 MG inj*] 20 mg IV PRBCS PRN vial 08/21/19 Haloperidol Lac [Haldol*] 2 mg IV Q4HP PRN vial 08/21/19 LORazepam [Ativan*] 2 mg IV Q2HP PRN vial 08/21/19 Metoprolol Tartrate [Lopressor*] 25 mg PO BID tab 08/21/19 Ondansetron [Zofran*] 4 mg IV Q4H PRN vial 08/21/19 Pharmacy Consult 1 ea XX DAILYPRN PRN each 08/21/19 Spironolactone [Aldactone*] 25 mg PO BID tab 08/21/19 Diet: npo Activity: Bedrest Followup: Camden Wadsworth MD [ACTIVE - CAN ADMIT] - Gregory Flores MD [ACTIVE - CAN ADMIT] -
[2019-08-21] MEDS: Levofloxacin500mg IV 500 MG/100 ML BAG IV SCH (12:40)
[2019-08-21 15:00] VITALS: BP 150/57; TEMP 97.9
--- NOTE | 2019-08-22 01:18 | PN ---
Date of Progress Note: 08/21/2019 History: The patient was admitted with acute kidney injury secondary to prerenal. Patient developed depletion on his electrolytes. Patient recovered kidney function. Physical Examination: Vital Signs: Blood pressure 102/57, pulse of 62, afebrile. Chest: Crackles in the base. Heart: S1, S2. Regular. Systolic murmur. Abdomen: Soft, nontender. Extremities: No edema. Neurologic: Follow command. Patient on vent. Current Medications: Include, 1.Breathing treatment. 2.Metoprolol. 3.Spironolactone. 4.Zoloft. 5.Pepcid. 6.Zofran. 7.Fentanyl. Laboratory Data: Current lab data for the patient, WBC 10.5, H and H 7.8 and 23.4. Sodium 135, pota ssium 4, bicarb 29, BUN 23, creatinine 0.5, magnesium 1.6, phosphorus 4. Assessment And Plan: 1.Acute kidney injury secondary to cardiorenal, currently euvolemic. We will continue to monitor th e patient. 2.Hypokalemia, response to spironolactone. We will continue supplement. 3.Hypomagnesemia, we will supplement. 4.Hypertension, controlled, optimal. Continue current medication. 5.Hypercapnic respiratory failure. Follow up with Pulmonary. 6.Hypophosphatemia, hypomagnesemia status post supplement, recover. BOBO/KATLYN Voice ID: [id number] Report ID: [id number]
== END 2019-08-21 15:00 | DRG 207 ==
LOC: ER 15:58 → ERHOLD 18:07 → 4TH 20:58 → 3RD-ICU 08-13 13:39
PROVIDERS: ADMIT Family Medicine; ATTEND Hospitalist
PROC: 30233N1 Transfusion of Nonautologous Red Blood Cells into Peripheral Vein, Percutaneous Approach (ICD-10-PCS; 2019-08-10)
PROC: 5A1955Z Respiratory Ventilation, Greater than 96 Consecutive Hours (ICD-10-PCS; principal; 2019-08-14)
PROC: 0BH17EZ Insertion of Endotracheal Airway into Trachea, Via Natural or Artificial Opening (ICD-10-PCS; 2019-08-14)
PROC: 30233N1 Transfusion of Nonautologous Red Blood Cells into Peripheral Vein, Percutaneous Approach (ICD-10-PCS; 2019-08-14)
PROC: 30233N1 Transfusion of Nonautologous Red Blood Cells into Peripheral Vein, Percutaneous Approach (ICD-10-PCS; 2019-08-14)
PROC: 30233N1 Transfusion of Nonautologous Red Blood Cells into Peripheral Vein, Percutaneous Approach (ICD-10-PCS; 2019-08-16)
PROC: 30233N1 Transfusion of Nonautologous Red Blood Cells into Peripheral Vein, Percutaneous Approach (ICD-10-PCS; 2019-08-16)
DX: J96.01 Acute respiratory failure with hypoxia (principal); I50.33 Acute on chronic diastolic (congestive) heart failure; A41.01 Sepsis due to Methicillin susceptible Staphylococcus aureus; R65.20 Severe sepsis without septic shock; J18.9 Pneumonia, unspecified organism; I13.0 Hypertensive heart and chronic kidney disease with heart failure and stage 1 through stage 4 chronic kidney disease, or unspecified chronic kidney disease; N17.9 Acute kidney failure, unspecified; E87.2 Acidosis; J90 Pleural effusion, not elsewhere classified; C92.10 Chronic myeloid leukemia, BCR/ABL-positive, not having achieved remission; J96.02 Acute respiratory failure with hypercapnia; N18.9 Chronic kidney disease, unspecified; E87.6 Hypokalemia; K21.9 Gastro-esophageal reflux disease without esophagitis; F32.9 Major depressive disorder, single episode, unspecified; D64.9 Anemia, unspecified; D69.6 Thrombocytopenia, unspecified; K76.0 Fatty (change of) liver, not elsewhere classified; M10.9 Gout, unspecified; E83.39 Other disorders of phosphorus metabolism; E83.42 Hypomagnesemia; D50.9 Iron deficiency anemia, unspecified; Z95.0 Presence of cardiac pacemaker
CPT/HCPCS: 36415; 36430; 70450; 71045; 76770; 80048; 80053; 80069; 80076; 80202; 81003; 82607; 82728; 82746; 82805; 83540; 83605; 83735; 83880; 84100; 84132; 84466; 84484; 85014; 85018; 85025; 85610; 86850; 86900; 86901; 87040; 87070; 87077; 87186; 87205; 90471; 93005; 94002; 94003; 94760; 96374; 99285; J0330; J0692; J1120; J1200; J1630; J1940; J2250; J2704; J3010; J3370; J3475; J7030; J7040; J7605; P9016; Q2035